=== PATIENT | male | born 1960 | race Caucasian/White ===

== ENCOUNTER → 2021-12-18 12:36 | Outpatient (CLI) | payer MEDICARE, SELFPAY ==
--- NOTE | 2021-12-18 12:39 | CA_ITS ---
FINAL REPORT TECHNIQUE: Color Doppler, duplex Doppler and ramirez scale sonography of the bilateral neck arterial vasculature was performed. Velocities were measured in the carotid arteries. Stenosis evaluation based on the validated velocity criteria. CLINICAL HISTORY: .BILATERAL ATHERECTOMIES JUAN MIGUEL FINDINGS: The peak systolic velocity of the right common carotid artery is 94 cm/s. The peak systolic velocity of the right internal carotid artery is 134 cm/s and end diastolic velocity 30 cm/s. The ICA/CCA ratio is 2.2. A mild-moderate amount of plaque is present. The right external carotid artery is patent. The right vertebral artery is patent with antegrade flow. The peak systolic velocity of the left common carotid artery is 107 cm/s. The peak systolic velocity of the left internal carotid artery is 116 cm/s and end diastolic velocity 32 cm/s. The ICA/CCA ratio is 1.2. A mild-moderate amount of plaque is present. The left external carotid artery is patent.The left vertebral artery is patent with antegrade flow. IMPRESSION: Less than 50% bilateral carotid stenosis. Bilateral patent vertebral arteries with antegrade flow. Reviewed, Interpreted and Dictated by Arsenio Wadsworth III, MD Transcribed by Jazmine Calderon Authenticated and . [facility]
== END ==
PROVIDERS: PCP Internal Medicine Adolescent Medicine; Visit Provider Nurse Practitioner Family
DX: I65.23 Occlusion and stenosis of bilateral carotid arteries (principal)
CPT/HCPCS: 93880

== ENCOUNTER → 2022-01-03 10:30 | Outpatient (CLI) | payer MEDICARE, SELFPAY ==
--- NOTE | 2022-01-03 | CA_ITS ---
APPROVED REPORT Exam: Pharmacologic Technologist: Imelda Donahue, Ht: 6 ft 0 in Wt: 167 lbs BSA: 1.97 m2 HR: 63 bpm BP: 166/71 mmHg Rhythm: NSR, CANNOT R/O OLD SEPTAL SD Indications: SOA,abn EKG Medical History Medical History: HTN, Hyperlipidemia Medications: Aspirin,,,,, Lovastatin,,,,, Vitamin C,,,,, Fish Oil,,,,, Vitamin D3,,,,, Albuterol,,,,, Valsartan,,,,, Pregabalin,,,,, Multivitamin,,,,, Vascepa,,,,, StIOLto,,,,, Allergies: CODEINE, CYCLOBENZAPRINE, STATINS Cardiac Risk Factors: HTN, Hyperlipidemia, FHX of CAD, Smoking Stress Test Details Test: LEXISCAN HR Resting HR: 66 bpm Max Heart Rate (APMHR): 158.063281 bpm Max HR Achieved: 98 bpm Target HR (85% APMHR): 134.850767 bpm % of APMHR: 62.03 Recovery HR: 80 bpm BP Resting BP: 166/71 mmHg Max BP: 166/71 mmHg Recovery BP: 147.0/62.0 mmHg ECG Resting ECG: NSR, CANNOT R/O OLD SEPTAL SD Clinical Exercise duration: 04:01 min Highest Stage Achieved: Exercise capacity: 1.0 METs Stress ECG Conclusion PT HAD BRIED SOA. NO CP. NS ST CHANGES. NON-DIAGNOSTIC LEXISCAN STRESS MYOVIEW IMAGES REPORTED SEPARATELY Test Summary REST 03:36 . . 66 . 166/ 71 . . Stage 1 01:00 . . 88 . . . . Stage 2 01:00 . . 90 . 138/ 62 . . Stage 3 01:00 . . 85 . 128/ 64 . . Stage 4 01:00 . . 83 . 143/ 60 . . Stage 4 01:01 . . 82 . 143/ 60 . Stop exercise at 04:01 RECOVERY 01:00 . . 92 . . . . RECOVERY 02:00 . . 82 . . . . RECOVERY 03:00 . . 77 . 147/ 62 . . RECOVERY 03:21 . . 82 . 147/ 62 . . Electronically signed by : Greg Blanton MD 01/04/2022 09:52:29
--- NOTE | 2022-01-03 10:31 | CA_ITS ---
APPROVED REPORT EXAM: Comprehensive 2D, Doppler, and color-flow Echocardiogram Labor Contract Analyst: Paige Agustin RT(R) Ht: 6 ft 0 in Wt: 167lbs BSA: 1.97 BP: 150/61 mmHg Indications: COPD, smoker, HTN, abn EKG, JUAN MIGUEL bilateral endarterectomies, PAD, peripheral stents. 2D Dimensions LVOT 2.18 cm (M/F) 1.5-2.5 LVEF (Gordon's) 66.90 % M: 52 - 72 LV Volume 79.40 mL M: 62 - 150 LV Volume Index 40.30 mL/m2 M: 34 - 74 LA Volume 29.10 mL LA Volume Index 14.77 mL/m2 (M/F) 16-34 M-Mode Dimensions RVDd 2.41 cm (0.9-2.6) LA Diam 3.83 cm (1.9-4.0) LVDd 5.26 cm (3.5-5.7) Ao Diam 2.81 cm (2.0-3.7) LVDs 4.06 cm (3.5-5.7) IVSd 0.96 cm (0.6-1.1) PWd 0.88 cm (0.6-1.1) EF (Teich) 45.50% FS 22.80% EDV (Teich) 133.00 mL ESV (Teich) 72.50 mL LV Diastology E Decel Time 250.00 (160-240 msec) E/A Ratio 0.91 MED E' 7.30 (< 7 cm/sec) E'/MED E' Ratio 10.82 (>14) LAT E' 7.80 (<10 cm/sec) E/LAT E' Ratio 10.13 (>14) Mitral Valve MV A Velocity 87.00 (40-130 cm/s) E/A Ratio 0.91 MV Decel. Time 250.00 (160-240 ms) Left Ventricle Left atrium is mildly enlarged, left ventricle is normal size mild concentric left ventricular hypertrophy, estimated ejection fraction 55% with no regional wall motion abnormality, grade 1 diastolic dysfunction seen without tissue Doppler evidence of raise left atrial pressure. Right Ventricle Right atrium and right ventricle are normal size and contractility. Aortic Valve Aortic valve is thickened and calcified without aortic stenosis or aortic insufficiency. Mitral Valve Mitral valve is grossly normal, there is trace mitral regurgitation. Tricuspid Valve Tricuspid valve grossly normal, there is trace tricuspid regurgitation, tricuspid regurgitation jet velocity is inadequate for calculation of the right ventricular systolic pressure. Pulmonic Valve Pulmonic valve is poorly visualized. Great Vessels Aortic root is normal size. Inferior vena cava is normal size with normal inspiratory collapse. Pericardium No significant pericardial effusion noted. Conclusion 1. Mildly enlarged left atrium, normal left ventricular size, mild concentric left ventricular hypertrophy, estimated ejection fraction 55% with no regional wall motion abnormality, grade 1 diastolic dysfunction seen without tissue Doppler evidence of raise left atrial pressure. 2. Thickened and calcified aortic valve without aortic stenosis or aortic insufficiency. 3. Trace mitral and tricuspid regurgitation. 4. No significant pericardial effusion noted. 5. Inferior vena cava is normal size with normal inspiratory collapse. Electronically signed by : Greg Blanton MD 01/04/2022 12:24:02
--- NOTE | 2022-01-03 10:31 | US_ITS ---
FINAL REPORT CLINICAL HISTORY: claudication, peripheral stents, current smoker, HTN, hyperlipidemia, bilateral rest pain, PAD. FINDINGS: ANKLE-BRACHIAL PRESSURE INDICES Pressure indices are as follows: RIGHT LOWER EXTREMITY: Ankle-brachial pressure index: 0.74 LEFT LOWER EXTREMITY: Ankle-brachial pressure index: 0.48 CONCLUSION: Mild obstructive peripheral vascular disease of the right lower extremity. Moderate obstructive peripheral vascular disease of the left lower extremity. These results were reported to Orquidea Mccoy APRN by the bulk mail technician at the time of the exam. Reviewed, Interpreted and Dictated by Arsenio Wadsworth III, MD Transcribed by Jazmine Calderon Authenticated and [facility]
--- NOTE | 2022-01-03 11:19 | NM_ITS ---
APPROVED REPORT Exam: Nuclear Stress Test Indication: HTN, HYPERLIPIDEMIA, TOB USE, FM HX., SOB, ABN EKG Patient Location: Outpatient Stress Tech: Imelda Donahue CT Tech:Rafaela Abbott LEONAVivien RT (R)(N)(M) Ht: 6 ft 0 in Wt: 165 lbs HR: 63 bpm BP: 166/71 mmHg BSA: 1.96 m2 TID: 1.12 History: HTN, HYPERLIPIDEMIA, TOB USE, FM HX., SOB, ABN EKG Procedure: Patient received a 0.4 mg of intravenous Lexiscan, resting heart rate 63 bpm, resting blood pressure 166/71 mmHg, with Lexiscan maximum heart rate achived was 90 bpm which is Less than 85 % of the maximum predicted heart rate and blood pressure was 138/62 mmHg. With Lexiscan, patient denied any complaint of chest pain. SOA Electrocardiogram Resting electrocardiogram shows sinus rhythm, with Lexiscan there is less than 1.[address] segment depression noted from the baseline EKG. The EKG portion of the Lexiscan is nondiagnostic. Cardiac Stress and Resting SPECT Images: Cardiac Stress and Resting SPECT images were obtained using technetium 99m Myoview 32.9 mCi stress and 10.05 mCi at rest. Gated SPECT analysis of segmental wall motion and calculation of the ejection fraction also done, prone images were also obtained. Cardiac stress and rest SPECT images show uniform myocardial activity without segmental perfusion abnormality, computer derived ejection fraction is 48% with no regional wall motion abnormality, right ventricle is normal size and contractility. Conclusion: 1. The EKG portion of the Lexiscan is nondiagnostic. 2. No scintigraphic evidence of reversible ischemia seen, computer derived ejection fraction is 48% with no regional wall motion abnormality, right ventricle is normal size and contractility. 3. Normal Lexiscan Myoview study. Electronically signed by : Greg Blanton MD 01/04/2022 09:57:08
== END ==
PROVIDERS: PCP Internal Medicine Adolescent Medicine; Visit Provider Nurse Practitioner
DX: I73.9 Peripheral vascular disease, unspecified (principal); R06.00 Dyspnea, unspecified; R94.31 Abnormal electrocardiogram [ECG] [EKG]
CPT/HCPCS: 78452; 93017; 93306; 93923; A9502; J2785

== ENCOUNTER → 2022-01-11 10:54 | Outpatient (CLI) | payer MEDICARE, SELFPAY ==
[2022-01-11 12:04] LABS: Basophils # 0.1 K/mm3 (0-0.2); Basophils % 0.7 % (0.1-2.0); Eosinophils # 0.3 K/mm3 (0.0-0.4); Hematocrit 43.8 % (42.0-52.0); Hemoglobin 14.3 g/dL (14.1-18.0); Lymphocytes # 2.4 K/mm3 (0.7-4.5); Lymphocytes % 24.3 % (10-50); Mean Corpuscular HGB Conc 32.7 g/dL (31.8-35.4); Mean Corpuscular Volume 94.7 fl (80-94); Mean Platelet Volume 8.2 fl (7.4-10.4); Monocytes # 0.4 K/mm3 (0.1-1.0); Monocytes % 4.3 % (1.7-9.3); Neutrophils # 6.6 K/mm3 (1.8-7.8); Neutrophils % 67.7 % (37.0-80.0); Platelet Count 309 K/mm3 (142-424); Red Blood Count 4.63 M/mm3 (4.60-6.20); Red Cell Distribution Width 14.3 % (11.5-17.5); White Blood Count 9.8 K/mm3 (4.8-10.8)
[2022-01-11 12:54] LABS: Anion Gap 9.5 mEq/L (5-15); Blood Urea Nitrogen 9 mg/dl (9-20); Calcium 9.4 mg/dl (8.4-10.2); Carbon Dioxide 28 mmol/L (22.0-30.0); Chloride 100 mmol/L (98-107); Estimated Glomerular Filt Rate 76 ml/min (>60); GFR (African American) 92 ML/MIN (>60); Glucose 84 mg/dl (74-100); Potassium 4.5 mmoL/L (3.5-5.1); Sodium 133 mmol/L (136-145)
== END ==
PROVIDERS: PCP Internal Medicine Adolescent Medicine; Visit Provider Internal Medicine
DX: Z01.818 Encounter for other preprocedural examination (principal); Z20.822 Contact with and (suspected) exposure to COVID-19
CPT/HCPCS: 36415; 80048; 85025; C9803; U0003; U0005

== ENCOUNTER 2022-01-14 07:22 | Day surgery (SDC) | payer MEDICARE, SELFPAY ==
[2022-01-14] VITALS (41 sets, daily range): BP systolic 94–213; BP diastolic 57–181; PULSE 53–77; RESP 16–18; TEMP 36.5–36.7; O2SAT 94–100; BMI 22.6
--- NOTE | 2022-01-14 | IR_ITS ---
APPROVED REPORT Patient Location: Outpatient PROCEDURES Right femoral arterial access Right femoral artery retrograde angiogram Pigtail catheter in the abdominal aorta Abdominal aortography Bilateral iliofemoral runoff Bare-metal stent deployment to the right common iliac artery Angioplasty to the right external iliac artery INDICATION Kersey claudication class III, Peripheral artery disease, Abnormal ASA Informed consent was obtained prior to the procedure. COMPLICATIONS none Estimated Blood Loss: Less than 10 mls TECHNIQUE 1% lidocaine used anesthetize right groin the right femoral artery was accessed via Salinger technique and a 5 [place] sheath was placed in the right femoral artery. A regular J-wire would not pass through the iliac arteries therefore an advantage wire was advanced. After retrograde angiography of the right femoral artery demonstrated a severe stenosis in the right common iliac artery the 5 [place] sheath was exchanged for Brite tip 6 [place] sheath and therapeutic heparin was administered giving a therapeutic ACT. The pigtail catheter was advanced to the abdominal aorta where abdominal aortography was performed followed by repositioning within bilateral iliofemoral runoff. Following this an 8 mm x 57 mm EV 3 balloon mounted stent was deployed in the right common iliac artery at 12 madan reducing the stenosis. In the external iliac artery there is additional stenoses therefore the same balloon was pulled back and then inflated at 12 madan further post dilating the previous stenoses. After achieving excellent angiographic results apparatus the patient was transferred to the postop putting in stable condition for sheath removal. ANGIOGRAPHIC RESULTS Distal abdominal aorta is stenosed with a 30% eccentric calcified stenosis. Right common iliac artery has an ostial 20 to 30% stenosis which does not have a gradient followed by an additional concentric 70 to 80% stenosis. A stent is identified in the right external iliac artery which is patent in the proximal segment with a mid vessel concentric 50% stenosis. The right common femoral artery is atheromatous with eccentric 30 to 40% stenoses. The right profunda femoris artery is a large widely patent artery. The superficial femoral artery has proximal and mid vessel 50% stenoses with mid vessel 80 and 90% stenoses. The right popliteal artery is patent and provides inline flow to a small posterior tibialis artery anterior tibialis artery and peroneal artery. There appears to be one-vessel runoff into the right foot most likely from the anterior tibialis artery Left common iliac artery has a stent in the proximal segment which is widely patent with minimal in-stent restenosis. The stent extends into the external iliac artery where the stent remains widely patent. The left internal iliac artery is occluded. The left common femoral artery is patent. The left profunda femoris artery is a large widely patent vessel. The right superficial femoral artery is ostially occluded and fills at the level of the popliteal artery via a rich collateral network from the profunda femoris left popliteal artery has mid vessel 50% stenoses and then gives rise to an anterior and posterior tibialis artery and peroneal artery. 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
--- NOTE | 2022-01-14 14:23 | SUR.PHASEII ---
pt scheduled for pt on at 2pm. message relayed to [facility].
--- NOTE | 2022-01-14 19:00 | PC.NURSE ---
PT DOING WELL. TEGADERM TO R FEMORAL DSG CDI, NO DRAINAGE. PT REQUESTING NICOTINE PATCH
--- NOTE | 2022-01-14 21:09 | PC.WOUNDNOTE ---
Entered vital signs based off of post op vital sheet found in room for prior shift.
[2022-01-15] VITALS: BP 146/67; PULSE 84; RESP 16; TEMP 36.6; O2SAT 94
[2022-01-15 04:00] VITALS: BP 149/68; PULSE 83; RESP 16; TEMP 36.6; O2SAT 95
--- NOTE | 2022-01-15 04:17 | PC.NURSE ---
pt has has no c/o pain this shift. right femoral cath site dressing c/d/i. BLE pink and warm +2 pulse strength. he has ambulated to bathroom independently. he remains on RA and has tolerated well. call light within reach, no needs at this time.
[2022-01-15 05:04] VITALS: BMI 21.6
[2022-01-15 06:50] LABS: Basophils # 0.1 K/mm3 (0-0.2); Basophils % 0.8 % (0.1-2.0); Eosinophils # 0.3 K/mm3 (0.0-0.4); Eosinophils % 2.6 % (0.1-12.0); Hemoglobin 14.9 g/dL (14.1-18.0); Lymphocytes # 2.3 K/mm3 (0.7-4.5); Lymphocytes % 22.9 % (10-50); Mean Corpuscular Hemoglobin 30.4 pg (27.0-31.2); Mean Corpuscular Volume 98.2 fl (80-94); Monocytes # 0.6 K/mm3 (0.1-1.0); Monocytes % 5.6 % (1.7-9.3); Neutrophils # 6.8 K/mm3 (1.8-7.8); Neutrophils % 68.1 % (37.0-80.0); Platelet Count 311 K/mm3 (142-424); Red Blood Count 4.89 M/mm3 (4.60-6.20); Red Cell Distribution Width 14.6 % (11.5-17.5); White Blood Count 10.1 K/mm3 (4.8-10.8)
[2022-01-15 06:58] LABS: Alanine Aminotransferase 17 U/L (12-78); Albumin Level 3.8 g/dl (3.5-5.0); Alkaline Phosphatase 151 U/L (38-126); Anion Gap 13.2 mEq/L (5-15); Aspartate Amino Transferase 24 U/L (17-59); Bilirubin,Direct 0.1 mg/dl (0.0-0.4); Bilirubin,Indirect 0.1 mg/dL (0.0-0.9); Bilirubin,Total 0.2 mg/dl (0.2-1.3); Blood Urea Nitrogen 11 mg/dl (9-20); Calcium 8.6 mg/dl (8.4-10.2); Carbon Dioxide 24 mmol/L (22.0-30.0); Chloride 103 mmol/L (98-107); Chol/HDL Ratio 7.4 (1-3.5); Cholesterol 148 mg/dl (140-200); Creatinine Clearance Estimated 65 mL/min (50-200); Estimated Glomerular Filt Rate 61 ml/min (>60); GFR (African American) 74 ML/MIN (>60); Glucose 96 mg/dl (74-100); HDL Cholesterol 20 mg/dl (40-60); Potassium 4.2 mmoL/L (3.5-5.1); Sodium 136 mmol/L (136-145); Total Protein,Serum 6.7 g/dl (6.3-8.2); Triglycerides 209 mg/dl (30-150); VLDL Cholesterol 42 mg/dL (0-40)
[2022-01-15 07:09] LABS: Direct LDL Cholesterol 82.71 mg/dL (100-129)
[2022-01-15 07:25] VITALS: BP 120/59; PULSE 78; RESP 16; TEMP 36.7; O2SAT 95
[2022-01-15 08:00] VITALS: BP 120/59; PULSE 78; RESP 16; TEMP 36.7; O2SAT 94
--- NOTE | 2022-01-15 09:11 | PC.NURSE ---
pt taken out by staff. follow up appt with mirtha made, 01/24/22. home morning meds to be taken at home. instructions given for cath site. no other questions or concerns made by pt.
--- NOTE | 2022-01-15 09:13 | EXP.CARD.PN ---
Subjective Subjective Date: 01/15/22 Time: 08:00 Principal diagnosis: PAD with iliac stenting Interval history: This is a 61-year-old white gentleman who came into the hospital for an outpatient procedure. The patient underwent runoff of the bilateral lower extremities with stenting to the severe right common and external iliac artery and plain old balloon angioplasty. There was also severe disease noted through the right SFA which was small caliber and not suitable for percutaneous nor surgical intervention. He had a chronically occluded left SFA. The patient will remain on aspirin and Plavix for dual antiplatelet therapy. This morning he denies any chest pain or pressure. He denies any shortness of breath or edema. He denies any fever, chills, nausea, vomiting, diarrhea, PND or orthopnea. The patient denies any groin pain and states he feels great. He is ready to go home and get his IV taken out. Runoff shows: Severe right common and external iliac artery disease which was successfully treated with 1 balloon mounted stent and plain old balloon angioplasty(POBA) Severe disease throughout the right superficial femoral artery which is a small caliber vessel and not ideally suitable for percutaneous nor surgical intervention at this time due to its small caliber nature Chronically occluded left superficial femoral artery PLAN 1. Aggressive risk factor modification 2. Avoidance of tobacco products 3. LDL less than 55 to be achieved with high intensity statin 4. Strongly recommend physical therapy in order to improve collateralization of the left SFA occlusion.? Patient has small vessels and is not a good candidate for percutaneous nor surgical intervention.? Given the flush occlusion of the left superficial femoral artery recanalizing the left SFA would be difficult and its patency would be very short-lived given ongoing tobacco usage and the small caliber nature of the vessel 5. Xarelto 2.5 twice daily plus aspirin 81 mg daily Exam Data for Last 24 hours Vital signs and Labs for Last 24 Hours: Temp Pulse Resp BP Pulse Ox 98.1 F 78 16 120/59 L 94 L 01/15/22 08:00 01/15/22 08:00 01/15/22 08:00 01/15/22 08:00 01/15/22 08:00 Laboratory Results - last 24 hr 01/15/22 06:22: WBC 10.1, RBC 4.89, Hgb 14.9, Hct 48.0, MCV 98.2 H, MCH 30.4, MCHC 31.0 L, RDW 14.6, Plt Count 311, MPV 8.0, Neut % (Auto) 68.1, Lymph % (Auto) 22.9, [place] % (Auto) 5.6, Eos % (Auto) 2.6, Baso % (Auto) 0.8, Neut # (Auto) 6.8, Lymph # (Auto) 2.3, [place] # (Auto) 0.6, Eos # (Auto) 0.3, Baso # (Auto) 0.1 01/15/22 06:22: Sodium 136, Potassium 4.2, Chloride 103, Carbon Dioxide 24, Anion Gap 13.2, BUN 11, Creatinine 1.20, Estimated Creat Clear 65, Estimated GFR 61, Est GFR ( Amer) 74, Glucose 96, Calcium 8.6, Total Bilirubin 0.2, Direct Bilirubin 0.1, Conjugated Bilirubin 0.0, Indirect Bilirubin 0.1, Unconjugated Bilirubin 0.0, AST 24, ALT 17, Alkaline Phosphatase 151 H, Total Protein 6.7, Albumin 3.8, Triglycerides 209 H, Cholesterol 148, LDL Cholesterol Direct 82.71 L, VLDL Cholesterol 42 H, HDL Cholesterol 20 L, Cholesterol/HDL Ratio 7.4 H I & O for Last 24 hours: Intake & Output 01/12/22 01/13/22 01/14/22 01/15/22 23:59 23:59 23:59 23:59 Output Total 500 / 500 300 / 300 Balance -500 / -500 -300 / -300 Weight 167 lb 159 lb 9.6 oz Constitutional Constitutional: no acute distress and average body habitus *Routine HEENT Exam Head: Present normocephalic and atraumatic ENT: Present mucous membranes moist *Routine Neck Exam Neck: Present supple, full ROM and normal carotid upstroke; Absent JVD, carotid bruit or lymphadenopathy *Routine Respiratory Exam Respiratory: Present CTA bilaterally, normal respiratory effort, able to speak in complete sentences and symmetric chest movement *Routine Cardiovascular Exam Cardiovascular: Present RRR, Normal S1 and Normal S2; Absent murmur or gallop *Routine Abdominal Exam Abdominal: Present soft and normoactiv
--- NOTE | 2022-01-15 09:14 | P.CONPHA_ITS ---
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
== END 2022-01-15 09:20 | disposition home or self-care (01) ==
LOC: CATHLAB 11:42 → 2ND 13:31 → CATHLAB 13:58 → 2ND 13:59
PROVIDERS: Nurse Practitioner Family; PCP Internal Medicine Adolescent Medicine; Visit Provider Internal Medicine
DX: I70.213 Atherosclerosis of native arteries of extremities with intermittent claudication, bilateral legs (principal); I70.0 Atherosclerosis of aorta; I25.10 Atherosclerotic heart disease of native coronary artery without angina pectoris; I77.1 Stricture of artery; F17.210 Nicotine dependence, cigarettes, uncomplicated; I10 Essential (primary) hypertension; J44.9 Chronic obstructive pulmonary disease, unspecified; E78.5 Hyperlipidemia, unspecified; Z79.899 Other long term (current) drug therapy; Z79.01 Long term (current) use of anticoagulants; Z95.820 Peripheral vascular angioplasty status with implants and grafts
CPT/HCPCS: 36415; 37221; 75625; 80048; 80061; 80076; 85025; 99152; 99153; C1725; C1769; C1876; C1894; J1644; J2720; Q9966

== ENCOUNTER → 2022-05-15 09:35 | Outpatient (CLI) | payer MEDICARE, SELFPAY ==
[2022-05-15 10:46] LABS: Basophils # 0.1 K/mm3 (0-0.2); Basophils % 0.8 % (0.1-2.0); Eosinophils # 0.3 K/mm3 (0.0-0.4); Eosinophils % 4.2 % (0.1-12.0); Hematocrit 47.6 % (42.0-52.0); Lymphocytes # 2.6 K/mm3 (0.7-4.5); Lymphocytes % 32.9 % (10-50); Mean Corpuscular HGB Conc 31.4 g/dL (31.8-35.4); Mean Corpuscular Hemoglobin 30.3 pg (27.0-31.2); Mean Corpuscular Volume 96.5 fl (80-94); Mean Platelet Volume 8.5 fl (7.4-10.4); Monocytes # 0.4 K/mm3 (0.1-1.0); Monocytes % 4.3 % (1.7-9.3); Neutrophils # 4.6 K/mm3 (1.8-7.8); Neutrophils % 57.8 % (37.0-80.0); Platelet Count 409 K/mm3 (142-424); Red Blood Count 4.93 M/mm3 (4.60-6.20); Red Cell Distribution Width 14.9 % (11.5-17.5)
[2022-05-15 11:04] LABS: Alanine Aminotransferase 20 U/L (12-78); Albumin Level 4.7 g/dl (3.5-5.0); Albumin/Globulin Ratio 1.5 (1.1-1.8); Alkaline Phosphatase 105 U/L (38-126); Anion Gap 13.5 mEq/L (5-15); Aspartate Amino Transferase 28 U/L (17-59); Bilirubin,Total 0.5 mg/dl (0.2-1.3); Blood Urea Nitrogen 16 mg/dl (9-20); Calcium 9.2 mg/dl (8.4-10.2); Carbon Dioxide 26 mmol/L (22.0-30.0); Chloride 103 mmol/L (98-107); Chol/HDL Ratio 10.4 (1-3.5); Cholesterol 249 mg/dl (140-200); Estimated Glomerular Filt Rate 56 ml/min (>60); GFR (African American) 67 ML/MIN (>60); Globulin 3.1 g/dL (1.3-3.2); Glucose 99 mg/dl (74-100); HDL Cholesterol 24 mg/dl (40-60); Potassium 4.5 mmoL/L (3.5-5.1); Sodium 138 mmol/L (136-145); Total Protein,Serum 7.8 g/dl (6.3-8.2); Triglycerides 394 mg/dl (30-150); VLDL Cholesterol 79 mg/dL (0-40)
[2022-05-15 11:14] LABS: Direct LDL Cholesterol 131.57 mg/dL (100-129)
[2022-05-15 11:20] LABS: 25-OH Vitamin D, Total 45.1 ng/mL (30-100)
[2022-05-15 11:53] LABS: Vitamin B12 531 pg/mL (239-931)
== END ==
PROVIDERS: PCP Nurse Practitioner Family; Visit Provider Nurse Practitioner Family
DX: Z00.00 Encounter for general adult medical examination without abnormal findings (principal); I10 Essential (primary) hypertension; E78.2 Mixed hyperlipidemia; I73.9 Peripheral vascular disease, unspecified; I65.23 Occlusion and stenosis of bilateral carotid arteries; G25.81 Restless legs syndrome; R53.83 Other fatigue
CPT/HCPCS: 36415; 80053; 80061; 82306; 82607; 85025

== ENCOUNTER → 2022-07-02 14:57 | Outpatient (CLI) | payer MEDICARE, SELFPAY ==
--- NOTE | 2022-07-02 15:07 | XR_ITS ---
FINAL REPORT CLINICAL HISTORY: sciatica and neck pain FINDINGS: Please note these studies were ordered on July 02, 2022 and submitted for interpretation on July 04, 2022. CERVICAL SPINE Five views of the cervical spine were obtained. There is no acute fracture. There is anterolisthesis of C4 on C5 with very mild retrolisthesis of C5 on C6, likely degenerative. There is multilevel disc space narrowing with osteophyte formation which is most pronounced at C5-C6. There are surgical clips in the neck bilaterally. IMPRESSION: Malalignment as above with multilevel disc space narrowing and osteophyte formation. LUMBAR SPINE Four views of the lumbar spine were obtained. There is no acute fracture. There is no malalignment. There is multilevel degenerative disc disease which is most pronounced at L1-2 and L2-3. Vascular stents are noted in the iliac arteries. IMPRESSION: Multilevel degenerative disc disease as above. Reviewed, Interpreted and Dictated by Carmelita Garza MD Transcribed by Jazmine Calderon Authenticated and [facility]
== END ==
LOC: RAD 14:58
PROVIDERS: PCP Nurse Practitioner Family; Visit Provider Nurse Practitioner Family
DX: M54.2 Cervicalgia (principal); M54.32 Sciatica, left side
CPT/HCPCS: 72084

== ENCOUNTER 2022-08-09 23:35 | Emergency (ER) | payer MEDICARE, SELFPAY ==
[2022-08-09 23:36] VITALS: BP 212/88; PULSE 85; RESP 18; TEMP 36.6; O2SAT 99; BMI 22.6
--- NOTE | 2022-08-09 23:39 | ECG_ITS ---
APPROVED REPORT Exam: Resting ECG HR:72 bpm ECG Measurements Heart Rate 72 AXES WI 139 P 70 QRSd 102 QRS 79 QT 355 T 91 QTc 380 Conclusion SINUS RHYTHM SEPTAL MYOCARDIAL INFARCTION , OF INDETERMINATE AGE [40+ ms Q WAVE IN V1/V2] ABNORMAL ECG UNCONFIRMED REPORT Electronically signed by : Sung Drake MD 08/10/2022 20:15:37
--- NOTE | 2022-08-09 23:47 | XR_ITS ---
PROCEDURE INFORMATION: Exam: XR Chest Exam date and time: 08/09/2022 11:51 PM Age: 62 years old Clinical indication: Pain; Chest pressure; Additional info: Chest pain TECHNIQUE: Imaging protocol: Radiologic exam of the chest. Views: 2 views. COMPARISON: CR XR MULTIPLE SPINE 6+V 07/02/2022 3:14 PM FINDINGS: Lungs: Question mild hyperexpansion and hyperlucency with mild diaphragmatic flattening suggesting possible COPD. Pulmonary vasculature grossly normal. No gross pulmonary infiltrates or edema pattern. Mild linear scarring or atelectasis in the right perihilar region. Pleural spaces: No pleural effusion. No pneumothorax. Heart/Mediastinum: Heart size normal. No tracheal/mediastinal shift. Bones/joints: No acute osseous abnormalities are identified. IMPRESSION: 1. No acute thoracic process. 2. Suspect COPD.
[2022-08-09 23:54] LABS: Basophils # 0.1 K/mm3 (0-0.2); Basophils % 0.6 % (0.1-2.0); Eosinophils # 0.5 K/mm3 (0.0-0.4); Eosinophils % 5.3 % (0.1-12.0); Hematocrit 44.4 % (42.0-52.0); Hemoglobin 14.1 g/dL (14.1-18.0); Lymphocytes % 46.4 % (10-50); Mean Corpuscular HGB Conc 31.9 g/dL (31.8-35.4); Mean Corpuscular Hemoglobin 30.7 pg (27.0-31.2); Mean Corpuscular Volume 96.2 fl (80-94); Mean Platelet Volume 7.6 fl (7.4-10.4); Monocytes # 0.4 K/mm3 (0.1-1.0); Monocytes % 4.8 % (1.7-9.3); Neutrophils # 3.7 K/mm3 (1.8-7.8); Neutrophils % 42.9 % (37.0-80.0); Platelet Count 300 K/mm3 (142-424); Red Blood Count 4.61 M/mm3 (4.60-6.20); Red Cell Distribution Width 14.4 % (11.5-17.5); White Blood Count 8.7 K/mm3 (4.8-10.8)
[2022-08-09 23:57] LABS: Chloride 104 mmol/L (98-107)
[2022-08-10] VITALS (9 sets, daily range): BP systolic 167–201; BP diastolic 67–84; PULSE 62–74; RESP 14–20; TEMP 36.6; O2SAT 95–99
[2022-08-10] LABS: Alanine Aminotransferase 18 U/L (12-78); Albumin Level 4.2 g/dl (3.5-5.0); Alkaline Phosphatase 115 U/L (38-126); Aspartate Amino Transferase 27 U/L (17-59); Bilirubin,Direct 0.1 mg/dl (0.0-0.4); Bilirubin,Indirect 0.4 mg/dL (0.0-0.9); Bilirubin,Total 0.5 mg/dl (0.2-1.3); Bilirubin,Unconjugated 0.3 mg/dL (0.0-1.1); Blood Urea Nitrogen 13 mg/dl (9-20); Calcium 8.9 mg/dl (8.4-10.2); Carbon Dioxide 25 mmol/L (22.0-30.0); Creatinine Clearance Estimated 68 mL/min (50-200); Estimated Glomerular Filt Rate 61 ml/min (>60); GFR (African American) 74 ML/MIN (>60); Glucose 105 mg/dl (74-100); Lipase 133 U/L (23-300); Sodium 132 mmol/L (136-145); Total Protein,Serum 7.3 g/dl (6.3-8.2)
--- NOTE | 2022-08-10 | PC.NURSE ---
pt going to xray
--- NOTE | 2022-08-10 00:03 | PC.NURSE ---
pt back in room
[2022-08-10 00:30] LABS: Troponin I < 0.01 ng/ml (0.00-0.034)
--- NOTE | 2022-08-10 00:45 | CT_ITS ---
PROCEDURE INFORMATION: Exam: CT Abdomen And Pelvis With Contrast Exam date and time: 08/10/2022 1:03 AM Age: 62 years old Clinical indication: Abdominal pain; Epigastric; Additional info: Epigastric pain with nausea and HX pvd, no bm 4 da TECHNIQUE: Imaging protocol: Computed tomography of the abdomen and pelvis with contrast. Radiation optimization: All CT scans at this facility use at least one of these dose optimization techniques: automated exposure control; mA and/or kV adjustment per patient size (includes targeted exams where dose is matched to clinical indication); or iterative reconstruction. Contrast material: ISOVUE; Contrast volume: 75 ml; Contrast route: IV; REPORTING DATA: Count of CT and Cardiac NM exams in prior 12 months: This patient has received 0 known CTs and 0 known cardiac nuclear medicine studies in the 12 months prior to the current study. COMPARISON: CR XR CHEST 2V 08/09/2022 11:51 PM FINDINGS: Lungs: Mild atelectasis in the lung bases. Heart: Heart size normal. Mediastinal space: The visualized distal esophagus is largely contracted without gross abnormality. Liver: Granulomatous calcifications in the liver. Normal contour. No mass lesions. No intrahepatic biliary ductal dilatation. Gallbladder and bile ducts: Normal. No calcified stones. No ductal dilation. Pancreas: Normal. No inflammatory changes or ductal dilation. Spleen: Granulomatous calcifications in the spleen without acute splenic abnormality. Adrenal glands: Normal. No adrenal mass. Kidneys and ureters: Mild bilateral symmetrical perinephric stranding which is nonspecific and age indeterminate. This may relate to perirenal scarring or edema. Clinical/laboratory correlation is recommended to exclude evidence of medical renal disease. No hydronephrosis or hydroureter. No urinary tract stones are identified. There are bilateral renal cortical lesions demonstrating low density values and circumscribed margins favoring simple renal cysts for which no further imaging evaluation is required. Stomach and bowel: The stomach is unremarkable. There is mild bowel wall thickening and adjacent stranding involving the 2nd portion of the duodenum suspicious for mild changes of duodenitis. No ulcer crater. No bowel obstruction or perforation. The remainder of the small bowel is nondilated without acute abnormality. There is a moderate amount of stool distributed throughout the colon suggesting constipation. Mild colonic diverticulosis without diverticulitis. Appendix: The appendix is normal in caliber and demonstrates no evidence of appendicitis. Intraperitoneal space: No free fluid or air. Vasculature: Moderate mixed calcific plaque in the abdominal aorta and bilateral iliac vessels with bilateral iliac stents in place. The stents are patent left SFA proximal segment is small and nonenhancing, favoring changes of chronic occlusion. Severe celiac artery origin stenosis estimated at 80-90% due to ostial mixed plaque. Moderate mixed plaque in the post ostial SMA involving a 2 cm segment demonstrating moderate-severe stenosis estimated at 70%. Lymph nodes: No adenopathy. Urinary bladder: The urinary bladder is moderately distended but otherwise unremarkable. Reproductive: Mildly enlarged prostate. Bones/joints: No acute osseous abnormalities. Soft tissues: Small fatty umbilical hernia and small fatty left inguinal hernia. No evidence of associated bowel herniation or strangulation. IMPRESSION: 1. Mild changes of duodenitis involving the 2nd portion of the duodenum. No evidence of ulcer crater, perforation, or bowel obstruction. 2. Moderate colonic s
--- NOTE | 2022-08-10 02:32 | PC.NURSE ---
Patient states that both his indigestion and nausea is better. States his symptoms have resolved.
[2022-08-10 02:55] LABS: Troponin I < 0.01 ng/ml (0.00-0.034)
--- NOTE | 2022-08-10 03:04 | HMH.EDCP ---
Discharge Plan Disposition Patient Disposition: Home, Self-Care Prescriptions Prescriptions: New pantoprazole [Protonix] 40 mg tablet,delayed release (DR/EC) 40 mg PO DAILY 28 Days Qty: 28 0RF No Action valsartan 160 mg tablet 160 mg PO DAILY Stiolto Respimat 2.5-2.5 mcg/actuation mist 2 puff IH DAILY albuterol sulfate 90 mcg/actuation HFA aerosol inhaler 2 puff IH ONCE PRN (Reason: breathing problems) aspirin 81 mg capsule 81 mg PO DAILY ascorbic acid (vitamin C) 500 mg capsule 500 mg PO DAILY cholecalciferol (vitamin D3) 50 mcg (2,000 unit) capsule 50 mcg PO DAILY multivitamin Tablet 1 tab PO DAILY rd-1-[id number]-[id number] oil-vit D3 120 mg-180 mg -1,000 unit capsule 1 cap PO DAILY Referrals Follow up/Referrals: Kimo Craft MD [Staff Physician] - See instructions Provider,MD Jaron [Primary Care Provider] - See instructions Clinical Impressions Clinical Impression: Hypertension, COPD (chronic obstructive pulmonary disease), Smoker, PAD (peripheral artery disease), Mesenteric angina, Celiac artery stenosis, Superior mesenteric artery stenosis, Duodenitis Instructions Patient Instructions: Peripheral Artery Disease Discharge ED Provider: [place] (ED)Brijesh Chest Pain HPI General Chief Complaint: Chest Pain Stated Complaint: midsternal burning in chest for 1 wk Time Seen by Provider: 08/10/22 02:00 Mode of Arrival: Ambulatory Source of Information: Patient and Medical Record Limitations: No Limitations Description of Symptoms (Recalled from ER Triage Doc. by RN): Pt arrives to ED with c/o chest/epigastric pain along with being short of breath for approx 1 week History of Present Illness HPI narrative: over the last week has epigastric type pain- aakash after meals - has known pad and uses tob only med is asa and valsartan complaint: chest pain indicative of cardiac Onset (ago): day(s) Duration: intermittent Activity at onset: during rest Pain location: epigastric Severity: moderate Risk Factors for CAD: Hypertension, Family Hx of CAD and Smoking Treatments prior to or on arrival for Cardiac Chest Pain: none THOMPSON Score for Non-Stemi Age of Patient: 60-69 years old Heart Rate: 50-69 bpm Systolic Blood Pressure: 160-199 mmHg Serum Creatinine: 1.20-1.59 mg/dl CHF Killip Class: I-No CHF Other Risk Factors: None Non-Stemi Risk Score: 81 Risk Stratification: 1-108 = Low Risk Related Data Home Medications Medication Instructions Recorded Confirmed albuterol sulfate 90 mcg/actuation 2 puff inhalation ONCE PRN 12/24/21 08/10/22 aerosol inhaler breathing problems ascorbic acid (vitamin C) 500 mg 500 mg PO DAILY . 12/24/21 08/10/22 capsule aspirin 81 mg capsule 81 mg PO DAILY . 12/24/21 08/10/22 cholecalciferol (vitamin D3) 50 50 mcg PO DAILY Supplement 12/24/21 08/10/22 mcg (2,000 unit) capsule multivitamin 1 tab PO DAILY . 12/24/21 08/10/22 omega-3-dha 120 mg-epa 180 mg-fish 1 cap PO DAILY . 12/24/21 08/10/22 oil-vitamin D3 1,000 unit capsule tiotropium 2.5 mcg-olodaterol 2.5 2 puff inhalation DAILY . 12/24/21 08/10/22 mcg/actuation mist for inhalation (Stiolto Respimat) valsartan 160 mg tablet 160 mg PO DAILY . 12/24/21 08/10/22 Previous Rx's Medication Instructions Recorded pantoprazole 40 mg tablet,delayed 40 mg PO DAILY 4 weeks #28 tabs 08/10/22 release (Protonix) Allergies Allergy/AdvReac Type Severity Reaction Status Date / Time codeine AdvReac Verified 07/25/22 10:19 cyclobenzaprine AdvReac Verified 07/25/22 10:19 [From Flexeril] Xrmvudy-[id number]-[id number] Reductase AdvReac Verified 07/25/22 10:19 Inhibitor PFSH [facility] Disclaimer: The information contained in this section may have been updated after the patient was seen, as this information can be updated by other users. Medical History COPD (chronic obstructive pulmonary disease) Coronary artery calcification seen on CAT scan Hyperlipidemia
== END 2022-08-10 03:54 | disposition home or self-care (01) ==
PROVIDERS: Emergency Provider Emergency Medicine; PCP Nurse Practitioner Family
DX: I73.9 Peripheral vascular disease, unspecified (principal); K55.1 Chronic vascular disorders of intestine; I77.4 Celiac artery compression syndrome; K29.80 Duodenitis without bleeding; R07.89 Other chest pain; J44.9 Chronic obstructive pulmonary disease, unspecified; I10 Essential (primary) hypertension; F17.210 Nicotine dependence, cigarettes, uncomplicated; R94.31 Abnormal electrocardiogram [ECG] [EKG]
CPT/HCPCS: 71046; 74177; 80048; 80076; 83690; 84484; 85025; 93005; 96361; 96374; 96375; 99285; J2405; Q9967

== ENCOUNTER 2022-08-14 07:19 | Day surgery (SDC) | payer MEDICARE, SELFPAY ==
[2022-08-14] VITALS (14 sets, daily range): BP systolic 117–156; BP diastolic 53–80; PULSE 52–63; RESP 16–18; TEMP 36.5–36.9; O2SAT 94–99; BMI 22.6
--- NOTE | 2022-08-14 07:12 | IR_ITS ---
APPROVED REPORT Patient Location: Outpatient PROCEDURES Selective engagement of the celiac artery Selective celiac artery angiogram Bare-metal stent deployment to the ostial proximal celiac artery INDICATION Celiac artery stenosis, Symptomatic mesenteric ischemia, Informed consent was obtained prior to the procedure. COMPLICATIONS None Estimated Blood Loss: Less than 10 mls TECHNIQUE One percent lidocaine used to anesthetize the right anterior aspect of the wrist. The right radial artery was accessed via the Seldinger technique. A 6 Hungarian sheath was placed in the right radial artery. 150 mg magnesium sulfate, 800 mcg of nitroglycerin, 1mg Lidocaine and 5000 U Heparin were given through the arterial sheath. A 110 cm Poppa catheter was used to perform selective engagement of the celiac artery. Once the severe stenosis was identified therapeutic Was administered giving a therapeutic ACT and a 300 cm Choice PT extra-support wire was placed into the celiac artery. A 7 mm x 15 mm Herculink stent was deployed at 14 madan and then postdilated at 24 madan using the same balloon. Excellent angiographic results were obtained with severe stenosis being reduced to 0% with 1 bare-metal stent at the end of the procedure the apparatus was removed the sheath was removed and hemostasis was achieved using TR banding patient was transferred to the postop putting in stable condition ANGIOGRAPHIC RESULTS Celiac artery has an ostial concentric 90% stenosis IMPRESSION Severe to critical celiac artery stenosis Successful stenting of the celiac artery severe to critical disease reduced to 0% with wire and bare-metal balloon mounted stent PLAN 1. Dual antiplatelet therapy for 1 month then discontinue Plavix 2. If patient continues to experience persistent symptoms we will consider evaluating the superior mesenteric artery. Given the severity and critical stenosis nature of the stenosis this is almost certainly the etiology for patient's symptoms Electronically signed by : Kimo Craft MD 08/14/2022 15:02:05
--- NOTE | 2022-08-14 13:07 | P.CONPHA_ITS ---
PHA Cement Tester Assistant Discharge Med Teacher Physically Impaired: Karla Gavin Michaud has received discharge medication counseling on the following medications: ASPIRIN 81 MG DAILY CLOPIDOGREL 75 MG DAILY BISOPROLOL 10 MG DAILY VALSARTAN 160 MG DAILY PATIENT WITH ADVERSE REACTION TO STATINS IN THE PAST. RECOMMENDED PATIENT DISCUSS LEQVIO WITH PROVIDER.
[2022-08-14 13:50] LABS: CATHL Activated Clotting Time 264 SEC (74-125)
== END 2022-08-14 13:30 | disposition home or self-care (01) ==
PROVIDERS: PCP Nurse Practitioner Family; Visit Provider Internal Medicine
DX: I77.1 Stricture of artery (principal); I25.84 Coronary atherosclerosis due to calcified coronary lesion; F17.210 Nicotine dependence, cigarettes, uncomplicated; Z79.899 Other long term (current) drug therapy; Z79.02 Long term (current) use of antithrombotics/antiplatelets; I25.10 Atherosclerotic heart disease of native coronary artery without angina pectoris; J44.9 Chronic obstructive pulmonary disease, unspecified; I10 Essential (primary) hypertension
CPT/HCPCS: 37236; 85347; 99152; 99153; C1725; C1769; C1876; J1644; Q9967

== ENCOUNTER 2022-08-18 10:03 | Inpatient (IN) | payer MEDICARE, SELFPAY ==
[2022-08-18] VITALS (14 sets, daily range): BP systolic 83–161; BP diastolic 41–59; PULSE 59–77; RESP 16–22; TEMP 36.5–37.2; O2SAT 94–100; BMI 22.6; BMI 22.1
--- NOTE | 2022-08-18 10:16 | CT_ITS ---
PROCEDURE INFORMATION: Exam: CTA Abdomen and Pelvis With Contrast Exam date and time: 08/18/2022 11:16 AM Age: 62 years old Clinical indication: Other: Blood in stool; Patient HX: PT had stent placed last week; Additional info: Concern for mesenteric ischemia S/P stenting TECHNIQUE: Imaging protocol: Computed tomographic angiography of the abdomen and pelvis with contrast. 3D rendering (Not supervised by radiologist): MIP and/or 3D reconstructed images were created by the technologist. Radiation optimization: All CT scans at this facility use at least one of these dose optimization techniques: automated exposure control; mA and/or kV adjustment per patient size (includes targeted exams where dose is matched to clinical indication); or iterative reconstruction. Contrast material: ISOVUE; Contrast volume: 100 ml; Contrast route: INTRAVENOUS (IV); REPORTING DATA: Count of CT and Cardiac NM exams in prior 12 months: This patient has received 2 known CTs and 0 known cardiac nuclear medicine studies in the 12 months prior to the current study. COMPARISON: CT ABDOMEN PELVIS W CON 08/10/2022 1:03 AM FINDINGS: Aorta: Moderate to severe atherosclerotic calcification. No aortic aneurysm. No aortic dissection. Celiac trunk and mesenteric arteries: Interval placement of celiac artery stent. Stent appears patent with celiac artery distal to the stent well opacified. Moderate to severe stenosis of the proximal superior mesenteric artery (approximately 70%), as seen on previous exam. Renal arteries: No occlusion or significant stenosis on the right. Short-segment moderate to high-grade stenosis at the left renal artery ostium. Iliac/femoral arteries: Stents evident within both common iliac and external iliac arteries. Occlusion of the left femoral artery again noted. Left profunda patent. Liver: No mass. Gallbladder and bile ducts: Unremarkable. No calcified stones. No ductal dilation. Pancreas: Unremarkable. No mass. No ductal dilation. Spleen: Unremarkable. No splenomegaly. Adrenal glands: Unremarkable. No mass. Kidneys and ureters: Stable mild and symmetrical perinephric stranding. No solid mass. No hydronephrosis. Stomach and bowel: Unremarkable. No obstruction. No mucosal thickening. Appendix: No evidence of appendicitis. Intraperitoneal space: No CT evidence of mesenteric ischemia. Lymph nodes: Unremarkable. No enlarged lymph nodes. Urinary bladder: Unremarkable. No mass. Reproductive: Unremarkable as visualized. Bones/joints: No acute fracture. Soft tissues: Unremarkable. IMPRESSION: 1. Interval placement of celiac artery stent. Stent appears patent with celiac artery distal to the stent well opacified. 2. Moderate to severe stenosis of the proximal superior mesenteric artery (approximately 70%), as seen on previous exam. 3. No CT evidence of mesenteric ischemia. 4. Stents evident within both common iliac and external iliac arteries. Occlusion of the left femoral artery again noted. Left profunda patent.
--- NOTE | 2022-08-18 10:16 | CT_ITS ---
PROCEDURE INFORMATION: Exam: CTA Chest With Contrast Exam date and time: 08/18/2022 11:16 AM Age: 62 years old Clinical indication: Shortness of breath and other: Blood in stool; Prior surgery; Surgery date: 3-7 days post-operative; Surgery type: Stent placed last week; Additional info: Chest pain--concern for mesenteric ischemia S/P stenting TECHNIQUE: Imaging protocol: Computed tomographic angiography of the chest with contrast. 3D rendering (Not supervised by radiologist): MIP and/or 3D reconstructed images were created by the technologist. Radiation optimization: All CT scans at this facility use at least one of these dose optimization techniques: automated exposure control; mA and/or kV adjustment per patient size (includes targeted exams where dose is matched to clinical indication); or iterative reconstruction. Contrast material: ISOVUE; Contrast volume: 100 ml; Contrast route: INTRAVENOUS (IV); REPORTING DATA: Count of CT and Cardiac NM exams in prior 12 months: This patient has received 2 known CTs and 0 known cardiac nuclear medicine studies in the 12 months prior to the current study. COMPARISON: CR XR CHEST 2V 08/09/2022 11:51 PM FINDINGS: Pulmonary arteries: Normal. No pulmonary emboli. Aorta: Unremarkable. No aortic aneurysm. No aortic dissection. Lungs: Unremarkable. No consolidation. No masses. Pleural spaces: Unremarkable. No pneumothorax. No pleural effusion. Heart: Unremarkable. No cardiomegaly. No pericardial effusion. Lymph nodes: Unremarkable. No enlarged lymph nodes. Bones/joints: Unremarkable. No acute fracture. Soft tissues: Unremarkable. Other findings: Previous granulomatous exposure. IMPRESSION: No acute findings.
--- NOTE | 2022-08-18 10:21 | HMH.EDGENADL ---
Discharge Plan Disposition Patient Disposition: Admitted As Inpatient Clinical Impressions Clinical Impression: Acute upper GI bleed Discharge ED Provider: Glen Melissa General Adult HPI General Chief complaint: GI Bleed Stated complaint: postop08/14, stool is black, nausea, dizzy,abd pain Time Seen by Provider: 08/18/22 10:10 History of Present Illness HPI narrative: Patient is a 62-year-old male with past medical history of recent stenting for superior mesenteric artery stenosis who presents with concern for mild abdominal pain and melena. He reports that he has been having some pain postoperatively but that his abdominal pain has mildly improved since Friday. He says that he decided to come in today because he started to have melena and he was concerned that something may be wrong with his recent surgery. He was recently started on Plavix. He says that he is a little bit nauseous. Denies any syncopal events. Denies any shortness of breath. Does complain of some epigastric pain intermittently. He did have a CT recently that did show some ulcerations in the second part of the duodenum. Related Data Home Medications Medication Instructions Recorded Confirmed albuterol sulfate 90 mcg/actuation 2 puff inhalation ONCE PRN 12/24/21 08/14/22 aerosol inhaler breathing problems ascorbic acid (vitamin C) 500 mg 500 mg PO DAILY Supplement 12/24/21 08/18/22 capsule cholecalciferol (vitamin D3) 50 50 mcg PO DAILY Supplement 12/24/21 08/18/22 mcg (2,000 unit) capsule multivitamin 1 tab PO DAILY Supplement 12/24/21 08/18/22 omega-3-dha 120 mg-epa 180 mg-fish 1 cap PO DAILY Supplement 12/24/21 08/18/22 oil-vitamin D3 1,000 unit capsule tiotropium 2.5 mcg-olodaterol 2.5 2 puff inhalation DAILY COPD 12/24/21 08/18/22 mcg/actuation mist for inhalation (Stiolto Respimat) valsartan 160 mg tablet 160 mg PO DAILY High blood pressure 08/12/22 08/18/22 bisoprolol fumarate 10 mg tablet 10 mg PO DAILY High blood pressure 08/14/22 08/18/22 pantoprazole 40 mg tablet,delayed 40 mg PO DAILY Reflux/Acid reflux 04/12/23 04/16/23 release (Protonix) aspirin 81 mg tablet,delayed 81 mg PO DAILY Heart disease 08/18/22 08/18/22 release atorvastatin 20 mg tablet 20 mg PO HS Cholesterol 08/18/22 08/18/22 clopidogrel 75 mg tablet (Plavix) 75 mg PO DAILY Blood thinner 08/18/22 08/18/22 gabapentin 300 mg capsule 300 mg PO HS Restless leg 08/18/22 08/18/22 Previous Rx's Medication Instructions Recorded promethazine 25 mg tablet 25 mg PO Q12H PRN nausea and 08/12/22 vomiting #30 tabs Allergies Allergy/AdvReac Type Severity Reaction Status Date / Time codeine AdvReac Verified 08/12/22 09:58 cyclobenzaprine AdvReac Verified 08/12/22 09:58 [From Flexeril] Bjhrzqu-KBP-CkA Reductase AdvReac Verified 08/12/22 09:58 [facility] Disclaimer: The information contained in this section may have been updated after the patient was seen, as this information can be updated by other users. Medical History COPD (chronic obstructive pulmonary disease) Coronary artery calcification seen on CAT scan Hyperlipidemia Hypertension PAD (peripheral artery disease) Smoker Surgical History S/P insertion of iliac artery stent Social History Smoking Status: Current every day smoker alcohol intake: former substance use type: denies use current occupational status: other Travel in the last 8 weeks: Inside the [place] ROS Obtained: Yes All systems reviewed & no additional complaints except as documented Physical Exam General General appearance: alert and in no apparent distress Head Head exam: atraumatic, normocephalic and normal inspection Eye Eye exam: Present normal appearance and PERRL ENT ENT exam: Present normal exam, mucous membranes moist and normal external ear exam Neck Ne
--- NOTE | 2022-08-18 10:23 | PC.NURSE ---
wade rounding on pt
--- NOTE | 2022-08-18 10:37 | ECG_ITS ---
APPROVED REPORT Exam: Resting ECG HR:63 bpm ECG Measurements Heart Rate 63 AXES VA 140 P 72 QRSd 98 QRS 81 QT 353 T 85 QTc 360 Conclusion SINUS RHYTHM ANTEROSEPTAL MYOCARDIAL INFARCTION , Old changes UNCONFIRMED REPORT Electronically signed by : Sung Drake MD 08/19/2022 20:36:07
--- NOTE | 2022-08-18 10:47 | PC.NURSE ---
spoke with jose in pharmacy that states phenergan and LR can run together on pt.
[2022-08-18 10:50] LABS: Basophils % 0.3 % (0.1-2.0); Eosinophils # 0.2 K/mm3 (0.0-0.4); Eosinophils % 2.1 % (0.1-12.0); Hematocrit 34.4 % (42.0-52.0); Hemoglobin 11.3 g/dL (14.1-18.0); Lymphocytes # 1.9 K/mm3 (0.7-4.5); Lymphocytes % 19.4 % (10-50); Mean Corpuscular HGB Conc 32.7 g/dL (31.8-35.4); Mean Corpuscular Hemoglobin 31.1 pg (27.0-31.2); Mean Corpuscular Volume 94.9 fl (80-94); Mean Platelet Volume 7.6 fl (7.4-10.4); Monocytes # 0.3 K/mm3 (0.1-1.0); Monocytes % 3.2 % (1.7-9.3); Neutrophils # 7.1 K/mm3 (1.8-7.8); Platelet Count 340 K/mm3 (142-424); Red Blood Count 3.63 M/mm3 (4.60-6.20); White Blood Count 9.5 K/mm3 (4.8-10.8)
[2022-08-18 10:54] LABS: Chloride 105 mmol/L (98-107); Sodium 134 mmol/L (136-145)
[2022-08-18 10:57] LABS: Alanine Aminotransferase 15 U/L (12-78); Alkaline Phosphatase 81 U/L (38-126); Aspartate Amino Transferase 22 U/L (17-59); Bilirubin,Total 0.2 mg/dl (0.2-1.3); Blood Urea Nitrogen 46 mg/dl (9-20); Carbon Dioxide 23 mmol/L (22.0-30.0); Creatinine Clearance Estimated 62 mL/min (50-200); Estimated Glomerular Filt Rate 56 ml/min (>60); GFR (African American) 67 ML/MIN (>60); Lipase 105 U/L (23-300)
[2022-08-18 10:58] LABS: Albumin Level 3.6 g/dl (3.5-5.0); Albumin/Globulin Ratio 1.2 (1.1-1.8); Calcium 8.5 mg/dl (8.4-10.2); Globulin 2.9 g/dL (1.3-3.2); Glucose 89 mg/dl (74-100); Total Protein,Serum 6.5 g/dl (6.3-8.2)
[2022-08-18 10:59] LABS: Lactic Acid 0.8 mmol/L (0.7-2.1)
[2022-08-18 11:03] LABS: C-Reactive Protein 31.1 mg/L (0-4)
[2022-08-18 11:10] LABS: Anion Gap 12.4 mEq/L (5-15); Potassium 6.4 mmoL/L (3.5-5.1)
--- NOTE | 2022-08-18 11:14 | PC.NURSE ---
called lab for recollect of potassium
[2022-08-18 11:15] LABS: Troponin I < 0.01 ng/ml (0.00-0.034)
--- NOTE | 2022-08-18 11:31 | PC.NURSE ---
ghada rounding on pt
--- NOTE | 2022-08-18 11:31 | PC.NURSE ---
lab at the bedside to collect
[2022-08-18 11:36] LABS: INR 0.99 (0.9-1.1); Prothrombin Time 10.7 seconds (10.1-12.5)
[2022-08-18 11:42] LABS: Potassium 6.7 mmoL/L (3.5-5.1)
--- NOTE | 2022-08-18 11:52 | PC.NURSE ---
covid swab sent to lab
[2022-08-18 12:03] LABS: Coronavirus 19, PCR Not Detected (NotDetected); Influenza A, PCR Not Detected (NotDetected); Influenza B, PCR Not Detected (NotDetected)
--- NOTE | 2022-08-18 12:35 | PC.NURSE ---
speaking to dr Drake
--- NOTE | 2022-08-18 13:12 | PC.NURSE ---
report called to chong hyman rn
--- NOTE | 2022-08-18 13:26 | PC.NURSE ---
patient arrived to the floor at 13:25
--- NOTE | 2022-08-18 13:45 | PC.NURSE ---
transported pt to room, pt went to stand when he became diaphoretic , dizzy and weak, sat pt back in the wheelchair, VSS at this time, glucose reading of 49, dextrose given IV, rechecked 5 minutes later with a reading of 242, pt transferred to the bed, pt stating that he feels better. Primary nurse Scottie at bs with linoleum floor installer during episode and at bs upon my departing.
[2022-08-18 14:12] LABS: Glucose,Random 91 mg/dL (74-100)
[2022-08-18 14:26] LABS: Troponin I < 0.01 ng/ml (0.00-0.034)
--- NOTE | 2022-08-18 14:36 | HMH.PHAINT1 ---
Pharmacy Intervention Comments: MEDICATION RECONCILIATION COMPLETE USING LIST FROM RECENT CARDIOLOGY OFFICE VISIT (07/2022) AND EXTERNAL PHARMACY FILL HISTORY, AND PATIENT INTERVIEW (ASKED HOW HE TAKES ALBUTEROL INHALER).
[2022-08-18 15:25] LABS: POC Glucose,Bedside 242 (70-110)
[2022-08-18 17:04] LABS: Chloride 108 mmol/L (98-107); Potassium 5.2 mmoL/L (3.5-5.1); Sodium 133 mmol/L (136-145)
[2022-08-18 17:05] LABS: Basophils % 0.1 % (0.1-2.0); Eosinophils % 0.2 % (0.1-12.0); Hematocrit 25.7 % (42.0-52.0); Lymphocytes # 1.6 K/mm3 (0.7-4.5); Lymphocytes % 9.4 % (10-50); Mean Corpuscular HGB Conc 32.7 g/dL (31.8-35.4); Mean Corpuscular Hemoglobin 31.4 pg (27.0-31.2); Mean Corpuscular Volume 95.8 fl (80-94); Monocytes # 0.4 K/mm3 (0.1-1.0); Monocytes % 2.3 % (1.7-9.3); Neutrophils # 15.3 K/mm3 (1.8-7.8); Neutrophils % 88.1 % (37.0-80.0); Platelet Count 268 K/mm3 (142-424); Red Blood Count 2.68 M/mm3 (4.60-6.20); Red Cell Distribution Width 14.2 % (11.5-17.5); White Blood Count 17.3 K/mm3 (4.8-10.8)
[2022-08-18 17:07] LABS: Anion Gap 9.2 mEq/L (5-15); Blood Urea Nitrogen 49 mg/dl (9-20); Carbon Dioxide 21 mmol/L (22.0-30.0); Creatinine Clearance Estimated 66 mL/min (50-200); Estimated Glomerular Filt Rate 61 ml/min (>60); GFR (African American) 74 ML/MIN (>60)
[2022-08-18 17:08] LABS: Calcium 8.2 mg/dl (8.4-10.2); Glucose 95 mg/dl (74-100)
[2022-08-18 17:14] LABS: Hemoglobin 8.4 g/dL (14.1-18.0)
[2022-08-18 17:16] LABS: MANUAL DIFFERENTIAL MANUAL DIFFERENTIAL (MANUAL DIFF)
[2022-08-18 17:21] LABS: Troponin I < 0.01 ng/ml (0.00-0.034)
[2022-08-18 19:22] LABS: Lymphocytes % 8 % (10-50); Neutrophils % 92 % (42-76); Platelet Estimate Normal; Total Cells Counted 100
[2022-08-18 19:27] LABS: Rouleaux 1+
[2022-08-19] VITALS (36 sets, daily range): BP systolic 85–160; BP diastolic 48–75; PULSE 65–91; RESP 12–18; TEMP 36.1–37.3; O2SAT 92–98; BMI 22.5
[2022-08-19 00:17] LABS: POC Glucose,Bedside 188 (70-110)
--- NOTE | 2022-08-19 01:28 | PC.NURSE ---
Addendum entered by Sebastian Gomez RN 08/19/22 06:57: Dr. Drake returned communication with orders for stat H and H and to transfuse 2 units PRBCs. Pt is currently on second bag without observed reactions. Addendum entered by Sebastian Gomez RN 08/19/22 01:30: Lucas dark blood in stool x three since 7pm. Original Note: Patient up to bathroom, called for assistance c/o dizziness and numbness. BS obtained 188, Dr. Drake contacted for stat H and H and to transfuse 2 unit PRBC. Consent obtained from patient. Awaiting on lab to be drawn and results.
[2022-08-19 01:58] LABS: Hematocrit 21.1 % (42.0-52.0)
--- NOTE | 2022-08-19 06:04 | EXP.SURG.CON ---
History of Present Illness *Admission Date: 08/18/22 *Reason for visit:: Black stool *History of present illness: Patient is a 62-year-old male smoker with history of hypertension, COPD, chronic arterial occlusive disease. He has a history of bleeding ulcers and managed [id number] and 2017 and 2019 according to him. He had presented to the emergency department on 08/10/2022 with a 1 week history of complaints of epigastric pain along with symptoms of indigestion and nausea. 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 He was placed on Plavix. He presented back to the emergency department on 08/18/2022 with some mild abdominal pain and development of melena with some nausea. CT scan revealed patent stents. He was found to have a hemoglobin of 11.3. Hemoglobin was 14.1 on 08/09/2022. Patient was admitted for inpatient management and surgical consultation was obtained. Overnight his hemoglobin has diminished to 8.4 and subsequently to 7.0. He denies abdominal pain. His main complaint is wanting a nicotine patch as he is a heavy smoker. [facility] Disclaimer: The information contained in this section may have been updated after the patient was seen, as this information can be updated by other users. Medical History COPD (chronic obstructive pulmonary disease) Coronary artery calcification seen on CAT scan Hyperlipidemia Hypertension PAD (peripheral artery disease) Smoker Surgical History S/P insertion of iliac artery stent Social History Smoking Status: Current every day smoker alcohol intake: former substance use type: denies use current occupational status: other Travel in the last 8 weeks: Inside the [facility] Meds Home Medications and Allergies Home Medications Medication Instructions Recorded Confirmed Type albuterol sulfate 90 mcg/actuation 2 puff inhalation Q4HP PRN 12/24/21 08/18/22 History aerosol inhaler Shortness Of Breath ascorbic acid (vitamin C) 500 mg 500 mg PO DAILY Supplement 12/24/21 08/18/22 History capsule cholecalciferol (vitamin D3) 50 50 mcg PO DAILY Supplement 12/24/21 08/18/22 History mcg (2,000 unit) capsule multivitamin 1 tab PO DAILY Supplement 12/24/21 08/18/22 History omega-3-dha 120 mg-epa 180 mg-fish 1 cap PO DAILY Supplement 12/24/21 08/18/22 History oil-vitamin D3 1,000 unit capsule tiotropium 2.5 mcg-olodaterol 2.5 2 puff inhalation DAILY COPD 12/24/21 08/18/22 History mcg/actuation mist for inhalation (Stiolto Respimat) valsartan 160 mg tablet 160 mg PO DAILY High blood pressure 08/12/22 08/18/22 History bisoprolol fumarate 10 mg tablet 10 mg PO DAILY High blood pressure 08/14/22 08/18/22 History pantoprazole 40 mg tablet,delayed 40 mg PO DAILY Reflux/Acid reflux 08/14/22 08/18/22 History release (Protonix) aspirin 81 mg tablet,delayed 81 mg PO DAILY Heart disease 08/18/22 08/18/22 History release atorvastatin 20 mg tablet 20 mg PO HS Cholesterol 08/18/22 08/18/22 History clopidogrel 75 mg tablet (Plavix) 75 mg PO DAILY Blood thinner 08/18/22 08/18/22 History gabapentin 300 mg capsule 300 mg PO HS Restless leg 08/18/22 08/18/22 History promethazine 25 mg tablet 25 mg PO Q12HP PRN Nausea 08/18/22 08/18/22 History New Prescriptions to Start Prescriptions: Allergies Allergy/AdvReac Type Severity Reaction Status Date / Time codeine AdvReac Verified 08/12/22 09:58 cyclobenzaprine AdvReac Verified 08/12/22 09:58 [From Flexeril] Xssmpfv-[id number]-FfV Reductase AdvReac Verified 08/12/22 09:58 Inhibitor Exam (Inpt) Vital signs and Labs for Last 24 Hours: Temp Pulse Resp BP Pulse Ox 98.5 F 67 16 144/64 H 96 08/19/22 05:55 08/19/22 05:55 08/19/22 05:55 08/19/22 05:55 08/19/22 05:55 Laboratory Results -
--- NOTE | 2022-08-19 08:35 | EXP.HP ---
History of Present Illness *Admission Date: 08/18/22 *History of present illness: Patient is a 62-year-old male smoker with history of hypertension, COPD, chronic arterial occlusive disease. He has a history of bleeding ulcers and managed [id number] and 2017 and 2019 according to him. He had presented to the emergency department on 08/10/2022 with a 1 week history of complaints of epigastric pain along with symptoms of indigestion and nausea. 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 He was referred to cardiology from the emergency department and underwent stent placement in the celiac artery that was uncomplicated but was placed on DAPT therapy at that point. Of note he has a long history of peripheral vascular disease, cerebrovascular disease and coronary atherosclerosis. His most recent stent placement prior to this was in 2019 and he had been on aspirin only since that time. He presented back to the emergency department on 08/18/2022 with some mild abdominal pain and development of melena with some nausea. CT scan revealed patent stents. He was found to have a hemoglobin of 11.3. Hemoglobin was 14.1 on 08/09/2022. Patient was admitted for inpatient management and surgical consultation was obtained. Overnight his hemoglobin has diminished to 8.4 and subsequently to 7.0. He denies abdominal pain. His main complaint is wanting a nicotine patch as he is a heavy smoker. Of note, patient denies alcohol use since 2019 He has a history of ulcer disease, has been on Protonix on a daily basis and reports that he has been compliant with this. [facility] Disclaimer: The information contained in this section may have been updated after the patient was seen, as this information can be updated by other users. Medical History COPD (chronic obstructive pulmonary disease) Coronary artery calcification seen on CAT scan Hyperlipidemia Hypertension PAD (peripheral artery disease) Smoker Surgical History S/P insertion of iliac artery stent Social History Smoking Status: Current every day smoker alcohol intake: former substance use type: denies use current occupational status: other Travel in the last 8 weeks: Inside the [place] Review of Systems Review of Systems Review of systems:: pertinent systems reviewed and negative unless documented below Meds Home Medications and Allergies Home Medications Medication Instructions Recorded Confirmed Type albuterol sulfate 90 mcg/actuation 2 puff inhalation Q4HP PRN 12/24/21 08/18/22 History aerosol inhaler Shortness Of Breath ascorbic acid (vitamin C) 500 mg 500 mg PO DAILY Supplement 12/24/21 08/18/22 History capsule cholecalciferol (vitamin D3) 50 50 mcg PO DAILY Supplement 12/24/21 08/18/22 History mcg (2,000 unit) capsule multivitamin 1 tab PO DAILY Supplement 12/24/21 08/18/22 History omega-3-dha 120 mg-epa 180 mg-fish 1 cap PO DAILY Supplement 12/24/21 08/18/22 History oil-vitamin D3 1,000 unit capsule tiotropium 2.5 mcg-olodaterol 2.5 2 puff inhalation DAILY COPD 12/24/21 08/18/22 History mcg/actuation mist for inhalation (Stiolto Respimat) valsartan 160 mg tablet 160 mg PO DAILY High blood pressure 08/12/22 08/18/22 History bisoprolol fumarate 10 mg tablet 10 mg PO DAILY High blood pressure 08/14/22 08/18/22 History pantoprazole 40 mg tablet,delayed 40 mg PO DAILY Reflux/Acid reflux 08/14/22 08/18/22 History release (Protonix) aspirin 81 mg tablet,delayed 81 mg PO DAILY Heart disease 08/18/22 08/18/22 History release atorvastatin 20 mg tablet 20 mg PO HS Cholesterol 08/18/22 08/18/22 History clopidogrel 75 mg tablet (Plavix) 75 mg PO DAILY PLATELET INHIBITOR 08/18/22 08/18/22 History gabapentin 300 mg capsule 300 mg PO HS Restless
[2022-08-19 08:57] LABS: Eosinophils # 0.1 K/mm3 (0.0-0.4); Monocytes # 0.4 K/mm3 (0.1-1.0); Red Blood Count 3.05 M/mm3 (4.60-6.20)
[2022-08-19 09:05] LABS: Basophils % 0.4 % (0.1-2.0); Eosinophils % 1.3 % (0.1-12.0); Hematocrit 28.3 % (42.0-52.0); Hemoglobin 9.4 g/dL (14.1-18.0); Lymphocytes # 2.5 K/mm3 (0.7-4.5); Lymphocytes % 28.5 % (10-50); Mean Corpuscular HGB Conc 33.3 g/dL (31.8-35.4); Mean Corpuscular Hemoglobin 30.9 pg (27.0-31.2); Mean Corpuscular Volume 92.7 fl (80-94); Monocytes % 4.4 % (1.7-9.3); Neutrophils # 5.8 K/mm3 (1.8-7.8); Neutrophils % 65.5 % (37.0-80.0); Platelet Count 229 K/mm3 (142-424); Red Cell Distribution Width 14.3 % (11.5-17.5); White Blood Count 8.8 K/mm3 (4.8-10.8)
--- NOTE | 2022-08-19 09:41 | PC.NURSE ---
holding on po meds until after egd
[2022-08-19 10:18] LABS: Chloride 112 mmol/L (98-107); Potassium 4.2 mmoL/L (3.5-5.1); Sodium 137 mmol/L (136-145)
[2022-08-19 10:21] LABS: Anion Gap 10.2 mEq/L (5-15); Blood Urea Nitrogen 51 mg/dl (9-20); Calcium 7.9 mg/dl (8.4-10.2); Carbon Dioxide 19 mmol/L (22.0-30.0); Creatinine Clearance Estimated 62 mL/min (50-200); Estimated Glomerular Filt Rate 56 ml/min (>60); GFR (African American) 67 ML/MIN (>60); Glucose 100 mg/dl (74-100)
--- NOTE | 2022-08-19 11:21 | P.PN_ITS ---
[facility] Disclaimer: The information contained in this section may have been updated after the patient was seen, as this information can be updated by other users. Medical History COPD (chronic obstructive pulmonary disease) Coronary artery calcification seen on CAT scan Hyperlipidemia Hypertension PAD (peripheral artery disease) Smoker Surgical History S/P insertion of iliac artery stent Social History Smoking Status: Current every day smoker alcohol intake: former substance use type: denies use current occupational status: other Travel in the last 8 weeks: Inside [facility] Anesthesia Checklist Patient Identification Patient Identification: Arm Band Structural Data Admitted From: Home Planned Operative Procedure/s: EGD Consent for Planned Operative Procedure(s) Verified: Yes Verified Documents: Surgical Consent and History and Physical NPO Status Verified Time NPO: 00:00 Additional verifications Anesthesia Reactions: No Airway Assessment C-Spine Mobility Assessed: Yes TMJ Mobility Assessed: Yes Dentition: Good Dentition Neurological Assessment Level of Consciousness: Awake and Alert Anesthesia Plan Anesthesia Risk discussed: Yes Anesthesia Plan: Verified ASA Class: III Anesthesia Type: MAC
--- NOTE | 2022-08-19 12:10 | HMH.SCOPE ---
Procedure: Date: 08/19/22 Patient Date of :: 1960 Procedure Performed:: Esophagogastroduodenoscopy with biopsy Indications:: Patient is a 62-year-old male smoker with history of hypertension, COPD, chronic arterial occlusive disease.? He has a history of bleeding ulcers and managed [id number] and 2016 and 2019 according to him.? He had presented to the emergency department on 08/10/2022 with a 1 week history of complaints of epigastric pain along with symptoms of indigestion and nausea.? He underwent CT scan of the abdomen pelvis at that time which revealed findings of duodenitis, proximal celiac artery stenosis and moderate SMA stenosis.? He was referred to cardiology from the emergency department and underwent stent placement in the celiac artery that was uncomplicated but was placed on DAPT therapy at that point.? Of note he has a long history of peripheral vascular disease, cerebrovascular disease and coronary atherosclerosis.? He has had numerous stents placed. His most recent stent placement prior to this was in 2019 and he had been on aspirin only since that time.? ?He presented back to the emergency department on 08/18/2022 with some mild abdominal pain and development of melena with some nausea.? CT scan revealed patent stents.? He was found to have a hemoglobin of 11.3.? Hemoglobin was 14.1 on 08/09/2022.? Patient was admitted for inpatient management and surgical consultation was obtained.? Overnight his hemoglobin has diminished to 8.4 and subsequently to 7.0.?? Performing Provider:: Arsenio Rosario MD Referring Provider:: Sung Drake MD Sedation:: MAC sedation Procedure:: Patient was taken to endoscopy procedure room. He was positioned in lateral decubitus position. Adequate intravenous sedation was achieved with anesthesia titration of propofol. Olympus endoscope was inserted via the oropharynx. Esophagus was cannulated. Endoscope was advanced. There was some tortuosity to the esophagus. Gastroesophageal junction was encountered at approximately 45 cm. Stomach was cannulated and insufflated. Retroflexion revealed some suboptimal visualization due to secretions at the gastroesophageal junction but no evidence of any notable hiatal hernia. Within the gastric lumen there was some moderate antral gastropathy. Pylorus was traversed. Within the duodenum there was evidence of moderate duodenitis. There was no evidence of any active bleeding. Endoscope was advanced a generous distance into the distal duodenum. There was no evidence of any active bleeding. The ampulla was identified no evidence of any bleeding. The endoscope was then withdrawn into the duodenal bulb once again. Inspection was carried out of the second portion of the duodenum and there were several small relatively shallow ulcers within the moderate duodenitis. There was some evidence of inflammation but no stigmata of recent bleeding such as blood clot or visible vessel. One of the ulcers revealed potential faint red spot but this was subtle. Endoscope was withdrawn into the gastric lumen. Gastric antral mucosal biopsies obtained for FORREST test for H. pylori. Stomach was desufflated and the endoscope was withdrawn. Findings:: Gastroesophageal junction at 45 cm Moderate antral gastropathy/gastritis, nonerosive Moderate duodenitis within the second portion of the duodenum with a couple of shallow nonbleeding ulcers Recommendations:: GI blood loss likely secondary to the duodenal ulcers in light of dual antiplatelet therapy. No bleeding at this time or stigmata of recent bleeding. Continue to monitor for stability. Treat H. pylori if positive. Complications:: None immediately apparent Estimated blood obtained (mL): 1
[2022-08-19 14:21] LABS: POC Glucose,Bedside 127 (70-110)
--- NOTE | 2022-08-19 14:39 | PC.NURSE ---
patient has done well this shift. tolerated full liquids well. no complaints of pain or nausea at this time. one unwitnessed bm this shift. has been up walking to bathroom with assistance, did tolerate a shower well. educated on meds. went over plan of care with patient and family. no other concerns noted. encouraged to ring out as needed
--- NOTE | 2022-08-19 20:33 | PC.NURSE ---
Paged Dr Hua regarding pt 2100 75mg Lovenox injection. Melita states he will call Dr Drake and call me back.
--- NOTE | 2022-08-19 20:44 | PC.NURSE ---
Dr Hua called at this time to state Dr Drake does want 75mg Lovenox SQ administered BID and to give 2100 dose. Read back, verified, and carried out.
[2022-08-20] VITALS: BP 109/50; PULSE 79; RESP 18; TEMP 36.7; O2SAT 95
[2022-08-20 04:00] VITALS: BP 131/70; PULSE 77; RESP 18; TEMP 36.6; O2SAT 95; BMI 22.4
[2022-08-20 06:43] LABS: Lymphocytes # 2.4 K/mm3 (0.7-4.5); Monocytes # 0.4 K/mm3 (0.1-1.0); Red Cell Distribution Width 14.8 % (11.5-17.5)
[2022-08-20 06:45] LABS: Chloride 111 mmol/L (98-107); Sodium 138 mmol/L (136-145)
[2022-08-20 06:46] LABS: Potassium 3.8 mmoL/L (3.5-5.1)
[2022-08-20 06:48] LABS: Blood Urea Nitrogen 32 mg/dl (9-20); Creatinine Clearance Estimated 57 mL/min (50-200); Estimated Glomerular Filt Rate 51 ml/min (>60); GFR (African American) 62 ML/MIN (>60)
[2022-08-20 06:49] LABS: Anion Gap 9.8 mEq/L (5-15); Calcium 7.8 mg/dl (8.4-10.2); Carbon Dioxide 21 mmol/L (22.0-30.0); Glucose 95 mg/dl (74-100)
[2022-08-20 06:51] LABS: Basophils % 0.3 % (0.1-2.0); Eosinophils # 0.4 K/mm3 (0.0-0.4); Eosinophils % 4.5 % (0.1-12.0); Hematocrit 23.3 % (42.0-52.0); Lymphocytes % 25.1 % (10-50); Mean Corpuscular Hemoglobin 31.4 pg (27.0-31.2); Mean Corpuscular Volume 92.6 fl (80-94); Mean Platelet Volume 8.2 fl (7.4-10.4); Monocytes % 3.8 % (1.7-9.3); Neutrophils # 6.4 K/mm3 (1.8-7.8); Neutrophils % 66.3 % (37.0-80.0); Platelet Count 206 K/mm3 (142-424); Red Blood Count 2.51 M/mm3 (4.60-6.20); White Blood Count 9.7 K/mm3 (4.8-10.8)
[2022-08-20 06:53] LABS: Hemoglobin 7.9 g/dL (14.1-18.0)
[2022-08-20 07:27] VITALS: BP 122/59; PULSE 72; RESP 18; TEMP 36.9; O2SAT 97
--- NOTE | 2022-08-20 08:06 | EXP.ACUTE.PN ---
Subjective *Date: 08/20/22 *Time: 08:06 Interval history: Patient feels much better this morning. Is drinking full liquid diet well. Had 1 episode of some bloody stool after the EGD but none since that time. Has been up and walking around in his room and has had no orthostasis symptoms. Medical Exam Vital signs and Labs for Last 24 Hours: Vital Signs Temp Pulse Pulse Resp BP BP Pulse Ox 08/20/22 07:27 98.4 F 72 18 122/59 L 97 08/20/22 04:00 97.8 F 77 18 131/70 95 08/20/22 00:00 98.1 F 79 18 109/50 L 95 08/19/22 20:00 97.8 F 70 18 130/58 L 95 08/19/22 16:00 97.9 F 66 16 115/53 L 95 08/19/22 16:52 95 08/19/22 15:00 70 18 116/48 L 98 08/19/22 14:30 97.4 F L 72 16 125/56 L 98 08/19/22 14:00 73 18 95/54 L 98 08/19/22 13:30 69 16 124/54 L 97 08/19/22 13:15 72 16 132/56 L 98 08/19/22 13:00 97.8 F 65 17 110/57 L 98 08/19/22 12:45 98.0 F 79 16 109/60 L 97 08/19/22 12:30 97.8 F 81 16 113/58 L 97 08/19/22 12:30 86 16 95/50 L 94 L 08/19/22 12:20 88 16 104/50 L 98 08/19/22 12:10 97 F L 91 H 12 85/51 L 92 L 08/19/22 09:00 98.1 F 83 16 124/65 98 Intake and Output 08/19/22 08/20/22 08/20/22 19:59 03:59 11:59 Intake Total 480 / 1200 720 / 1200 Output Total 0 / 700 400 / 700 300 / 700 Balance 480 / 500 -400 / 500 420 / 500 Intake: Intake, Oral Amount 480 / 1200 720 / 1200 Output: Output, Urine Amount 0 / 700 400 / 700 300 / 700 Other: Number of Unmeasured Voids 1 1 Weight 165 lb 5.547 oz Patient Weight 08/20/22 11:59 Weight 165 lb 5.547 oz Laboratory Results - last 24 hr 08/18/22 12:17: Crossmatch (AHG) See Detail 08/19/22 08:51: WBC 8.8 D, RBC 3.05 L, Hgb 9.4 L D, Hct 28.3 L, MCV 92.7, MCH 30.9, MCHC 33.3, RDW 14.3, Plt Count 229, MPV 8.0, Neut % (Auto) 65.5, Lymph % (Auto) 28.5, [place] % (Auto) 4.4, Eos % (Auto) 1.3, Baso % (Auto) 0.4, Neut # (Auto) 5.8, Lymph # (Auto) 2.5, [place] # (Auto) 0.4, Eos # (Auto) 0.1, Baso # (Auto) 0.0 08/19/22 09:54: Sodium 137, Potassium 4.2, Chloride 112 H, Carbon Dioxide 19 L, Anion Gap 10.2, BUN 51 H, Creatinine 1.30 H, Estimated Creat Clear 62, Estimated GFR 56 L, Est GFR ( Amer) 67, Glucose 100, Calcium 7.9 L 08/19/22 13:01: POC Glucose 127 H 08/20/22 06:20: WBC 9.7, RBC 2.51 L, Hgb 7.9 L D, Hct 23.3 L, MCV 92.6, MCH 31.4 H, MCHC 34.0, RDW 14.8, Plt Count 206, MPV 8.2, Neut % (Auto) 66.3, Lymph % (Auto) 25.1, [place] % (Auto) 3.8, Eos % (Auto) 4.5, Baso % (Auto) 0.3, Neut # (Auto) 6.4, Lymph # (Auto) 2.4, [place] # (Auto) 0.4, Eos # (Auto) 0.4, Baso # (Auto) 0.0 08/20/22 06:20: Sodium 138, Potassium 3.8, Chloride 111 H, Carbon Dioxide 21 L, Anion Gap 9.8, BUN 32 H D, Creatinine 1.40 H, Estimated Creat Clear 57, Estimated GFR 51 L, Est GFR ( Amer) 62, Glucose 95, Calcium 7.8 L I & O for Labs for Last 24 Hours: Intake & Output 08/17/22 08/18/22 08/19/22 08/20/22 11:59 11:59 11:59 11:59 Intake Total 850.00 / 850.00 1200 / 1200 Output Total 1125 / 1125 700 / 700 Balance -275.00 / -275.00 500 / 500 Weight 167 lb 166 lb 8 oz 165 lb 5.547 oz Constitutional: Present no acute distress Respiratory: Present normal respiratory effort Cardiac: Present Reg Rate and Rhythm GI: Present normal bowel sounds; Absent tenderness Extremities: Present normal inspection and full ROM Skin: Present intact; Absent erythema Neuro: Present Grossly Intact and moves all extremities Assessment and Plan *Assessment and plan (1) Acute upper GI bleed: Status: Acute Category: Medical Code(s): K92.2 - Gastrointestinal hemorrhage, unspecified (2) Malignant hypertension: Status: Acute Category: Medical Code(s): I10 - Essential (primary) hypertension (3) COPD (chronic obstructive pulmonary disease): Status: Acute Category: Medical Code(s): J44.9 - Chronic obstructive pulmonary disease, unsp
--- NOTE | 2022-08-20 08:11 | EXP.SURG.PN ---
Subjective Narrative: Patient does feel better. Denies any definite melena. Exam Data for Last 24 hours Vital signs and Labs for Last 24 Hours: Temp Pulse Resp BP Pulse Ox 98.4 F 72 18 122/59 L 97 08/20/22 07:27 08/20/22 07:27 08/20/22 07:27 08/20/22 07:27 08/20/22 07:27 Laboratory Results - last 24 hr 08/18/22 12:17: Crossmatch (AHG) See Detail 08/19/22 08:51: WBC 8.8 D, RBC 3.05 L, Hgb 9.4 L D, Hct 28.3 L, MCV 92.7, MCH 30.9, MCHC 33.3, RDW 14.3, Plt Count 229, MPV 8.0, Neut % (Auto) 65.5, Lymph % (Auto) 28.5, [place] % (Auto) 4.4, Eos % (Auto) 1.3, Baso % (Auto) 0.4, Neut # (Auto) 5.8, Lymph # (Auto) 2.5, [place] # (Auto) 0.4, Eos # (Auto) 0.1, Baso # (Auto) 0.0 08/19/22 09:54: Sodium 137, Potassium 4.2, Chloride 112 H, Carbon Dioxide 19 L, Anion Gap 10.2, BUN 51 H, Creatinine 1.30 H, Estimated Creat Clear 62, Estimated GFR 56 L, Est GFR ( Amer) 67, Glucose 100, Calcium 7.9 L 08/19/22 13:01: POC Glucose 127 H 08/20/22 06:20: WBC 9.7, RBC 2.51 L, Hgb 7.9 L D, Hct 23.3 L, MCV 92.6, MCH 31.4 H, MCHC 34.0, RDW 14.8, Plt Count 206, MPV 8.2, Neut % (Auto) 66.3, Lymph % (Auto) 25.1, [place] % (Auto) 3.8, Eos % (Auto) 4.5, Baso % (Auto) 0.3, Neut # (Auto) 6.4, Lymph # (Auto) 2.4, [place] # (Auto) 0.4, Eos # (Auto) 0.4, Baso # (Auto) 0.0 08/20/22 06:20: Sodium 138, Potassium 3.8, Chloride 111 H, Carbon Dioxide 21 L, Anion Gap 9.8, BUN 32 H D, Creatinine 1.40 H, Estimated Creat Clear 57, Estimated GFR 51 L, Est GFR ( Amer) 62, Glucose 95, Calcium 7.8 L I & O for Last 24 hours: Intake & Output 08/17/22 08/18/22 08/19/22 08/20/22 11:59 11:59 11:59 11:59 Intake Total 850.00 / 850.00 1200 / 1200 Output Total 1125 / 1125 700 / 700 Balance -275.00 / -275.00 500 / 500 Weight 167 lb 166 lb 8 oz 165 lb 5.547 oz *Routine Abdominal Exam Abdominal: Present soft; Absent tenderness Progress Note: A&P Assessment and plan (1) Acute upper GI bleed: Status: Acute Assessment and plan: Hemoglobin has shown some decrease. We will go ahead and advance his diet. (2) Malignant hypertension: Status: Acute (3) COPD (chronic obstructive pulmonary disease): Status: Acute (4) PAD (peripheral artery disease): Status: Acute
--- NOTE | 2022-08-20 10:49 | EXP.CARD.CON ---
History of Present Illness History of Present Illness Consult date: 08/20/22 Requesting physician: Sung Drake Chief complaint: GI bleed post celiac artery stenting History of present illness: 62-year-old white male with past medical history of carotid artery stenosis status post bilateral endarterectomy 2017 and 2019, peripheral artery disease with prior stenting of iliac and legs, Celiac artery stenosis, superior mesenteric artery stenosis, diastolic dysfunction, hypertension, tobacco use, hyperlipidemia, bleeding GI ulcers, and copd presented to emergency department on 08/18/2022 with complaint of generalized abdominal pain, nausea and melena. Patient originally presented to emergency department on 08/10/2022 with a 1 week history of epigastric pain along with indigestion and nausea. Patient underwent a CT scan of the abdomen pelvis at that time which revealed findings of duodenitis, proximal celiac artery stenosis and moderate SMA stenosis. He was referred to cardiology and underwent successful stenting of the celiac artery for severe to critical disease and received one bare-metal balloon mounted stent. Patient was started on DAPT therapy with aspirin and Plavix. Patient reports shortly after procedure he developed melena which prompted him to return to emergency department. On return to emergency department repeat CT scan showed patent stents with no evidence of mesenteric ischemia noted. Patient was found to have a hemoglobin of 11.3 on presentation and was admitted inpatient for management of GI bleed with surgical consultation. Hemoglobin continued to decrease dropping to 7.0. Since admission patient has received blood transfusions and underwent upper GI which revealed moderate antral gastropathy/gastritis, nonerosive and moderate duodenitis within the second portion of the duodenum with a couple of shallow nonbleeding ulcers. Patient has received PPI therapy. Hemoglobin is stable at this time, patient denies any black or bloody stools today. Cardiology was consulted today regarding continuation of DAPT therapy status post recent celiac stent placement. [facility] Disclaimer: The information contained in this section may have been updated after the patient was seen, as this information can be updated by other users. Medical History COPD (chronic obstructive pulmonary disease) Coronary artery calcification seen on CAT scan Hyperlipidemia Hypertension PAD (peripheral artery disease) Smoker Surgical History S/P insertion of iliac artery stent Social History Smoking Status: Current every day smoker alcohol intake: former substance use type: denies use current occupational status: other Travel in the last 8 weeks: [place] the [place] Review of Systems Review of Systems Review of systems:: pertinent systems reviewed and negative unless documented below *Gastrointestinal Gastrointestinal: Reports melena and Reports nausea Exam Data for Last 24 hours Vital signs and Labs for Last 24 Hours: Temp Pulse Resp BP Pulse Ox 98.4 F 72 18 122/59 L 97 08/20/22 07:27 08/20/22 07:27 08/20/22 07:27 08/20/22 07:27 08/20/22 07:27 Laboratory Results - last 24 hr 08/18/22 12:17: Crossmatch (AHG) See Detail 08/19/22 13:01: POC Glucose 127 H 08/20/22 06:20: WBC 9.7, RBC 2.51 L, Hgb 7.9 L D, Hct 23.3 L, MCV 92.6, MCH 31.4 H, MCHC 34.0, RDW 14.8, Plt Count 206, MPV 8.2, Neut % (Auto) 66.3, Lymph % (Auto) 25.1, [place] % (Auto) 3.8, Eos % (Auto) 4.5, Baso % (Auto) 0.3, Neut # (Auto) 6.4, Lymph # (Auto) 2.4, [place] # (Auto) 0.4, Eos # (Auto) 0.4, Baso # (Auto) 0.0 08/20/22 06:20: Sodium 138, Potassium 3.8, Chloride 111 H, Carbon Dioxide 21 L, Anion Gap 9.8, BUN 32 H D, Creatinine 1.40 H, Estimated Creat Clear 57, Estimated GFR 51 L, Est GFR ( Amer) 62, Glucose 95, Calcium 7.8 L I & O for Last 24 hours: Intake & Out
[2022-08-20 12:18] LABS: Basophils % 0.2 % (0.1-2.0); Eosinophils # 0.5 K/mm3 (0.0-0.4); Eosinophils % 4.4 % (0.1-12.0); Hematocrit 25.7 % (42.0-52.0); Hemoglobin 8.5 g/dL (14.1-18.0); Lymphocytes # 2.8 K/mm3 (0.7-4.5); Lymphocytes % 24.8 % (10-50); Mean Corpuscular HGB Conc 33.1 g/dL (31.8-35.4); Mean Corpuscular Hemoglobin 31.1 pg (27.0-31.2); Mean Corpuscular Volume 93.9 fl (80-94); Mean Platelet Volume 8.2 fl (7.4-10.4); Monocytes # 0.4 K/mm3 (0.1-1.0); Neutrophils # 7.5 K/mm3 (1.8-7.8); Neutrophils % 66.6 % (37.0-80.0); Platelet Count 235 K/mm3 (142-424); Red Blood Count 2.74 M/mm3 (4.60-6.20); Red Cell Distribution Width 14.9 % (11.5-17.5); White Blood Count 11.2 K/mm3 (4.8-10.8)
[2022-08-20 12:36] VITALS: BMI 22.4
[2022-08-20 15:24] VITALS: BP 122/52; PULSE 67; RESP 18; TEMP 36.9; O2SAT 96
--- NOTE | 2022-08-20 15:52 | PC.NURSE ---
Patient ambulating in the hallway with spouse
[2022-08-20 20:00] VITALS: BP 116/55; PULSE 68; RESP 18; TEMP 36.4; O2SAT 94
[2022-08-21] VITALS: BP 129/54; PULSE 72; RESP 18; TEMP 36.7; O2SAT 94
[2022-08-21 04:00] VITALS: BP 109/50; PULSE 72; RESP 18; TEMP 37.1; O2SAT 95; BMI 22.0
[2022-08-21 06:49] LABS: Chloride 110 mmol/L (98-107); Potassium 3.6 mmoL/L (3.5-5.1); Sodium 137 mmol/L (136-145)
[2022-08-21 06:52] LABS: Alanine Aminotransferase 17 U/L (12-78); Albumin Level 2.8 g/dl (3.5-5.0); Albumin/Globulin Ratio 1.2 (1.1-1.8); Alkaline Phosphatase 57 U/L (38-126); Anion Gap 6.6 mEq/L (5-15); Aspartate Amino Transferase 24 U/L (17-59); Bilirubin,Total 0.2 mg/dl (0.2-1.3); Blood Urea Nitrogen 21 mg/dl (9-20); Calcium 7.9 mg/dl (8.4-10.2); Carbon Dioxide 24 mmol/L (22.0-30.0); Creatinine Clearance Estimated 66 mL/min (50-200); Estimated Glomerular Filt Rate 61 ml/min (>60); GFR (African American) 74 ML/MIN (>60); Globulin 2.3 g/dL (1.3-3.2); Glucose 108 mg/dl (74-100); Total Protein,Serum 5.1 g/dl (6.3-8.2)
[2022-08-21 07:41] VITALS: BP 143/63; PULSE 74; RESP 16; TEMP 36.3; O2SAT 93
--- NOTE | 2022-08-21 07:45 | PC.NURSE ---
Dr. Drake at bedside. After stat CBC is ran, patient is okay for discharge.
[2022-08-21 07:47] LABS: Basophils % 0.3 % (0.1-2.0); Eosinophils # 0.5 K/mm3 (0.0-0.4); Hematocrit 22.3 % (42.0-52.0); Monocytes # 0.4 K/mm3 (0.1-1.0)
[2022-08-21 07:51] LABS: Eosinophils % 5.9 % (0.1-12.0); Mean Corpuscular HGB Conc 33.2 g/dL (31.8-35.4); Mean Corpuscular Hemoglobin 31.2 pg (27.0-31.2); Mean Platelet Volume 8.1 fl (7.4-10.4); Monocytes % 4.7 % (1.7-9.3); Neutrophils # 5.4 K/mm3 (1.8-7.8); Neutrophils % 65.1 % (37.0-80.0); Platelet Count 232 K/mm3 (142-424); Red Blood Count 2.38 M/mm3 (4.60-6.20); Red Cell Distribution Width 14.6 % (11.5-17.5); White Blood Count 8.3 K/mm3 (4.8-10.8)
[2022-08-21 07:52] LABS: Hemoglobin 7.4 g/dL (14.1-18.0)
--- NOTE | 2022-08-21 08:42 | PC.NURSE ---
Pt has been up walking laps around the hallway, tolerated well. He has not voiced any complaints to staff. Call light within reach.
--- NOTE | 2022-08-21 08:46 | P.PN_ITS ---
Subjective Patient reports: no new complaints and feels better Narrative: The patient states that he has had no hematemesis or melena. Exam Data for Last 24 hours Vital signs and Labs for Last 24 Hours: Temp Pulse Resp BP Pulse Ox 97.3 F L 74 16 143/63 H 93 L 08/21/22 07:41 08/21/22 07:41 08/21/22 07:41 08/21/22 07:41 08/21/22 07:41 Laboratory Results - last 24 hr 08/18/22 12:17: Crossmatch (AHG) See Detail 08/20/22 12:10: WBC 11.2 H, RBC 2.74 L, Hgb 8.5 L, Hct 25.7 L, MCV 93.9, MCH 31.1, MCHC 33.1, RDW 14.9, Plt Count 235, MPV 8.2, Neut % (Auto) 66.6, Lymph % (Auto) 24.8, [place] % (Auto) 4.0, Eos % (Auto) 4.4, Baso % (Auto) 0.2, Neut # (Auto) 7.5, Lymph # (Auto) 2.8, [place] # (Auto) 0.4, Eos # (Auto) 0.5 H, Baso # (Auto) 0.0 08/21/22 06:27: Sodium 137, Potassium 3.6, Chloride 110 H, Carbon Dioxide 24, Anion Gap 6.6, BUN 21 H D, Creatinine 1.20, Estimated Creat Clear 66, Estimated GFR 61, Est GFR ( Amer) 74, Glucose 108 H, Calcium 7.9 L, Total Bilirubin 0.2, AST 24, ALT 17, Alkaline Phosphatase 57, Total Protein 5.1 L, Albumin 2.8 L , Globulin 2.3, Albumin/Globulin Ratio 1.2 08/21/22 06:27: WBC 8.3 D, RBC 2.38 L, Hgb 7.4 L D, Hct 22.3 L, MCV 94.0, MCH 31.2, MCHC 33.2, RDW 14.6, Plt Count 232, MPV 8.1, Neut % (Auto) 65.1, Lymph % (Auto) 24.0, [place] % (Auto) 4.7, Eos % (Auto) 5.9, Baso % (Auto) 0.3, Neut # (Auto) 5.4, Lymph # (Auto) 2.0, [place] # (Auto) 0.4, Eos # (Auto) 0.5 H, Baso # (Auto) 0.0 I & O for Last 24 hours: Intake & Output 08/18/22 08/19/22 08/20/22 08/21/22 11:59 11:59 11:59 11:59 Intake Total 850.00 / 850.00 1200 / 1200 960 / 960 Output Total 1125 / 1125 900 / 900 2445 / 2445 Balance -275.00 / -275.00 300 / 300 -1485 / -1485 Weight 167 lb 166 lb 8 oz 165 lb 5.547 oz 162 lb 8 oz Microbiology Reports for the Last 24 Hours: Microbiology 08/19/22 12:03 Gastric Biopsy Helicobacter pylori Urease &Culture - Final Negative Urease for Helicobacter pylori. Constitutional Constitutional: no acute distress *Routine Respiratory Exam Respiratory: Absent respiratory distress *Routine Cardiovascular Exam Cardiovascular: Absent tachycardia *Routine Abdominal Exam Abdominal: Present soft Progress Note: A&P Assessment and plan (1) Acute upper GI bleed: Status: Acute Assessment and plan: Hemoglobin 7.4 (down from 8.5) Continue to monitor serial hemoglobin/hematocrit He may require repeat EGD if he continues to show decline in hemoglobin (has been made NPO after midnight for potential repeat endoscopic evaluation) (2) Duodenal ulcer: Status: Acute Assessment and plan: Continue proton pump inhibition (3) Duodenitis: Status: Acute
--- NOTE | 2022-08-21 08:55 | EXP.CARD.PN ---
Subjective Subjective Date: 08/21/22 Time: 08:00 Principal diagnosis: GI bleed Interval history: doing well this a.m., no complaints, denies hematemesis or melena. AM labs reviewed, Hgb 7.4 Exam Data for Last 24 hours Vital signs and Labs for Last 24 Hours: Temp Pulse Resp BP Pulse Ox 97.3 F L 74 16 143/63 H 93 L 08/21/22 07:41 08/21/22 07:41 08/21/22 07:41 08/21/22 07:41 08/21/22 07:41 Laboratory Results - last 24 hr 08/18/22 12:17: Crossmatch ([facility]) See Detail 08/20/22 12:10: WBC 11.2 H, RBC 2.74 L, Hgb 8.5 L, Hct 25.7 L, MCV 93.9, MCH 31.1, MCHC 33.1, RDW 14.9, Plt Count 235, MPV 8.2, Neut % (Auto) 66.6, Lymph % (Auto) 24.8, [place] % (Auto) 4.0, Eos % (Auto) 4.4, Baso % (Auto) 0.2, Neut # (Auto) 7.5, Lymph # (Auto) 2.8, [place] # (Auto) 0.4, Eos # (Auto) 0.5 H, Baso # (Auto) 0.0 08/21/22 06:27: Sodium 137, Potassium 3.6, Chloride 110 H, Carbon Dioxide 24, Anion Gap 6.6, BUN 21 H D, Creatinine 1.20, Estimated Creat Clear 66, Estimated GFR 61, Est GFR ( Amer) 74, Glucose 108 H, Calcium 7.9 L, Total Bilirubin 0.2, AST 24, ALT 17, Alkaline Phosphatase 57, Total Protein 5.1 L, Albumin 2.8 L, Globulin 2.3, Albumin/Globulin Ratio 1.2 08/21/22 06:27: WBC 8.3 D, RBC 2.38 L, Hgb 7.4 L D, Hct 22.3 L, MCV 94.0, MCH 31.2, MCHC 33.2, RDW 14.6, Plt Count 232, MPV 8.1, Neut % (Auto) 65.1, Lymph % (Auto) 24.0, [place] % (Auto) 4.7, Eos % (Auto) 5.9, Baso % (Auto) 0.3, Neut # (Auto) 5.4, Lymph # (Auto) 2.0, [place] # (Auto) 0.4, Eos # (Auto) 0.5 H, Baso # (Auto) 0.0 I & O for Last 24 hours: Intake & Output 08/18/22 08/19/22 08/20/22 08/21/22 23:59 23:59 23:59 23:59 Intake Total 600 / 600 730.00 / 730.00 1440 / 1440 240 / 240 Output Total 925 / 925 200 / 600 1720 / 2320 1625 / 1625 Balance -325 / -325 530.00 / 130.00 -280 / -880 -1385 / -1385 Weight 163 lb 2 oz 166 lb 8 oz 165 lb 5.547 oz 162 lb 8 oz Microbiology Reports for the Last 24 Hours: Microbiology 08/19/22 12:03 Gastric Biopsy Helicobacter pylori Urease &Culture - Final Negative Urease for Helicobacter pylori. Constitutional Constitutional: no acute distress *Routine Respiratory Exam Respiratory: Present CTA bilaterally and symmetric chest movement *Routine Cardiovascular Exam Cardiovascular: Present RRR, Normal S1 and Normal S2 *Routine Abdominal Exam Abdominal: Present soft and normoactive bowel sounds; Absent tenderness *Routine Extremities Exam Extremities: Present full ROM and normal capillary refill; Absent edema *Routine Skin Exam Skin: Present intact, dry and warm Detailed Neck Exam: Thyroids Thyroid: Absent bruit Progress Note: A&P Assessment and plan (1) Acute upper GI bleed: Status: Acute (2) Duodenal ulcer: Status: Acute (3) Duodenitis: Status: Acute Assessment and Plan Assessment and Plan for All Diagnoses:: Recent GI bleed -Upper GI 08/2022: Moderate antral gastropathy/gastritis, nonerosive, moderate duodenitis within the second portion of the duodenum with a couple of shallow nonbleeding ulcers.? Recommendations: GI blood loss likely secondary to the duodenal ulcers in light of dual antiplatelet therapy.? No bleeding at this time or stigmata of recent bleeding.? Continue to monitor for stability, treat H. pylori if positive. 08/21/2022: Patient reports no hematemesis or melena. Hgb 7.4 Superior mesenteric artery stenosis/Celiac artery stenosis -S/p stenting of celiac artery on 08/14/2022 -Discussed with Dr. Craft-given recent GI bleed he recommends continuing only Plavix 75 mg p.o. daily at this time. Hypertension -Well-controlled- continue valsartan 160 mg p.o. daily bisoprolol 10 mg p.o. daily Hyperlipidemia -Continue statin Tobacco use -Smoking cessation provided Carotid artery stenosis -Bilaterally less than 50% 202108/21/2022: Patient doing well, denies any hematemesis or melana. Hgb decreased to 7.4 this am. Surgery continuing to follow.
--- NOTE | 2022-08-21 09:27 | EXP.ACUTE.PN ---
Subjective *Date: 08/21/22 *Time: 09:27 Interval history: Overall patient feels great, he has been walking up and down the hallways without orthostasis or dizzy symptoms. Denies any kind of black, tarry, or melanotic stool. No vomiting. Ate a good breakfast. Medical Exam Vital signs and Labs for Last 24 Hours: Vital Signs Temp Pulse Resp BP Pulse Ox 08/21/22 07:41 97.3 F L 74 16 143/63 H 93 L 08/21/22 04:00 98.7 F 72 18 109/50 L 95 08/21/22 00:00 98.0 F 72 18 129/54 L 94 L 08/20/22 20:00 97.6 F 68 18 116/55 L 94 L 08/20/22 15:24 98.5 F 67 18 122/52 L 96 Intake and Output 08/20/22 08/21/22 08/21/22 19:59 03:59 11:59 Intake Total 720 / 960 240 / 960 Output Total 220 / 2445 1200 / 2445 1025 / 2445 Balance 500 / -1485 -1200 / -1485 -785 / -1485 Intake: Intake, Oral Amount 720 / 960 240 / 960 Output: Output, Urine Amount 220 / 2445 1200 / 2445 1025 / 2445 Other: Number of Unmeasured Voids 1 0 Weight 165 lb 5.547 oz 162 lb 8 oz Patient Weight 08/21/22 11:59 Weight 162 lb 8 oz Laboratory Results - last 24 hr 08/18/22 12:17: Crossmatch ([facility]) See Detail 08/20/22 12:10: WBC 11.2 H, RBC 2.74 L, Hgb 8.5 L, Hct 25.7 L, MCV 93.9, MCH 31.1, MCHC 33.1, RDW 14.9, Plt Count 235, MPV 8.2, Neut % (Auto) 66.6, Lymph % (Auto) 24.8, [place] % (Auto) 4.0, Eos % (Auto) 4.4, Baso % (Auto) 0.2, Neut # (Auto) 7.5, Lymph # (Auto) 2.8, [place] # (Auto) 0.4, Eos # (Auto) 0.5 H, Baso # (Auto) 0.0 08/21/22 06:27: Sodium 137, Potassium 3.6, Chloride 110 H, Carbon Dioxide 24, Anion Gap 6.6, BUN 21 H D, Creatinine 1.20, Estimated Creat Clear 66, Estimated GFR 61, Est GFR ( Amer) 74, Glucose 108 H, Calcium 7.9 L, Total Bilirubin 0.2, AST 24, ALT 17, Alkaline Phosphatase 57, Total Protein 5.1 L, Albumin 2.8 L, Globulin 2.3, Albumin/Globulin Ratio 1.2 08/21/22 06:27: WBC 8.3 D, RBC 2.38 L, Hgb 7.4 L D, Hct 22.3 L, MCV 94.0, MCH 31.2, MCHC 33.2, RDW 14.6, Plt Count 232, MPV 8.1, Neut % (Auto) 65.1, Lymph % (Auto) 24.0, [place] % (Auto) 4.7, Eos % (Auto) 5.9, Baso % (Auto) 0.3, Neut # (Auto) 5.4, Lymph # (Auto) 2.0, [place] # (Auto) 0.4, Eos # (Auto) 0.5 H, Baso # (Auto) 0.0 I & O for Labs for Last 24 Hours: Intake & Output 08/18/22 08/19/22 08/20/22 08/21/22 11:59 11:59 11:59 11:59 Intake Total 850.00 / 850.00 1200 / 1200 960 / 960 Output Total 1125 / 1125 900 / 900 2445 / 2445 Balance -275.00 / -275.00 300 / 300 -1485 / -1485 Weight 167 lb 166 lb 8 oz 165 lb 5.547 oz 162 lb 8 oz Microbiology Reports for the Last 24 Hours: Microbiology 08/19/22 12:03 Gastric Biopsy Helicobacter pylori Urease &Culture - Final Negative Urease for Helicobacter pylori. Constitutional: Present no acute distress Respiratory: Present normal respiratory effort Cardiac: Present Reg Rate and Rhythm GI: Present normal bowel sounds; Absent tenderness Extremities: Present normal inspection and full ROM Skin: Present intact; Absent erythema Neuro: Present Grossly Intact and moves all extremities Assessment and Plan *Assessment and plan (1) Acute upper GI bleed: Status: Acute Category: Medical Code(s): K92.2 - Gastrointestinal hemorrhage, unspecified (2) Malignant hypertension: Status: Acute Category: Medical Code(s): I10 - Essential (primary) hypertension (3) Celiac artery stenosis: Status: Acute Category: Medical Code(s): I77.1 - Stricture of artery (4) Superior mesenteric artery stenosis: Status: Acute Category: Medical Code(s): K55.1 - Chronic vascular disorders of intestine (5) Hyperlipidemia: Status: Acute Category: Medical Code(s): E78.5 - Hyperlipidemia, unspecified (6) Smoker: Status: Acute Category: Social Hx Code(s): F17.200 - Nicotine dependence, unspecified, uncomplicated (7) PAD (peripheral artery disease): Status: Acute Category: Medic
--- NOTE | 2022-08-21 11:09 | PC.NURSE ---
Called Dr. Drake concerning HGB result. No new orders given at this time.
--- NOTE | 2022-08-21 11:25 | PC.NURSE ---
Patient ambulated in hallway 3 times since the beginning of shift in the hallway. Patient states, I am going home today. I miss my baby. Nothing against you all. You have have been great. I've been here long enough.
--- NOTE | 2022-08-21 12:17 | PC.NURSE ---
Called Dr. Drake, patient wishes to sign out AMA if he isn't going to be discharged soon. Per office nurse, he is unavailable and in a patient room.
--- NOTE | 2022-08-21 12:28 | EXP.DC.SUM ---
General Admission date:: 08/18/22 Discharge date: 08/21/22 HPI HPI HPI: Patient is a 62-year-old male smoker with history of hypertension, COPD, chronic arterial occlusive disease. He has a history of bleeding ulcers and managed [id number] and 2017 and 2019 according to him. He had presented to the emergency department on 08/10/2022 with a 1 week history of complaints of epigastric pain along with symptoms of indigestion and nausea. 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 He was referred to cardiology from the emergency department and underwent stent placement in the celiac artery that was uncomplicated but was placed on DAPT therapy at that point. Of note he has a long history of peripheral vascular disease, cerebrovascular disease and coronary atherosclerosis. His most recent stent placement prior to this was in 2019 and he had been on aspirin only since that time. He presented back to the emergency department on 08/18/2022 with some mild abdominal pain and development of melena with some nausea. CT scan revealed patent stents. He was found to have a hemoglobin of 11.3. Hemoglobin was 14.1 on 08/09/2022. Patient was admitted for inpatient management and surgical consultation was obtained. Overnight his hemoglobin has diminished to 8.4 and subsequently to 7.0. He denies abdominal pain. His main complaint is wanting a nicotine patch as he is a heavy smoker. Of note, patient denies alcohol use since 2019 He has a history of ulcer disease, has been on Protonix on a daily basis and reports that he has been compliant with this. Hospital Course Hospital Course Hospital Course: Patient was admitted. Anticoagulation/antiplatelet agents were held and patient was placed on IV Protonix and IV fluids. He was made n.p.o. and EGD was performed. This resulted as available for the interested reader and showed duodenal erosions consistent with possible ulcerations with recent bleeding but no active bleeding. The patient tolerated the procedure well. Initially maintained on Lovenox for his recent stent placement. Cardiology was consulted and recommended ongoing therapy with Plavix only along with PPI to try to reduce risk of bleeding while keeping his stent patent. Patient did great, his hemoglobin initially marci to 9 g after 2 units of packed cells but slowly dropped back down to the mid 7 g range this morning. He has had no evidence of bleeding and no abdominal pain. Surgery consultation recommended holding the patient over for the next morning for serial hemoglobins and possibly another scope if these hemoglobins dropped however the patient was extremely adamant about going home since he felt well and did not think he had any more bleeding and actually told nursing staff and myself that he would leave AMA if he was not discharged. The patient does live very close and states he will come back if stigmata of bleeding occurs and he will also come back tomorrow morning for a CBC. This will be arranged. He will be discharged on Plavix only and twice daily Protonix. Exam Data for Last 24 hours Vital signs and Labs for Last 24 Hours: Temp Pulse Resp BP Pulse Ox 97.3 F L 74 16 143/63 H 93 L 08/21/22 07:41 08/21/22 07:41 08/21/22 07:41 08/21/22 07:41 08/21/22 07:41 Laboratory Results - last 24 hr 08/21/22 06:27: Sodium 137, Potassium 3.6, Chloride 110 H, Carbon Dioxide 24, Anion Gap 6.6, BUN 21 H D, Creatinine 1.20, Estimated Creat Clear 66, Estimated GFR 61, Est GFR ( Amer) 74, Glucose 108 H, Calcium 7.9 L, Total Bilirubin 0.2, AST 24, ALT 17, Alkaline Phosphatase 57, Total Protein 5.1 L, Albumin 2.8 L, Globulin 2.3, Albumin/Globulin Ratio 1.2 08/21/22 06:27: WBC 8.3 D, RBC 2.38 L, Hgb 7.4 L D, Hct 22.3 L, MCV 94.0, MCH 31.2, MCHC 33.2, RDW 14.6, Plt Count 232, MPV 8.1, Neut % (Auto) 65.1, Lymph % (Auto) 24.0, [place]
--- NOTE | 2022-08-21 12:36 | PC.NURSE ---
Dr. Drake called, new orders given. Patient to be discharged home.
--- NOTE | 2022-08-21 13:00 | HMH.PHAINT1 ---
Pharmacy Intervention Comments: DISCHARGE MEDICATION COUNSELING PROVIDED. DISCUSSED CHANGE ON THE PROTONIX FROM DAILY TO TWICE DAILY AND STOP TAKING ASPIRIN. PATIENT VERBALIZED NO QUESTIONS AT THIS TIME.
--- NOTE | 2022-08-22 13:48 | CARE MANAGER ---
Contacted patient related to hospital discharge. He denies any questions or concerns and is aware of follow up appointments. SUMEET Orozco
== END 2022-08-21 12:58 | disposition home or self-care (01) | DRG 378 ==
LOC: ER 10:29 → 2ND 12:55
PROVIDERS: Surgery; Admitting Provider Internal Medicine Adolescent Medicine; Emergency Provider Student in an Organized Health Care Education/Training Program; PCP Internal Medicine Adolescent Medicine; Visit Provider Internal Medicine Adolescent Medicine
PROC: 0DJ08ZZ Inspection of Upper Intestinal Tract, Via Natural or Artificial Opening Endoscopic (ICD-10-PCS; CPT 43235; principal; 2022-08-19 10:30)
DX: K26.4 Chronic or unspecified duodenal ulcer with hemorrhage (principal); D62 Acute posthemorrhagic anemia; K55.1 Chronic vascular disorders of intestine; J44.9 Chronic obstructive pulmonary disease, unspecified; E78.5 Hyperlipidemia, unspecified; I73.9 Peripheral vascular disease, unspecified; F17.200 Nicotine dependence, unspecified, uncomplicated; K29.80 Duodenitis without bleeding; K29.70 Gastritis, unspecified, without bleeding; I10 Essential (primary) hypertension; I77.1 Stricture of artery; Z71.6 Tobacco abuse counseling
CPT/HCPCS: 43239; 36415; 71275; 74174; 80048; 80053; 82947; 82962; 83605; 83690; 84132; 84484; 85007; 85014; 85018; 85025; 85610; 86140; 86850; 87339; 93005; 99291; C9803; P9016; Q9967; U0003; U0005

== ENCOUNTER → 2022-08-22 07:25 | Outpatient (CLI) | payer MEDICARE, SELFPAY ==
[2022-08-22 08:08] LABS: Basophils # 0.1 K/mm3 (0-0.2); Basophils % 0.4 % (0.1-2.0); Eosinophils # 0.6 K/mm3 (0.0-0.4); Eosinophils % 4.8 % (0.1-12.0); Hematocrit 26.7 % (42.0-52.0); Hemoglobin 8.8 g/dL (14.1-18.0); Lymphocytes # 2.6 K/mm3 (0.7-4.5); Lymphocytes % 21.4 % (10-50); Mean Corpuscular HGB Conc 32.7 g/dL (31.8-35.4); Mean Corpuscular Hemoglobin 31.5 pg (27.0-31.2); Mean Corpuscular Volume 96.4 fl (80-94); Mean Platelet Volume 8.1 fl (7.4-10.4); Monocytes # 0.4 K/mm3 (0.1-1.0); Monocytes % 3.7 % (1.7-9.3); Neutrophils # 8.5 K/mm3 (1.8-7.8); Neutrophils % 69.7 % (37.0-80.0); Platelet Count 290 K/mm3 (142-424); Red Blood Count 2.77 M/mm3 (4.60-6.20); Red Cell Distribution Width 14.5 % (11.5-17.5); White Blood Count 12.2 K/mm3 (4.8-10.8)
== END ==
PROVIDERS: PCP Nurse Practitioner Family; Visit Provider Internal Medicine Adolescent Medicine
DX: K92.2 Gastrointestinal hemorrhage, unspecified (principal)
CPT/HCPCS: 36415; 85025

== ENCOUNTER 2022-08-22 23:38 | Emergency (ER) | payer MEDICARE, SELFPAY ==
--- NOTE | 2022-08-22 23:41 | ECG_ITS ---
APPROVED REPORT Exam: Resting ECG HR:75 bpm ECG Measurements Heart Rate 75 AXES DC 137 P 75 QRSd 106 QRS 77 QT 349 T 76 QTc 378 Conclusion SINUS RHYTHM SEPTAL MYOCARDIAL INFARCTION , OF INDETERMINATE AGE [40+ ms Q WAVE IN V1/V2] ABNORMAL ECG UNCONFIRMED REPORT Electronically signed by : Sung Drake MD 08/23/2022 14:19:59
[2022-08-22 23:56] VITALS: BP 137/57; PULSE 75; RESP 18; TEMP 36.9; O2SAT 98; BMI 22.9
--- NOTE | 2022-08-23 00:03 | XR_ITS ---
PROCEDURE INFORMATION: Exam: XR Chest Exam date and time: 08/23/2022 12:33 AM Age: 62 years old Clinical indication: Sternal or substernal pain; Additional info: Cp TECHNIQUE: Imaging protocol: Radiologic exam of the chest. Views: 1 view. COMPARISON: CR XR CHEST 2V 08/09/2022 11:51 PM FINDINGS: Lungs: Unremarkable. No consolidation. Pleural spaces: Unremarkable. No pleural effusion. No pneumothorax. Heart/Mediastinum: Unremarkable. No cardiomegaly. Bones/joints: Unremarkable. IMPRESSION: No acute findings.
[2022-08-23 00:14] LABS: Alanine Aminotransferase 26 U/L (12-78); Albumin Level 3.3 g/dl (3.5-5.0); Alkaline Phosphatase 88 U/L (38-126); Amylase 129 U/L (30-110); Anion Gap 10.1 mEq/L (5-15); Aspartate Amino Transferase 35 U/L (17-59); Basophils % 0.3 % (0.1-2.0); Bilirubin,Indirect 0.2 mg/dL (0.0-0.9); Bilirubin,Total 0.2 mg/dl (0.2-1.3); Bilirubin,Unconjugated 0.2 mg/dL (0.0-1.1); Blood Urea Nitrogen 19 mg/dl (9-20); Carbon Dioxide 22 mmol/L (22.0-30.0); Chloride 107 mmol/L (98-107); Creatinine Clearance Estimated 60 mL/min (50-200); Eosinophils # 0.5 K/mm3 (0.0-0.4); Eosinophils % 4.2 % (0.1-12.0); Estimated Glomerular Filt Rate 56 ml/min (>60); GFR (African American) 67 ML/MIN (>60); Glucose 106 mg/dl (74-100); Hematocrit 23.5 % (42.0-52.0); Lipase 277 U/L (23-300); Lymphocytes % 25.8 % (10-50); Magnesium 1.8 mg/dl (1.6-2.3); Mean Corpuscular HGB Conc 34.1 g/dL (31.8-35.4); Mean Corpuscular Hemoglobin 32.8 pg (27.0-31.2); Mean Corpuscular Volume 96.1 fl (80-94); Mean Platelet Volume 8.2 fl (7.4-10.4); Monocytes # 0.5 K/mm3 (0.1-1.0); Monocytes % 4.1 % (1.7-9.3); Neutrophils # 7.6 K/mm3 (1.8-7.8); Neutrophils % 65.6 % (37.0-80.0); Platelet Count 291 K/mm3 (142-424); Potassium 3.1 mmoL/L (3.5-5.1); Red Blood Count 2.44 M/mm3 (4.60-6.20); Red Cell Distribution Width 15.1 % (11.5-17.5); Sodium 136 mmol/L (136-145); Total Protein,Serum 5.9 g/dl (6.3-8.2); White Blood Count 11.5 K/mm3 (4.8-10.8)
--- NOTE | 2022-08-23 00:16 | PC.NURSE ---
pt back from xray
[2022-08-23 00:43] LABS: Troponin I < 0.01 ng/ml (0.00-0.034)
--- NOTE | 2022-08-23 01:04 | HMH.EDCP ---
Discharge Plan Disposition Patient Disposition: Home, Self-Care Chief Complaint: Chest Pain Prescriptions Prescriptions: No Action valsartan 160 mg tablet 160 mg PO DAILY Stiolto Respimat 2.5-2.5 mcg/actuation mist 2 puff IH DAILY albuterol sulfate 90 mcg/actuation HFA aerosol inhaler 2 puff IH Q4HP PRN (Reason: Shortness Of Breath) ascorbic acid (vitamin C) 500 mg capsule 500 mg PO DAILY cholecalciferol (vitamin D3) 50 mcg (2,000 unit) capsule 50 mcg PO DAILY multivitamin Tablet 1 tab PO DAILY [id number] oil-vit D3 120 mg-180 mg -1,000 unit capsule 1 cap PO DAILY bisoprolol fumarate 10 mg tablet 10 mg PO DAILY clopidogrel [Plavix] 75 mg tablet 75 mg PO DAILY atorvastatin 20 mg tablet 20 mg PO HS Label Comments: TAKE 1 TABLET BY MOUTH ONCE DAILY AT BEDTIME gabapentin 300 mg capsule 300 mg PO HS Label Comments: TAKE 1 CAPSULE BY MOUTH EVERY DAY AT BEDTIME promethazine 25 mg tablet 25 mg PO Q12HP PRN (Reason: Nausea) pantoprazole [Protonix] 40 mg tablet,delayed release (DR/EC) 40 mg PO BID 30 Days Qty: 60 0RF Referrals Follow up/Referrals: Oly Vance APRN [Primary Care Provider] - See instructions Clinical Impressions Clinical Impression: Duodenitis, Chest pain Instructions Patient Instructions: DI for Chest Pain Discharge ED Provider: Elmira MCDUFFIE)Brijesh Chest Pain HPI General Chief Complaint: Chest Pain Stated Complaint: Chest Pain Time Seen by Provider: 08/23/22 01:04 Mode of Arrival: EMS Source of Information: Patient and Medical Record Limitations: No Limitations Description of Symptoms (Recalled from ER Triage Doc. by RN): Pt arrives via EMS C C/o now resolved chest pain. States that his chest pain began very minor at 1500 this afternoon. Pt states he thought it was gas. States that at 2300 he took his evening medicines (including pantoprazole) and he began to have severe 10/10 chest pain that radiated down both of his arms and both sides of his neck. States that he immediately took two tums but his pain continued. Pt called 911 and when the ambulance arrived his chest pain began to resolve. States that his pain is currently a 0/10. History of Present Illness HPI narrative: pt with episode of chest pain tonight and had relief with meds - rad to neck - MD complaint: chest pain indicative of cardiac Onset (ago): hour(s) Duration: now resolved Activity at onset: during rest Pain location: left chest Severity: similar to previous episodes Quality: sharp Pain radiation: RUE, LUE and neck Relieving factors: antacids Risk Factors for CAD: Family Hx of CAD Treatments prior to or on arrival for Cardiac Chest Pain: none THOMPSON Score for Non-Stemi Age of Patient: 60-69 years old Heart Rate: 50-69 bpm Systolic Blood Pressure: 120-139 mmhg Serum Creatinine: 1.20-1.59 mg/dl CHF [place] Class: I-No CHF Other Risk Factors: None Non-Stemi Risk Score: 105 Risk Stratification: 1-108 = Low Risk Related Data Home Medications Medication Instructions Recorded Confirmed albuterol sulfate 90 mcg/actuation 2 puff inhalation Q4HP PRN 12/24/21 08/18/22 aerosol inhaler Shortness Of Breath ascorbic acid (vitamin C) 500 mg 500 mg PO DAILY Supplement 12/24/21 08/18/22 capsule cholecalciferol (vitamin D3) 50 50 mcg PO DAILY Supplement 12/24/21 08/18/22 mcg (2,000 unit) capsule multivitamin 1 tab PO DAILY Supplement 12/24/21 08/18/22 omega-3-dha 120 mg-epa 180 mg-fish 1 cap PO DAILY Supplement 12/24/21 08/18/22 oil-vitamin D3 1,000 unit capsule tiotropium 2.5 mcg-olodaterol 2.5 2 puff inhalation DAILY COPD 12/24/21 08/18/22 mcg/actuation mist for inhalation (Stiolto Respimat) valsartan 160 mg tablet 160 mg PO DAILY High blood pressure 08/12/22 08/18/22 bisoprolol fumarate 10 mg tablet 10 mg PO DAILY High blood pressure 08/14/22 08/18/22 atorvastatin 20 mg tablet 20 mg PO HS Cholesterol 08/18/22
[2022-08-23 01:22] VITALS: BP 121/48; PULSE 72; RESP 18; TEMP 36.6; O2SAT 96
== END 2022-08-23 01:39 | disposition home or self-care (01) ==
PROVIDERS: Emergency Provider Emergency Medicine; PCP Nurse Practitioner Family
DX: R07.9 Chest pain, unspecified (principal); K29.80 Duodenitis without bleeding; Z87.891 Personal history of nicotine dependence
CPT/HCPCS: 71045; 80048; 80076; 82150; 83690; 83735; 84484; 85025; 93005; 96360; 96374; 96375; 99285

== ENCOUNTER 2022-08-23 20:05 | Observation (INO) | payer MEDICARE, SELFPAY ==
[2022-08-23] VITALS (22 sets, daily range): BP systolic 132–184; BP diastolic 56–83; PULSE 80–106; RESP 9–24; TEMP 36.6–37.2; O2SAT 92–99; BMI 23.6; BMI 23.3
--- NOTE | 2022-08-23 20:04 | ECG_ITS ---
APPROVED REPORT Exam: Resting ECG HR:109 bpm ECG Measurements Heart Rate 109 AXES TN 125 P 76 QRSd 94 QRS 77 QT 307 T 93 QTc 371 Conclusion SINUS TACHYCARDIA SEPTAL MYOCARDIAL INFARCTION , OF INDETERMINATE AGE [40+ ms Q WAVE IN V1/V2] MARKED ST DEPRESSION, CONSIDER SUBENDOCARDIAL INJURY [0.2+ mV ST DEPRESSION] ACUTE NM UNCONFIRMED REPORT Electronically signed by : Sung Drake MD 08/24/2022 15:40:00
--- NOTE | 2022-08-23 20:11 | XR_ITS ---
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 TECHNIQUE: Imaging protocol: Radiologic exam of the chest. Views: 1 view. COMPARISON: CR XR CHEST AP 08/23/2022 12:33 AM FINDINGS: Lungs: Mild hyperexpansion and hyperlucency with mild diaphragmatic flattening suggesting possible COPD. Pulmonary vasculature grossly normal. No gross pulmonary infiltrates or edema pattern. Pleural spaces: No pleural effusion. No pneumothorax. Heart/Mediastinum: Heart size normal. No tracheal/mediastinal shift. Bones/joints: No acute osseous abnormalities are identified. IMPRESSION: 1. No acute thoracic process. 2. Evidence of COPD.
[2022-08-23 20:20] LABS: Basophils % 0.2 % (0.1-2.0); Eosinophils # 0.4 K/mm3 (0.0-0.4); Eosinophils % 3.5 % (0.1-12.0); Hematocrit 23.6 % (42.0-52.0); Hemoglobin 7.8 g/dL (14.1-18.0); Lymphocytes # 2.6 K/mm3 (0.7-4.5); Mean Corpuscular HGB Conc 33.2 g/dL (31.8-35.4); Mean Corpuscular Hemoglobin 31.5 pg (27.0-31.2); Monocytes # 0.4 K/mm3 (0.1-1.0); Monocytes % 3.3 % (1.7-9.3); Neutrophils % 70.1 % (37.0-80.0); Platelet Count 328 K/mm3 (142-424); Red Blood Count 2.48 M/mm3 (4.60-6.20); White Blood Count 11.4 K/mm3 (4.8-10.8)
--- NOTE | 2022-08-23 20:23 | HMH.EDCP ---
Discharge Plan Disposition Patient Disposition: Admitted As Inpatient Chief Complaint: Chest Pain Clinical Impressions Clinical Impression: Unstable angina pectoris, Anemia Discharge ED Provider: El[place]ira (ED)Brijesh Chest Pain HPI General Chief Complaint: Chest Pain Stated Complaint: Chest pain Time Seen by Provider: 08/23/22 20:10 Mode of Arrival: Ambulatory Source of Information: Patient, Spouse and Medical Record Limitations: No Limitations Description of Symptoms (Recalled from ER Triage Doc. by RN): Pt arrives to ED with c/o chest pain along w nausea that started approx 1700 this evening. History of Present Illness HPI narrative: pt presents with lower chest pain /upper abd about 1700 - pt with known pvd and uses tob MD complaint: chest pain indicative of cardiac Onset (ago): hour(s) Duration: constant Activity at onset: during rest Pain location: substernal and epigastric Severity: severe Quality: sharp Relieving factors: nothing Associated symptoms: nausea Risk Factors for CAD: Hypertension, Family Hx of CAD and Smoking Treatments prior to or on arrival for Cardiac Chest Pain: none THOMPSON Score for Non-Stemi Age of Patient: 60-69 years old Heart Rate: 90-109 bpm Systolic Blood Pressure: 140-159 mmHg Serum Creatinine: 1.20-1.59 mg/dl CHF [place] Class: I-No CHF Other Risk Factors: Elevated Cardiac Enzymes or Biomarkers Non-Stemi Risk Score: 121 Risk Stratification: 109-140 = Intermediate Ri Related Data Home Medications Medication Instructions Recorded Confirmed albuterol sulfate 90 mcg/actuation 2 puff inhalation Q4HP PRN 12/24/21 08/18/22 aerosol inhaler Shortness Of Breath ascorbic acid (vitamin C) 500 mg 500 mg PO DAILY Supplement 12/24/21 08/18/22 capsule cholecalciferol (vitamin D3) 50 50 mcg PO DAILY Supplement 12/24/21 08/18/22 mcg (2,000 unit) capsule multivitamin 1 tab PO DAILY Supplement 12/24/21 08/18/22 omega-3-dha 120 mg-epa 180 mg-fish 1 cap PO DAILY Supplement 12/24/21 08/18/22 oil-vitamin D3 1,000 unit capsule tiotropium 2.5 mcg-olodaterol 2.5 2 puff inhalation DAILY COPD 12/24/21 08/18/22 mcg/actuation mist for inhalation (Stiolto Respimat) valsartan 160 mg tablet 160 mg PO DAILY High blood pressure 08/12/22 08/18/22 bisoprolol fumarate 10 mg tablet 10 mg PO DAILY High blood pressure 08/14/22 08/18/22 atorvastatin 20 mg tablet 20 mg PO HS Cholesterol 08/18/22 08/18/22 clopidogrel 75 mg tablet (Plavix) 75 mg PO DAILY 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 08/18/22 08/18/22 gabapentin 300 mg capsule 300 mg PO HS Restless leg 08/18/22 08/18/22 promethazine 25 mg tablet 25 mg PO Q12HP PRN Nausea 08/18/22 08/18/22 Previous Rx's Medication Instructions Recorded pantoprazole 40 mg tablet,delayed 40 mg PO BID Reflux/Acid reflux 30 08/21/22 release (Protonix) days #60 tabs Allergies Allergy/AdvReac Type Severity Reaction Status Date / Time codeine AdvReac Verified 08/12/22 09:58 cyclobenzaprine AdvReac Verified 08/12/22 09:58 [From Flexeril] Buovpss-[id number] Reductase AdvReac Verified 08/12/22 09:58 [facility]itor [facility] Disclaimer: The information contained in this section may have been updated after the patient was seen, as this information can be updated by other users. Medical History COPD (chronic obstructive pulmonary disease) Coronary artery calcification seen on CAT scan Hyperlipidemia Hypertension PAD (peripheral artery disease) Smoker Surgical History S/P insertion of iliac artery stent Social History Smoking Status: Current every day smoker alcohol intake: former substance use type: denies use current occupational status: other Travel in the last 8 weeks: Inside the [place] ROS Obtained: Yes All systems reviewed & no additional complaints except as documented Physical Exam General General appearance: alert Head Head exam: no
[2022-08-23 20:25] LABS: Chloride 107 mmol/L (98-107); Potassium 3.7 mmoL/L (3.5-5.1); Sodium 137 mmol/L (136-145)
[2022-08-23 20:28] LABS: Alanine Aminotransferase 26 U/L (12-78); Albumin Level 3.4 g/dl (3.5-5.0); Albumin/Globulin Ratio 1.3 (1.1-1.8); Alkaline Phosphatase 93 U/L (38-126); Anion Gap 10.7 mEq/L (5-15); Aspartate Amino Transferase 33 U/L (17-59); Bilirubin,Total 0.2 mg/dl (0.2-1.3); Blood Urea Nitrogen 13 mg/dl (9-20); Carbon Dioxide 23 mmol/L (22.0-30.0); Creatinine Clearance Estimated 67 mL/min (50-200); Estimated Glomerular Filt Rate 61 ml/min (>60); GFR (African American) 74 ML/MIN (>60); Globulin 2.7 g/dL (1.3-3.2); Total Protein,Serum 6.1 g/dl (6.3-8.2)
[2022-08-23 20:29] LABS: Calcium 8.7 mg/dl (8.4-10.2); Glucose 133 mg/dl (74-100)
[2022-08-23 20:39] LABS: PTT Heparin (inpatient only) 25.3 Seconds (23.6-34.0)
--- NOTE | 2022-08-23 20:39 | PC.NURSE ---
Spoke with Rad[facility] at [facility] regarding nitro drip. Drip is to be given at 300mcg per hour, titrate at 5mcg/min for angina
[2022-08-23 20:42] LABS: Troponin I 0.06 ng/ml (0.00-0.034)
--- NOTE | 2022-08-23 20:48 | PC.NURSE ---
field laborer team being paged at this time.
--- NOTE | 2022-08-23 20:48 | PC.NURSE ---
Dr. Ortiz called and requested laboratory clerk team be called in
--- NOTE | 2022-08-23 20:51 | PC.NURSE ---
is now requesting to cancel the cathlab. Stop heparin drip. Continue nitro drip. Type and cross for 2 units
--- NOTE | 2022-08-23 20:54 | PC.NURSE ---
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
--- NOTE | 2022-08-23 21:02 | PC.NURSE ---
Current EKG and past EKG from 08/22/22 sent to MD Diana at 2020
[2022-08-23 21:17] LABS: Coronavirus 19, PCR Not Detected (NotDetected); Influenza A, PCR Not Detected (NotDetected); Influenza B, PCR Not Detected (NotDetected)
--- NOTE | 2022-08-23 21:20 | PC.NURSE ---
Nitro gtt increased to 10mcg/min d/t c/o chest pain
--- NOTE | 2022-08-23 21:22 | ECG_ITS ---
APPROVED REPORT Exam: Resting ECG HR:92 bpm ECG Measurements Heart Rate 92 AXES [place] 128 P 70 QRSd 101 QRS 78 QT 330 T 79 QTc 380 Conclusion SINUS RHYTHM SEPTAL MYOCARDIAL INFARCTION , OF INDETERMINATE AGE [40+ ms Q WAVE IN V1/V2] ST DEVIATION AND MODERATE T-WAVE ABNORMALITY, CONSIDER LATERAL ISCHEMIA [-0.1+ mV T-WAVE IN I/aVL/V5/V6] ABNORMAL ECG UNCONFIRMED REPORT Electronically signed by : Sung Drake MD 08/24/2022 15:39:42
--- NOTE | 2022-08-23 21:26 | PC.NURSE ---
Nitro gtt increased to 15mcg/min d/t pt reported pain
--- NOTE | 2022-08-23 21:35 | PC.NURSE ---
Nitro increased to 20mcg/min d/t c/o pain
--- NOTE | 2022-08-23 21:44 | PC.NURSE ---
Pt reports pain is now 5 out of 10 and easing
--- NOTE | 2022-08-23 22:04 | PC.NURSE ---
PT. ARRIVED TO FLOOR AT 22:02
--- NOTE | 2022-08-23 22:45 | PC.NURSE ---
Nitro gtt decreased to 15mcg/min. Pt reports no pain at this time
--- NOTE | 2022-08-23 23:11 | ECG_ITS ---
APPROVED REPORT Exam: Resting ECG HR:92 bpm ECG Measurements Heart Rate 92 AXES VT 136 P 70 QRSd 102 QRS 78 QT 343 T 75 QTc 392 Conclusion SINUS RHYTHM SEPTAL MYOCARDIAL INFARCTION , OF INDETERMINATE AGE [40+ ms Q WAVE IN V1/V2] ABNORMAL ECG UNCONFIRMED REPORT Electronically signed by : Sung Drake MD 08/24/2022 15:39:22
--- NOTE | 2022-08-23 23:15 | PC.NURSE ---
[id number] dr prater at bedside to assess pt, ekg was requested and obtained and was reviewed by md, pt denies pain at this time, verbal orders given to maintain ntg drip to keep sbp 130's as well as pain control, discusses possible cath in am, no new orders at this time.
[2022-08-23 23:28] LABS: Troponin I 0.15 ng/ml (0.00-0.034)
[2022-08-24] VITALS (36 sets, daily range): BP systolic 110–149; BP diastolic 49–87; PULSE 63–87; RESP 16–20; TEMP 36.7–37.5; O2SAT 94–99; BMI 23.3
--- NOTE | 2022-08-24 | IR_ITS ---
APPROVED REPORT Patient Location: Inpatient Manager Winter: DEONNA Simental RT (R) PROCEDURES Left heart catheterization with left ventriculogram FFR to right coronary artery Right radial artery cannulation Conscious sedation INDICATION 62 years old patient with past medical history of peripheral vascular disease, hypertension, dyslipidemia and recent celiac artery stent insertion presented to ER with chest pain., EKG showed ST elevation in aVR and diffuse ST depression suggestive of triple-vessel disease or left main artery disease., Elevated troponin., Treated for non-STEMI., Hemoglobin was 7.7 due to recent GI bleed. He was given 2 units of blood transfusion and scheduled for left heart cath today to assess coronary anatomy. Informed consent was obtained prior to the procedure. COMPLICATIONS None Estimated Blood Loss: Less than 10 ml TECHNIQUE One percent lidocaine used to anesthetize the right anterior aspect of the wrist. The right radial artery was accessed via the Seldinger technique. A 6 Polish sheath was placed in the right radial artery. 200 mcg of nitroglycerin and 3000 U Heparin were given through the arterial sheath. The diagnostic catheter was also used to perform left heart catheterization, left ventriculogram and selective coronary angiogram. Patient was found to have significant stenoses of left artery descending artery, right coronary artery and left circumflex artery. Decided to assess physiologically significant of the right coronary artery stenosis. JR4 guide was advanced and right coronary artery was engaged. Patient was given heparin as per standard protocol. FFR was 0.68 without infusion of adenosine suggestive of physiologically significant RCA stenosis. At the end of the procedure the sheath was removed good hemostasis was achieved using Traclet band, patient was transferred to the postop holding area in stable condition. ANGIOGRAPHIC RESULTS The left main artery Patent The left anterior descending artery Proximal 80 to 85% stenosis with ulcerated plaque. Lesion is at the origin of the diagonal branch. Although vessel seems patent and reaches up to the apex. The circumflex artery Proximal 70 to 80% calcified stenosis. The right coronary artery Mild diffuse calcification. Proximal 70%, mid 60% and distal 50% stenosis. The AMARO ventriculogram reveals 40 to 45%. Mild diffuse hypokinesia. The left ventricular end-diastolic pressure 36 mmHg IMPRESSION Admitted with non-STEMI Multivessel coronary artery disease Ischemic cardiomyopathy with EF 40 to 45% PLAN 1. Continue aspirin, beta-chetan and statin. 2. Continue heparin drip and nitro drip. 3. Recommend multivessel CABG. 4. Recommend strict cholesterol, sugar and blood pressure control. 5. Advised for lifestyle modification and diet modification. Electronically signed by : Rakesh Ortiz, 08/24/2022 10:09:16
--- NOTE | 2022-08-24 00:14 | PC.NURSE ---
troponin level called to dr. prater (0.15), no new orders at this time.
--- NOTE | 2022-08-24 00:17 | PC.NURSE ---
telephone order to give lasix 40mg ivp after first unit of prbc infused, repeated and verified, dr prater
--- NOTE | 2022-08-24 00:20 | PC.NURSE ---
ntg turned down to 10mcg/min for pt denies chest pain and sbp 125, no acute distress, blood infusing without difficulty
[2022-08-24 02:51] LABS: Troponin I 0.22 ng/ml (0.00-0.034)
--- NOTE | 2022-08-24 02:53 | PC.NURSE ---
called critical troponin to dr prater cardiology 0.22, no new orders at this time, nitro gtt was decreased to 5mcg/min for sbp less than 130, pt denies chest pain. no acute distress
--- NOTE | 2022-08-24 06:43 | PC.NURSE ---
pt denies chest pain at this time, ntg drip infusing at 5mcg/min, sbp maintains in 120's, no acute distress, pt tolerated 2units prbc, pt voiding without difficutly, pt is alert and oriented x4, telemetry reveals nsr, no other issues at this time.
[2022-08-24 07:00] LABS: Eosinophils # 0.5 K/mm3 (0.0-0.4); Neutrophils # 5.8 K/mm3 (1.8-7.8)
[2022-08-24 07:02] LABS: Chloride 108 mmol/L (98-107); Potassium 3.3 mmoL/L (3.5-5.1); Sodium 139 mmol/L (136-145)
[2022-08-24 07:05] LABS: Anion Gap 8.3 mEq/L (5-15); Basophils % 0.5 % (0.1-2.0); Blood Urea Nitrogen 11 mg/dl (9-20); Carbon Dioxide 26 mmol/L (22.0-30.0); Creatinine Clearance Estimated 61 mL/min (50-200); Eosinophils % 5.7 % (0.1-12.0); Estimated Glomerular Filt Rate 56 ml/min (>60); GFR (African American) 67 ML/MIN (>60); Glucose 103 mg/dl (74-100); Hematocrit 26.9 % (42.0-52.0); Lymphocytes # 2.2 K/mm3 (0.7-4.5); Lymphocytes % 24.4 % (10-50); Mean Corpuscular HGB Conc 33.9 g/dL (31.8-35.4); Mean Corpuscular Volume 91.4 fl (80-94); Mean Platelet Volume 7.6 fl (7.4-10.4); Monocytes # 0.5 K/mm3 (0.1-1.0); Monocytes % 5.5 % (1.7-9.3); Neutrophils % 63.8 % (37.0-80.0); Platelet Count 303 K/mm3 (142-424); Red Blood Count 2.94 M/mm3 (4.60-6.20); White Blood Count 9.1 K/mm3 (4.8-10.8)
[2022-08-24 07:08] LABS: Hemoglobin 9.1 g/dL (14.1-18.0)
--- NOTE | 2022-08-24 11:15 | EXP.CARD.CON ---
History of Present Illness History of Present Illness Consult date: 08/23/22 Consult reason: chest pain Chief complaint: Chest pain and nausea History of present illness: 62-year-old white male with past medical history of carotid artery stenosis, status post bilateral endarterectomy 2017 and 2019, peripheral artery disease with prior stenting of iliac and legs, Celiac artery stenosis, status post celiac artery stent on 08/14/2022, superior mesenteric artery stenosis, diastolic dysfunction, hypertension, tobacco use, hyperlipidemia, bleeding GI ulcers, and copd presented to emergency department on 08/23/2022 with complaint of nausea and chest pain. Patient presented to emergency department 08/22/2022 with nausea and abdominal pain. He left the hospital AGAINST MEDICAL ADVICE today. He presented back to ER today with nausea and chest pain. Pain started around 5 PM. No radiation. Associated with nausea. Sharp in nature. No alleviating factors. No relieving factors. EKG showed ST elevation in aVR and diffuse ST depression. Troponin was 0.06. Hemoglobin was 7. I was consulted for non-STEMI management. Patient had multiple admissions in the last 2 weeks. Abdominal pain .status post iliac artery stenting on 08/14/2022 Acute blood anemia on 08/20/2022. S/p EGD -duodenitis Patient was started on nitro drip. Status post 2 units of blood transfusion Pain resolved EKG showed resolution of ST elevation in aVR and diffuse ST depression Troponin was 0.2 I am concerned about triple-vessel disease or left main equivalent disease based on previous EKG Plan is to do heart cath tomorrow [facility] Disclaimer: The information contained in this section may have been updated after the patient was seen, as this information can be updated by other users. Medical History COPD (chronic obstructive pulmonary disease) Coronary artery calcification seen on CAT scan Hyperlipidemia Hypertension PAD (peripheral artery disease) Smoker Surgical History S/P insertion of iliac artery stent Family History Other Family history of cancer Family history of myocardial infarction Family history of stroke Social History (Updated 08/23/22 @ 23:57 by Nicolle Sanchez RN) Smoking Status: Current every day smoker years smoked: 50 quit status: has quit before Tobacco counseling given: patient declined alcohol intake: former substance use type: denies use current occupational status: disabled Travel in the last 8 weeks: Inside the [place] caffeine: No physical activity: walking special hoa needs: No agree to transfusion: Yes Review of Systems Review of Systems Review of systems:: pertinent systems reviewed and negative unless documented below *Cardiovascular Cardiovascular: Reports as per HPI *Gastrointestinal Gastrointestinal: Reports as per HPI Exam Data for Last 24 hours Vital signs and Labs for Last 24 Hours: Temp Pulse Resp BP Pulse Ox 99.0 F 77 16 140/59 L 96 08/24/22 10:10 08/24/22 10:25 08/24/22 10:25 08/24/22 10:25 08/24/22 10:25 Laboratory Results - last 24 hr 08/23/22 20:09: WBC 11.4 H, RBC 2.48 L, Hgb 7.8 L, Hct 23.6 L, MCV 95.0 H, MCH 31.5 H, MCHC 33.2, RDW 15.0, Plt Count 328, MPV 8.0, Neut % (Auto) 70.1, Lymph % (Auto) 23.0, [place] % (Auto) 3.3, Eos % (Auto) 3.5, Baso % (Auto) 0.2, Neut # (Auto) 8.0 H, Lymph # (Auto) 2.6, [place] # (Auto) 0.4, Eos # (Auto) 0.4, Baso # (Auto) 0.0 08/23/22 20:09: Sodium 137, Potassium 3.7, Chloride 107, Carbon Dioxide 23, Anion Gap 10.7, BUN 13 D, Creatinine 1.20, Estimated Creat Clear 67, Estimated GFR 61, Est GFR ( Amer) 74, Glucose 133 H D, Calcium 8.7, Total Bilirubin 0.2, AST 33, ALT 26, Alkaline Phosphatase 93, Troponin I 0.06 H, Total Protein 6.1 L, Albumin 3.4 L, Globulin 2.7, Albumin/Globulin Ratio 1.3 08/23/22 20:09: APTT 25.3
--- NOTE | 2022-08-24 12:58 | EXP.HP ---
History of Present Illness *Admission Date: 08/23/22 *Reason for visit:: Chest pain/shortness of air *History of present illness: 62-year-old white male with long and extensive peripheral, cardiac, cerebrovascular and mesenteric vascular disease history. 1 week ago he went to the ER with abdominal pain, CTA showed evidence of celiac stenosis and he was referred from the ER to cardiology who placed stent in the celiac artery. Course was complicated 2 days later by GI bleed. He was admitted to hospital, general surgery performed EGD which showed duodenitis with some history of previous bleeding. He was placed on high-dose proton pump inhibitors. Cardiology was consulted again during that admission and recommended Plavix only for his stent issues. He did well and was discharged with stable hemoglobins with short-term follow-up. He did come back for short-term follow-up and hemoglobin was stable and in fact rising. Unfortunately he began to have the onset of terrible/crushing chest pain and shortness of air yesterday, came to the emergency department last night. Ruled in for non-STEMI. [facility] Disclaimer: The information contained in this section may have been updated after the patient was seen, as this information can be updated by other users. Medical History COPD (chronic obstructive pulmonary disease) Coronary artery calcification seen on CAT scan Hyperlipidemia Hypertension PAD (peripheral artery disease) Smoker Surgical History S/P insertion of iliac artery stent Family History Other Family history of cancer Family history of myocardial infarction Family history of stroke Social History (Updated 08/23/22 @ 23:57 by Nicolle Sanchez RN) Smoking Status: Current every day smoker years smoked: 50 quit status: has quit before Tobacco counseling given: patient declined alcohol intake: former substance use type: denies use current occupational status: disabled Travel in the last 8 weeks: Inside the [place] caffeine: No physical activity: walking special hoa needs: No agree to transfusion: Yes Review of Systems Review of Systems Review of systems:: pertinent systems reviewed and negative unless documented below Meds Home Medications and Allergies Home Medications Medication Instructions Recorded Confirmed Type albuterol sulfate 90 mcg/actuation 2 puff inhalation Q4HP PRN 12/24/21 08/23/22 History aerosol inhaler Shortness Of Breath ascorbic acid (vitamin C) 500 mg 500 mg PO DAILY Supplement 12/24/21 08/23/22 History capsule cholecalciferol (vitamin D3) 50 50 mcg PO DAILY Supplement 12/24/21 08/23/22 History mcg (2,000 unit) capsule multivitamin 1 tab PO DAILY Supplement 12/24/21 08/23/22 History omega-3-dha 120 mg-epa 180 mg-fish 1 cap PO DAILY Supplement 12/24/21 08/23/22 History oil-vitamin D3 1,000 unit capsule tiotropium 2.5 mcg-olodaterol 2.5 2 puff inhalation DAILY COPD 12/24/21 08/23/22 History mcg/actuation mist for inhalation (Stiolto Respimat) valsartan 160 mg tablet 160 mg PO DAILY High blood pressure 08/12/22 08/23/22 History bisoprolol fumarate 10 mg tablet 10 mg PO DAILY High blood pressure 08/14/22 08/23/22 History atorvastatin 20 mg tablet 20 mg PO HS Cholesterol 08/18/22 08/23/22 History clopidogrel 75 mg tablet (Plavix) 75 mg PO DAILY PLATELET INHIBITOR 08/18/22 08/23/22 History gabapentin 300 mg capsule 300 mg PO HS Restless leg 08/18/22 08/23/22 History promethazine 25 mg tablet 25 mg PO Q12HP PRN Nausea 08/18/22 08/23/22 History pantoprazole 40 mg tablet,delayed 40 mg PO BID Reflux/Acid reflux 30 08/21/22 08/23/22 Rx release (Protonix) days #60 tabs New Prescriptions to Start Prescriptions: Allergies Allergy/AdvReac Type Severity Reaction Status Date / Time codeine AdvReac Verified 08/12/22 09:58 cyclobenzap
--- NOTE | 2022-08-24 14:38 | P.CONPHA_ITS ---
[facility] Heparin Dosing Demographic Data Admission date:: 08/23/22 Date: 08/24/22 Time: 14:38 Allergies Allergy/AdvReac Type Severity Reaction Status Date / Time codeine AdvReac Verified 08/12/22 09:58 cyclobenzaprine AdvReac Verified 08/12/22 09:58 [From Flexeril] [id number] Reductase AdvReac Verified 08/12/22 09:58 Inhibitor Height: 1.78 m Weight: 74 kg Indication Medication therapy:: Heparin Current Active Problems (Updated 08/24/22 @ 11:32 by Rakesh Ortiz MD) Non-STEMI (non-ST elevated myocardial infarction) (Acute) Unstable angina pectoris (Acute) Anemia (Acute) Celiac artery stenosis (Acute) Superior mesenteric artery stenosis (Acute) Hyperlipidemia (Acute) Smoker (Acute) PAD (peripheral artery disease) (Acute) CVA?: No Bleeding problem?: No Kidney disease?: No AL?: No Desired PTT range:: 50-75 seconds Labs Anticoagulation Lab Results:: 08/23/22 08/24/22 20:09 06:28 Hgb 7.8 L 9.1 L D Hct 23.6 L 26.9 L Plt Count 328 303 Monitoring Dose Monitor 1: Date: 08/23/22 Time: 20:09 PTT Result:: 25.3 Infusion Rate:: STARTED AT HEPARIN 18 ML/HR (900 UNITS/HR). NO BOLUS GIVEN ON FLOOR. RECEIVED HEPARIN 8000 UNIT BOLUS IN WELLNESS PROGRAM MANAGER THIS AM. Comment:: TRANSFERRING TO . Core Measures Is INR > or = 2 at discharge?: No Most Recent Labs:: Laboratory Results - last 24 hr 08/23/22 20:09: WBC 11.4 H, RBC 2.48 L, Hgb 7.8 L, Hct 23.6 L, MCV 95.0 H, MCH 31.5 H, MCHC 33.2, RDW 15.0, Plt Count 328, MPV 8.0, Neut % (Auto) 70.1, Lymph % (Auto) 23.0, [place] % (Auto) 3.3, Eos % (Auto) 3.5, Baso % (Auto) 0.2, Neut # (Auto) 8.0 H, Lymph # (Auto) 2.6, [place] # (Auto) 0.4, Eos # (Auto) 0.4, Baso # (Auto) 0.0 08/23/22 20:09: Sodium 137, Potassium 3.7, Chloride 107, Carbon Dioxide 23, Anion Gap 10.7, BUN 13 D, Creatinine 1.20, Estimated Creat Clear 67, Estimated GFR 61, Est GFR ( Amer) 74, Glucose 133 H D, Calcium 8.7, Total Bilirubin 0.2, AST 33, ALT 26, Alkaline Phosphatase 93, Troponin I 0.06 H, Total Protein 6.1 L, Albumin 3.4 L, Globulin 2.7, Albumin/Globulin Ratio 1.3 08/23/22 20:09: APTT 25.3 08/23/22 21:05: Blood Type O Negative, Antibody Screen Negative, Crossmatch (AHG) See Detail 08/23/22 21:10: SARS-CoV-2 (PCR) Not detected, Influenza A Untype (PCR) Not detected, Influenza Type B (PCR) Not detected 08/23/22 22:05: Troponin I 0.15 H 08/24/22 02:12: Troponin I 0.22 H 08/24/22 06:28: WBC 9.1, RBC 2.94 L, Hgb 9.1 L D, Hct 26.9 L, MCV 91.4, MCH 31.0, MCHC 33.9, RDW 15.0, Plt Count 303, MPV 7.6, Neut % (Auto) 63.8, Lymph % (Auto) 24.4, [place] % (Auto) 5.5, Eos % (Auto) 5.7, Baso % (Auto) 0.5, Neut # (Auto) 5.8, Lymph # (Auto) 2.2, [place] # (Auto) 0.5, Eos # (Auto) 0.5 H, Baso # (Auto) 0.0 08/24/22 06:28: Sodium 139, Potassium 3.3 L, Chloride 108 H, Carbon Dioxide 26, Anion Gap 8.3, BUN 11, Creatinine 1.30 H, Estimated Creat Clear 61, Estimated GFR 56 L, Est GFR ( Amer) 67, Glucose 103 H D, Calcium 8.0 L If INR was < than 2.0 why was therapy stopped?: TRANSFER Were Heparin and Warfarin started on the same day?: No If not, why?: TRANSFER
[2022-08-24 15:03] LABS: PTT Heparin (inpatient only) 46.4 Seconds (23.6-34.0)
--- NOTE | 2022-08-24 15:42 | EXP.DC.SUM ---
General Admission date:: 08/23/22 Discharge date: 08/24/22 HPI HPI HPI: 62-year-old white male with long and extensive peripheral, cardiac, cerebrovascular and mesenteric vascular disease history. 1 week ago he went to the ER with abdominal pain, CTA showed evidence of celiac stenosis and he was referred from the ER to cardiology who placed stent in the celiac artery. Course was complicated 2 days later by GI bleed. He was admitted to hospital, general surgery performed EGD which showed duodenitis with some history of previous bleeding. He was placed on high-dose proton pump inhibitors. Cardiology was consulted again during that admission and recommended Plavix only for his stent issues. He did well and was discharged with stable hemoglobins with short-term follow-up. He did come back for short-term follow-up and hemoglobin was stable and in fact rising. Unfortunately he began to have the onset of terrible/crushing chest pain and shortness of air yesterday, came to the emergency department last night. Ruled in for non-STEMI. Hospital Course Hospital Course Hospital Course: Patient was taken to Emergency Medical Service Manager this morning and significant multivessel disease was found, not amenable to catheter-based intervention. CT surgery [facility] was contacted and accepted the patient in transfer. A bed was available today and patient will be transferred for further diagnostic testing and intervention per CT surgery service. Exam Data for Last 24 hours Vital signs and Labs for Last 24 Hours: Temp Pulse Resp BP Pulse Ox 98.5 F 69 18 141/68 H 99 08/24/22 15:10 08/24/22 13:55 08/24/22 13:55 08/24/22 13:55 08/24/22 13:55 Laboratory Results - last 24 hr 08/23/22 20:09: WBC 11.4 H, RBC 2.48 L, Hgb 7.8 L, Hct 23.6 L, MCV 95.0 H, MCH 31.5 H, MCHC 33.2, RDW 15.0, Plt Count 328, MPV 8.0, Neut % (Auto) 70.1, Lymph % (Auto) 23.0, [place] % (Auto) 3.3, Eos % (Auto) 3.5, Baso % (Auto) 0.2, Neut # (Auto) 8.0 H, Lymph # (Auto) 2.6, [place] # (Auto) 0.4, Eos # (Auto) 0.4, Baso # (Auto) 0.0 08/23/22 20:09: Sodium 137, Potassium 3.7, Chloride 107, Carbon Dioxide 23, Anion Gap 10.7, BUN 13 D, Creatinine 1.20, Estimated Creat Clear 67, Estimated GFR 61, Est GFR ( Amer) 74, Glucose 133 H D, Calcium 8.7, Total Bilirubin 0.2, AST 33, ALT 26, Alkaline Phosphatase 93, Troponin I 0.06 H, Total Protein 6.1 L, Albumin 3.4 L, Globulin 2.7, Albumin/Globulin Ratio 1.3 08/23/22 20:09: APTT 25.3 08/23/22 21:05: Blood Type O Negative, Antibody Screen Negative, Crossmatch (AHG) See Detail 08/23/22 21:10: SARS-CoV-2 (PCR) Not detected, Influenza A Untype (PCR) Not detected, Influenza Type B (PCR) Not detected 08/23/22 22:05: Troponin I 0.15 H 08/24/22 02:12: Troponin I 0.22 H 08/24/22 06:28: WBC 9.1, RBC 2.94 L, Hgb 9.1 L D, Hct 26.9 L, MCV 91.4, MCH 31.0, MCHC 33.9, RDW 15.0, Plt Count 303, MPV 7.6, Neut % (Auto) 63.8, Lymph % (Auto) 24.4, [place] % (Auto) 5.5, Eos % (Auto) 5.7, Baso % (Auto) 0.5, Neut # (Auto) 5.8, Lymph # (Auto) 2.2, [place] # (Auto) 0.5, Eos # (Auto) 0.5 H, Baso # (Auto) 0.0 08/24/22 06:28: Sodium 139, Potassium 3.3 L, Chloride 108 H, Carbon Dioxide 26, Anion Gap 8.3, BUN 11, Creatinine 1.30 H, Estimated Creat Clear 61, Estimated GFR 56 L, Est GFR ( Amer) 67, Glucose 103 H D, Calcium 8.0 L 08/24/22 14:36: APTT 46.4 H I & O for Last 24 hours: Intake & Output 08/22/22 08/23/22 08/24/22 08/25/22 11:59 11:59 11:59 11:59 Intake Total 889 / 889 200 / 200 Output Total 2925 / 2925 0 / 0 Balance -2035 / -2035 200 / 200 Weight 163 lb 4 oz 163 lb 2.273 oz Constitutional Constitutional: no acute distress *Routine Respiratory Exam Respiratory: Present CTA bilaterally and symmetric chest movement *Routine Cardiovascular Exam Cardiovascular: Present RRR, Normal S1 and Normal S2 *Routine Abdominal Exam Abdominal: Present soft and normoactive bowel sounds; Absent tenderness *Routine Extremities Exam Extremities: Present full ROM and
== END 2022-08-24 15:27 | disposition short-term general hospital (02) ==
LOC: ER 20:49 → 2ND 21:21
PROVIDERS: Internal Medicine Interventional Cardiology; Admitting Provider Family Medicine; Emergency Provider Emergency Medicine; PCP Nurse Practitioner Family; Visit Provider Internal Medicine Adolescent Medicine
DX: I21.4 Non-ST elevation (NSTEMI) myocardial infarction (principal); I77.1 Stricture of artery; K55.1 Chronic vascular disorders of intestine; E78.5 Hyperlipidemia, unspecified; F17.210 Nicotine dependence, cigarettes, uncomplicated; D64.9 Anemia, unspecified; Z79.899 Other long term (current) drug therapy; Z79.02 Long term (current) use of antithrombotics/antiplatelets; I25.5 Ischemic cardiomyopathy; I65.23 Occlusion and stenosis of bilateral carotid arteries; I10 Essential (primary) hypertension; Z20.822 Contact with and (suspected) exposure to COVID-19
CPT/HCPCS: G0378; 36415; 71045; 80048; 80053; 84484; 85025; 85730; 86850; 93005; 93458; 93571; 99152; 99153; 99285; C1725; C1769; C9803; J1644; J2405; P9016; Q9967; U0003; U0005

== ENCOUNTER 2022-10-29 13:34 | Outpatient (RCR) | payer MEDICARE, SELFPAY | END 2023-05-13 15:00 | disposition home or self-care (01) | LOC: PT 13:34 | PROVIDERS: Visit Provider Thoracic Surgery (Cardiothoracic Vascular Surgery) | DX: I25.10 Atherosclerotic heart disease of native coronary artery without angina pectoris (principal); Z95.1 Presence of aortocoronary bypass graft | CPT/HCPCS: 93798 ==

== ENCOUNTER → 2022-11-04 10:18 | Outpatient (CLI) | payer MEDICARE, SELFPAY ==
--- NOTE | 2022-11-04 10:21 | XR_ITS ---
FINAL REPORT CLINICAL HISTORY: sob COMPARISON: 08/23/2022 FINDINGS: The heart size is normal. Postoperative changes are seen from median sternotomy, which has been performed since the prior chest x-ray of August. There is a small to moderate sized left pleural effusion present, as well as a small right pleural effusion. There is mild atelectasis in the left mid lung. There is no pneumothorax. The bony thorax is intact. IMPRESSION: Interval midline sternotomy since prior chest x-ray of August. Small to moderate left pleural effusion, small right pleural effusion. Mild atelectasis left mid lung. Reviewed, Interpreted and Dictated by Arsenio Wadsworth III, MD Transcribed by Gladys Aguilar Authenticated and [facility]
== END ==
LOC: RAD 10:19
PROVIDERS: PCP Nurse Practitioner Family; Visit Provider Internal Medicine
DX: J44.9 Chronic obstructive pulmonary disease, unspecified (principal)
CPT/HCPCS: 71046

== ENCOUNTER → 2022-11-08 09:46 | Outpatient (CLI) | payer MEDICARE, SELFPAY ==
--- NOTE | 2022-11-08 09:50 | CA_ITS ---
FINAL REPORT TECHNIQUE: Color Doppler, duplex Doppler and ramirez scale sonography of the bilateral neck vasculature was performed. Velocities were measured in the carotid arteries. Stenosis evaluation based on velocity criteria. CLINICAL HISTORY: JUAN MIGUEL,BILATERAL ENDART'S,SMOKER FINDINGS: The peak systolic velocity of the right common carotid artery is 89.8 cm/sec and internal carotid artery 142.2 cm/sec. The diastolic velocity in the internal carotid artery is 27.8 cm/sec. The ICA/CCA ratio is 1.6. Visually, a small amount of plaque is seen. These findings are consistent with less than 50% stenosis. The external carotid artery is patent. The right vertebral artery is patent with antegrade flow. The peak systolic velocity of the left common carotid artery is 76.4 cm/sec and internal carotid artery 196.4 cm/sec. The diastolic velocity in the internal carotid artery is 37.6 cm/sec. The ICA/CCA ratio is 2.8. Visually, a moderate amount of plaque is seen. These findings are consistent with between 50-69% stenosis. The external carotid artery is patent. The left vertebral artery is patent with antegrade flow. IMPRESSION: The right carotid artery shows no evidence of significant stenosis. However the left carotid artery is significantly worse than noted on the prior ultrasound of December 18, 2021. This is most compatible with left carotid stenosis of between 50-69%. Bilateral patent vertebral arteries. If indicated, CTA or catheter angiography could further evaluate. Reviewed, Interpreted and Dictated by Arsenio Wadsworth III, MD Transcribed by Gladys Aguilar Authenticated and [facility]
== END ==
PROVIDERS: PCP Nurse Practitioner Family; Visit Provider Nurse Practitioner
DX: I65.23 Occlusion and stenosis of bilateral carotid arteries (principal)
CPT/HCPCS: 93880

== ENCOUNTER → 2022-11-19 08:14 | Outpatient (CLI) | payer MEDICARE, SELFPAY ==
[2022-11-19 08:48] LABS: Anion Gap 15.2 mEq/L (5-15); Blood Urea Nitrogen 13 mg/dl (9-20); Calcium 8.8 mg/dl (8.4-10.2); Carbon Dioxide 16 mmol/L (22.0-30.0); Chloride 108 mmol/L (98-107); Estimated Glomerular Filt Rate 56 ml/min (>60); GFR (African American) 67 ML/MIN (>60); Glucose 91 mg/dl (74-100); Magnesium 1.8 mg/dl (1.6-2.3); Potassium 4.2 mmoL/L (3.5-5.1); Sodium 135 mmol/L (136-145)
== END ==
PROVIDERS: PCP Nurse Practitioner Family; Visit Provider Nurse Practitioner
DX: I50.23 Acute on chronic systolic (congestive) heart failure (principal)
CPT/HCPCS: 36415; 80048; 83735

== ENCOUNTER → 2022-11-19 12:45 | Outpatient (CLI) | payer MEDICARE, SELFPAY ==
--- NOTE | 2022-11-19 12:45 | CT_ITS ---
FINAL REPORT TECHNIQUE: Thin section axial CT with IV contrast supplemented with multiplanar reconstruction under CT angiogram protocol. This study was performed with techniques to keep radiation doses as low as reasonably achievable (ALARA). Individualized dose reduction techniques using automated exposure control or adjustment of mA and/or kV according to the patient''s size were employed. NASCET criteria was utilized during interpretation. CLINICAL HISTORY: JUAN MIGUEL FINDINGS: Aortic arch: Arch shows no significant narrowing. Great vessel origins are widely patent. Right carotid: Atherosclerotic disease is present in the carotid bulb with less than 50% stenosis. There are changes present from carotid endarterectomy. The extracranial portion of the internal carotid artery does not reveal any significant stenosis. Left carotid: Changes from carotid endarterectomy are present. The common carotid artery is patent with mild atherosclerotic plaque in the proximal internal carotid artery producing less than 50% stenosis. The more distal portion of the internal carotid artery is patent without significant stenosis. Vertebral: The vertebral arteries are codominant. No significant stenosis is present. Note is also made of a left pleural effusion. IMPRESSION: Bilateral endarterectomies have been performed previously. Less than 50% stenosis is present in either carotid bifurcation. Reviewed, Interpreted and Dictated by Carmelita Garza MD Transcribed by Gladys Aguilar Authenticated and [facility]
== END ==
LOC: RAD 12:45
PROVIDERS: PCP Nurse Practitioner Family; Visit Provider Physician Assistant
DX: I77.9 Disorder of arteries and arterioles, unspecified (principal); I50.23 Acute on chronic systolic (congestive) heart failure; I65.23 Occlusion and stenosis of bilateral carotid arteries
CPT/HCPCS: 36415; 70498; 80048; 83735; 93308; Q9967

== ENCOUNTER → 2022-12-12 11:30 | Outpatient (CLI) | payer MEDICARE, SELFPAY ==
--- NOTE | 2022-12-12 11:33 | XR_ITS ---
FINAL REPORT CLINICAL HISTORY: dyspnea/chf FINDINGS: TWO-VIEW CHEST The heart size is normal. The patient is status post median sternotomy. There is mild scarring in the left lung base. Moderate left effusion is noted. There is no pneumothorax. IMPRESSION: Moderate left effusion. Reviewed, Interpreted and Dictated by Arsenio Wadsworth III, MD Transcribed by Mali Villegas Authenticated and [facility]
[2022-12-12 12:24] LABS: Basophils % 0.4 % (0.1-2.0); Eosinophils # 0.2 K/mm3 (0.0-0.4); Eosinophils % 3.1 % (0.1-12.0); Hematocrit 38.1 % (42.0-52.0); Hemoglobin 11.7 g/dL (14.1-18.0); Lymphocytes # 2.5 K/mm3 (0.7-4.5); Lymphocytes % 30.8 % (10-50); Mean Corpuscular HGB Conc 30.7 g/dL (31.8-35.4); Mean Corpuscular Hemoglobin 25.5 pg (27.0-31.2); Mean Corpuscular Volume 83.1 fl (80-94); Mean Platelet Volume 7.9 fl (7.4-10.4); Monocytes # 0.3 K/mm3 (0.1-1.0); Monocytes % 4.3 % (1.7-9.3); Neutrophils # 4.9 K/mm3 (1.8-7.8); Neutrophils % 61.5 % (37.0-80.0); Platelet Count 401 K/mm3 (142-424); Red Blood Count 4.58 M/mm3 (4.60-6.20); Red Cell Distribution Width 18.5 % (11.5-17.5)
[2022-12-12 13:00] LABS: Alanine Aminotransferase 17 U/L (12-78); Albumin Level 4.3 g/dl (3.5-5.0); Alkaline Phosphatase 121 U/L (38-126); Anion Gap 16.2 mEq/L (5-15); Aspartate Amino Transferase 25 U/L (17-59); Bilirubin,Indirect 0.2 mg/dL (0.0-0.9); Bilirubin,Total 0.2 mg/dl (0.2-1.3); Bilirubin,Unconjugated 0.3 mg/dL (0.0-1.1); Blood Urea Nitrogen 13 mg/dl (9-20); Calcium 9.2 mg/dl (8.4-10.2); Carbon Dioxide 20 mmol/L (22.0-30.0); Chloride 107 mmol/L (98-107); Cholesterol 120 mg/dl (140-200); Estimated Glomerular Filt Rate 61 ml/min (>60); GFR (African American) 74 ML/MIN (>60); Glucose 124 mg/dl (74-100); HDL Cholesterol 20 mg/dl (40-60); Potassium 4.2 mmoL/L (3.5-5.1); Sodium 139 mmol/L (136-145); Total Protein,Serum 7.9 g/dl (6.3-8.2); Triglycerides 317 mg/dl (30-150); VLDL Cholesterol 63 mg/dL (0-40)
[2022-12-12 13:10] LABS: NT Pro Brain Natriuretic Pep. 632 pg/mL (0-125)
[2022-12-12 13:13] LABS: Direct LDL Cholesterol 54.26 mg/dL (100-129)
[2022-12-12 13:16] LABS: Free T4 (Free Thyroxine) 0.98 ng/dl (0.78-2.19)
== END ==
LOC: LAB 11:31
PROVIDERS: PCP Nurse Practitioner Family; Visit Provider Internal Medicine
DX: E78.5 Hyperlipidemia, unspecified (principal); F17.200 Nicotine dependence, unspecified, uncomplicated; I25.10 Atherosclerotic heart disease of native coronary artery without angina pectoris; I50.20 Unspecified systolic (congestive) heart failure; I50.23 Acute on chronic systolic (congestive) heart failure; I65.29 Occlusion and stenosis of unspecified carotid artery; I73.9 Peripheral vascular disease, unspecified; I77.9 Disorder of arteries and arterioles, unspecified; J90 Pleural effusion, not elsewhere classified; R06.00 Dyspnea, unspecified; Z95.1 Presence of aortocoronary bypass graft; I11.0 Hypertensive heart disease with heart failure
CPT/HCPCS: 36415; 71046; 80048; 80061; 80076; 83735; 83880; 84439; 84443; 85025

== ENCOUNTER → 2022-12-25 10:15 | Outpatient (CLI) | payer MEDICARE, SELFPAY ==
--- NOTE | 2022-12-25 10:15 | CT_ITS ---
FINAL REPORT TECHNIQUE: The patient was injected with IV contrast. Axial images were obtained through the chest in a PE protocol. 3-D reconstruction images were also performed. Individualized dose reduction techniques using automated exposure control or adjustment of the MA and/or KV according to patient's size were employed. CLINICAL HISTORY: recurrent pleural effusion/dyspnea COMPARISON: 08/18/2022 FINDINGS: Mediastinal sternotomy wires are present, new since the prior CT of August. Mediastinal vasculature is adequately opacified. No pulmonary artery filling defects are identified to suggest PE. There is no aortic dissection. There is no axillary adenopathy. There is no hilar or mediastinal adenopathy. The heart size is normal. There is a moderate sized left pleural effusion, with a depth of 7 cm on the left side. Lingular scar is present, as well as a calcified granuloma in the inferior right upper lobe. Limited images of the upper abdomen are unremarkable. No suspicious infiltrate or nodule is identified. IMPRESSION: No pulmonary embolus or dissection. Moderate left pleural effusion as described, new since the prior CT of August. Since the prior CT the patient has undergone midline sternotomy. Reviewed, Interpreted and Dictated by Gray Oreilly MD Transcribed by Gladys Aguilar Authenticated and [facility]
== END ==
LOC: RAD 10:15
PROVIDERS: PCP Nurse Practitioner Family; Visit Provider Internal Medicine
DX: J90 Pleural effusion, not elsewhere classified (principal); R06.00 Dyspnea, unspecified
CPT/HCPCS: 71275; Q9967

== ENCOUNTER → 2023-01-13 09:44 | Outpatient (CLI) | payer MEDICARE, SELFPAY ==
[2023-01-13] VITALS (8 sets, daily range): BP systolic 150–202; BP diastolic 50–89; PULSE 48–54; RESP 14–18; TEMP 36.1–36.2; O2SAT 97–100; BMI 21.1
--- NOTE | 2023-01-13 09:44 | US_ITS ---
FINAL REPORT CLINICAL HISTORY: Effusion lt-- 770 ml-- dr an performed FINDINGS: ULTRASOUND-GUIDED THORACENTESIS HISTORY: Pleural effusion. TECHNIQUE: Ultrasound was provided for clinical service and performance of a thoracentesis. IMPRESSION: Ultrasound guidance for thoracentesis by clinical service Reviewed, Interpreted and Dictated by Arsenio Wadsworth III, MD Transcribed by ROSELIA Johnson Authenticated and [facility]
--- NOTE | 2023-01-13 11:22 | XR_ITS ---
FINAL REPORT CLINICAL HISTORY: POST THORA-- LT SIDE-- DR ORANTES -- 770 ML COMPARISON: None FINDINGS: Two views of the chest were obtained. The heart size and pulmonary vascularity are within normal limits. The mediastinum is normal. There is mild atelectasis in the left lung. There is a small left pleural effusion. There is no pneumothorax. The bony thorax is intact. IMPRESSION: Mild left lung atelectasis with small left pleural effusion. No pneumothorax post thoracentesis. Reviewed, Interpreted and Dictated by Arsenio Wadsworth III, MD Transcribed by Marce Villegas Authenticated and [facility]
--- NOTE | 2023-01-13 11:27 | P.PCN_ITS ---
[facility] Procedure Note Date: 01/13/23 Time: :29 Procedure Note:: Procedure: Left Thoracentesis Indication for procedure: Pleural Effusion, Hypoxic Respiratory failure A time out was performed, and the chest x-ray was reviewed, the appropriate side was confirmed and marked. My hands were washed immediately prior to the procedure. I wore a surgical cap, mask with protective eyewear, sterile gown, and sterile gloves throughout the procedure. The patient was prepped and draped in a sterile manner using chlorhexidine scrub after the appropriate level was percussed and confirmed by ultrasound. 1% lidocaine was used to anesthetize the skin, ?subcutaneous tissue, superior aspect of the rib periosteum and parietal pleura.? A finder needle was then introduced at the seventh intercoastal space posteriorly?to locate the pleural fluid; straw colored fluid was aspirated. A 10-blade scalpel was used to cyndi the skin at the insertion site. The Aqlw-h-Wrqztejw needle was then introduced through the skin incision into the pleural space using negative aspiration pressure and the red colorimetric indicator to confirm appropriate positioning of the needle. The thoracentesis catheter was then threaded without difficulty.? 770 ml of straw-colored?fluid was removed without difficulty. The catheter was then removed. No immediate complications were noted during the procedure. A post-procedure chest X-ray is pending at the time of this note. The fluid will be sent for routine pleural studies, cultures along with cytopathology.? Patient tolerated the procedure well? Estimated blood loss is 1 cc.
[2023-01-13 13:23] LABS: Chloride 105 mmol/L (98-107); Potassium 3.9 mmoL/L (3.5-5.1); Sodium 142 mmol/L (136-145)
[2023-01-13 13:25] LABS: Blood Urea Nitrogen 20 mg/dl (9-20); Creatinine Clearance Estimated 54 mL/min (50-200); Estimated Glomerular Filt Rate 51 ml/min (>60); GFR (African American) 62 ML/MIN (>60)
[2023-01-13 13:26] LABS: Alanine Aminotransferase 23 U/L (12-78); Albumin Level 4.3 g/dl (3.5-5.0); Alkaline Phosphatase 112 U/L (38-126); Anion Gap 13.9 mEq/L (5-15); Aspartate Amino Transferase 34 U/L (17-59); Bilirubin,Total 0.2 mg/dl (0.2-1.3); Calcium 9.8 mg/dl (8.4-10.2); Carbon Dioxide 27 mmol/L (22.0-30.0); Globulin 4.1 g/dL (1.3-3.2); Glucose 88 mg/dl (74-100); Total Protein,Serum 8.4 g/dl (6.3-8.2)
[2023-01-13 13:32] LABS: Lactate Dehydrogenase 134 U/L (313-618)
[2023-01-13 16:39] LABS: RBC,Body Fluid < 10 cells/uL (< 10 X 10^3); Source, Body Fld. Thoracentesis Fluid; TNC,Body Fluid 1618 cells/uL (< 1000)
[2023-01-13 16:40] LABS: Appearance,Body Fld. Normal; Volume,Body Fld. 770 mL
[2023-01-13 16:41] LABS: Mononuclear WBCs,Body Fluid 20 %
[2023-01-13 16:43] LABS: Polynuclear WBC,Body Fluid 2 %
[2023-01-15 12:05] LABS: Albumin, Body Fluid 3.2 g/dL (Not Estab.); Glucose, Body Fluid 95 mg/dL (.); LD, Body Fluid 249 IU/L (.); Protein, Body Fluid 5.4 g/dL (.)
== END ==
PROVIDERS: PCP Nurse Practitioner Family; Visit Provider Internal Medicine Pulmonary Disease
DX: J90 Pleural effusion, not elsewhere classified (principal)
CPT/HCPCS: 32555; 36415; 71046; 80053; 82042; 82945; 83615; 84155; 87070; 87205; 88112; 88305; 89051

== ENCOUNTER → 2023-02-19 12:23 | Outpatient (CLI) | payer MEDICARE, SELFPAY ==
--- NOTE | 2023-02-19 12:26 | XR_ITS ---
FINAL REPORT CLINICAL HISTORY: Pleural effusion follow-up COMPARISON: 01/13/2023 FINDINGS: TWO-VIEW CHEST The heart size is normal. The patient is status post median sternotomy. There is bilateral atelectasis or scar, left greater than right with small left effusion. There is no pneumothorax. IMPRESSION: Bilateral atelectasis versus scar with small left effusion. Reviewed, Interpreted and Dictated by Arsenio Wadsworth III, MD Transcribed by Mali Villegas Authenticated and [facility]
== END ==
PROVIDERS: PCP Nurse Practitioner Family; Visit Provider Internal Medicine Pulmonary Disease
DX: R06.02 Shortness of breath (principal)
CPT/HCPCS: 71046

== ENCOUNTER 2023-02-28 16:37 | Emergency (ER) | payer MEDICARE, SELFPAY ==
[2023-02-28 16:50] VITALS: BP 130/76; PULSE 82; RESP 18; TEMP 36.8; O2SAT 98; BMI 22.9
--- NOTE | 2023-02-28 16:58 | HMH.EDGENADL ---
Discharge Plan Disposition Patient Disposition: Home, Self-Care Prescriptions Prescriptions: No Action Stiolto Respimat 2.5-2.5 mcg/actuation mist 2 puff IH DAILY albuterol sulfate 90 mcg/actuation HFA aerosol inhaler 2 puff IH Q4HP PRN (Reason: Shortness Of Breath) ascorbic acid (vitamin C) 500 mg capsule 500 mg PO DAILY cholecalciferol (vitamin D3) 50 mcg (2,000 unit) capsule 50 mcg PO DAILY multivitamin Tablet 1 tab PO DAILY [id number] oil-vit D3 120 mg-180 mg -1,000 unit capsule 1 cap PO DAILY torsemide 20 mg tablet 20 mg PO DAILY PRN (Reason: edema) Qty: 30 2RF potassium chloride 10 mEq tablet,ER particles/crystals 10 meq PO DAILY PRN (Reason: Supplement) aspirin 81 mg Capsule 81 mg PO DAILY ropinirole 1 mg tablet 2 mg PO HS Rx Instructions: administer 1-3 hours before bedtime rosuvastatin 10 mg tablet 10 mg PO DAILY bisoprolol fumarate 10 mg tablet 10 mg PO DAILY gabapentin 300 mg capsule 300 mg PO HS Patient Comments: TAKE 1 CAPSULE BY MOUTH EVERY DAY AT BEDTIME pantoprazole [Protonix] 40 mg tablet,delayed release (DR/EC) 40 mg PO BID 30 Days Qty: 60 0RF Referrals Follow up/Referrals: Oly Dutta APRN [Primary Care Provider] - See instructions Activity Restrictions/Add. Instructions Additional Instructions/Restrictions: Please take MiraLAX [id number] take one half a cap twice a day doubling the dose every 3 days until you are reaching the bowel movement the consistency of soft serve ice cream and stay on this dose for several weeks follow-up with primary care doctor as needed. Clinical Impressions Clinical Impression: Constipation Discharge ED Provider: Bebo Herrera General Adult HPI General Stated complaint: rectal swelling Time Seen by Provider: 02/28/23 16:50 History of Present Illness HPI narrative: Patient is a 62-year-old male presented today with constipation. States he has had chronic constipation and that he has not had a good bowel movement since Friday and he feels like he has very hard stool in his rectal outlet he has been taking stool softeners at home he is even put Q-tips with Vaseline up into his rectum try to loosen up the stool ball which has been unsuccessful. He feels like if he could have good bowel movement that he would feel much better. No significant nausea vomiting or abdominal distention or abdominal pain. Related Data Home Medications Medication Instructions Recorded Confirmed albuterol sulfate 90 mcg/actuation 2 puff inhalation Q4HP PRN 12/24/21 01/28/23 aerosol inhaler Shortness Of Breath ascorbic acid (vitamin C) 500 mg 500 mg PO DAILY Supplement 12/24/21 01/28/23 capsule cholecalciferol (vitamin D3) 50 50 mcg PO DAILY Supplement 12/24/21 01/28/23 mcg (2,000 unit) capsule multivitamin 1 tab PO DAILY Supplement 12/24/21 01/28/23 omega-3-dha 120 mg-epa 180 mg-fish 1 cap PO DAILY Supplement 12/24/21 01/28/23 oil-vitamin D3 1,000 unit capsule tiotropium 2.5 mcg-olodaterol 2.5 2 puff inhalation DAILY COPD 12/24/21 01/28/23 mcg/actuation mist for inhalation (Stiolto Respimat) bisoprolol fumarate 10 mg tablet 10 mg PO DAILY High blood pressure 08/14/22 01/28/23 gabapentin 300 mg capsule 300 mg PO HS Restless leg 08/18/22 01/28/23 aspirin 81 mg capsule 81 mg PO DAILY . 01/13/23 01/28/23 ropinirole 1 mg tablet 2 mg PO HS . 01/13/23 01/28/23 rosuvastatin 10 mg tablet 10 mg PO DAILY Cholesterol 01/13/23 01/28/23 potassium chloride 10 mEq 10 meq PO DAILY PRN Supplement 01/28/23 01/28/23 tablet,extended release(part/cryst) Previous Rx's Medication Instructions Recorded pantoprazole 40 mg tablet,delayed 40 mg PO BID Reflux/Acid reflux 30 08/21/22 release (Protonix) days #60 tabs torsemide 20 mg tablet 20 mg PO DAILY PRN edema #30 tabs 01/28/23 Allergies Allergy/AdvReac Type Severity Reaction Status Date / Time codeine AdvReac
--- NOTE | 2023-02-28 17:35 | PC.NURSE ---
Patient walked to the nurses station stating he was able to have a large BM and felt much better. MD spoke with patient. Patient is ready to be D/C'd.
[2023-02-28 17:37] VITALS: BP 174/67; PULSE 69; RESP 16; TEMP 36.6; O2SAT 98
== END 2023-02-28 17:40 | disposition home or self-care (01) ==
PROVIDERS: Emergency Provider Student in an Organized Health Care Education/Training Program; PCP Nurse Practitioner Family
DX: K59.00 Constipation, unspecified (principal); F17.210 Nicotine dependence, cigarettes, uncomplicated; J44.9 Chronic obstructive pulmonary disease, unspecified; I25.10 Atherosclerotic heart disease of native coronary artery without angina pectoris; I11.9 Hypertensive heart disease without heart failure; E78.5 Hyperlipidemia, unspecified; I73.9 Peripheral vascular disease, unspecified
CPT/HCPCS: 99283

== ENCOUNTER → 2023-03-13 14:56 | Outpatient (POV) | payer MEDICARE, SELFPAY ==
--- NOTE | 2023-03-13 15:20 | EXP.PAIN.OV ---
HPI Data of Consult Patient: new to practice Consult date: 03/13/23 Requesting Physician: Abbi Lopez APRN Primary Care Provider: Oly Dutta APRN Consult Narrative Reason for consult: Low back pain, left hip pain History of present illness: Mr. Michaud is a 62 year old male who presents today as a new patient. He is a referral from [facility] office. Today he rates his pain an 8 out of 10. Patient states his pain is all in his low back along his left hip. Patient denies any radiating symptoms into his lower extremities. Patient states has been going on for years. Patient denies any specific trauma or injury that initially led to his symptoms. He does describe this as a aching, throbbing sensation that is worse with certain activities such as bending over. He does state that he notices that it is weather dependent and seems more prominent in cold temperatures. He does also state that the times that he has flareups are random and not always continuous. He does state when he has the flareups they do interfere with his ability perform activities of daily living such as cooking and cleaning. He has tried [id number] Tylenol along with heat and ice and multiple topicals including IcyHot with no improvement. Patient does have a heart history and does not take NSAIDs. He is currently managed with gabapentin 300 mg at bedtime. He denies any side effects from this medication. His Brayden has been reviewed and is appropriate. CC: Abbi Lopez APRN [facility] Disclaimer: The information contained in this section may have been updated after the patient was seen, as this information can be updated by other users. Medical History Allergies Asthma Bronchitis CAD in [place] artery Chronic cough COPD (chronic obstructive pulmonary disease) Coronary artery calcification seen on CAT scan Dyspnea Dyspnea on exertion HFrEF (heart failure with reduced ejection fraction) History of anemia History of COPD History of gastroesophageal reflux (GERD) Hyperlipidemia Hypertension PAD (peripheral artery disease) Asymptomatic at present. No further work-up at present. Pleural effusion Pleural effusion, left RLS (restless legs syndrome) Sinus headache Smoker Advised to quit smoking Smoking greater than 30 pack years Stenosis of carotid artery Surgical History History of hernia surgery History of surgery RIGHT ARM SURGERY S/P CABG x 3 S/P CABG x 3 S/P insertion of iliac artery stent Family History Other Family history of cancer Family history of myocardial infarction Family history of stroke Social History Smoking Status: Current every day smoker years smoked: 50 quit status: has quit before alcohol intake: former substance use type: denies use current occupational status: disabled Travel in the last 8 weeks: None caffeine: No physical activity: walking special hoa needs: No agree to transfusion: Yes Review of Systems Review of Systems Review of systems:: pertinent systems reviewed and negative unless documented below Review of systems (narrative): Review of Systems: General: No recent weight changes, no fever, no sleep disturbances Respiratory: No cough, no shortness of air, no recurring pulmonary infections Cardiovascular/peripheral vascular: No chest pain, no palpitations, no edema, no shortness of breath Gastrointestinal: No new onset incontinence, normal bowel movements reported Genitourinary: No new onset incontinence Musculoskeletal: Low back pain, left hip pain Psychiatric: [Normal mood/affect] Neurological: [Denies weakness in extremities], [denies balance issues] Meds Home Medications and Allergies Home Medications Medication Instructions Recorded Confirmed Type
[2023-03-13 15:41] VITALS: BP 188/50; PULSE 59; RESP 18; O2SAT 98; BMI 21.7
== END ==
LOC: SC.PAIN 14:56
PROVIDERS: PCP Nurse Practitioner Family; Visit Provider Nurse Practitioner Family
DX: M54.42 Lumbago with sciatica, left side (principal); G89.29 Other chronic pain; M51.36 Other intervertebral disc degeneration, lumbar region; M46.1 Sacroiliitis, not elsewhere classified
CPT/HCPCS: 99202; G0463

== ENCOUNTER → 2023-04-09 13:42 | Outpatient (POV) | payer MEDICARE, SELFPAY ==
--- NOTE | 2023-04-09 14:04 | EXP.PAIN.SOA ---
[facility] Pain Management SOAP Note Subjective:: Patient is a pleasant 62-year-old male who presents today for follow-up. We are currently treating the patient for low back pain, degenerative disc disease of lumbar spine, sacroiliitis. Today he rates his pain a 0 out of 10. Patient states he has been doing overall well since her last appointment. He states that he will occasionally have a flareup of his low back pain and sacroiliitis however he does generally use a muscle relaxer of methocarbamol and it does help minimize his pain. Patient states he has been able to increase his activity since our last visit. He was prescribed compounding cream however had some issues getting it and ended up trying his dad's and stated he did not notice significant improvement. Patient is currently managed with gabapentin 300 mg at bedtime from an outside provider. His Brayden has been reviewed and is appropriate. Review of Systems: General: No recent weight changes, no fever, no sleep disturbances Respiratory: No cough, no shortness of air, no recurring pulmonary infections Cardiovascular/peripheral vascular: No chest pain, no palpitations, no edema, no shortness of breath Gastrointestinal: No new onset incontinence, normal bowel movements reported Genitourinary: No new onset incontinence Musculoskeletal: Low back pain Psychiatric: [Normal mood/affect] Neurological: [Denies weakness in extremities], [denies balance issues] Objective:: Physical Exam: General: Alert and oriented x3, no acute distress, pleasant and cooperative Lungs: Respirations even and unlabored, symmetrical chest expansion Eyes: PERRL Musculoskeletal: Flexion and extension of lumbar [spine] somewhat guarded secondary to pain, [antalgic gait noted] Neurological: Speech clear, no gross sensory deficit Assessment:: Degenerative disc disease of lumbar spine with sacroiliitis Plan:: Patient is doing well currently and does not require any injection therapy. Patient will contact our office for his next follow-up appointment. Patient has been instructed to contact the clinic with any concerns before the next appointment. Dr. Ford has reviewed this note and agrees with this plan of care. This note was dictated using voice recognition software and make contain errors or omissions. [facility] Disclaimer: The information contained in this section may have been updated after the patient was seen, as this information can be updated by other users. Medical History Allergies Asthma Bronchitis CAD in [place] artery Chronic cough COPD (chronic obstructive pulmonary disease) Coronary artery calcification seen on CAT scan Dyspnea Dyspnea on exertion HFrEF (heart failure with reduced ejection fraction) History of anemia History of COPD History of gastroesophageal reflux (GERD) Hyperlipidemia Hypertension PAD (peripheral artery disease) Asymptomatic at present. No further work-up at present. Pleural effusion Pleural effusion, left RLS (restless legs syndrome) Sinus headache Smoker Advised to quit smoking Smoking greater than 30 pack years Stenosis of carotid artery Surgical History History of hernia surgery History of surgery RIGHT ARM SURGERY S/P CABG x 3 S/P CABG x 3 S/P insertion of iliac artery stent Family History Other Family history of cancer Family history of myocardial infarction Family history of stroke Social History Smoking Status: Current every day smoker years smoked: 50 quit status: has quit before alcohol intake: former substance use type: denies use current occupational status: retired Travel in the last 8 weeks: None caffeine: No physical activity: walking special hoa needs: No agree to transfusion: Yes
[2023-04-09 14:36] VITALS: BP 158/49; PULSE 59; RESP 18; O2SAT 99; BMI 21.7
== END ==
LOC: SC.PAIN 13:42
PROVIDERS: PCP Nurse Practitioner Family; Visit Provider Nurse Practitioner Family
DX: M51.36 Other intervertebral disc degeneration, lumbar region (principal); M46.1 Sacroiliitis, not elsewhere classified
CPT/HCPCS: 99212; G0463

== ENCOUNTER → 2023-04-23 07:47 | Outpatient (CLI) | payer MEDICARE, SELFPAY | LOC: RT 07:47 | PROVIDERS: PCP Nurse Practitioner Family; Visit Provider Internal Medicine Pulmonary Disease | DX: R06.09 Other forms of dyspnea (principal) | CPT/HCPCS: 94060; 94618; 94726; 94729 ==

== ENCOUNTER 2023-08-12 15:25 | Outpatient (CLI) | payer MEDICARE, SELFPAY ==
[2023-08-12 15:45] LABS: Basophils # 0.1 K/mm3 (0-0.2); Basophils % 0.8 % (0.1-2.0); Eosinophils # 0.4 K/mm3 (0.0-0.4); Eosinophils % 4.3 % (0.1-12.0); Hematocrit 44.3 % (42.0-52.0); Hemoglobin 14.4 g/dL (14.1-18.0); Lymphocytes # 2.4 K/mm3 (0.7-4.5); Lymphocytes % 24.3 % (10-50); Mean Corpuscular HGB Conc 32.6 g/dL (31.8-35.4); Mean Corpuscular Hemoglobin 31.8 pg (27.0-31.2); Mean Corpuscular Volume 97.7 fl (80-94); Monocytes # 0.5 K/mm3 (0.1-1.0); Monocytes % 4.6 % (1.7-9.3); Neutrophils # 6.6 K/mm3 (1.8-7.8); Neutrophils % 66.1 % (37.0-80.0); Platelet Count 265 K/mm3 (142-424); Red Blood Count 4.53 M/mm3 (4.60-6.20); Red Cell Distribution Width 15.5 % (11.5-17.5); White Blood Count 9.9 K/mm3 (4.8-10.8)
[2023-08-12 16:47] LABS: Alanine Aminotransferase 21 U/L (12-78); Albumin Level 4.1 g/dl (3.5-5.0); Alkaline Phosphatase 87 U/L (38-126); Anion Gap 10.5 mEq/L (5-15); Aspartate Amino Transferase 31 U/L (17-59); Bilirubin,Direct 0.2 mg/dl (0.0-0.4); Bilirubin,Indirect 0.1 mg/dL (0.0-0.9); Bilirubin,Total 0.3 mg/dl (0.2-1.3); Bilirubin,Unconjugated 0.2 mg/dL (0.0-1.1); Blood Urea Nitrogen 16 mg/dl (9-20); Calcium 9.4 mg/dl (8.4-10.2); Carbon Dioxide 25 mmol/L (22.0-30.0); Chloride 104 mmol/L (98-107); Chol/HDL Ratio 6.4 (1-3.5); Cholesterol 122 mg/dl (140-200); Estimated Glomerular Filt Rate 67 ml/min (>60); GFR (African American) 82 ML/MIN (>60); Glucose 101 mg/dl (74-100); HDL Cholesterol 19 mg/dl (40-60); Potassium 4.5 mmoL/L (3.5-5.1); Sodium 135 mmol/L (136-145)
[2023-08-12 16:54] LABS: Triglycerides 452 mg/dl (30-150)
[2023-08-12 16:57] LABS: Direct LDL Cholesterol 58.58 mg/dL (100-129)
[2023-08-12 17:03] LABS: Free T4 (Free Thyroxine) 0.84 ng/dl (0.78-2.19)
[2023-08-12 17:16] LABS: Thyroid Stimulating Hormone 1.19 uIU/mL (0.465-4.68)
== END 2023-08-12 23:59 | disposition home or self-care (01) ==
LOC: LAB 15:27
PROVIDERS: PCP Nurse Practitioner Family; Visit Provider Internal Medicine
DX: I50.23 Acute on chronic systolic (congestive) heart failure (principal); I65.22 Occlusion and stenosis of left carotid artery; R06.01 Orthopnea; R06.02 Shortness of breath; J90 Pleural effusion, not elsewhere classified; I50.20 Unspecified systolic (congestive) heart failure; I65.23 Occlusion and stenosis of bilateral carotid arteries; Z95.1 Presence of aortocoronary bypass graft; I25.10 Atherosclerotic heart disease of native coronary artery without angina pectoris; E78.2 Mixed hyperlipidemia; F17.200 Nicotine dependence, unspecified, uncomplicated; I10 Essential (primary) hypertension; I73.9 Peripheral vascular disease, unspecified; J44.9 Chronic obstructive pulmonary disease, unspecified
CPT/HCPCS: 36415; 80048; 80061; 80076; 83735; 84439; 84443; 85025

== ENCOUNTER 2023-10-08 19:08 | Observation (INO) | payer MEDICARE, SELFPAY ==
--- NOTE | 2023-10-08 19:07 | ECG_ITS ---
APPROVED REPORT Exam: Resting ECG HR:68 bpm ECG Measurements Heart Rate 68 AXES VA 149 P 69 QRSd 102 QRS 79 QT 380 T 76 QTc 397 Conclusion SINUS RHYTHM POSSIBLE LEFT ATRIAL ENLARGEMENT [-0.1mV P-WAVE IN V1/V2] POSSIBLE LEFT VENTRICULAR HYPERTROPHY [VOLTAGE CRITERIA PLUS LAE OR QRS WIDENING] Q waves in the anterior leads Electronically signed by : SOTO REINA, 10/08/2023 21:40:32
[2023-10-08 19:09] VITALS: BP 198/68; PULSE 70; RESP 20; TEMP 36.8; O2SAT 99; BMI 23.1
--- NOTE | 2023-10-08 19:19 | XR_ITS ---
PROCEDURE INFORMATION: Exam: XR Chest Exam date and time: 10/08/2023 7:17 PM Age: 63 years old Clinical indication: Pain; Chest pressure; Additional info: Cp TECHNIQUE: Imaging protocol: Radiologic exam of the chest. Views: 2 views. COMPARISON: CR XR CHEST 2V 02/19/2023 12:49 PM FINDINGS: Lungs: Mild left lower lobe atelectasis has improved from the prior study. Right lung appears clear. Pleural spaces: Stable pleural fluid versus thickening in the left lower chest. No pneumothorax. Heart/Mediastinum: Unremarkable. No cardiomegaly. Bones/joints: Sternotomy wires remain in place. IMPRESSION: Interval improvement of left lower lobe atelectasis. Otherwise stable findings as noted.
--- NOTE | 2023-10-08 19:20 | ED_ITS ---
Discharge Plan Disposition Patient Disposition: Home, Self-Care Chief Complaint: Chest Pain Prescriptions Prescriptions: No Action Stiolto Respimat 2.5-2.5 mcg/actuation mist 2 puff inhalation DAILY 90 Days Qty: 4 2RF albuterol sulfate 90 mcg/actuation HFA aerosol inhaler 2 inh inhalation QID PRN (Reason: shortness of breath or wheezing) 90 Days Qty: 8.5 2RF icosapent ethyl [Vascepa] 1 gram capsule 2 g PO BID 30 Days Qty: 120 2RF albuterol sulfate 90 mcg/actuation HFA aerosol inhaler 2 puff IH Q4HP PRN (Reason: Shortness Of Breath) ascorbic acid (vitamin C) 500 mg capsule 500 mg PO DAILY cholecalciferol (vitamin D3) 50 mcg (2,000 unit) capsule 50 mcg PO DAILY multivitamin Tablet 1 tab PO DAILY potassium chloride 10 mEq tablet,ER particles/crystals 10 meq PO DAILY PRN (Reason: Supplement) methocarbamol 750 mg tablet PO Patient Comments: TAKE 1 TABLET BY MOUTH THREE TIMES DAILY NEEDED terbinafine HCl 250 mg tablet PO Patient Comments: TAKE 1 TABLET BY MOUTH ONCE DAILY hydrochlorothiazide 25 mg tablet 25 mg PO QDAY Qty: 90 3RF ipratropium-albuterol 0.5 mg-3 mg(2.5 mg base)/3 mL solution for nebulization See Rx Instructions .ROUTE .COMPLEX Qty: 270 0RF Dose Instruction: USE 1 AMPULE IN NEBULIZER 4 TIMES DAILY NEEDED FOR SHORTNESS OF BREATH FOR WHEEZING Rx Instructions: USE 1 AMPULE IN NEBULIZER 4 TIMES DAILY NEEDED FOR SHORTNESS OF BREATH FOR WHEEZING aspirin 81 mg Capsule 81 mg PO DAILY ropinirole 1 mg tablet 2 mg PO HS Rx Instructions: administer 1-3 hours before bedtime rosuvastatin 10 mg tablet 10 mg PO DAILY bisoprolol fumarate 10 mg tablet 10 mg PO DAILY gabapentin 300 mg capsule 300 mg PO HS Patient Comments: TAKE 1 CAPSULE BY MOUTH EVERY DAY AT BEDTIME Clinical Impressions Clinical Impression: Angina pectoris, unstable Discharge ED Provider: Wilfrid Gutierrez HPI General Chief Complaint: Chest Pain Stated Complaint: chest pain Time Seen by Provider: 10/08/23 19:09 History of Present Illness HPI narrative: Patient is a 63-year-old male with past medical history of COPD, coronary artery disease status post stenting, status post three-vessel CABG, peripheral vascular disease with innumerable stents who presents to the emergency department for evaluation of chest pain. Patient has had chest pain that is substernal over the last week, worse with any exertion, improved with rest. He had his blood pressure medication HCTZ modified approximately 2 weeks ago for which was increased however he has noticed uptrending blood pressure. He has been compliant with his medications. Related Data Home Medications Medication Instructions Recorded Confirmed albuterol sulfate 90 mcg/actuation 2 puff inhalation Q4HP PRN 12/24/21 09/30/23 aerosol inhaler Shortness Of Breath ascorbic acid (vitamin C) 500 mg 500 mg PO DAILY Supplement 12/24/21 09/30/23 capsule cholecalciferol (vitamin D3) 50 50 mcg PO DAILY Supplement 12/24/21 09/30/23 mcg (2,000 unit) capsule multivitamin 1 tab PO DAILY Supplement 12/24/21 09/30/23 bisoprolol fumarate 10 mg tablet 10 mg PO DAILY High blood pressure 08/14/22 09/30/23 gabapentin 300 mg capsule 300 mg PO HS Restless leg 08/18/22 09/30/23 aspirin 81 mg capsule 81 mg PO DAILY . 01/13/23 09/30/23 ropinirole 1 mg tablet 2 mg PO HS . 01/13/23 09/30/23 rosuvastatin 10 mg tablet 10 mg PO DAILY Cholesterol 01/13/23 09/30/23 potassium chloride 10 mEq 10 meq PO DAILY PRN Supplement 01/28/23 09/30/23 tablet,extended release(part/cryst) methocarbamol 750 mg tablet mg PO 08/12/23 09/30/23 terbinafine HCl 250 mg tablet mg PO 09/30/23 09/30/23 Previous Rx's Medication Instructions Recorded albuterol sulfate 90 mcg/actuation 2 inh inhalation QID PRN shortness 04/23/23 aerosol inhaler of breath or wheezing 90 days #8.5 grams tiotropium 2.5 mcg-olodaterol 2.5 2 puff inhalation DAILY 90 days #4 04/23/23 mcg/actuation mist for inhalation grams (Stiolto Respimat) ipratropium 0.5 mg-albuterol 3 mg See Rx Instructions .Route 05/19/23 (2.5 mg base)/3 mL nebulization .COMPLEX #270 mL soln icosapent ethyl 1 gram capsule 2 g (2 x 1 gram) PO BID 30 days 09/08/23 (Vascepa) #120 caps hydrochlorothiazide 25 mg tablet 25 mg PO QDAY #90 tabs 09/30/23 Allergies Allergy/AdvReac Type Severity Reaction Status Date / Time lisinopril AdvReac Mild myalgia Verified 09/30/23 10:33 codeine AdvReac Verified 09/30/23 10:33 cyclobenzaprine AdvReac Verified 09/30/23 10:33 [From Flexeril] [id number] Reductase AdvReac Verified 09/30/23 10:33 Inhibitor PFSH PFSH Disclaimer: The information contained in this section may have been updated after the patient was seen, as this information can be updated by other users. Medical History (Updated 10/08/23 @ 20:28 by Wilfrid Gutierrez MD) Fatigue Daytime somnolence Snoring Chronic cough Bronchitis Asthma Sinus headache History of gastroesophageal reflux (GERD) Allergies History of anemia History of COPD Smoking greater than 30 pack years Pleural effusion, left Dyspnea on exertion Dyspnea Pleural effusion HFrEF (heart failure with reduced ejection fraction) RLS (restless legs syndrome) Stenosis of carotid artery CAD in [place] artery Coronary artery calcification seen on CAT scan Hyperlipidemia PAD (peripheral artery disease) Smoker COPD (chronic obstructive pulmonary disease) Hypertension Surgical History History of surgery History of hernia surgery S/P CABG x 3 S/P CABG x 3 S/P insertion of iliac artery stent Family History Other Family history of cancer Family history of myocardial infarction Family history of stroke Social History Smoking Status: Current every day smoker years smoked: 50 quit status: has quit before alcohol intake: former substance use type: denies use current occupational status: retired Travel in the last 8 weeks: None caffeine: No physical activity: walking special hoa needs: No agree to transfusion: Yes ROS Obtained: Yes Systems reviewed as appropriate & no additional complaints except as documented Physical Exam General General appearance: alert and in no apparent distress Head Head exam: atraumatic and normocephalic Eye Eye exam: Present PERRL and EOMI ENT ENT exam: Present mucous membranes moist Neck Neck exam: Present normal inspection Chest Chest inspection: Present normal inspection and symmetric chest wall rise Respiratory Respiratory exam: Present normal lung sounds bilaterally; Absent respiratory distress Cardiovascular Cardiovascular exam: Present regular rate and normal rhythm Abdominal Exam Abdominal exam: Present soft; Absent tenderness Extremities Exam Extremities exam: Present normal inspection Neurological Exam Neurological exam: Present alert Psychiatric Psychiatric exam: Present normal affect Skin Skin exam: Present warm and dry HEART Score HEART Score HEART Score assessment performed?: Yes History (anamnesis): Highly suspicious ECG: Non-specific disturbance Age: 45-65 years Risk factors: Atherosclerosis history Troponin: </= normal limit HEART Score: 6 Critical Care Critical Care Time Critical Care Time: No Medical Decision Making Brayden Inquiry Pt receiving controlled substance: No Vital Signs Vital Signs: 10/08/23 19:09 10/08/23 19:23 Temperature 98.2 F Temperature Source Oral Pulse Rate 68 Pulse Rate [Left Radial] 70 Respiratory Rate 20 Blood Pressure [Right Arm] 198/68 H Blood Pressure Mean [Right Arm] 111 Blood Pressure Source [Right Arm] Automatic Cuff Blood Pressure Position [Right Arm] Sitting 02 Sat by Pulse Oximetry 99 Oxygen Delivery Method Room Air Lab Data Labs: Lab Results 10/08/23 19:10: WBC 9.5, RBC 4.43 L, Hgb 14.2, Hct 43.7, MCV 98.7 H, MCH 32.0 H, MCHC 32.4, RDW 15.2, Plt Count 301, MPV 8.1, Neut % (Auto) 64.2, Lymph % (Auto) 25.6, [place] % (Auto) 4.4, Eos % (Auto) 5.0, Baso % (Auto) 0.9, Neut # (Auto) 6.1, Lymph # (Auto) 2.4, [place] # (Auto) 0.4, Eos # (Auto) 0.5 H, Baso # (Auto) 0.1, S odium 133 L, Potassium 4.2, Chloride 100, Carbon Dioxide 24, Anion Gap 13.2, BUN 18, Creatinine 1.20, Estimated Creat Clear 68, Estimated GFR 61, Est GFR ( Amer) 74, Glucose 116 H, Calcium 9.6, Total Bilirubin 0.6, AST 46, ALT 24, Alkaline Phosphatase 79, Troponin I < 0.01, Total Protein 7.7, Albumin 4.3, Globulin 3.4 H, Albumin/Globulin Ratio 1.3 10/08/23 19:10 10/08/23 19:10 Response Orders (Tests/Meds): ED MEDICATIONS Discontinued Medications Generic Name Dose Route Start Last Admin Trade Name Moisés PRN Reason Stop Dose Admin Aspirin 324 mg 10/08/23 19:19 10/08/23 19:32 Aspirin 81mg Chewable Tablet PO 10/08/23 19:20 324 mg ONCE ONE Administration ORDERS Category Date Time Status Cardiology Consult [Consult to Cardiology] [CONS] Cons 10/08/23 20:26 Ordered Routine CXR 2 view (NOT portable) [XR chest 2V] Stat Exams 10/08/23 19:19 Completed CBC w/Auto Diff [Complete Blood Count Auto Diff] Stat Lab 10/08/23 19:10 Completed CMP [Comprehensive Metabolic Panel] Stat Lab 10/08/23 19:10 Completed Trop I [Troponin I] Stat Lab 10/08/23 19:10 Completed Troponin I Q3H Lab 10/08/23 22:30 Ordered Troponin I Q3H Lab 10/09/23 01:30 Ordered ECG Data Tracing #1: ECG Narrative: Independently interpreted by me, rate is 68, rhythm is regular, axis is normal, no ST elevation in anatomical contiguous leads, Q waves in the septal leads, QTc 397 MDM Narrative Medical Decision Narrative: In summary patient is a 63-year-old male with past medical history described above who presents emergency department for evaluation of chest pain. Patient is hemodynamically stable nontoxic-appearing upon arrival, afebrile. Differential includes unstable angina, ACS, among others. Workup will be conducted with hematologic labs, chest x-ray, EKG, serial troponins. Patient has Q waves in the septal leads. No ST elevation in anatomical contiguous leads. He is extremely high risk from a cardiovascular standpoint. Initial interventions include aspirin. Initial workup reviewed by me, hematologic labs are nonactionable, initial troponin undetectably low. Chest x-ray informally interpreted by me, no acute lobar opacities or large pneumothorax. Given patient's significant cardiovascular risk he would benefit from observation overnight and optimization by cardiology tomorrow. The case was discussed with Dr. Craft who agrees. The case was subsequently discussed hospital medicine who admit the patient their service for continued evaluation at this time.
[2023-10-08 19:23] VITALS: PULSE 68
[2023-10-08 19:31] LABS: Basophils # 0.1 K/mm3 (0-0.2); Basophils % 0.9 % (0.1-2.0); Eosinophils # 0.5 K/mm3 (0.0-0.4); Hematocrit 43.7 % (42.0-52.0); Hemoglobin 14.2 g/dL (14.1-18.0); Lymphocytes # 2.4 K/mm3 (0.7-4.5); Lymphocytes % 25.6 % (10-50); Mean Corpuscular HGB Conc 32.4 g/dL (31.8-35.4); Mean Corpuscular Volume 98.7 fl (80-94); Mean Platelet Volume 8.1 fl (7.4-10.4); Monocytes # 0.4 K/mm3 (0.1-1.0); Monocytes % 4.4 % (1.7-9.3); Neutrophils # 6.1 K/mm3 (1.8-7.8); Neutrophils % 64.2 % (37.0-80.0); Platelet Count 301 K/mm3 (142-424); Red Blood Count 4.43 M/mm3 (4.60-6.20); Red Cell Distribution Width 15.2 % (11.5-17.5); White Blood Count 9.5 K/mm3 (4.8-10.8)
[2023-10-08] MEDS: ASPIRIN 81MG CHEWABLE TABLET 324 MG PO (19:32)
[2023-10-08 19:33] LABS: Chloride 100 mmol/L (98-107); Potassium 4.2 mmoL/L (3.5-5.1); Sodium 133 mmol/L (136-145)
[2023-10-08 19:35] LABS: Alanine Aminotransferase 24 U/L (12-78); Alkaline Phosphatase 79 U/L (38-126); Aspartate Amino Transferase 46 U/L (17-59); Bilirubin,Total 0.6 mg/dl (0.2-1.3); Blood Urea Nitrogen 18 mg/dl (9-20); Creatinine Clearance Estimated 68 mL/min (50-200); Estimated Glomerular Filt Rate 61 ml/min (>60); GFR (African American) 74 ML/MIN (>60)
[2023-10-08 19:36] LABS: Albumin Level 4.3 g/dl (3.5-5.0); Albumin/Globulin Ratio 1.3 (1.1-1.8); Anion Gap 13.2 mEq/L (5-15); Calcium 9.6 mg/dl (8.4-10.2); Carbon Dioxide 24 mmol/L (22.0-30.0); Globulin 3.4 g/dL (1.3-3.2); Glucose 116 mg/dl (74-100); Total Protein,Serum 7.7 g/dl (6.3-8.2)
[2023-10-08 19:53] LABS: Troponin I < 0.01 ng/ml (0.00-0.034)
--- NOTE | 2023-10-08 20:28 | PC.NURSE ---
notified editor house organ of admission for unstable angina to hospitalist
--- NOTE | 2023-10-08 20:32 | EXP.HP ---
History of Present Illness *Admission Date: 10/08/23 *Reason for visit:: CP *History of present illness: This is a 63-year-old male with PMHx of COPD, current smoker, CAD status post multiples stenting and three-vessel CABG, peripheral vascular disease with innumerable stents who presents to the emergency department for evaluation of chest pain. Patient has had chest pain that is substernal over the last week, worse with any exertion, improved with rest. He had his blood pressure medication HCTZ modified approximately 2 weeks ago for which was increased however he has noticed uptrending blood pressure. He has been compliant with his medications. [facility] Disclaimer: The information contained in this section may have been updated after the patient was seen, as this information can be updated by other users. Medical History Fatigue Daytime somnolence Snoring Chronic cough Bronchitis Asthma Sinus headache History of gastroesophageal reflux (GERD) Allergies History of anemia History of COPD Smoking greater than 30 pack years Pleural effusion, left Dyspnea on exertion Dyspnea Pleural effusion HFrEF (heart failure with reduced ejection fraction) RLS (restless legs syndrome) Stenosis of carotid artery CAD in [place] artery Coronary artery calcification seen on CAT scan Hyperlipidemia PAD (peripheral artery disease) Smoker COPD (chronic obstructive pulmonary disease) Hypertension Surgical History History of surgery History of hernia surgery S/P CABG x 3 S/P CABG x 3 S/P insertion of iliac artery stent Family History Other Family history of cancer Family history of myocardial infarction Family history of stroke Social History (Updated 10/08/23 @ 21:25 by Paz Mckee RN) Smoking Status: Current every day smoker tobacco type: cigarettes packs per day: 1 years smoked: 50 quit status: has quit before alcohol intake: never substance use type: denies use current occupational status: retired Travel in the last 8 weeks: None caffeine: No physical activity: walking special hoa needs: No agree to transfusion: Yes Review of Systems Review of Systems Review of systems:: pertinent systems reviewed and negative unless documented below Meds Home Medications and Allergies Home Medications Medication Instructions Recorded Confirmed Type ascorbic acid (vitamin C) 500 mg 500 mg PO DAILY 12/24/21 10/08/23 History capsule cholecalciferol (vitamin D3) 50 50 mcg PO DAILY 12/24/21 10/08/23 History mcg (2,000 unit) capsule multivitamin 1 tab PO DAILY 12/24/21 10/08/23 History gabapentin 300 mg capsule 300 mg PO HS 08/18/22 10/08/23 History aspirin 81 mg capsule 81 mg PO DAILY 01/13/23 10/08/23 History ropinirole 1 mg tablet 2 mg PO HS 01/13/23 10/08/23 History rosuvastatin 10 mg tablet 10 mg PO HS 01/13/23 10/09/23 History potassium chloride 10 mEq 10 meq PO DAILY PRN supplement 01/28/23 10/08/23 History tablet,extended release(part/cryst) tiotropium 2.5 mcg-olodaterol 2.5 2 puff inhalation DAILY 90 days #4 04/23/23 10/08/23 Rx mcg/actuation mist for inhalation grams (Stiolto Respimat) methocarbamol 750 mg tablet 750 mg PO TID 08/12/23 10/09/23 History icosapent ethyl 1 gram capsule 2 g (2 x 1 gram) PO BID 30 days 09/08/23 10/08/23 Rx (Vascepa) #120 caps terbinafine HCl 250 mg tablet 250 mg PO DAILY 09/30/23 10/08/23 History hydrochlorothiazide 25 mg tablet 25 mg PO DAILY 10/08/23 10/08/23 History bisoprolol fumarate 10 mg tablet 10 mg PO DAILY 30 days #30 tabs 10/09/23 Rx lisinopril 10 mg tablet 10 mg PO DAILY 10/09/23 10/09/23 History nicotine 21 mg/24 hr daily 21 mg transdermal DAILY 28 days 10/09/23 Rx transdermal patch #28 ea New Prescriptions to Start Prescriptions: bisoprolol fumarate Gordon Boyce nicotine Gordon Boyce Allergies Allergy/AdvReac Type Severity Reaction Status Date / Time lisinopril AdvReac Mild myalgia Verified 09/30/23 10:33 codeine AdvReac Verified 09/30/23 10:33 cyclobenzaprine AdvReac Verified 09/30/23 10:33 [From Flexeril] [id number] Reductase AdvReac Verified 09/30/23 10:33 Inhibitor Exam Data for Last 24 hours Vital signs and Labs for Last 24 Hours: Temp Pulse Resp BP Pulse Ox O2 Del Method 98.2 F 68 20 198/68 H 99 Room Air 10/08/23 19:09 10/08/23 19:23 10/08/23 19:10/08/23 19:09 10/08/23 19:10/08/23 19:09 Laboratory Results - last 24 hr 10/08/23 19:10: WBC 9.5, RBC 4.43 L, Hgb 14.2, Hct 43.7, MCV 98.7 H, MCH 32.0 H, MCHC 32.4, RDW 15.2, Plt Count 301, MPV 8.1, Neut % (Auto) 64.2, Lymph % (Auto) 25.6, [place] % (Auto) 4.4, Eos % (Auto) 5.0, Baso % (Auto) 0.9, Neut # (Auto) 6.1, Lymph # (Auto) 2.4, [place] # (Auto) 0.4, Eos # (Auto) 0.5 H, Baso # (Auto) 0.1, Sodium 133 L, Potassium 4.2, Chloride 100, Carbon Dioxide 24, Anion Gap 13.2, BUN 18, Creatinine 1.20, Estimated Creat Clear 68, Estimated GFR 61, Est GFR ( Amer) 74, Glucose 116 H, Calcium 9.6, Total Bilirubin 0.6, AST 46, ALT 24, Alkaline Phosphatase 79, Troponin I < 0.01, Total Protein 7.7, Albumin 4.3, Globulin 3.4 H, Albumin/Globulin Ratio 1.3 Temp Pulse Resp BP Pulse Ox 98.3 F 64 16 118/63 95 08/24/22 11:25 08/24/22 11:25 08/24/22 11:25 08/24/22 11:25 08/24/22 11:25 Laboratory Results - last 24 hr 08/23/22 20:09: WBC 11.4 H, RBC 2.48 L, Hgb 7.8 L, Hct 23.6 L, MCV 95.0 H, MCH 31.5 H, MCHC 33.2, RDW 15.0, Plt Count 328, MPV 8.0, Neut % (Auto) 70.1, Lymph % (Auto) 23.0, [place] % (Auto) 3.3, Eos % (Auto) 3.5, Baso % (Auto) 0.2, Neut # (Auto) 8.0 H, Lymph # (Auto) 2.6, [place] # (Auto) 0.4, Eos # (Auto) 0.4, Baso # (Auto) 0.0 08/23/22 20:09: Sodium 137, Potassium 3.7, Chloride 107, Carbon Dioxide 23, Anion Gap 10.7, BUN 13 D, Creatinine 1.20, Estimated Creat Clear 67, Estimated GFR 61, Est GFR ( Amer) 74, Glucose 133 H D, Calcium 8.7, Total Bilirubin 0.2, AST 33, ALT 26, Alkaline Phosphatase 93, Troponin I 0.06 H, Total Protein 6.1 L, Albumin 3.4 L, Globulin 2.7, Albumin/Globulin Ratio 1.3 08/23/22 20:09: APTT 25.3 08/23/22 21:05: Blood Type O Negative, Antibody Screen Negative, Crossmatch (AHG) See Detail 08/23/22 21:10: SARS-CoV-2 (PCR) Not detected, Influenza A Untype (PCR) Not detected, Influenza Type B (PCR) Not detected 08/23/22 22:05: Troponin I 0.15 H 08/24/22 02:12: Troponin I 0.22 H 08/24/22 06:28: WBC 9.1, RBC 2.94 L, Hgb 9.1 L D, Hct 26.9 L, MCV 91.4, MCH 31.0, MCHC 33.9, RDW 15.0, Plt Count 303, MPV 7.6, Neut % (Auto) 63.8, Lymph % (Auto) 24.4, [place] % (Auto) 5.5, Eos % (Auto) 5.7, Baso % (Auto) 0.5, Neut # (Auto) 5.8, Lymph # (Auto) 2.2, [place] # (Auto) 0.5, Eos # (Auto) 0.5 H, Baso # (Auto) 0.0 08/24/22 06:28: Sodium 139, Potassium 3.3 L, Chloride 108 H, Carbon Dioxide 26, Anion Gap 8.3, BUN 11, Creatinine 1.30 H, Estimated Creat Clear 61, Estimated GFR 56 L, Est GFR ( Amer) 67, Glucose 103 H D, Calcium 8.0 L I & O for Last 24 hours: Intake & Output 10/05/23 10/06/23 10/07/23 10/08/23 23:59 23:59 23:59 23:59 Weight 77.564 kg Intake & Output 08/22/22 08/23/22 08/24/22 08/25/22 11:59 11:59 11:59 11:59 Intake Total 889 / 889 Output Total 2925 / 2925 Balance -2035 / -2035 Weight 163 lb 4 oz Constitutional Constitutional: no acute distress *Routine HEENT Exam Head: Present normocephalic Eye: Present EOMI and PERRL ENT: Present mucous membranes moist *Routine Neck Exam Neck: Present supple; Absent lymphadenopathy *Routine Respiratory Exam Respiratory: Present CTA bilaterally *Routine Cardiovascular Exam Cardiovascular: Present RRR *Routine Abdominal Exam Abdominal: Present soft and normoactive bowel sounds; Absent tenderness *Routine Rectal Exam Rectal:: deferred *Routine Genitalia Exam Genitalia:: deferred *Routine Extremities Exam Extremities: Absent cyanosis, clubbing or edema *Routine Skin Exam Skin: Present warm; Absent rash *Routine Neurological Exam Neurological: Present alert and oriented X3 H&P: Result Imaging and Cardiology EKG: Status: image reviewed by me, Preliminary report and final report Chest x-ray: Status: image reviewed by me, Preliminary report and final report Assessment and Plan *Assessment and plan (1) Angina pectoris, unstable: Status: Acute Category: Medical Code(s): I20.0 - Unstable angina (2) S/P CABG x 3: Status: Acute Category: Surgical Code(s): Z95.1 - Presence of aortocoronary bypass graft (3) HFrEF (heart failure with reduced ejection fraction): Status: Acute Category: Medical Code(s): I50.20 - Unspecified systolic (congestive) heart failure (4) COPD (chronic obstructive pulmonary disease): Status: Acute Qualifiers: COPD type: unspecified COPD Qualified Code(s): J44.9 - Chronic obstructive pulmonary disease, unspecified Category: Medical Code(s): J44.9 - Chronic obstructive pulmonary disease, unspecified (5) Hypertriglyceridemia: Status: Acute Category: Medical Code(s): E78.1 - Pure hyperglyceridemia (6) RLS (restless legs syndrome): Status: Acute Category: Medical Code(s): G25.81 - Restless legs syndrome (7) PAD (peripheral artery disease): Problem Comment: Asymptomatic at present. No further work-up at present. Status: Acute Category: Medical Code(s): I73.9 - Peripheral vascular disease, unspecified (8) Smoking greater than 30 pack years: Status: Acute Category: Social Hx Code(s): F17.210 - Nicotine dependence, cigarettes, uncomplicated Plan 63-year-old male with PMHx of COPD, current smoker, CAD status post multiples stenting and three-vessel CABG, peripheral vascular disease with innumerable stents who presents to the emergency department for evaluation of chest pain. Initial interventions include aspirin, hematologic labs are nonactionable, initial troponin undetectably low. Chest x-ray no acute lobar opacities or large pneumothorax. Cardiology was consulted. Given patient's significant cardiovascular risk he would benefit from observation overnight and optimization by cardiology tomorrow. They requested admission. Agreed for it. plan: -Angina, unstable, CAD s/p CAbGx3 and multiples stent: HFrEF Patient for continuous cardiac telemetry. As per [facility] [place] Cardiology consult N.p.o. after midnight for possible cardiac intervention monitor Trending troponin. Currently undetectable Monitor heart rate and vital signs. Including chest pain Nitroglycerin sublingual as needed for chest pain Optimize O2 saturation. Oxygen by nasal cannula as needed repeat labs in the morning -COPD: Complaining of cough and wheezing Started on DuoNeb every 6 as needed Resume home albuterol and tiotropium inh Keep saturation more than 90 Restless leg syndrome: On ropinirole gabapentin and Robaxin CHF hypertension hyperlipidemia PAD Reconcile home medication Resume hydrocortisone Bisoprolol Rosuvastatin and terbinafine Smoker: On nicotine patch SCD for DVT prophylaxis. Patient loaded with aspirin On Protonix Full code Rounded on patient after nurse practitioner. Personally examined and interviewed patient. Agree with exam findings and care plan as documented.
--- NOTE | 2023-10-08 20:43 | PC.NURSE ---
attempted to call report at this time
--- NOTE | 2023-10-08 20:51 | PC.NURSE ---
report called to maryam chaudhary at this time
[2023-10-08 20:57] VITALS: BP 188/68; PULSE 66; RESP 17; TEMP 36.8; O2SAT 95
[2023-10-08 21:00] VITALS: BP 192/68; PULSE 70; RESP 18; TEMP 36.8; O2SAT 95; BMI 23.2
[2023-10-08 21:10] VITALS: PULSE 68
--- NOTE | 2023-10-08 21:10 | PC.NURSE ---
Patient arrived to floor via wheelchair from ED at 21:09.
[2023-10-08] MEDS: 0.9 % SODIUM CHLORIDE 1000ML 1,000 ML 50 ML IV (21:20)
[2023-10-08] MEDS: PANTOPRAZOLE 40MG TABLET 40 MG PO (21:21)
[2023-10-08 21:30] VITALS: O2SAT 95
[2023-10-08] MEDS: ATORVASTATIN 20MG TABLET 20 MG PO (22:18)
[2023-10-08] MEDS: GABAPENTIN 300MG CAPSULE 300 MG PO (22:18)
[2023-10-08] MEDS: ROPINIROLE 1MG TABLET 2 MG PO (22:18)
[2023-10-08] MEDS: METHOCARBAMOL 750 MG 750 EACH PO (22:20)
[2023-10-08] MEDS: NICOTINE 21MG/24HR PATCH 21 MG TD (22:26)
[2023-10-08 22:58] LABS: Troponin I < 0.01 ng/ml (0.00-0.034)
[2023-10-09] VITALS (8 sets, daily range): BP systolic 102–196; BP diastolic 58–80; PULSE 56–90; RESP 16–18; TEMP 36.5–36.8; O2SAT 91–94; BMI 23.2
[2023-10-09] MEDS: IPRATROPIUM/ALBUTEROL 3 ML NEB IH ×3 (00:23→11:00)
[2023-10-09 02:16] LABS: Troponin I < 0.01 ng/ml (0.00-0.034)
--- NOTE | 2023-10-09 03:45 | PC.NURSE ---
Pt is alert and oriented x4 and currently tolerating RA well. Pt denies any chest pain since admission. Pt is tolerating fluids well and has no complaints. No acute changes this shift, Pt denies general pain and needs at this time.
--- NOTE | 2023-10-09 05:11 | PC.NURSE ---
Pt T wave tall and peaked, contacted [facility], [employer] REPRESENTATIVE, EKG ordered at this time. RT in room
--- NOTE | 2023-10-09 05:13 | ECG_ITS ---
APPROVED REPORT Exam: Resting ECG HR:69 bpm ECG Measurements Heart Rate 69 AXES IN 143 P 64 QRSd 100 QRS 69 QT 389 T 71 QTc 407 Conclusion SINUS RHYTHM POSSIBLE LEFT ATRIAL ENLARGEMENT [-0.1mV P-WAVE IN V1/V2] POSSIBLE LEFT VENTRICULAR HYPERTROPHY [VOLTAGE CRITERIA PLUS LAE OR QRS WIDENING] POSSIBLE SEPTAL MYOCARDIAL INFARCTION , OF INDETERMINATE AGE [30 ms Q WAVE IN V1/V2] ABNORMAL ECG UNCONFIRMED REPORT Electronically signed by : EMILIA HERNANDEZ, 10/11/2023 02:24:26
[2023-10-09 06:08] LABS: Basophils # 0.1 K/mm3 (0-0.2); Basophils % 0.5 % (0.1-2.0); Eosinophils # 0.4 K/mm3 (0.0-0.4); Eosinophils % 4.1 % (0.1-12.0); Hematocrit 43.1 % (42.0-52.0); Hemoglobin 14.1 g/dL (14.1-18.0); Lymphocytes # 2.6 K/mm3 (0.7-4.5); Lymphocytes % 24.3 % (10-50); Mean Corpuscular HGB Conc 32.8 g/dL (31.8-35.4); Mean Corpuscular Hemoglobin 31.4 pg (27.0-31.2); Mean Corpuscular Volume 95.8 fl (80-94); Mean Platelet Volume 7.9 fl (7.4-10.4); Monocytes # 0.5 K/mm3 (0.1-1.0); Monocytes % 4.6 % (1.7-9.3); Neutrophils # 7.1 K/mm3 (1.8-7.8); Neutrophils % 66.5 % (37.0-80.0); Platelet Count 277 K/mm3 (142-424); Red Cell Distribution Width 14.9 % (11.5-17.5); White Blood Count 10.6 K/mm3 (4.8-10.8)
[2023-10-09 06:14] LABS: Chloride 103 mmol/L (98-107); Sodium 133 mmol/L (136-145)
[2023-10-09 06:15] LABS: Potassium 3.5 mmoL/L (3.5-5.1)
[2023-10-09 06:17] LABS: Alanine Aminotransferase 23 U/L (12-78); Albumin/Globulin Ratio 1.3 (1.1-1.8); Alkaline Phosphatase 86 U/L (38-126); Anion Gap 9.5 mEq/L (5-15); Aspartate Amino Transferase 31 U/L (17-59); Bilirubin,Total 0.4 mg/dl (0.2-1.3); Blood Urea Nitrogen 17 mg/dl (9-20); Carbon Dioxide 24 mmol/L (22.0-30.0); Creatinine Clearance Estimated 69 mL/min (50-200); Estimated Glomerular Filt Rate 61 ml/min (>60); GFR (African American) 74 ML/MIN (>60)
[2023-10-09 06:18] LABS: Calcium 9.3 mg/dl (8.4-10.2); Glucose 99 mg/dl (74-100); Magnesium 1.6 mg/dl (1.6-2.3)
--- NOTE | 2023-10-09 08:34 | HMH.PHAINT1 ---
Pharmacy Intervention Comments: home medication list verified using list from outpatient pharmacy
--- NOTE | 2023-10-09 08:47 | CA_ITS ---
APPROVED REPORT EXAM: Comprehensive 2D, Doppler, and color-flow Echocardiogram Carpenter Mold: Patricia Butt, VINICIUS, RVS Ht: 6 ft 0 in Wt: 171lbs BSA: 1.99 BP: 198/68 mmHg Indications: CP, SOA, COPD, Anemia Hgb 7.8 HCT23.6 CAD -CABGX#, Multiple stentings, Smoker, HTN, HLD Echo Enhancing Agent Comments: Poor acoustics troughout Constant cough 2D Dimensions IVSd 1.15 cm M: 0.6-1.2 LVEF (Visual) 74.90 % PWd 1.17 cm M: 0.6 - 1.2 LA Volume 80.00 mL LVDd 5.52 cm M: 4.2 - 5.9 LA Volume Index 40.20 mL/m2 (M/F) 16-34 LVDs 3.08 cm M: 2.5 - 4.0 EF AP4 50.00 % Aortic Root 2.95 cm M: 3.1 - 3.7 GL Strain -15.7 % Left Atrium 3.86 cm M: 3.0 - 4.0 LVOT 2.18 cm (M/F) 1.5-2.5 M-Mode Dimensions RVDd 2.41 cm (0.9-2.6) LVDd 5.52 cm (3.5-5.7) LVDs 4.26 cm (3.5-5.7) IVSd 1.05 cm (0.6-1.1) PWd 1.01 cm (0.6-1.1) EF (Teich) 53.20% EPSs 1.37 cm FS 33.33% EDV (Teich) 173.90 mL TAPSE 1.26 (<1.7) ESV (Teich) 81.30 mL LV Diastology E Decel Time 206 (160-240 msec) E/A Ratio 1.0 MED E' 7.5 (>= 7 cm/sec) MED A' 14.20 cm/s E'/MED E' Ratio 14.88 (<= 14) LAT E' 10.1 (>= 10 cm/sec) LAT A' 8.90 cm/s E/LAT E' Ratio 11.05 (<= 14) Aortic Valve LVOT Max 125.0 (70-110 cm/s) LANNY Index 1.28 cm2/m2 LVOT VTI 26.71 cm AoV Peak Bakari. 166.0 (50-130 cm/s) AO Peak GR. 36.00 mmHg AO Mean GR. 5.50 (<5 mmHg) AO VTI 36.5 (18-25 cm) LANNY (VTI) 2.54 (2.5-4.5 cm2) Mitral Valve MV E Max Bakari. 112.0 (40-130 cm/s) MV A Velocity 108.0 (40-130 cm/s) E/A Ratio 1.03 MV Decel. Time 206 (160-240 ms) MV Mean Gr. 2.50 (<2mmHg) Tricuspid Valve TR P. Velocity 259.00 cm/s RAP Estimate 10.00 mmHg RVSP 36.80 mmHg Left Ventricle The left ventricle is normal size. The left ventricular systolic function is normal. The left ventricular ejection fraction is within the normal range. There is increased LV wall thickness. There is normal LV segmental wall motion. The left ventricular diastolic function is normal. LVEF is 60%. Right Ventricle The right ventricle is normal size. The right ventricular systolic function is normal. Atria The left atrium is mildly dilated. The right atrium is mildly dilated. There is no Doppler evidence of interatrial shunt. Aortic Valve The aortic valve is mildly thickened. There is no aortic valvular stenosis. Trace aortic regurgitation. Mitral Valve The mitral valve is normal in structure. No evidence of mitral valve stenosis. Mild mitral regurgitation. Tricuspid Valve The tricuspid valve leaflets are thin and pliable. Trace tricuspid regurgitation. There is insufficient TR jet to estimate RVSP. Pulmonic Valve The pulmonary valve is normal in structure. Trace pulmonic regurgitation. Great Vessels The aortic root is normal in size. The ascending aorta is not well-visualized. IVC is normal in size and collapses >50% with inspiration. Pericardium There is no pericardial effusion. Other Information Study Quality: Fair Conclusion Normal biventricular systolic function. Mild biatrial dilation. Mild MR. Electronically signed by : Margarita Foote MD 10/12/2023 23:03:20
--- NOTE | 2023-10-09 09:40 | P.CONCA_ITS ---
History of Present Illness History of Present Illness Consult date: 10/09/23 Requesting physician: Gordon Boyce Consult reason: chest pain and hypertension Chief complaint: HTN and chest pain History of present illness: This is a 63-year-old white male with past medical history of coronary artery disease status post CABG 2022, peripheral artery disease, current smoker, COPD, familial hypertriglyceridemia history of heart failure with improved ejection fraction from 40- 45% to 55% status post CABG, hypertension, former EtOH use and GI bleed presented to emergency department yesterday with complaints of blood pr essure running high, chest pressure, cough and wheezing. Of note patient was in cardiology clinic in September for hypertension and hydrochlorothiazide was increased to 25 mg daily. Patient reports lisinopril was previously stopped due to itching. Patient reports has noticed blood pressure trending up for the past few weeks with associated chest pressure and has had some cough and wheezing. Upon presentation to emergency department EKG similar to previous ekgs without acute ischemic changes noted. Labs as follow: WBC 9.5, hemoglobin 14.2, sodium 133, potassium 4.2, creatinine 1.2. Serial troponins remain negative. Chest x- ray shows no acute findings. Patient reports chest pain has improved with blood pressure coming down and with neb treatments. Patient endorses that during deep breathing chest pain was exacerbated. Patient is unclear on which meds he is actually taking. [facility] Disclaimer: The information contained in this section may have been updated after the patient was seen, as this information can be updated by other users. Medical History Fatigue Daytime somnolence Snoring Chronic cough Bronchitis Asthma Sinus headache History of gastroesophageal reflux (GERD) Allergies History of anemia History of COPD Smoking greater than 30 pack years Pleural effusion, left Dyspnea on exertion Dyspnea Pleural effusion HFrEF (heart failure with reduced ejection fraction) RLS (restless legs syndrome) Stenosis of carotid artery CAD in [place] artery Coronary artery calcification seen on CAT scan Hyperlipidemia PAD (peripheral artery disease) Smoker COPD (chronic obstructive pulmonary disease) Hypertension Surgical History History of surgery History of hernia surgery S/P CABG x 3 S/P CABG x 3 S/P insertion of iliac artery stent Family History Other Family history of cancer Family history of myocardial infarction Family history of stroke Social History (Updated 10/08/23 @ 21:25 by Paz Mckee RN) Smoking Status: Current every day smoker tobacco type: cigarettes packs per day: 1 years smoked: 50 quit status: has quit before alcohol intake: never substance use type: denies use current occupational status: retired Travel in the last 8 weeks: None caffeine: No physical activity: walking special hoa needs: No agree to transfusion: Yes Review of Systems Review of Systems Review of systems:: pertinent systems reviewed and negative unless documented below Constitutional Constitutional: Reports system reviewed and no additional complaints, except as documented *Cardiovascular Cardiovascular: Reports system reviewed and no additional complaints, except as documented and Reports chest pain *Respiratory Respiratory: Reports system reviewed and no additional complaints, except as documented, Reports cough and Reports wheezing *Gastrointestinal Gastrointestinal: Reports system reviewed and no additional complaints, except as documented *Neurologic Neurologic: Reports system reviewed and no additional complaints, except as documented and Denies confusion Psychiatric Psychiatric: Reports system reviewed and no additional complaints, except as documented and Denies confusion Allergic/Immunologic Allergic/Immunologic: Reports wheezing Exam Data for Last 24 hours Vital signs and Labs for Last 24 Hours: Temp Pulse Resp BP Pulse Ox O2 Del Method 98.3 F 69 18 102/58 L 94 L Room Air 10/09/23 08:00 10/09/23 08:00 10/09/23 08:00 10/09/23 08:00 10/09/23 08:00 10/09/23 08:00 Laboratory Results - last 24 hr 10/08/23 19:10: WBC 9.5, RBC 4.43 L, Hgb 14.2, Hct 43.7, MCV 98.7 H, MCH 32.0 H, MCHC 32.4, RDW 15.2, Plt Count 301, MPV 8.1, Neut % (Auto) 64.2, Lymph % (Auto) 25.6, Cowley % (Auto) 4.4, Eos % (Auto) 5.0, Baso % (Auto) 0.9, Neut # (Auto) 6.1, Lymph # (Auto) 2.4, Cowley # (Auto) 0.4, Eos # (Auto) 0.5 H, Baso # (Auto) 0.1, Sodium 133 L, Potassium 4.2, Chloride 100, Carbon Dioxide 24, Anion Gap 13.2, BUN 18, Creatinine 1.20, Estimated Creat Clear 68, Estimated GFR 61, Est GFR ( Amer) 74, Glucose 116 H, Calcium 9.6, Total Bilirubin 0.6, AST 46, ALT 24, Alkaline Phosphatase 79, Troponin I < 0.01, Total Protein 7.7, Albumin 4.3, Globulin 3.4 H, Albumin/Globulin Ratio 1.3 10/08/23 22:20: Troponin I < 0.01 10/09/23 01:50: Troponin I < 0.01 10/09/23 05:28: WBC 10.6, RBC 4.50 L, Hgb 14.1, Hct 43.1, MCV 95.8 H, MCH 31.4 H , MCHC 32.8, RDW 14.9, Plt Count 277, MPV 7.9, Neut % (Auto) 66.5, Lymph % (Auto) 24.3, Cowley % (Auto) 4.6, Eos % (Auto) 4.1, Baso % (Auto) 0.5, Neut # (Auto) 7.1, Lymph # (Auto) 2.6, Cowley # (Auto) 0.5, Eos # (Auto) 0.4, Baso # (Auto) 0.1, Sodium 133 L, Potassium 3.5, Chloride 103, Carbon Dioxide 24, Anion Gap 9.5, BUN 17, Creatinine 1.20, Estimated Creat Clear 69, Estimated GFR 61, Est GFR ( Amer) 74, Glucose 99, Calcium 9.3, Magnesium 1.6, Total Bilirubin 0.4, AST 31 D, ALT 23, Alkaline Phosphatase 86, Total Protein 7.0, Albumin 4.0, Globulin 3.0, Albumin/Globulin Ratio 1.3 I & O for Last 24 hours: Intake & Output 10/06/23 10/07/23 10/08/23 10/09/23 23:59 23:59 23:59 23:59 Intake Total 365 / 365 Output Total 0 / 0 975 / 975 Balance 365 / 365 -975 / -975 Weight 171 lb 11.2 oz 171 lb 11.207 oz Constitutional Constitutional: no acute distress *Routine Respiratory Exam Respiratory: Present CTA bilaterally and symmetric chest movement *Routine Cardiovascular Exam Cardiovascular: Present RRR, Normal S1 and Normal S2 *Routine Abdominal Exam Abdominal: Present soft and normoactive bowel sounds; Absent tenderness *Routine Extremities Exam Extremities: Present full ROM and normal capillary refill; Absent edema *Routine Skin Exam Skin: Present intact, dry and warm Detailed Neck Exam: Thyroids Thyroid: Absent bruit Meds Home Medications and Allergies Home Medications Medication Instructions Recorded Confirmed Type ascorbic acid (vitamin C) 500 mg 500 mg PO DAILY 12/24/21 10/08/23 History capsule cholecalciferol (vitamin D3) 50 50 mcg PO DAILY 12/24/21 10/08/23 History mcg (2,000 unit) capsule multivitamin 1 tab PO DAILY 12/24/21 10/08/23 History bisoprolol fumarate 10 mg tablet 10 mg PO DAILY 08/14/22 10/08/23 History gabapentin 300 mg capsule 300 mg PO HS 08/18/22 10/08/23 History aspirin 81 mg capsule 81 mg PO DAILY 01/13/23 10/08/23 History ropinirole 1 mg tablet 2 mg PO HS 01/13/23 10/08/23 History rosuvastatin 10 mg tablet 10 mg PO HS 01/13/23 10/09/23 History potassium chloride 10 mEq 10 meq PO DAILY PRN supplement 01/28/23 10/08/23 History tablet,extended release(part/cryst) tiotropium 2.5 mcg-olodaterol 2.5 2 puff inhalation DAILY 90 days #4 04/23/23 10/08/23 Rx mcg/actuation mist for inhalation grams (Stiolto Respimat) methocarbamol 750 mg tablet 750 mg PO TID 08/12/23 10/09/23 History icosapent ethyl 1 gram capsule 2 g (2 x 1 gram) PO BID 30 days 09/08/23 10/08/23 Rx (Vascepa) #120 caps terbinafine HCl 250 mg tablet 250 mg PO DAILY 09/30/23 10/08/23 History hydrochlorothiazide 25 mg tablet 25 mg PO DAILY 10/08/23 10/08/23 History lisinopril 10 mg tablet 10 mg PO DAILY 10/09/23 10/09/23 History nicotine 21 mg/24 hr daily 21 mg transdermal DAILY 28 days 10/09/23 Rx transdermal patch #28 ea New Prescriptions to Start Prescriptions: Gordon Clarke Allergies Allergy/AdvReac Type Severity Reaction Status Date / Time lisinopril AdvReac Mild myalgia Verified 09/30/23 10:33 codeine AdvReac Verified 09/30/23 10:33 cyclobenzaprine AdvReac Verified 09/30/23 10:33 [From Flexeril] [id number] Reductase AdvReac Verified 09/30/23 10:33 Inhibitor Assessment and Plan *Assessment and plan (1) Carotid artery disease: Status: Acute Qualifiers: Carotid artery disease type: stenosis Laterality: left Qualified Code(s): I65.22 - Occlusion and stenosis of left carotid artery Category: Medical Code(s): I77.9 - Disorder of arteries and arterioles, unspecified (2) S/P CABG x 3: Status: Acute Category: Surgical Code(s): Z95.1 - Presence of aortocoronary bypass graft (3) Hyperlipidemia: Status: Acute Qualifiers: Hyperlipidemia type: mixed hyperlipidemia Qualified Code(s): E78.2 - Mixed hyperlipidemia Category: Medical Code(s): E78.5 - Hyperlipidemia, unspecified (4) Smoker: Problem Comment: Advised to quit smoking Status: Acute Category: Social Hx Code(s): F17.200 - Nicotine dependence, unspecified, uncomplicated (5) Hypertension: Status: Acute Qualifiers: Hypertension type: primary hypertension Qualified Code(s): I10 - Essential (primary) hypertension Category: Medical Code(s): I10 - Essential (primary) hypertension (6) PAD (peripheral artery disease): Problem Comment: Asymptomatic at present. No further work-up at present. Status: Acute Category: Medical Code(s): I73.9 - Peripheral vascular disease, unspecified (7) COPD (chronic obstructive pulmonary disease): Status: Acute Qualifiers: COPD type: unspecified COPD Qualified Code(s): J44.9 - Chronic obstructive pulmonary disease, unspecified Category: Medical Code(s): J44.9 - Chronic obstructive pulmonary disease, unspecified (8) Angina pectoris, unstable: Status: Acute Category: Medical Code(s): I20.0 - Unstable angina Plan Hx of CAD History of CABG times 07/22/2022 Chest pain Patient reports chest pain with elevated blood pressure. At times chest pain is exacerbated with deep breathing Serial troponins negative No acute changes noted to EKG Patient has multiple risk factors including prior CABG, vasculopath, familial hypertriglyceridemia and current tobacco user- recommend a left heart catheterization to further evaluate chest pain. Patient declines at this time. Patient reports he thinks chest pain was secondary to high blood pressure and was relieved as blood pressure started to come down and after neb treatments. Patient does agree to echocardiogram and if significant changes are noted then will proceed with left heart catheterization Continue aspirin 81 mg p.o. daily, bisoprolol 10 mg p.o. daily and Crestor 20 mg p.o. daily Preliminary echo report shows normal biventricular function. Mild MR, moderate TR. Official read is pending. History of COPD Receiving DuoNebs per primary service, will defer Hypertension-uncontrolled Patient reports a history of itching with lisinopril resulting in the medication being stopped. Patient prescribed bisoprolol 10mg daily, reports is not taking it. only taking HCTZ in the am. Resume both Hyperlipidemia LDL goal less than 55 LDL is 58 triglycerides 452 August 2023. Patient is on Crestor 20 mg and Vascepa 2 g twice daily. History of PAD POBA of right common and external iliac January 2022 Prior history of stenting iliac and legs Successful stenting of the celiac artery in August 2022 CV summary 10/09/2023: Echocardiogram show normal biventricular function. Patient would like to hold on [facility] at this time because he is feeling better and go home. Will resume previously prescribed BP meds as listed below. Patient advised to do BID BP monitoring and to return to ER for any chest pain or soa. Patient needs to follow up in cardiology clinic on Friday morning at 0900. Will need further ischemic eval if agreeable. I anticipate will need addition BP medication such as losartan or valsartan. Cardiac meds Aspirin 81 mg p.o. daily Bisoprolol 10 mg p.o. daily Hydrochlorothiazide 25 mg p.o. daily Crestor 20 mg p.o. daily Vascepa 2g BID
--- NOTE | 2023-10-09 10:31 | PC.NURSE ---
Pt instructed to have bring in his home medication.
[2023-10-09] MEDS: *PAT OWN MED* ASPIRIN EC 81MG TABLET 81 MG PO (12:02)
[2023-10-09] MEDS: BISOPROLOL 10 MG 1 EACH PO (12:03)
[2023-10-09] MEDS: HYDROCHLOROTHIAZIDE 25 MG PO (12:04)
[2023-10-09] MEDS: PATIENT'S OWN HOME MEDICATION (Tiotropium-Olodaterol [Stiolto Respimat] 2.5-2.5 mcg/actuat 2 EACH IH (12:04)
[2023-10-09] MEDS: METHOCARBAMOL 750 MG 1 EACH PO (12:05)
--- NOTE | 2023-10-09 12:45 | EXP.DC.SUM ---
General Admission date:: 10/08/23 Discharge date: 10/09/23 HPI HPI HPI: This is a 63-year-old male with PMHx of COPD, current smoker, CAD status post multiples stenting and three-vessel CABG, peripheral vascular disease with innumerable stents who presents to the emergency department for evaluation of chest pain. Patient has had chest pain that is substernal over the last week, worse with any exertion, improved with rest. He had his blood pressure medication HCTZ modified approximately 2 weeks ago for which was increased however he has noticed uptrending blood pressure. He has been compliant with his medications. Hospital Course Hospital Course Hospital Course: 63-year-old male with PMHx of COPD, current smoker, CAD status post multiples stenting and three-vessel CABG, peripheral vascular disease with innumerable stents who presents to the emergency department for evaluation of chest pain. Initial interventions include aspirin, hematologic labs are nonactionable, initial troponin undetectably low. Chest x-ray no acute lobar opacities or large pneumothorax. Cardiology was consulted. Given patient's significant cardiovascular risk he would benefit from observation overnight and optimization by cardiology. Seen by cardiology in the morning. Patient's EF stable with echo. Would benefit from further outpatient management. Discussed need for adjustments to blood pressure regimen and medical optimization. Plan for close follow-up. Stable to discharge home. Problems addressed as follows: Angina, unstable, CAD s/p CAbGx3 and multiples stent: HFrEF Uncontrolled hypertension Cardiology consulted. Appreciate their recommendations. Monitor overnight with serial troponins that remained nonactionable. Resumed patient's blood pressure regimen, reports that he has not been taking his medications as prescribed such as his bisoprolol. Received doses today with some improvement in blood pressure. Chest pain resolved today. Recommend medication compliance. Will continue occasions including bisoprolol 10 mg daily, aspirin 81 mg daily, Crestor 20 mg daily, and HCTZ 25 mg daily. Resume lisinopril 10 mg daily if he can tolerate it. Given patient's multiple risk factors including CABG, vasculopathy, familial hypertriglyceridemia, and continued current daily tobacco user, cardiology recommended left heart cath to further evaluate his chest pain. Patient declined and wanted to address his blood pressure first to see if that helped. Reevaluate in the outpatient setting. COPD: Tobacco use disorder -Some improvement with nebs. Resume home breathing treatments. Counseled on smoking cessation. Discharged on nicotine patches. Hyperlipidemia: LDL goal less than 55. Continue Crestor and Vascepa per home regimen Stable discharge home with close follow-up. Exam Data for Last 24 hours Vital signs and Labs for Last 24 Hours: Temp Pulse Resp BP Pulse Ox O2 Del Method 97.9 F 82 16 178/72 H 91 L Room Air 10/09/23 12:00 10/09/23 12:00 10/09/23 12:00 10/09/23 12:00 10/09/23 12:00 10/09/23 12:00 Laboratory Results - last 24 hr 10/08/23 19:10: WBC 9.5, RBC 4.43 L, Hgb 14.2, Hct 43.7, MCV 98.7 H, MCH 32.0 H, MCHC 32.4, RDW 15.2, Plt Count 301, MPV 8.1, Neut % (Auto) 64.2, Lymph % (Auto) 25.6, [place] % (Auto) 4.4, Eos % (Auto) 5.0, Baso % (Auto) 0.9, Neut # (Auto) 6.1, Lymph # (Auto) 2.4, [place] # (Auto) 0.4, Eos # (Auto) 0.5 H, Baso # (Auto) 0.1, Sodium 133 L, Potassium 4.2, Chloride 100, Carbon Dioxide 24, Anion Gap 13.2, BUN 18, Creatinine 1.20, Estimated Creat Clear 68, Estimated GFR 61, Est GFR ( Amer) 74, Glucose 116 H, Calcium 9.6, Total Bilirubin 0.6, AST 46, ALT 24, Alkaline Phosphatase 79, Troponin I < 0.01, Total Protein 7.7, Albumin 4.3, Globulin 3.4 H, Albumin/Globulin Ratio 1.3 10/08/23 22:20: Troponin I < 0.01 10/09/23 01:50: Troponin I < 0.01 10/09/23 05:28: WBC 10.6, RBC 4.50 L, Hgb 14.1, Hct 43.1, MCV 95.8 H, MCH 31.4 H, MCHC 32.8, RDW 14.9, Plt Count 277, MPV 7.9, Neut % (Auto) 66.5, Lymph % (Auto) 24.3, [place] % (Auto) 4.6, Eos % (Auto) 4.1, Baso % (Auto) 0.5, Neut # (Auto) 7.1, Lymph # (Auto) 2.6, [place] # (Auto) 0.5, Eos # (Auto) 0.4, Baso # (Auto) 0.1, Sodium 133 L, Potassium 3.5, Chloride 103, Carbon Dioxide 24, Anion Gap 9.5, BUN 17, Creatinine 1.20, Estimated Creat Clear 69, Estimated GFR 61, Est GFR ( Amer) 74, Glucose 99, Calcium 9.3, Magnesium 1.6, Total Bilirubin 0.4, AST 31 D, ALT 23, Alkaline Phosphatase 86, Total Protein 7.0, Albumin 4.0, Globulin 3.0, Albumin/Globulin Ratio 1.3 I & O for Last 24 hours: Intake & Output 10/06/23 10/07/23 10/08/23 10/09/23 23:59 23:59 23:59 23:59 Intake Total 365 / 365 Output Total 0 / 0 975 / 975 Balance 365 / 365 -975 / -975 Weight 77.882 kg 77.882 kg Constitutional Constitutional: no acute distress, average body habitus and cooperative *Routine HEENT Exam Head: Present normocephalic Eye: Present EOMI and PERRL ENT: Present mucous membranes moist *Routine Neck Exam Neck: Present supple; Absent lymphadenopathy Routine Chest/Breast/Axilla Exam Comments: Well-healed sternotomy scar *Routine Respiratory Exam Respiratory: Present prolonged expiratory phase, rhonchi and normal respiratory effort; Absent wheezes or crackles *Routine Cardiovascular Exam Cardiovascular: Present RRR *Routine Abdominal Exam Abdominal: Present soft and normoactive bowel sounds; Absent tenderness *Routine Rectal Exam Patient deferred: visual exam *Routine Exam Patient deferred: penile exam *Routine Extremities Exam Extremities: Absent cyanosis, clubbing or edema *Routine Skin Exam Skin: Present warm; Absent rash *Routine Neurological Exam Neurological: Present alert, oriented X3 and moving all extremities; Absent altered mental status Results Data Completed and Pending Labs on day of discharge: Labs from last 24 hours 10/09/23 10/09/23 10/08/23 05:28 01:50 22:20 WBC 10.6 RBC 4.50 L Hgb 14.1 Hct 43.1 MCV 95.8 H MCH 31.4 H MCHC 32.8 RDW 14.9 Plt Count 277 MPV 7.9 Neut % (Auto) 66.5 Lymph % (Auto) 24.3 [place] % (Auto) 4.6 Eos % (Auto) 4.1 Baso % (Auto) 0.5 Neut # (Auto) 7.1 Lymph # (Auto) 2.6 [place] # (Auto) 0.5 Eos # (Auto) 0.4 Baso # (Auto) 0.1 Sodium 133 L Potassium 3.5 Chloride 103 Carbon Dioxide 24 Anion Gap 9.5 BUN 17 Creatinine 1.20 Estimated Creat Clear 69 Estimated GFR 61 Est GFR ( Amer) 74 Glucose 99 Calcium 9.3 Magnesium 1.6 Total Bilirubin 0.4 AST 31 D ALT 23 Alkaline Phosphatase 86 Troponin I < 0.01 < 0.01 Total Protein 7.0 Albumin 4.0 Globulin 3.0 Albumin/Globulin Ratio 1.3 10/08/23 19:10 WBC 9.5 RBC 4.43 L Hgb 14.2 Hct 43.7 MCV 98.7 H MCH 32.0 H MCHC 32.4 RDW 15.2 Plt Count 301 MPV 8.1 Neut % (Auto) 64.2 Lymph % (Auto) 25.6 [place] % (Auto) 4.4 Eos % (Auto) 5.0 Baso % (Auto) 0.9 Neut # (Auto) 6.1 Lymph # (Auto) 2.4 [place] # (Auto) 0.4 Eos # (Auto) 0.5 H Baso # (Auto) 0.1 Sodium 133 L Potassium 4.2 Chloride 100 Carbon Dioxide 24 Anion Gap 13.2 BUN 18 Creatinine 1.20 Estimated Creat Clear 68 Estimated GFR 61 Est GFR ( Amer) 74 Glucose 116 H Calcium 9.6 Magnesium Total Bilirubin 0.6 AST 46 ALT 24 Alkaline Phosphatase 79 Troponin I < 0.01 Total Protein 7.7 Albumin 4.3 Globulin 3.4 H Albumin/Globulin Ratio 1.3 DS: Diagnosis Discharge Diagnosis (1) Carotid artery disease: Status: Acute Code(s): I77.9 - Disorder of arteries and arterioles, unspecified Qualifiers: Carotid artery disease type: stenosis Laterality: left Qualified Code(s): I65.22 - Occlusion and stenosis of left carotid artery (2) S/P CABG x 3: Status: Acute Code(s): Z95.1 - Presence of aortocoronary bypass graft (3) Hyperlipidemia: Status: Acute Code(s): E78.5 - Hyperlipidemia, unspecified Qualifiers: Hyperlipidemia type: mixed hyperlipidemia Qualified Code(s): E78.2 - Mixed hyperlipidemia (4) Smoker: Status: Acute Code(s): F17.200 - Nicotine dependence, unspecified, uncomplicated Problem details: Advised to quit smoking (5) Hypertension: Status: Acute Code(s): I10 - Essential (primary) hypertension Qualifiers: Hypertension type: primary hypertension Qualified Code(s): I10 - Essential (primary) hypertension (6) PAD (peripheral artery disease): Status: Acute Code(s): I73.9 - Peripheral vascular disease, unspecified Problem details: Asymptomatic at present. No further work-up at present. (7) COPD (chronic obstructive pulmonary disease): Status: Acute Code(s): J44.9 - Chronic obstructive pulmonary disease, unspecified Qualifiers: COPD type: unspecified COPD Qualified Code(s): J44.9 - Chronic obstructive pulmonary disease, unspecified (8) Angina pectoris, unstable: Status: Acute Code(s): I20.0 - Unstable angina Meds Home Medications and Allergies Home Medications Medication Instructions Recorded Confirmed Type ascorbic acid (vitamin C) 500 mg 500 mg PO DAILY 12/24/21 10/08/23 History capsule cholecalciferol (vitamin D3) 50 50 mcg PO DAILY 12/24/21 10/08/23 History mcg (2,000 unit) capsule multivitamin 1 tab PO DAILY 12/24/21 10/08/23 History gabapentin 300 mg capsule 300 mg PO HS 08/18/22 10/08/23 History aspirin 81 mg capsule 81 mg PO DAILY 01/13/23 10/08/23 History ropinirole 1 mg tablet 2 mg PO HS 01/13/23 10/08/23 History rosuvastatin 10 mg tablet 10 mg PO HS 01/13/23 10/09/23 History potassium chloride 10 mEq 10 meq PO DAILY PRN supplement 01/28/23 10/08/23 History tablet,extended release(part/cryst) tiotropium 2.5 mcg-olodaterol 2.5 2 puff inhalation DAILY 90 days #4 04/23/23 10/08/23 Rx mcg/actuation mist for inhalation grams (Stiolto Respimat) methocarbamol 750 mg tablet 750 mg PO TID 08/12/23 10/09/23 History icosapent ethyl 1 gram capsule 2 g (2 x 1 gram) PO BID 30 days 09/08/23 10/08/23 Rx (Vascepa) #120 caps terbinafine HCl 250 mg tablet 250 mg PO DAILY 09/30/23 10/08/23 History hydrochlorothiazide 25 mg tablet 25 mg PO DAILY 10/08/23 10/08/23 History bisoprolol fumarate 10 mg tablet 10 mg PO DAILY 30 days #30 tabs 10/09/23 Rx lisinopril 10 mg tablet 10 mg PO DAILY 10/09/23 10/09/23 History nicotine 21 mg/24 hr daily 21 mg transdermal DAILY 28 days 10/09/23 Rx transdermal patch #28 ea New Prescriptions to Start Prescriptions: bisoprolol fumarate Gordon Boyce nicotine Gordon Boyce Allergies Allergy/AdvReac Type Severity Reaction Status Date / Time lisinopril AdvReac Mild myalgia Verified 09/30/23 10:33 codeine AdvReac Verified 09/30/23 10:33 cyclobenzaprine AdvReac Verified 09/30/23 10:33 [From Flexeril] [id number] Reductase AdvReac Verified 09/30/23 10:33 Inhibitor Discharge Plan Disposition Patient Disposition: Home, Self-Care Condition: Fair Follow up Plan Follow up with: Orquidea Her APRN [Nurse Practitioner] - 10/13/23 9:00 am Oly Dutta APRN [Primary Care Provider] - 10/14/23 11:45 am Prescriptions/Medication Reconciliation: New nicotine 21 mg/24 hr Patch 24 Hour 21 mg transdermal DAILY 28 Days Qty: 28 2RF Continued Stiolto Respimat 2.5-2.5 mcg/actuation mist 2 puff inhalation DAILY 90 Days Qty: 4 2RF icosapent ethyl [Vascepa] 1 gram capsule 2 g PO BID 30 Days Qty: 120 2RF ascorbic acid (vitamin C) 500 mg capsule 500 mg PO DAILY cholecalciferol (vitamin D3) 50 mcg (2,000 unit) capsule 50 mcg PO DAILY multivitamin Tablet 1 tab PO DAILY potassium chloride 10 mEq tablet,ER particles/crystals 10 meq PO DAILY PRN (Reason: supplement) methocarbamol 750 mg tablet 750 mg PO TID Patient Comments: TAKE 1 TABLET BY MOUTH THREE TIMES DAILY NEEDED terbinafine HCl 250 mg tablet 250 mg PO DAILY Patient Comments: TAKE 1 TABLET BY MOUTH ONCE DAILY aspirin 81 mg Capsule 81 mg PO DAILY ropinirole 1 mg tablet 2 mg PO HS Rx Instructions: administer 1-3 hours before bedtime rosuvastatin 10 mg tablet 10 mg PO HS gabapentin 300 mg capsule 300 mg PO HS Patient Comments: TAKE 1 CAPSULE BY MOUTH EVERY DAY AT BEDTIME hydrochlorothiazide 25 mg tablet 25 mg PO DAILY lisinopril 10 mg tablet 10 mg PO DAILY bisoprolol fumarate 10 mg tablet 10 mg PO DAILY 30 Days Qty: 30 0RF Problem Reconciliation Problems Reviewed?: Yes Patient Discharge Instructions ACTIVITY: Continue current activity DIET: continue same diet Patient Instructions: DI for Chest Pain Providers Primary Care Provider: Oly Dutta Admit Provider: Gordon Boyce Attending Provider: Gordon Boyce
--- NOTE | 2023-10-09 14:53 | HMH.PHAINT1 ---
Pharmacy Intervention Comments: DISCHARGE MEDICATION COUNSELING PROVIDED. DISCUSSED THE NICOTINE PATCHES (FOR SMOKING CESSATION, ONE PATCH DAILY, REMOVE OLD PATCH BEFORE PLACING NEW PATCH, ROTATE APPLICATION SITES, MAY CAUSE LOCALIZED IRRITATION/RASH/REDNESS/ITCHING, REMOVE PRIOR TO IMAGING TO AVOID HERNANDEZ). PATIENT VERBALIZED NO QUESTIONS AT THIS TIME.
--- NOTE | 2023-10-10 13:39 | CARE MANAGER ---
Contacted patient related to hospital discharge. He states he is doing well. He has nebulizers that he had previously gotten and wondered how often he should use them, but then found the instructions. He denies any other questions or concerns. He has medications and is aware of follow up appointments. SUMEET Orozco
== END 2023-10-09 15:15 | disposition home or self-care (01) ==
LOC: ER 20:28 → 2ND 20:56
PROVIDERS: Nurse Practitioner Family; Admitting Provider Internal Medicine Adolescent Medicine; Emergency Provider Emergency Medicine; PCP Nurse Practitioner Family; Visit Provider Internal Medicine Adolescent Medicine
DX: I25.110 Atherosclerotic heart disease of native coronary artery with unstable angina pectoris; Z95.1 Presence of aortocoronary bypass graft; I50.22 Chronic systolic (congestive) heart failure; J44.9 Chronic obstructive pulmonary disease, unspecified; E78.1 Pure hyperglyceridemia; G25.81 Restless legs syndrome; I73.9 Peripheral vascular disease, unspecified; F17.210 Nicotine dependence, cigarettes, uncomplicated; I65.22 Occlusion and stenosis of left carotid artery; E78.2 Mixed hyperlipidemia; I11.0 Hypertensive heart disease with heart failure; Z79.899 Other long term (current) drug therapy; Z95.5 Presence of coronary angioplasty implant and graft; Z95.820 Peripheral vascular angioplasty status with implants and grafts; Z95.828 Presence of other vascular implants and grafts
CPT/HCPCS: 36415; 71046; 80053; 83735; 84484; 85025; 93005; 93306; 94640; 99285; G0378

== ENCOUNTER → 2023-11-14 08:36 | Outpatient (CLI) | payer MEDICARE, SELFPAY | LOC: SL 08:37 | PROVIDERS: PCP Nurse Practitioner Family; Visit Provider Physician Assistant | DX: G47.33 Obstructive sleep apnea (adult) (pediatric) | CPT/HCPCS: G0399 ==

== ENCOUNTER 2023-12-06 01:08 | Observation (INO) | payer MEDICARE, SELFPAY ==
[2023-12-06] VITALS (24 sets, daily range): BP systolic 125–204; BP diastolic 58–135; PULSE 64–160; RESP 13–25; TEMP 36.6–37; O2SAT 93–100; BMI 32.3; BMI 24.3; BMI 24.7
--- NOTE | 2023-12-06 01:07 | ECG_ITS ---
APPROVED REPORT Exam: Resting ECG HR:157 bpm ECG Measurements Heart Rate 157 AXES QRSd 100 QRS 71 QT 205 T 0 QTc 293 Conclusion ATRIAL FLUTTER/TACHYCARDIA WITH RAPID VENTRICULAR RESPONSE ANTEROSEPTAL MYOCARDIAL INFARCTION , POSSIBLY ACUTE [40+ ms Q WAVE IN V1-V4] ST elevation in the septal leads possibly rate dependent Electronically signed by : SOTO REINA, 12/06/2023 15:23:24
--- NOTE | 2023-12-06 01:18 | XR_ITS ---
PROCEDURE INFORMATION: Exam: XR Chest Exam date and time: 12/06/2023 1:22 AM Age: 63 years old Clinical indication: Pain; Chest pressure; Additional info: Chest pain TECHNIQUE: Imaging protocol: Radiologic exam of the chest. Views: 1 view. COMPARISON: CR XR CHEST 2V 10/08/2023 7:17 PM FINDINGS: Lungs: Unremarkable. No consolidation. Pleural spaces: Unremarkable. No pleural effusion. No pneumothorax. Blunting of the left CP angle, possible small effusion versus scar. Heart/Mediastinum: Unremarkable. No cardiomegaly. Prior median sternotomy. Bones/joints: Unremarkable. IMPRESSION: No acute findings. Blunting of left CP angle, small effusion versus scar.
[2023-12-06 01:34] LABS: Alanine Aminotransferase 30 U/L (12-78); Albumin Level 4.4 g/dl (3.5-5.0); Albumin/Globulin Ratio 1.1 (1.1-1.8); Alkaline Phosphatase 108 U/L (38-126); Anion Gap 11.4 mEq/L (5-15); Aspartate Amino Transferase 41 U/L (17-59); Bilirubin,Total 0.8 mg/dl (0.2-1.3); Blood Urea Nitrogen 18 mg/dl (9-20); Calcium 9.7 mg/dl (8.4-10.2); Carbon Dioxide 26 mmol/L (22.0-30.0); Chloride 100 mmol/L (98-107); Creatinine Clearance Estimated 98 mL/min (50-200); Estimated Glomerular Filt Rate 67 ml/min (>60); GFR (African American) 82 ML/MIN (>60); Globulin 3.9 g/dL (1.3-3.2); Glucose 132 mg/dl (74-100); Magnesium 1.9 mg/dl (1.6-2.3); Potassium 3.4 mmoL/L (3.5-5.1); Sodium 134 mmol/L (136-145); Total Protein,Serum 8.3 g/dl (6.3-8.2)
--- NOTE | 2023-12-06 01:40 | HMH.EDGENADL ---
Discharge Plan Disposition Patient Disposition: Admitted Prescriptions Prescriptions: No Action ropinirole 1 mg tablet 1 mg PO AM Patient Comments: TAKE 1 TABLET BY MOUTH IN THE MORNING AND 2 NIGHTLY ropinirole 1 mg tablet 2 mg PO HS Patient Comments: TAKE 1 TABLET BY MOUTH IN THE MORNING AND 2 NIGHTLY trazodone 50 mg tablet 50 mg PO HS Patient Comments: TAKE 1 TABLET BY MOUTH ONCE DAILY AT BEDTIME amlodipine 5 mg tablet 5 mg PO DAILY Patient Comments: TAKE 1 TABLET BY MOUTH ONCE DAILY bisoprolol fumarate 10 mg tablet 10 mg PO DAILY Patient Comments: TAKE 1 TABLET BY MOUTH ONCE DAILY FOR 90 DAYS terbinafine HCl 250 mg tablet 250 mg PO DAILY Patient Comments: TAKE 1 TABLET BY MOUTH ONCE DAILY gabapentin 300 mg capsule 300 mg PO HS Patient Comments: TAKE 1 CAPSULE BY MOUTH ONCE DAILY AT BEDTIME aspirin 81 mg Tablet 81 mg PO DAILY hydrochlorothiazide 25 mg tablet 25 mg PO DAILY Patient Comments: TAKE 1 TABLET BY MOUTH ONCE DAILY rosuvastatin 10 mg tablet 10 mg PO HS Patient Comments: TAKE 1 TABLET BY MOUTH ONCE DAILY icosapent ethyl [Vascepa] 1 gram capsule 1 g PO TID Stiolto Respimat 2.5-2.5 mcg/actuation mist 2 inh INHALATION DAILY Patient Comments: INHALE 2 PUFFS BY MOUTH ONCE DAILY Clinical Impressions Clinical Impression: Atrial flutter, Chest pain, Hypokalemia Print Language Print Language: Lithuanian Discharge ED Provider: Cliff Kruse Adult HPI General Chief complaint: Chest Pain Stated complaint: CP Time Seen by Provider: 12/06/23 01:10 Mode of Arrival: Family Vehicle Source of Information: Patient Limitations: No Limitations Description of Symptoms (Recalled from ER Triage Doc. by RN): 63 yo male presents with CC of chest pain accompanied by heart palpitations. Patient reports he had chest pressure all day for the last 15-18 hours. Denies anything making better or worse. Reports left arm pain, and right hand pain, and when he tried to lay down to go to sleep he noticed the palpitations. Denies n/v/d. Denies recent med changes. History of Present Illness HPI narrative: 63-year-old male with history of coronary disease status post three-vessel CABG a little over a year ago, COPD, hypertension, peripheral artery disease presents for multiple complaints. He reports that he has had chest pressure, left arm pain and right hand pain starting sometime this morning, about 15 hours ago. He reports that prior to that he was in his normal state of health and did not have any symptoms. He denies any significant nausea vomiting. Reports he takes aspirin, bisoprolol, simvastatin. He reports that when he put his earplugs to sleep, he could hear his heart beating loudly and abnormally. Related Data Home Medications ?Medication ?Instructions ?Recorded ?Confirmed amlodipine 5 mg tablet 5 mg PO DAILY 12/06/23 12/06/23 aspirin 81 mg tablet 81 mg PO DAILY 12/06/23 12/06/23 bisoprolol fumarate 10 mg tablet 10 mg PO DAILY 12/06/23 12/06/23 gabapentin 300 mg capsule 300 mg PO HS 12/06/23 12/06/23 hydrochlorothiazide 25 mg tablet 25 mg PO DAILY 12/06/23 12/06/23 icosapent ethyl 1 gram capsule 1 g PO TID 12/06/23 12/06/23 (Vascepa) ropinirole 1 mg tablet 1 mg PO AM 12/06/23 12/06/23 ropinirole 1 mg tablet 2 mg PO HS 12/06/23 12/06/23 rosuvastatin 10 mg tablet 10 mg PO HS 12/06/23 12/06/23 terbinafine HCl 250 mg tablet 250 mg PO DAILY 12/06/23 12/06/23 tiotropium 2.5 mcg-olodaterol 2.5 2 inh inhalation DAILY 12/06/23 12/06/23 mcg/actuation mist for inhalation (Stiolto Respimat) trazodone 50 mg tablet 50 mg PO HS 12/06/23 12/06/23 Allergies Allergy/AdvReac Type Severity Reaction Status Date / Time lisinopril AdvReac Mild myalgia Verified 10/28/23 13:30 codeine AdvReac Verified 10/28/23 13:30 cyclobenzaprine AdvReac Verified 10/28/23 13:30 [From Flexeril] S
[2023-12-06 01:46] LABS: Troponin I 0.02 ng/ml (0.00-0.034)
--- NOTE | 2023-12-06 01:50 | ECG_ITS ---
APPROVED REPORT Exam: Resting ECG HR:96 bpm ECG Measurements Heart Rate 96 AXES TX 134 P 57 QRSd 101 QRS 83 QT 348 T 53 QTc 401 Conclusion SINUS RHYTHM POSSIBLE LEFT ATRIAL ENLARGEMENT [-0.1mV P-WAVE IN V1/V2] NONSPECIFIC ST & T-WAVE ABNORMALITY BORDERLINE ECG Global nonspecific ST depression Electronically signed by : SOTO REINA, 12/06/2023 15:22:18
--- NOTE | 2023-12-06 01:53 | ECG_ITS ---
APPROVED REPORT Exam: Resting ECG HR:106 bpm ECG Measurements Heart Rate 106 AXES RI 142 P 57 QRSd 96 QRS 84 QT 304 T 36 QTc 366 Conclusion SINUS TACHYCARDIA POSSIBLE LEFT ATRIAL ENLARGEMENT [-0.1mV P-WAVE IN V1/V2] NONSPECIFIC ST & T-WAVE ABNORMALITY ABNORMAL RHYTHM ECG Global ST changes most pronounced in the inferior leads Electronically signed by : SOTO REINA, 12/06/2023 15:22:50
--- NOTE | 2023-12-06 02:11 | PC.NURSE ---
Cardioversion Note: Consent obtained at 0130 Staff present: Dr. Kruse, Gen RN, Maryellen RN, & Katherine RN Time out: 0145 Medication: 0148 per Maryellen RN Synchronized Cardioversion: 0150 shocked once with 50j. Patient immediately back in normal sinus rhythm with rate of 90. Patient tolerated procedure well. NAD, VSS afterwards.
[2023-12-06 03:09] LABS: D-Dimer 0.62 ug/mL (0.0-0.5)
--- NOTE | 2023-12-06 03:18 | PC.NURSE ---
House notified for admission
--- NOTE | 2023-12-06 03:37 | PC.NURSE ---
0330 RECEIVED REPORT FROM Milena FARMER RN. PATIENT IS A 63 YO MALE. A FLUTTER REQUIRING A DOSE OF ETOMIDATE AND CARDIOVERSION 50 J. STABLE AT THIS TIME. ASYMPTOMATIC. MAY TRAVEL BY STRETCHER.
[2023-12-06 03:44] LABS: Basophils # 0.1 K/mm3 (0-0.2); Basophils % 0.6 % (0.1-2.0); Eosinophils # 0.4 K/mm3 (0.0-0.4); Hematocrit 48.4 % (42.0-52.0); Hemoglobin 15.7 g/dL (14.1-18.0); Lymphocytes # 3.3 K/mm3 (0.7-4.5); Lymphocytes % 24.8 % (10-50); Mean Corpuscular HGB Conc 32.4 g/dL (31.8-35.4); Mean Corpuscular Hemoglobin 32.1 pg (27.0-31.2); Mean Platelet Volume 7.8 fl (7.4-10.4); Monocytes # 0.7 K/mm3 (0.1-1.0); Neutrophils # 8.7 K/mm3 (1.8-7.8); Neutrophils % 66.5 % (37.0-80.0); Platelet Count 216 K/mm3 (142-424); Red Blood Count 4.89 M/mm3 (4.60-6.20); Red Cell Distribution Width 15.6 % (11.5-17.5); White Blood Count 13.1 K/mm3 (4.8-10.8)
--- NOTE | 2023-12-06 03:46 | PC.NURSE ---
ARRIVED AT 0345 VIA W/C PER PATIENT REQUEST. ADMITTED TO ROOM 202.
--- NOTE | 2023-12-06 03:58 | PC.NURSE ---
Patient arrived to floor via wheelchair from ED at 03:45.
--- NOTE | 2023-12-06 04:14 | EXP.HP ---
History of Present Illness *Admission Date: 12/06/23 *Reason for visit:: Sudden onset atrial flutter *History of present illness: This patient with long-term cardiovascular disease long-term smoker status post CABG. sudden onset of a flutter at his house, could feel chest pain pain down his left arm with some shortness of breath. Came to the emergency room and was converted. Patient is a long-term smoker still smoking. Only changes recently he has been waking up covered with sweat at night. Denies any other issues [facility] Disclaimer: The information contained in this section may have been updated after the patient was seen, as this information can be updated by other users. Medical History (Updated 12/06/23 @ 04:41 by Abad Ross APRN) Fatigue Daytime somnolence Snoring Chronic cough Bronchitis Asthma Sinus headache History of gastroesophageal reflux (GERD) Allergies History of anemia History of COPD Smoking greater than 30 pack years Pleural effusion, left Dyspnea on exertion Dyspnea Pleural effusion HFrEF (heart failure with reduced ejection fraction) RLS (restless legs syndrome) Stenosis of carotid artery CAD in [place] artery Coronary artery calcification seen on CAT scan Hyperlipidemia PAD (peripheral artery disease) Smoker COPD (chronic obstructive pulmonary disease) Hypertension Surgical History History of surgery History of hernia surgery S/P CABG x 3 S/P CABG x 3 S/P insertion of iliac artery stent Family History Other Family history of cancer Family history of myocardial infarction Family history of stroke Social History Smoking Status: Unknown if ever smoked years smoked: 50 quit status: has quit before alcohol intake: never substance use type: denies use current occupational status: retired Travel in the last 8 weeks: None caffeine: No physical activity: walking special hoa needs: No agree to transfusion: Yes Review of Systems Review of Systems Review of systems:: pertinent systems reviewed and negative unless documented below Constitutional Constitutional: Reports system reviewed and no additional complaints, except as documented, Reports as per HPI, Reports daytime sleepiness and Reports excessive sweating Comments: Noted oxygen saturations of 81% during sleep study but no sleep apnea Eyes Eyes: Reports system reviewed and no additional complaints, except as documented ENT Ears, Nose, Mouth, and Throat: Reports system reviewed and no additional complaints, except as documented *Cardiovascular Cardiovascular: Reports as per HPI, Reports chest pain and Reports dyspnea on exertion *Respiratory Respiratory: Reports as per HPI and Reports dyspnea on exertion Comments: Denies coughing or production of sputum *Gastrointestinal Gastrointestinal: Reports system reviewed and no additional complaints, except as documented *Genitourinary Genitourinary: Reports system reviewed and no additional complaints, except as documented and Reports urinary frequency *Musculoskeletal Musculoskeletal: Reports system reviewed and no additional complaints, except as documented Integumentary/Breasts Skin/Breast: Reports system reviewed and no additional complaints, except as documented *Neurologic Neurologic: Reports system reviewed and no additional complaints, except as documented Psychiatric Psychiatric: Reports system reviewed and no additional complaints, except as documented Comments: Patient is sociable and cooperative answers questions well good historian Endocrine Endocrine: Reports excessive sweating Comments: Reports has been sweating more than usual waking up at night covered with sweat Hematologic/Lymphatic Hematologic/Lymphatic: Reports as per HPI Allergic/Immunologic Allergic/Immunologic: Reports as per HPI Meds Home
[2023-12-06 05:12] LABS: Basophils # 0.1 K/mm3 (0-0.2); Basophils % 0.5 % (0.1-2.0); Eosinophils # 0.3 K/mm3 (0.0-0.4); Eosinophils % 3.2 % (0.1-12.0); Hematocrit 44.2 % (42.0-52.0); Hemoglobin 14.5 g/dL (14.1-18.0); Lymphocytes # 1.6 K/mm3 (0.7-4.5); Lymphocytes % 16.9 % (10-50); Mean Corpuscular HGB Conc 32.8 g/dL (31.8-35.4); Mean Corpuscular Hemoglobin 32.3 pg (27.0-31.2); Mean Corpuscular Volume 98.6 fl (80-94); Mean Platelet Volume 7.8 fl (7.4-10.4); Monocytes # 0.5 K/mm3 (0.1-1.0); Monocytes % 4.9 % (1.7-9.3); Neutrophils # 7.2 K/mm3 (1.8-7.8); Neutrophils % 74.5 % (37.0-80.0); Platelet Count 219 K/mm3 (142-424); Red Blood Count 4.48 M/mm3 (4.60-6.20); Red Cell Distribution Width 15.5 % (11.5-17.5); White Blood Count 9.7 K/mm3 (4.8-10.8)
[2023-12-06 05:18] LABS: Albumin Level 3.8 g/dl (3.5-5.0); Chloride 101 mmol/L (98-107); Potassium 3.1 mmoL/L (3.5-5.1); Sodium 133 mmol/L (136-145)
[2023-12-06 05:20] LABS: Blood Urea Nitrogen 15 mg/dl (9-20)
[2023-12-06 05:21] LABS: Alanine Aminotransferase 35 U/L (12-78); Albumin/Globulin Ratio 1.3 (1.1-1.8); Alkaline Phosphatase 92 U/L (38-126); Anion Gap 9.1 mEq/L (5-15); Aspartate Amino Transferase 35 U/L (17-59); Bilirubin,Total 0.6 mg/dl (0.2-1.3); Calcium 9.5 mg/dl (8.4-10.2); Carbon Dioxide 26 mmol/L (22.0-30.0); Creatinine Clearance Estimated 67 mL/min (50-200); Estimated Glomerular Filt Rate 61 ml/min (>60); GFR (African American) 74 ML/MIN (>60); Glucose 145 mg/dl (74-100); Magnesium 1.8 mg/dl (1.6-2.3); Total Protein,Serum 6.8 g/dl (6.3-8.2)
--- NOTE | 2023-12-06 05:27 | PC.NURSE ---
NSR/ST DEPRESSION ON TELE. NICOTINE PATCH RIGHT SHOULDER. 02 AT 2LNC. DENIES CP/SOA/DISCOMFORT SINCE ADMISSION TO MED SURG. CARDIOLOGY CONSULT PENDING. CLEAR LIQS TIL SEEN.
[2023-12-06 05:33] LABS: Troponin I 0.08 ng/ml (0.00-0.034)
--- NOTE | 2023-12-06 07:09 | PC.NURSE ---
spoke with hospitalist regarding pt trending troponins. wants a third @0800.
[2023-12-06 08:04] LABS: Troponin I 0.07 ng/ml (0.00-0.034)
--- NOTE | 2023-12-06 10:01 | PC.NURSE ---
pt saturation 93% at rest on room air
--- NOTE | 2023-12-06 14:44 | EXP.DC.SUM ---
General Admission date:: 12/06/23 Discharge date: 12/06/23 HPI HPI HPI: This patient with long-term cardiovascular disease long-term smoker status post CABG. sudden onset of a flutter at his house, could feel chest pain pain down his left arm with some shortness of breath. Came to the emergency room and was converted. Patient is a long-term smoker still smoking. Only changes recently he has been waking up covered with sweat at night. Denies any other issues Hospital Course Hospital Course Hospital Course: 53-year-old who presents to the ER with tachyarrhythmia. Found to be in a flutter. Cardioverted in the ER. Case discussed with ER physician, request admission for further monitoring overnight and replacement of electrolyte disturbances. Medicine agreed to admit for further management. In sinus rhythm after arriving to the floor. Remained in sinus rhythm overnight. Asymptomatic. Patient requesting to go home, not wanting to wait for Friday for echo. Recommend close follow-up, will help coordinate echocardiogram early this coming week. Will continue aspirin 81 mg daily for now, hold on oral anticoagulation given sinus rhythm and reported first episode of a flutter. Problems addressed as follows: Atrial flutter Chest pain History of CABG a year ago -Patient presented with chest pressure and tachyarrhythmia. Found to be in a flutter on arrival to the ER. Successful cardioversion in the ER. Converted back to sinus rhythm and remained in sinus rhythm for the duration of his hospitalization. Monitored on telemetry. Increased his bisoprolol 10 mg twice daily for blood pressure and rate control. As he is in normal sinus rhythm, we discussed the risks and benefits of anticoagulation. Patient has [id number] score of 2, approximately 2 to 3% risk of stroke in a year. As he is not actively in A-fib and this is his first episode, will defer decision making to follow-up with cardiology within the next week. Patient in agreements with close follow-up. Mild bump in troponin to 0.08. Remained stable, consistent with secondary to stress from a flutter and cardioversion. Patient is status post CABG 1 year ago. Will defer ischemic workup to outpatient setting. Continue aspirin 81 mg daily, bisoprolol 10 mg twice daily, Vascepa 1 g 3 times a day, HCTZ the 25 g daily, and Crestor 10 mg nightly. - Blood pressure well-controlled on day of discharge at 130/70 Hypokalemia: 3.1-3.4 during admission. Replacing orally. Continue oral potassium 20 mEq daily at discharge Continue Stiolto 2 puffs daily for COPD Continue ropinirole 2 mg nightly for restless leg Continue Vascepa for hyperlipidemia Continue gabapentin 300 mg nightly per home regimen for neuropathy Counseled on the need to stop smoking. Exam Data for Last 24 hours Vital signs and Labs for Last 24 Hours: Temp Pulse Resp BP Pulse Ox O2 Del Method O2 Flow Rate 98.6 F 70 16 131/71 97 Room Air 2 12/06/23 11:56 12/06/23 12:00 12/06/23 11:56 12/06/23 11:56 12/06/23 11:56 12/06/23 12:55 12/06/23 08:00 Laboratory Results - last 24 hr 12/06/23 01:10: WBC 13.1 H, RBC 4.89, Hgb 15.7, Hct 48.4, MCV 99.0 H, MCH 32.1 H, MCHC 32.4, RDW 15.6, Plt Count 216, MPV 7.8, Neut % (Auto) 66.5, Lymph % (Auto) 24.8, [place] % (Auto) 5.0, Eos % (Auto) 3.0, Baso % (Auto) 0.6, Neut # (Auto) 8.7 H, Lymph # (Auto) 3.3, La[place] # (Auto) 0.7, Eos # (Auto) 0.4, Baso # (Auto) 0.1, D-Dimer 0.62 H, Sodium 134 L, Potassium 3.4 L, Chloride 100, Carbon Dioxide 26, Anion Gap 11.4, BUN 18, Creatinine 1.10, Estimated Creat Clear 98, Estimated GFR 67, Est GFR ( Amer) 82, Glucose 132 H, Calcium 9.7, Magnesium 1.9, Total Bilirubin 0.8, AST 41, ALT 30, Alkaline Phosphatase 108, Troponin I 0.02, Total Protein 8.3 H, Albumin 4.4, Globulin 3.9 H, Albumin/Globulin Ratio 1.1 12/06/23 05:00: WBC 9.7 D, RBC 4.48 L, Hgb 14.5, Hct 44.2, MCV 98.6 H, MCH 32.3 H, MCHC 32.8, RDW 15.5, Plt Count 219, MPV 7.8, Neut % (Auto)
--- NOTE | 2023-12-09 15:42 | CARE MANAGER ---
Called and spoke with patient regarding recent discharge. Patient stated that he is doing well but has a stiff neck today. He has scheduled his F/U appt with cardiology for tomorrow. No concerns voiced at time of call.
== END 2023-12-06 14:25 | disposition home or self-care (01) ==
LOC: ER 03:19 → 2ND 03:37
PROVIDERS: Nurse Practitioner Family; Admitting Provider Internal Medicine Adolescent Medicine; Emergency Provider Emergency Medicine; PCP Nurse Practitioner Family; Visit Provider Internal Medicine Adolescent Medicine
DX: I48.4 Atypical atrial flutter (principal); E87.6 Hypokalemia; R07.9 Chest pain, unspecified; F17.210 Nicotine dependence, cigarettes, uncomplicated; Z95.1 Presence of aortocoronary bypass graft; G47.34 Idiopathic sleep related nonobstructive alveolar hypoventilation
CPT/HCPCS: 36415; 71045; 80053; 83735; 84484; 85025; 85378; 92960; 93005; 99291; G0378; J1650

== ENCOUNTER 2023-12-29 07:50 | Day surgery (SDC) | payer MEDICARE, SELFPAY ==
[2023-12-29] VITALS (14 sets, daily range): BP systolic 120–208; BP diastolic 52–94; PULSE 52–70; RESP 16–20; TEMP 36.8–37.1; O2SAT 96–99; BMI 23.0
--- NOTE | 2023-12-29 06:52 | IR_ITS ---
APPROVED REPORT Patient Location: Outpatient [facility] [place] Curer: DEONNA Biggs RT (R) PROCEDURES Left heart catheterization Left ventriculogram Selective coronary angiogram Left internal mammary angiography Selective engagement of the saphenous vein graft to the first obtuse marginal artery Selective engagement of the saphenous vein graft to the LAD Selective engagement of the saphenous vein graft to the right coronary artery Drug-eluting stent deployment to the proximal LAD INDICATION Coronary artery disease, History of coronary bypass surgery, Worsening angina pectoris Informed consent was obtained prior to the procedure. COMPLICATIONS NONE Estimated Blood Loss: LESS THAN 10 ML TECHNIQUE One percent lidocaine used to anesthetize the right groin. The right femoral artery was accessed via the Seldinger technique and a 5 [place] sheath was placed in the right femoral artery. A JL 4, JR4 catheter were used to perform left heart catheterization, left ventriculogram selective coronary angiography as well as selective engagement of the 3 vein grafts and the left internal mammary artery. At the end of the diagnostic angiogram therapeutic Was administered giving a therapeutic ACT and the 5 [place] sheath was exchanged for a 6 [place] sheath. A JL 4 6 [place] catheter was placed in left main artery followed by a Choice PT extra-support wire being placed into the LAD and out into the diagonal artery. A 2.75 x 18 mm [place] frontier stent was deployed at 16 madan reducing the severe stenosis to 0%. ADRIANA-3 flow was present before and after the procedure. At the end of the procedure the apparatus was removed the groin is reprepped closure change sheath was removed and hemostasis was achieved using Perclose device patient was transferred to the postop putting in stable condition ANGIOGRAPHIC RESULTS The left main artery Has a mid vessel eccentric 10 to 20% stenosis The left anterior descending artery Has a proximal hazy 70 to 80% stenosis just prior to a large multi branching first diagonal artery. Distal to the first diagonal artery and first septal storm chaser the LAD is then occluded The circumflex artery Is nondominant and has proximal 40 to 50% stenosis which supplies a relatively small solitary terminal obtuse marginal artery The right coronary artery Dominant and occluded at mid vessel The AMARO ventriculogram reveals Normal 60% The left ventricular end-diastolic pressure Less than 10 mmHg RODRIGUEZ graft is proximally occluded A large saphenous vein graft originates from the ascending aorta and then quickly bifurcates in which 1 limb supplies the mid LAD. This limb is widely patent with a proximal 20 to 30% stenosis along a tortuous bend. The second limb of this Y graft supplies the first obtuse marginal artery and is also widely patent Saphenous vein graft to the right coronary artery/posterior descending artery is widely patent IMPRESSION Coronary artery disease as described above most notably with an occluded RODRIGUEZ graft Widely patent saphenous Y graft which supplies the mid LAD and first obtuse marginal artery Widely patent saphenous vein graft to the right coronary artery Severe disease in the proximal LAD which supplies a large unbypassed multi branching first diagonal artery Successful stenting of the proximal LAD severe disease reduced to 0% with 1 drug-eluting stent increasing flow into the large unbypassed diagonal artery Normal ejection fraction Normal left ventricular end-diastolic pressure PLAN 1. Dual antiplatelet therapy 2. Cardiac rehabilitation 3. Avoidance of tobacco products 4. Risk factor modification 5. LDL less than 55 to be achieved with high intensity statin Electronically signed by : Kimo Craft MD 12/29/2023 10:51:19
[2023-12-29 08:33] LABS: Carbon Dioxide 29 mmol/L (22.0-30.0); Chloride 102 mmol/L (98-107)
[2023-12-29 08:34] LABS: Blood Urea Nitrogen 19 mg/dl (9-20); Creatinine Clearance Estimated 68 mL/min (50-200); Estimated Glomerular Filt Rate 61 ml/min (>60); GFR (African American) 74 ML/MIN (>60); Glucose 103 mg/dl (74-100); Sodium 135 mmol/L (136-145)
[2023-12-29 08:35] LABS: Basophils # 0.1 K/mm3 (0-0.2); Basophils % 0.9 % (0.1-2.0); Eosinophils # 0.4 K/mm3 (0.0-0.4); Hematocrit 45.6 % (42.0-52.0); Hemoglobin 14.3 g/dL (14.1-18.0); Lymphocytes % 29.8 % (10-50); Mean Corpuscular HGB Conc 31.3 g/dL (31.8-35.4); Mean Corpuscular Hemoglobin 31.1 pg (27.0-31.2); Mean Corpuscular Volume 99.3 fl (80-94); Mean Platelet Volume 7.8 fl (7.4-10.4); Monocytes # 0.5 K/mm3 (0.1-1.0); Monocytes % 4.9 % (1.7-9.3); Neutrophils # 6.1 K/mm3 (1.8-7.8); Neutrophils % 60.3 % (37.0-80.0); Platelet Count 276 K/mm3 (142-424); Red Blood Count 4.59 M/mm3 (4.60-6.20); Red Cell Distribution Width 15.6 % (11.5-17.5); White Blood Count 10.1 K/mm3 (4.8-10.8)
[2023-12-29 08:49] LABS: Anion Gap 7.5 mEq/L (5-15); Potassium 3.5 mmoL/L (3.5-5.1)
[2023-12-29] MEDS: HEPARIN 1,000 UNITS/500ML NS (CATH LAB) 3000 UNIT IV (09:41)
[2023-12-29] MEDS: diphenhydrAMINE 50MG/ML VIAL 50 MG IV (09:45)
[2023-12-29] MEDS: LIDOCAINE 1% 10ML MDV 20 ML IJ (09:46)
[2023-12-29] MEDS: MIDAZOLAM HCL 1MG/1ML 5ML VIAL 1 MG IV (09:46)
[2023-12-29] MEDS: FENTANYL 100MCG/2ML VIAL 50 MCG IV (09:46)
[2023-12-29] MEDS: HEPARIN 1,000 UNITS/ML 10ML VIAL (CATH LAB) 10000 UNIT IV (10:09)
[2023-12-29] MEDS: CLOPIDOGREL 300MG TABLET 600 MG PO (10:38)
[2023-12-29] MEDS: IOPAMIDOL-370 (76%);100ML BOTTLE 110 ML IV (11:00)
[2023-12-29] MEDS: HYDRALAZINE 20MG/ML VIAL 20 MG IV (12:33)
[2023-12-29 15:21] LABS: CATHL Activated Clotting Time 342 SEC (74-125)
== END 2023-12-29 14:25 | disposition home or self-care (01) ==
PROVIDERS: PCP Nurse Practitioner Family; Visit Provider Internal Medicine
DX: I25.118 Atherosclerotic heart disease of native coronary artery with other forms of angina pectoris (principal); R79.89 Other specified abnormal findings of blood chemistry; Z95.1 Presence of aortocoronary bypass graft; Z79.899 Other long term (current) drug therapy; I11.0 Hypertensive heart disease with heart failure; I50.20 Unspecified systolic (congestive) heart failure; I65.23 Occlusion and stenosis of bilateral carotid arteries
CPT/HCPCS: 80048; 85025; 85347; 92928; 93459; 99152; C1725; C1760; C1769; C1874; C1894; C9600; J1200; J1644; J2250; J3010; Q9967

== ENCOUNTER 2024-01-07 12:54 | Outpatient (RCR) | payer MEDICARE, SELFPAY | END 2024-03-08 14:00 | disposition home or self-care (01) | LOC: PT 12:54 | PROVIDERS: Visit Provider Internal Medicine | DX: Z95.5 Presence of coronary angioplasty implant and graft (principal) ==

== ENCOUNTER 2024-03-01 09:09 | Outpatient (CLI) | payer MEDICARE, SELFPAY ==
[2024-03-01 16:45] VITALS: PULSE 58; PULSE 63
[2024-03-01] MEDS: ALBUTEROL 0.083% 2.5 MG/3 ML NEB IH (16:50)
== END 2024-03-01 23:59 | disposition home or self-care (01) ==
LOC: RT 09:09
PROVIDERS: PCP Nurse Practitioner Family; Visit Provider Internal Medicine Pulmonary Disease
DX: R06.09 Other forms of dyspnea (principal)
CPT/HCPCS: 94060; 94618; 94640; 94726; 94729; J7613

== ENCOUNTER 2024-03-04 08:53 | Outpatient (CLI) | payer MEDICARE, SELFPAY ==
--- NOTE | 2024-03-04 08:53 | CT_ITS ---
FINAL REPORT TECHNIQUE: Thin section axial images were obtained from the lung apices to the upper abdomen by computed tomography. Reformatted images were obtained and reviewed. This study was performed with techniques to keep radiation doses al low as reasonably achievable (ALARA). Individualized dose reduction techniques using automated exposure control or adjustment of mA and/or kV according to the patient's size were employed. CLINICAL HISTORY: .CURRENT SMOKER 1PPD X 5O YEARS COMPARISON: CTA chest 12/25/2022 FINDINGS: CHEST CT LOW DOSE CTDI vol (mGy): 2.90 DLP (mGy-cm): 107.59 There is no axillary adenopathy. There is no mediastinal or hilar mass or adenopathy. Prior median sternotomy. The heart is normal in size. There is no pericardial or pleural effusion. There is mild emphysema and mild pulmonary scarring. Lung window images demonstrate a stable 3 mm right lower lobe nodule on series 3 image 61. There has been interval resolution of the previously noted left pleural effusion. Mild left pleural thickening is noted. There are multiple calcified granulomas. Limited images of the upper abdomen are unremarkable. IMPRESSION: Stable right lower lobe nodule. Lung-RADS category 2. Recommend 12 month follow up low dose chest CT. Reviewed, Interpreted and Dictated by Arsenio Wadsworth III, MD Transcribed by Marce Villegas Authenticated and [facility]
== END 2024-03-04 23:59 | disposition home or self-care (01) ==
LOC: RAD 08:53
PROVIDERS: PCP Nurse Practitioner Family; Visit Provider Internal Medicine Pulmonary Disease
DX: F17.210 Nicotine dependence, cigarettes, uncomplicated (principal)
CPT/HCPCS: 71271

== ENCOUNTER 2024-04-09 13:43 | Outpatient (CLI) | payer MEDICARE, SELFPAY | END 2024-04-09 23:59 | disposition home or self-care (01) | LOC: RT 13:44 | PROVIDERS: PCP Nurse Practitioner Family; Visit Provider Internal Medicine Pulmonary Disease | DX: J44.9 Chronic obstructive pulmonary disease, unspecified (principal) | CPT/HCPCS: 94762 ==

== ENCOUNTER 2024-05-03 16:00 | Outpatient (RCR) | payer MEDICARE, SELFPAY ==
--- NOTE | 2024-03-29 13:47 | HMH.PTOPEV ---
PT Outpatient Evaluation Rehab PT Outpatient Evaluation Start: 03/29/24 13:33 Freq: Status: Active Protocol: Document 03/29/24 13:34 BRENTON (Rec: 03/29/24 13:47 BRENTON [id number]) E-signed By Gallo Peace, PT Outpatient Therapy Subjective History Subjective History The patient is a 63 yom who presents to [facility] outpatient Physical Therapy with complaints of L Sided Neck pain. He reports that this has been going on for years but seemed like it worsened 2-3 months ago. He reports that he has the most difficulty when he has to look downward for an extended period time, such as washing dishes or reading. He reports that heat seems to help his neck loosen up but other than that he has found no eases. He reports that he has a very difficult time sleeping at night. New diagnosis of cancer in past 12 No months? Chief Complaint Pain,Stiff Symptom Type Ache Symptoms Relieved By Rest/Positioning,Heat Symptoms Aggravated By Prone,Supine,Twisting Prior Functional Limitations None Current Functional Limitations Desk Work/Reading,Driving, Sleeping Symptom Description Constant but Variable Level of pain today (0-10) 5 Pain scale - at its best (0-10) 0 Pain scale - at its worst (0-10) 10 Cervical Eval Palpation Cervical Muscles R Cervical Paraspinal,L Cervical Paraspinal,L CT Junction,L Upper Trapezius,L Thoracic Paraspinals Cervical/Thoracic Palpation Findings Tenderness Flexibility Deficits Upper Trapezius Muscle Length (R) Moderate Tightness,(L) Moderate Tightness Pectoralis Minor Muscle Length (R) Moderate Tightness,(L) Moderate Tightness Passive Joint Mobility Cervical PIVM Dec: R C2/3 L C2/3 R C4/5 L C4/5 R C5/6 L C5/6 R C6/7 L C6/7 R C7/T1 L C7/T1 WNL: R OA L OA R AA L AA R C3/4 L C3/4 AROM Cervical Spine Extension Active Range of 30 Motion (degrees) Cervical Spine Flexion Active Range of 25 Motion (degrees) Cervical Spine Right Lateral Flexion 21 Active Range of Motion (degrees) Cervical Spine Left Lateral Flexion 14 Active Range of Motion (degrees) Cervical Spine Right Rotation Active 24 Range of Motion (degrees) Cervical Spine Left Rotation Active 12 Range of Motion (degrees) MMT Bilateral Deltoid (C5) 5 Normal Biceps Brachii Strength Grade 5 Normal Wrist Extension Strength Grade 5 Normal Triceps Brachii Strength Grade 5 Normal Wrist Flexion Strength Grade 5 Normal Extensor Pollicis Longus Strength Grade 5 Normal Finger Abduction Strength Grade 5 Normal DTR Rt Biceps 2+ Lt Biceps 2+ Rt Brachioradialis 2+ Lt Brachioradialis 2+ Rt Triceps 2+ Lt Triceps 2+ Altered Sensation Bilateral Upper extremity Dermatomes C4,C5,C6,C7,C8,T1 Comment Intact Special Test C-Spine Foraminal Compression ([place]) Negative Left,Negative Right Test C-spine Verterbral Accessory Movements Central P/A [place],Right P/A that Elicit Symptoms [place] C-Spine Foraminal Distraction Test Negative C-Spine Compression Test Negative Left,Negative Right Shoulder Abduction Relief Test Negative Left,Negative Right Shoulder Brachial Plexus Stretch Test Negative Left,Negative Right Neck Disability Index Neck Disability Index Section 1: Pain Intensity The pain is fairly severe at the moment Section 2: Personal Care (washing, I can look after myself dressing, etc.) normally without causing extra pain Section 3: Lifting I can lift heavy weights but it gives extra pain Section 4: Reading I can't read as much as I want because of moderate pain in my neck Section 5: Headaches I have moderate headaches, which come frequently Section 6: Concentration I have a lot of difficulty in concentrating when I want to Section 7: Work I can do most of my usual work , but no more Section 8: Driving I can drive my car as long as I want with moderate pain in my neck Section 9: Sleeping My sleep is greatly disturbed (3-5 hrs sleepless) Section 10: Recreation I am able to engage in most, but not all of my usual recreation NDI Score 23 Miscellaneous Dx PT Eval Objective Objective Kyphotic T-Spine Hypomobility globally to Upper T-Spine Rhomboids B 3/5 Lower Trap 3/5 Outpatient Therapy Assessment Impairments Problems/Impairmments Palpation Tenderness,Impaired Range of Motion,Impaired Strength,Impaired Household Care,Impaired Desk/Computer Activities,Subjective C/O Pain Prognosis Rehab Potential Good Comment Patient presents with C-ROM restrictions into all directions, along with noted hypomobility throughout the Cervical Spine. These signs and symptoms are consistent with neck pain with mobility deficits. Skilled PT is indicated for this pt. Clinical Impression Consistent with Diagnosis Yes Short Term Goals Number of Weeks 4 Decreased Palpation Tenderness Yes: / to Cervical Spine Increase Range of Motion Yes: 75% WNL Increase Strength Yes: 4/5 to rhomboids and Lower Trap Improve Ability For Household Care Yes: Able to wash dishes with 3/10 pain Improve Neck Disability Index Score Yes: to 18 Decrease Subjective C/O Pain Yes: 6/10 at worst Patient to be Ind w/ HEP Yes Editorial Specialist Goals Number of Weeks 8 Decreased Palpation Tenderness Yes: 0/4 to Cervical Spine Increase Range of Motion Yes: 100% WNL Increase Strength Yes: 5/5 to Rhomboids and Lower Trap Improve Ability For Household Care Yes: Wash Dishes with no pain Improve Neck Disability Index Score Yes: to 13 Decrease Subjective C/O Pain Yes: 3/10 at worst Patient to be Ind w/ Advanced HEP Yes Outpatient Therapy Plan of Care Treatment Plan May Include Therapeutic Exercise Including Home Yes Exercise Program Manual Therapy Techniques Yes Neuromuscular Re-education Yes Therapeutic Activities to Return to Yes Previous Functional/Work Level ADL/Self Care Education Yes Mechanical Traction Yes Dry Needling Yes Thermal Modalities Yes Electrical Stimulation Yes Massage Yes Eval/Re-Eval Yes Frequency Times per week 2-3 Duration Number of Weeks 8 Addendums This patient is a candidate for social No or vocational rehab? Patient/Guardian verbally acknowledges Yes understanding of treatment program and consents to further treatment? Patient/Guardian verbally acknowledges Yes understanding of diagnosis, prognosis and goals for treatment? Eval Complexity PT Charges 82838 - Moderate Complexity Shoulder/Elbow Eval Shoulder Objective Measurements Elbow Objective Measurements PHYSICIAN CERTIFICATION: I certify the specified therapy services for Karla Michaud are required, authorized, and reviewed every 30 days.
--- NOTE | 2024-05-03 17:38 | HMH.RHREAS ---
Rehab Reassessment Rehab OP Re-assessment Start: 03/29/24 13:33 Freq: Status: Active Protocol: Document 05/03/24 16:28 BRENTON (Rec: 05/03/24 17:38 BRENTON [id number]) E-signed By Gallo Peace, PT Neck Disability Index Neck Disability Index Section 1: Pain Intensity The pain is moderate at the moment Section 2: Personal Care (washing, I can look after myself dressing, etc.) normally without causing extra pain Section 3: Lifting I can lift heavy weights but it gives extra pain Section 4: Reading I can read as much as I want with moderate pain in my neck Section 5: Headaches I have moderate headaches, which come frequently Section 6: Concentration I have a fair degree of difficulty in concentrating when I want to Section 7: Work I can only do my usual work, but no more Section 8: Driving I can drive my car as long as I want with moderate pain in my neck Section 9: Sleeping I have no trouble sleeping Section 10: Recreation I am able to engage in all my recreation activities with some pain in NDI Score 14 Rehab Re-assessment Subjective Subjective Pt reports that he would estimate that he is approximately 60% improved. He reports that he continues to have episodes of severe pain, especially when he is doing things that require him to look down, but they are becoming less frequent and he is able to do these activities for longer before the pain hits. He reports that he is having much less pain at rest. He reports that he is having an MRI done in May. Objective Objective Notes RICARDO: 14 TTP: 1/4 to C4-C6 R side CROM: Flexion 32, Extension 14 , RLF 15, LLF 24 Strength: Rhomboids 4/5 B Assessment Progress Assessment Progressing as Expected Assessment Notes Pt has made some progress but still continues to present below baseline in CROM, Strength and pain tolerance. Pt would continue to benefit from skilled PT to address these impairments and to prevent further injuries. Patient goals met ST,3, 5, [address],4,6 LTG 1-6 Plan Plan Continue as per initial POC Frequency of Therapy 2/week Duration of therapy 4 weeks Time and Billing Re-Eval Time 11 Re-Eval Billing Units 1 Charge for PT reassessment? Yes PHYSICIAN CERTIFICATION: I certify the specified therapy services for Karla Gavin Jaswant are required, authorized, and reviewed every 30 days.
== END 2024-05-03 23:59 | disposition home or self-care (01) ==
LOC: PT 16:00
PROVIDERS: PCP Nurse Practitioner Family; Visit Provider Nurse Practitioner Family
DX: M54.2 Cervicalgia (principal)
CPT/HCPCS: 97014; 97035; 97110; 97140; 97163; 97164; G0283

== ENCOUNTER 2024-05-07 14:28 | Outpatient (CLI) | payer MEDICARE, SELFPAY ==
--- NOTE | 2024-05-07 14:32 | MR_ITS ---
FINAL REPORT TECHNIQUE: Multiplanar and multisequence imaging of the cervical spine was obtained. CLINICAL HISTORY: LT CERVICAL RADICULOPATHY FINDINGS: Alignment is normal. Vertebral body height is preserved. Signal intensity within the substance of the spinal cord is normal. Bone marrow signal intensity is within normal limits. No acute paraspinal abnormality. C2/3: Broad-based central and left paracentral disc protrusion. Mild central stenosis and mild left neuroforaminal narrowing. C3/4: An annular disc bulge is present with degenerative endplate changes and facet osteoarthropathy. Mild central stenosis and mild bilateral neuroforaminal narrowing. C4/5: An annular disc bulge is present with degenerative endplate changes and facet osteoarthropathy. Mild central stenosis with severe right and moderate left neuroforaminal narrowing. C5/6: Central disc protrusion superimposed on an annular disc bulge, degenerative endplate change and facet osteoarthropathy. Mild to moderate central stenosis. Moderate to severe bilateral neuroforaminal narrowing. C6/7: An annular disc bulge is present with degenerative endplate changes and facet osteoarthropathy superimposed on left paracentral disc protrusion. Mild to moderate central stenosis and moderate bilateral neuroforaminal narrowing. C7/T1: Annular disc bulge is present with mild bilateral neuroforaminal narrowing. IMPRESSION: Disc protrusions at C5-6 and C6-7 with multilevel degenerative disc disease as above. Reviewed, Interpreted and Dictated by Carmelita Garza MD Transcribed by Mali Villegas Authenticated and [facility]
== END 2024-05-07 23:59 | disposition home or self-care (01) ==
LOC: RAD 14:29
PROVIDERS: PCP Internal Medicine Adolescent Medicine; Visit Provider Internal Medicine Adolescent Medicine
DX: M54.12 Radiculopathy, cervical region (principal)
CPT/HCPCS: 72141

== ENCOUNTER 2024-05-31 15:00 | Outpatient (RCR) | payer MEDICARE, SELFPAY | END 2024-06-02 23:59 | disposition home or self-care (01) | LOC: PT 15:00 | PROVIDERS: PCP Nurse Practitioner Family; Visit Provider Nurse Practitioner Family | DX: M54.2 Cervicalgia (principal) | CPT/HCPCS: 97014; 97110; G0283 ==

== ENCOUNTER 2024-06-22 17:00 | Outpatient (RCR) | payer MEDICARE, SELFPAY ==
--- NOTE | 2024-06-17 16:55 | HMH.RHREAS ---
Rehab Reassessment Rehab OP Re-assessment Start: 06/17/24 16:09 Freq: Status: Active Protocol: Document 06/17/24 16:10 BRENTON (Rec: 06/17/24 16:54 BRENTON [id number]) E-signed By Gallo Peace PT Neck Disability Index Neck Disability Index Section 1: Pain Intensity I have no pain at the moment Section 2: Personal Care (washing, I can look after myself dressing, etc.) normally without causing extra pain Section 3: Lifting Pain prevents me from lifting heavy weights, but I can manage light to Section 4: Reading I can't read as much as I want because of moderate pain in my neck Section 5: Headaches I have moderate headaches, which come infrequently Section 6: Concentration I can concentrate fully when I want to with no difficulty Section 7: Work I can do most of my usual work , but no more Section 8: Driving I can drive my car as long as I want with slight pain in my neck Section 9: Sleeping My sleep is slightly disturbed (less than 1 hr sleepless) Section 10: Recreation I am able to engage in all my recreation activities with some pain in NDI Score 13 Rehab Re-assessment Subjective Subjective Pt reports that he is about 65 % improved. Pt reports that he able to turn his head much better. Pt reports that he still has a significant amount of pain with looking down. Pt reports that he has going to Dr. Valle in [place] on June 21 to see about further options. 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 He reports his current pain at 0/10. He reports that his pain was a 4/10 earlier when working on his truck. Objective Objective Notes RICARDO: (14 at last Re-Eval CROM: Flexion 30, Ext 30, Lateral Flexion 15R, 20 L, Rotation 30R 20L Strength: 4/5 to B Rhomboids TTP: 05/08 to Cervical Spine Assessment Progress Assessment Slower Than Expected Assessment Notes Pt has made some progress thus far. He continues to demonstrate impairments in cervical ROM, strength, pain and reported function. However , he has met all stated STGs and some stated LTGs. Skilled PT remains indicated for this pt to address his remaining impairments. Patient goals met ST/7 LTG 05/11 Goals Not Met LT-6 Plan Plan Continue as per initial POC Frequency of Therapy 2/week Duration of therapy 4 weeks Time and Billing Re-Eval Time 9 Re-Eval Billing Units 1 Charge for PT reassessment? Yes PHYSICIAN CERTIFICATION: I certify the specified therapy services for Karla Gavin Michaud are required, authorized, and reviewed every 30 days.
== END 2024-06-22 23:59 | disposition home or self-care (01) ==
LOC: PT 17:00
PROVIDERS: Visit Provider Nurse Practitioner Family
DX: M54.2 Cervicalgia (principal)
CPT/HCPCS: 97014; 97110; 97140; 97164; 97530; G0283

== ENCOUNTER 2024-06-24 09:02 | Outpatient (POV) | payer MEDICARE, SELFPAY ==
[2024-06-24 09:12] VITALS: BP 121/52; PULSE 64; RESP 18; O2SAT 96; BMI 21.8
--- NOTE | 2024-06-24 09:53 | A.OFFVIS_ITS ---
HPI Data of Consult Patient: new to practice Consult date: 06/24/24 Requesting Physician: Abbi Lopez APRN Primary Care Provider: uSng Drake MD Consult Narrative Reason for consult: Neck pain, left arm numbness, limited range of motion of neck History of present illness: Mr. Michaud is a 64 year old male who presents today as a new patient. He is a referral from Dr. Valle's office. Today he rates his pain an 8 out of 10. Patient states that this is a constant sharp sensation with numbness that radiates down the entire right extremity. He does state that it will occasionally go into the right arm when it is really severe. He states this has been going on since about 2014 from a neck injury. He states that he has tried oral medication, heat and ice and topicals with minimal relief. Patient has been doing ongoing physical therapy and states it does help some. Patient has been evaluated by neurosurgery and did state that there is a surgical procedure that they did discussed but due to his heart history it is high risk and they are wanting conservative treatment such as injections first. Patient denies any prior surgical intervention or injection history. Patient does state that the pain wakes him up in the middle of the night and does affect his ability to perform activities of daily living such as cooking and cleaning. Patient is interested in any help we may be able to provide.Patient is currently managed with gabapentin 300 mg daily that he takes at bedtime from his PCP. His Brayden has been reviewed and is appropriate. CC: Abbi Lopez APRN [facility] Disclaimer: The information contained in this section may have been updated after the patient was seen, as this information can be updated by other users. Medical History (Updated 06/24/24 @ 09:55 by Abbi Lopez APRN) COPD mixed type Angina pectoris Elevated troponin Fatigue Daytime somnolence Snoring Chronic cough Bronchitis Asthma Sinus headache History of gastroesophageal reflux (GERD) Allergies History of anemia Smoking greater than 30 pack years Pleural effusion, left Dyspnea on exertion Dyspnea Pleural effusion HFrEF (heart failure with reduced ejection fraction) RLS (restless legs syndrome) Stenosis of carotid artery CAD in [place] artery Coronary artery calcification seen on CAT scan Hyperlipidemia PAD (peripheral artery disease) Smoker Hypertension Surgical History History of surgery History of hernia surgery S/P CABG x 3 S/P CABG x 3 S/P insertion of iliac artery stent Family History Other Family history of cancer Family history of myocardial infarction Family history of stroke Social History (Updated 06/24/24 @ 09:25 by Jojo Angulo RN) Smoking Status: Current every day smoker tobacco type: cigarettes packs per day: 1 years smoked: 50 quit status: has quit before alcohol intake: never substance use type: denies use current occupational status: retired Travel in the last 8 weeks: None caffeine: No physical activity: walking special hoa needs: No agree to transfusion: Yes Review of Systems Review of Systems Review of systems:: pertinent systems reviewed and negative unless documented below Review of systems (narrative): Review of Systems: General: No recent weight changes, no fever, no sleep disturbances Respiratory: No cough, no shortness of air, no recurring pulmonary infections Cardiovascular/peripheral vascular: No chest pain, no palpitations, no edema, no shortness of breath Gastrointestinal: No new onset incontinence, normal bowel movements reported Genitourinary: No new onset incontinence Musculoskeletal: Neck pain, left arm numbness, limited range of motion Psychiatric: [Normal mood/affect] Neurological: [Denies weakness in extremities], [denies balance issues] Meds Home Medications and Allergies Home Medications ?Medication ?Instructions ?Recorded ?Confirmed ?Type gabapentin 300 mg capsule 300 mg PO HS 12/06/23 06/24/24 History hydrochlorothiazide 25 mg tablet 25 mg PO DAILY 12/06/23 06/24/24 History ropinirole 1 mg tablet 1 mg PO AM 12/06/23 06/24/24 History ropinirole 1 mg tablet 2 mg PO HS 12/06/23 06/24/24 History rosuvastatin 10 mg tablet 10 mg PO HS 12/06/23 06/24/24 History terbinafine HCl 250 mg tablet 250 mg PO DAILY 12/06/23 06/24/24 History tiotropium 2.5 mcg-olodaterol 2.5 2 inh inhalation DAILY 12/06/23 06/24/24 History mcg/actuation mist for inhalation (Stiolto Respimat) trazodone 50 mg tablet 50 mg PO HS 12/06/23 06/24/24 History apixaban 5 mg tablet (Eliquis) 5 mg PO BID #60 tabs 12/10/23 06/24/24 Rx cyclobenzaprine 5 mg tablet 5 mg PO TID PRN . 12/10/23 06/24/24 History clopidogrel 75 mg tablet (Plavix) 75 mg PO DAILY #90 tabs 12/29/23 06/24/24 Rx bisoprolol fumarate 10 mg tablet 10 mg PO BID 30 days #60 tabs 03/03/24 06/24/24 Rx albuterol sulfate 90 mcg/actuation 2 inh inhalation QID PRN shortness 03/18/24 06/24/24 Rx aerosol inhaler of breath or wheezing 90 days #8.5 grams tiotropium 2.5 mcg-olodaterol 2.5 2 puff inhalation DAILY 90 days #4 03/18/24 06/24/24 Rx mcg/actuation mist for inhalation grams (Stiolto Respimat) sod picosulf 10 mg-magnes 3.5 175 ml PO DAILY 2 doses #350 mL 05/06/24 06/24/24 Rx gram-citric 12 gram/175 mL oral solution (Clenpiq) icosapent ethyl 1 gram capsule 2 g (2 x 1 gram) PO BID 90 days 05/24/24 06/24/24 Rx (Vascepa) #360 caps losartan 100 mg tablet 100 mg PO DAILY #30 tabs 06/14/24 06/24/24 Rx New Prescriptions to Start Prescriptions: Allergies Allergy/AdvReac Type Severity Reaction Status Date / Time lisinopril AdvReac Mild myalgia Verified 05/25/24 13:04 codeine AdvReac Hives Verified 05/25/24 13:04 cyclobenzaprine (From AdvReac Hives Verified 05/25/24 13:04 Flexeril) [id number] Reductase AdvReac Nausea Verified 05/25/24 13:04 Inhibitor Objective Vital signs: Pulse Resp BP Pulse Ox O2 Del Method 64 18 121/52 L 96 Room Air 06/24/24 09:12 06/24/24 09:12 06/24/24 09:12 06/24/24 09:12 06/24/24 09:12 Narrative: Physical Exam: General: Alert and oriented x3, no acute distress, pleasant and cooperative Lungs: Respirations even and unlabored, symmetrical chest expansion Eyes: PERRL Musculoskeletal: Flexion and extension of cervical [spine] somewhat guarded secondary to pain, [antalgic gait noted] positive Spurling's test Neurological: Speech clear, no gross sensory deficit Additional findings Additional findings: FINDINGS: Alignment is normal. Vertebral body height is preserved. Signal intensity within the substance of the spinal cord is normal. Bone marrow signal intensity is within normal limits. No acute paraspinal abnormality. C2/3: Broad-based central and left paracentral disc protrusion. Mild central stenosis and mild left neuroforaminal narrowing. C3/4: An annular disc bulge is present with degenerative endplate changes and facet osteoarthropathy. Mild central stenosis and mild bilateral neuroforaminal narrowing. C4/5: An annular disc bulge is present with degenerative endplate changes and facet osteoarthropathy. Mild central stenosis with severe right and moderate left neuroforaminal narrowing. C5/6: Central disc protrusion superimposed on an annular disc bulge, degenerative endplate change and facet osteoarthropathy. Mild to moderate central stenosis. Moderate to severe bilateral neuroforaminal narrowing. C6/7: An annular disc bulge is present with degenerative endplate changes and facet osteoarthropathy superimposed on left paracentral disc protrusion. Mild to moderate central stenosis and moderate bilateral neuroforaminal narrowing. C7/T1: Annular disc bulge is present with mild bilateral neuroforaminal narrowing. IMPRESSION: Disc protrusions at C5-6 and C6-7 with multilevel degenerative disc disease as above. Reviewed, Interpreted and Dictated by Carmelita Garza MD Transcribed by Mali Villegas Authenticated and [facility] Assessment and Plan *Assessment and plan (1) Degenerative disc disease, cervical: Status: Acute Category: Medical Code(s): M50.30 - Other cervical disc degeneration, unspecified cervical region (2) Cervical radiculopathy: Status: Acute Category: Medical Code(s): M54.12 - Radiculopathy, cervical region (3) Facet arthropathy, cervical: Status: Acute Category: Medical Code(s): M47.812 - Spondylosis without myelopathy or radiculopathy, cervical region Plan Patient is experiencing worsening pain in their neck with radiating tingling and burning sensations into their bilateral upper extremities. Patient did have limited range of motion of her cervical spine with a positive Spurling's test. I did discuss with the patient that I do believe they would benefit from a cervical epidural steroid injection. Risk and benefits were discussed with patient and they would like to proceed forward with this plan of care. Patient has tried and failed conservative therapy including oral medications, heat and ice, topicals, ongoing physical therapy and continued at home stretching exercise for longer than 12 weeks that was physician guided. Patient will be scheduled for a ALTON C5-C6 under fluoroscopy. Patient is on blood thinners and we will reach out to Dr. Craft's office to confirm that they can stop her Plavix 7 days prior to this injection. I will also order the patient a compounded cream and send in a 2-week dose of baclofen 5 mg 3 times daily. Patient was counseled to discontinue the methocarbamol while trying the baclofen. Patient agrees with plan of care. Patient has been instructed to contact the clinic with any concerns before the next appointment. Dr. Ford has reviewed this note and agrees with this plan of care. This note was dictated using voice recognition software and make contain errors or omissions. All injections are used with Lidocaine, Bupivacaine and Depo Medrol. Occasionally urine drug screen is needed to verify patient's compliance with our office pain contract. This is ordered based off specific treatments related to chronic pain with the potential to abuse certain medications.
== END 2024-06-24 23:59 | disposition home or self-care (01) ==
PROVIDERS: PCP Internal Medicine Adolescent Medicine; Visit Provider Nurse Practitioner Family
DX: M50.10 Cervical disc disorder with radiculopathy, unspecified cervical region (principal); M47.22 Other spondylosis with radiculopathy, cervical region; Z73.89 Other problems related to life management difficulty; F17.210 Nicotine dependence, cigarettes, uncomplicated; Z95.1 Presence of aortocoronary bypass graft; Z79.02 Long term (current) use of antithrombotics/antiplatelets; Z79.01 Long term (current) use of anticoagulants
CPT/HCPCS: 99202; G0463

== ENCOUNTER 2024-07-20 13:14 | Day surgery (SDC) | payer MEDICARE, SELFPAY ==
[2024-07-20 13:27] VITALS: BP 170/50; PULSE 61; PULSE 63; RESP 18; O2SAT 98; O2SAT 99
[2024-07-20 13:29] VITALS: BP 153/42; PULSE 68; RESP 16; O2SAT 98; BMI 22.1
[2024-07-20] MEDS: methylPREDNISolone ACETATE 80MG/ML VIAL 80 MG (13:31)
[2024-07-20] MEDS: IOPAMIDOL-200 (41%);10ML VIAL 3 ML IV (13:40)
--- NOTE | 2024-07-20 13:40 | P.PCN_ITS ---
Procedure Date: 07/20/24 Time: 13:15 Anesthesiologist:: Javier Dawkins CRNA Complications:: None Pre-procedure Diagnosis:: Degenerative disc cervical spine multilevels. Cervical radiculopathy. Post-procedure Diagnosis:: Same Indications for Procedure:: Patient is a very pleasant 64-year-old male who comes our clinic today for cervical epidural steroid injection. Patient describes posterior cervical neck pain as constant, dull, aching. Also, bilateral arm radicular symptoms at times. He rates his pain 6/10. Procedure Details:: Procedure:Cervical epidural steroid injection Informed consent was obtained and the risks and benefits of the procedure were explained to the patient. The patient was taken to the procedure room and noninvasive monitors placed, including noninvasive blood pressure cuff and pulse oximeter. The neck was prepped using Chloraprep as a cleansing solution. The C6- C7 interspace was viewed using fluroscopy. The skin and subcutaneous tissues were anesthetized using lidocaine 1.5% and a 25-gauge needle. After this an 18- gauge Touhy epidural needle was placed into the C6-C7 interspace under fluroscopy guidance and advanced using loss of resistance to air until the epidural space was encountered. After confirmation of needle placement in the epidural space using contrast dye, a solution containing normal saline, 2 mL and Depo-Medrol 80 mg was incrementally injected into the cervical epidural space.~ The patient tolerated the procedure well with no complications. The patient was observed in the Pain Clinic and then discharged home neurologically intact. Plan and Disposition:: Patient was discharged without incident.
[2024-07-20 13:41] VITALS: BP 155/74; PULSE 61; RESP 16; O2SAT 68
== END 2024-07-20 13:41 | disposition home or self-care (01) ==
PROVIDERS: PCP Internal Medicine Adolescent Medicine; Visit Provider Nurse Anesthetist, Certified Registered
DX: M50.30 Other cervical disc degeneration, unspecified cervical region (principal); M54.12 Radiculopathy, cervical region
CPT/HCPCS: 62321; J1010; Q9966

== ENCOUNTER 2024-08-04 14:58 | Outpatient (POV) | payer MEDICARE, SELFPAY ==
--- NOTE | 2024-08-04 15:09 | EXP.PAIN.SOA ---
[facility] Disclaimer: The information contained in this section may have been updated after the patient was seen, as this information can be updated by other users. Medical History COPD mixed type Angina pectoris Elevated troponin Fatigue Daytime somnolence Snoring Chronic cough Bronchitis Asthma Sinus headache History of gastroesophageal reflux (GERD) Allergies History of anemia Smoking greater than 30 pack years Pleural effusion, left Dyspnea on exertion Dyspnea Pleural effusion HFrEF (heart failure with reduced ejection fraction) RLS (restless legs syndrome) Stenosis of carotid artery CAD in [place] artery Coronary artery calcification seen on CAT scan Hyperlipidemia PAD (peripheral artery disease) Asymptomatic at present. No further work-up at present. Smoker Advised to quit smoking Hypertension Surgical History History of surgery RIGHT ARM SURGERY History of hernia surgery S/P CABG x 3 S/P CABG x 3 S/P insertion of iliac artery stent Family History Other Family history of cancer Family history of myocardial infarction Family history of stroke Social History Smoking Status: Current every day smoker tobacco type: cigarettes packs per day: 1 years smoked: 50 quit status: has quit before alcohol intake: never substance use type: denies use current occupational status: other Travel in the last 8 weeks: None caffeine: No physical activity: walking special hoa needs: No agree to transfusion: Yes PM Subjective & Objective Subjective Subjective:: Patient is a pleasant 64-year-old male who presents today for follow-up with the cervical epidural steroid injection C6-C7 on 07/20/2024. Today he rates his pain a 5 out of 10. He denies any new trauma or injury. Patient does state that he noticed no improvement following this injection. He states from the time he got up off the table he noticed no changes whatsoever. Patient does state he still continues to have significant pain in his neck that does go into his shoulders. He does state that it is very bothersome with certain movements such as looking up and down or [id number]. He does state the pain interferes with his ability to perform activities of daily living such as cooking and cleaning. Patient is trying conservative therapy at the recommendation of his neurosurgeon. Patient is interested in any help we may still be able to provide. Patient is managed with gabapentin from an outside provider. Patient was ordered compounded cream and baclofen 5 mg 3 times daily at our last visit. He does state that this did not make any additional changes. He denies any side effects. He states that his methocarbamol does seem like it works better and he typically takes it twice a day. Patient does not recall the specific dosage. His Brayden has been reviewed and is appropriate. Review of Systems: General: No recent weight changes, no fever, no sleep disturbances Respiratory: No cough, no shortness of air, no recurring pulmonary infections Cardiovascular/peripheral vascular: No chest pain, no palpitations, no edema, no shortness of breath Gastrointestinal: No new onset incontinence, normal bowel movements reported Genitourinary: No new onset incontinence Musculoskeletal: Neck pain Psychiatric: [Normal mood/affect] Neurological: [Denies weakness in extremities], [denies balance issues] Pain at rest (0-10 scale): 5 Objective Objective:: Physical Exam: General: Alert and oriented x3, no acute distress, pleasant and cooperative Lungs: Respirations even and unlabored, symmetrical chest expansion Eyes: PERRL Musculoskeletal: Flexion and extension of cervical [spine] somewhat guarded secondary to pain, positive Kemps test Neurological: Speech clear, no gross sensory deficit Has patient had previous pain injection?: Yes Percent improvement in pain since last injection: Minimal Conservative treatment options previously tried: Home exercise plan Length of treatment: Longer than 12 weeks Meds Home Medications and Allergies Home Medications ?Medication ?Instructions ?Recorded ?Confirmed ?Type gabapentin 300 mg capsule 300 mg PO HS 12/06/23 08/04/24 History hydrochlorothiazide 25 mg tablet 25 mg PO DAILY 12/06/23 08/04/24 History ropinirole 1 mg tablet 1 mg PO AM 12/06/23 08/04/24 History ropinirole 1 mg tablet 2 mg PO HS 12/06/23 08/04/24 History rosuvastatin 10 mg tablet 10 mg PO HS 12/06/23 08/04/24 History terbinafine HCl 250 mg tablet 250 mg PO DAILY 12/06/23 08/04/24 History tiotropium 2.5 mcg-olodaterol 2.5 2 inh inhalation DAILY 12/06/23 08/04/24 History mcg/actuation mist for inhalation (Stiolto Respimat) trazodone 50 mg tablet 50 mg PO HS 12/06/23 08/04/24 History apixaban 5 mg tablet (Eliquis) 5 mg PO BID #60 tabs 12/10/23 08/04/24 Rx cyclobenzaprine 5 mg tablet 5 mg PO TID PRN . 12/10/23 08/04/24 History clopidogrel 75 mg tablet (Plavix) 75 mg PO DAILY #90 tabs 12/29/23 08/04/24 Rx bisoprolol fumarate 10 mg tablet 10 mg PO BID 30 days #60 tabs 03/03/24 08/04/24 Rx tiotropium 2.5 mcg-olodaterol 2.5 2 puff inhalation DAILY 90 days #4 03/18/24 08/04/24 Rx mcg/actuation mist for inhalation grams (Stiolto Respimat) sod picosulf 10 mg-magnes 3.5 175 ml PO DAILY 2 doses #350 mL 05/06/24 08/04/24 Rx gram-citric 12 gram/175 mL oral solution (Clenpiq) icosapent ethyl 1 gram capsule 2 g (2 x 1 gram) PO BID 90 days 05/24/24 08/04/24 Rx (Vascepa) #360 caps losartan 100 mg tablet 100 mg PO DAILY #30 tabs 06/14/24 08/04/24 Rx baclofen 5 mg tablet 5 mg PO TID #42 tabs 06/24/24 08/04/24 Rx albuterol sulfate 90 mcg/actuation 2 inh inhalation QID PRN shortness 07/14/24 08/04/24 Rx aerosol inhaler of breath or wheezing 90 days #8.5 grams New Prescriptions to Start Prescriptions: Allergies Allergy/AdvReac Type Severity Reaction Status Date / Time lisinopril AdvReac Mild myalgia Verified 06/29/24 15:32 codeine AdvReac Hives Verified 06/29/24 15:32 cyclobenzaprine (From AdvReac Hives Verified 06/29/24 15:32 Flexeril) [id number] Reductase AdvReac Nausea Verified 06/29/24 15:32 Inhibitor Assessment and Plan *Assessment and plan (1) Facet arthropathy, cervical: Status: Acute Category: Medical Code(s): M47.812 - Spondylosis without myelopathy or radiculopathy, cervical region (2) Degenerative disc disease, cervical: Status: Acute Category: Medical Code(s): M50.30 - Other cervical disc degeneration, unspecified cervical region Plan Patient is still experiencing significant pain in his neck primarily with limited range of motion. We did discuss even at his last visit that he may also be a beneficial candidate of the cervical facet injections. Patient does have multilevel facet osteoarthritis. I did review over risk and benefits of this procedure and he would like to proceed forward with this option. Patient has tried and failed conservative therapy including oral medications, heat and ice, topicals, at home stretching exercise for longer than 12 weeks. Patient has been seen by neurosurgery and was told that they would recommend conservative treatment such as injection therapy before proceeding forward with surgical intervention. Patient was counseled if he can let us know the dosage on his methocarbamol that we will see about making additional changes on that medication. I will also send in a 2-week dose of tramadol 50 mg twice daily. Patient was counseled if he does get significant relief with his first diagnostic cervical facet injections we will plan on repeating this injection with the plan to proceed forward with a cervical RFA in future. Patient has had chronic neck pain for years that has progressively worsened. Patient has been instructed to contact the clinic with any concerns before the next appointment. Dr. Ford has reviewed this note and agrees with this plan of care. This note was dictated using voice recognition software and make contain errors or omissions. All injections are used with Lidocaine, Bupivacaine and Depo Medrol. Occasionally urine drug screen is needed to verify patient's compliance with our office pain contract. This is ordered based off specific treatments related to chronic pain with the potential to abuse certain medications.
[2024-08-04 15:21] VITALS: BP 145/60; BP 151/60; PULSE 63; RESP 14; O2SAT 96; BMI 22.4
== END 2024-08-04 23:59 | disposition home or self-care (01) ==
PROVIDERS: PCP Internal Medicine Adolescent Medicine; Visit Provider Nurse Practitioner Family
DX: M47.812 Spondylosis without myelopathy or radiculopathy, cervical region (principal); M50.30 Other cervical disc degeneration, unspecified cervical region; F17.210 Nicotine dependence, cigarettes, uncomplicated; Z73.89 Other problems related to life management difficulty; Z79.01 Long term (current) use of anticoagulants
CPT/HCPCS: 99212; G0463

== ENCOUNTER 2024-08-10 07:08 | Outpatient (CLI) | payer MEDICARE, SELFPAY ==
--- NOTE | 2024-08-10 07:13 | CT_ITS ---
FINAL REPORT TECHNIQUE: Multiple axial CT sections were performed through the face without IV contrast. Coronal reconstruction images were performed. This study was performed with techniques to keep radiation doses as low as reasonably achievable (ALARA). Individualized dose reduction techniques using automated exposure control or adjustment of mA and/or kV according to the patient's size were employed. CLINICAL HISTORY: CHRONIC MAXILLARY SINUSITIS FINDINGS: There is partial opacification of the bilateral maxillary, sphenoid, ethmoid, and frontal sinuses. There are some air-fluid levels and mucosal thickening compatible with active sinusitis. Nasal septal deviation to the right measures 2 mm. There is opacification of the bilateral ostiomeatal complexes, likely due to mucosal thickening. IMPRESSION: Pansinusitis with obstruction of the ostiomeatal complexes. Reviewed, Interpreted and Dictated by Eryn Diana MD Transcribed by Mali Villegas Authenticated and [facility]
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
== END 2024-08-10 23:59 | disposition home or self-care (01) ==
LOC: RAD 07:09
PROVIDERS: PCP Internal Medicine Adolescent Medicine; Visit Provider Internal Medicine Adolescent Medicine
DX: J32.0 Chronic maxillary sinusitis (principal)
CPT/HCPCS: 70486

== ENCOUNTER 2024-08-31 13:19 | Day surgery (SDC) | payer MEDICARE, SELFPAY ==
[2024-08-31 13:15] VITALS: BP 150/62; PULSE 57; RESP 16; O2SAT 96; BMI 21.9
[2024-08-31 13:32] VITALS: BP 164/45; PULSE 60; PULSE 62; RESP 18; O2SAT 96
[2024-08-31] MEDS: DEXAMETHASONE 10MG/ML 1ML VIAL 10 MG (13:32)
[2024-08-31] MEDS: LIDOCAINE 1% 5ML PF VIAL 5 ML (13:32)
[2024-08-31] MEDS: BUPIVACAINE 0.25% 10ML INJ 25 MG IJ (13:33)
[2024-08-31] MEDS: IOPAMIDOL-200 (41%);10ML VIAL 2 ML IV (13:36)
--- NOTE | 2024-08-31 13:41 | P.PCN_ITS ---
Procedure Date: 08/31/24 Time: 13:30 Anesthesiologist:: Javier Dawkins CRNA Complications:: None Pre-procedure Diagnosis:: Degenerative disc cervical spine multilevels. Cervical radiculopathy. Cervical facet arthropathy. Multilevel cervical spondylosis. Post-procedure Diagnosis:: Same Indications for Procedure:: Patient is a very pleasant 64-year-old male who comes our clinic today for ROUND ONE of left-sided cervical medial branch blocks/facet injections C5-6, C6-7 level. Patient describes the left posterior cervical neck pain as constant, dull, aching. He reports difficulty with cervical flexion, extension, left and right rotation. He rates his pain 7/10. Procedure Details:: Informed consent was obtained and the risk and benefits of the procedure was explained to the patient. Patient was taken to the procedure room where n oninvasive monitors were placed, including noninvasive blood pressure cuff as well as pulse oximeter. The area over the posterior cervical spine was cleansed using chlorhexidine as a cleansing solution. I anesthetized the skin and subcutaneous tissues with 1% Lidocaine. I placed 25 -gauge spinal needles into the facet joint/ medial branches of the left C5-6, C6-7. Needle placement was confirmed with fluoroscopy. After confirmation of needle placement, each site was injected with 1 mL of 1% lidocaine and 0.25 % Marcaine and 10 mg of Depo- Medrol. A total of 10 mg of depo medrol was used for the left medial branch blocks of the left C5-6, C6-7. Patient tolerated the procedure without difficulty. There were no complications. Plan and Disposition:: Patient was discharged without incident.
[2024-08-31 13:54] VITALS: BP 158/68; PULSE 58; RESP 16; O2SAT 96
== END 2024-08-31 13:54 | disposition home or self-care (01) ==
PROVIDERS: PCP Internal Medicine Adolescent Medicine; Visit Provider Nurse Anesthetist, Certified Registered
DX: M47.812 Spondylosis without myelopathy or radiculopathy, cervical region (principal); M50.30 Other cervical disc degeneration, unspecified cervical region
CPT/HCPCS: 64490; 64491; J1100; Q9966

== ENCOUNTER 2024-09-07 13:56 | Outpatient (CLI) | payer MEDICARE, SELFPAY ==
[2024-09-07 14:52] LABS: Basophils # 0.1 K/mm3 (0-0.2); Basophils % 0.7 % (0.1-2.0); Eosinophils # 0.3 Kmm3 (0.0-0.4); Eosinophils % 3.7 % (0.1-12.0); Hematocrit 41.9 % (42.0-52.0); Immature Granulocytes # 0.02 10^3uL; Immature Granulocytes % 0.2 %; Lymphocytes # 2.5 K/mm3 (0.7-4.5); Lymphocytes % 27.7 % (10-50); Mean Corpuscular HGB Conc 33.4 g/dL (31.8-35.4); Mean Corpuscular Hemoglobin 30.2 pg (27.0-31.2); Mean Corpuscular Volume 90.5 fl (80-94); Mean Platelet Volume 9.3 fl (7.4-10.4); Monocytes # 0.8 K/mm3 (0.1-1.0); Monocytes % 8.6 % (1.7-9.3); Neutrophils # 5.3 K/mm3 (1.8-7.8); Neutrophils % 59.1 % (37.0-80.0); Nucleated Red Blood Cells # 0 10^3/uL; Nucleated Red Blood Cells % 0 %; Platelet Count 256 K/mm3 (142-424); Red Blood Count 4.63 M/mm3 (4.60-6.20); Red Cell Distribution Width 14.5 % (11.5-17.5); Red Cell Distribution Width-SD 48.2 fL
[2024-09-07 15:20] LABS: Albumin Level 4.1 g/dl (3.5-5.0); Chloride 97 mmol/L (98-107); Potassium 3.8 mmoL/L (3.5-5.1); Sodium 130 mmol/L (136-145)
[2024-09-07 15:23] LABS: Alanine Aminotransferase 22 U/L (12-78); Alkaline Phosphatase 98 U/L (38-126); Anion Gap 8.8 mEq/L (5-15); Aspartate Amino Transferase 32 U/L (17-59); Bilirubin,Direct 0.2 mg/dl (0.0-0.4); Bilirubin,Indirect 0.2 mg/dL (0.0-0.9); Bilirubin,Total 0.4 mg/dl (0.2-1.3); Bilirubin,Unconjugated 0.3 mg/dL (0.0-1.1); Blood Urea Nitrogen 13 mg/dl (9-20); Carbon Dioxide 28 mmol/L (22.0-30.0); Cholesterol 138 mg/dl (140-200); Estimated Glomerular Filt Rate 67 ml/min (>60); GFR (African American) 81 ML/MIN (>60); Glucose 93 mg/dl (74-100); Total Protein,Serum 6.7 g/dl (6.3-8.2); Triglycerides 264 mg/dl (30-150); VLDL Cholesterol 53 mg/dL (0-40)
[2024-09-07 15:24] LABS: Chol/HDL Ratio 5.5 (1-3.5); HDL Cholesterol 25 mg/dl (40-60)
[2024-09-07 15:40] LABS: Free T4 (Free Thyroxine) 1.02 ng/dl (0.78-2.19)
[2024-09-07 21:02] LABS: Thyroid Stimulating Hormone 1.63 uIU/mL (0.465-4.68)
== END 2024-09-07 23:59 | disposition home or self-care (01) ==
LOC: LAB 13:57
PROVIDERS: PCP Internal Medicine Adolescent Medicine; Visit Provider Nurse Practitioner
DX: E78.2 Mixed hyperlipidemia (principal); I73.9 Peripheral vascular disease, unspecified; I25.10 Atherosclerotic heart disease of native coronary artery without angina pectoris; Z95.1 Presence of aortocoronary bypass graft; I65.23 Occlusion and stenosis of bilateral carotid arteries; I11.0 Hypertensive heart disease with heart failure; I50.20 Unspecified systolic (congestive) heart failure
CPT/HCPCS: 36415; 80048; 80061; 80076; 83735; 84439; 84443; 85025

== ENCOUNTER 2024-09-09 08:01 | Outpatient (CLI) | payer MEDICARE, SELFPAY ==
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
--- NOTE | 2024-09-09 08:05 | CT_ITS ---
FINAL REPORT TECHNIQUE: Axial imaging of the chest is obtained after the administration of contrast. 3-D MIP reformatted images were also obtained and reviewed per PE protocol. CLINICAL HISTORY: LT ARM WEAKNESS, CHRONIC COUGH COMPARISON: 03/04/2024 FINDINGS: The great vessels are patent without significant stenosis. There is no aortic dissection. Heart size is normal. There is no mediastinal, hilar, or axillary lymphadenopathy. There are new, reticular nodular opacities in the left lower lobe, favor infectious or inflammatory. There is evidence of granulomatous disease. There is a very small right lower lobe nodule seen on image 63 of series 3, unchanged. There is no pleural or pericardial effusion. Limited evaluation of the upper abdomen is without acute abnormality. No acute osseous abnormality. IMPRESSION: No evidence of dissection. New left lower lobe bronchopneumonia. Consider follow-up CT in 3 months. Reviewed, Interpreted and Dictated by Carmelita Garza MD Transcribed by Mali Villegas Authenticated and [facility]
--- NOTE | 2024-09-09 08:05 | CT_ITS ---
FINAL REPORT TECHNIQUE: Thin section axial images through the upper arm was performed per CTA protocol. Reformatted images were obtained and reviewed. This study was performed with techniques to keep radiation doses as low as reasonably achievable, (ALARA). Individualized dose reduction techniques using automated exposure control or adjustment of mA and/or kV according to the patient's size were employed. CLINICAL HISTORY: chronic cough, left arm pain FINDINGS: Left subclavian, axillary, and brachial arteries are patent without atherosclerotic disease or stenosis. The proximal ulnar artery is patent. The ulnar artery is not well-seen distal to the proximal forearm. The radial artery is patent to the wrist. The muscular structures are unremarkable. There is no acute osseous abnormality of the arm or forearm. IMPRESSION: No evidence of significant atherosclerotic disease of the visualized arteries in the upper extremity. No vessel occlusion or stenosis. Limited evaluation of the forearm, likely related to timing. Reviewed, Interpreted and Dictated by Carmelita Garza MD Transcribed by Mali Villegas Authenticated and [facility]
[2024-09-09] MEDS: 0.9 % SODIUM CHLORIDE 50 ML VIAL 40 ML IV ×2 (08:51→08:53)
[2024-09-09] MEDS: IOPAMIDOL-370 (76%);100ML BOTTLE 80 ML IV ×2 (08:51→08:53)
[2024-09-09] MEDS: SODIUM CHLORIDE 0.9% 10ML SYR (RAD ONLY) 10 ML IV ×2 (08:51→08:53)
== END 2024-09-09 23:59 | disposition home or self-care (01) ==
LOC: RAD 08:01
PROVIDERS: PCP Internal Medicine Adolescent Medicine; Visit Provider Internal Medicine Adolescent Medicine
DX: R05.3 Chronic cough (principal); R29.898 Other symptoms and signs involving the musculoskeletal system
CPT/HCPCS: 71275; 73206; Q9967

== ENCOUNTER 2024-09-14 12:14 | Outpatient (CLI) | payer MEDICARE, SELFPAY | END 2024-09-14 23:59 | disposition home or self-care (01) | LOC: LAB 12:14 | PROVIDERS: PCP Internal Medicine Adolescent Medicine; Visit Provider Internal Medicine Pulmonary Disease | DX: J18.9 Pneumonia, unspecified organism (principal); F17.210 Nicotine dependence, cigarettes, uncomplicated | CPT/HCPCS: 87070; 87205 ==

== ENCOUNTER 2024-09-16 13:44 | Outpatient (POV) | payer MEDICARE, SELFPAY ==
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
--- NOTE | 2024-09-16 14:24 | A.OFFVIS_ITS ---
[facility] Disclaimer: The information contained in this section may have been updated after the patient was seen, as this information can be updated by other users. Medical History (Updated 09/14/24 @ 11:43 by Amaury Gaston MD) Pneumonia COPD mixed type Angina pectoris Elevated troponin Fatigue Daytime somnolence Snoring Chronic cough Bronchitis Asthma Sinus headache History of gastroesophageal reflux (GERD) Allergies History of anemia Smoking greater than 30 pack years Pleural effusion, left Dyspnea on exertion Dyspnea Pleural effusion HFrEF (heart failure with reduced ejection fraction) RLS (restless legs syndrome) Stenosis of carotid artery CAD in crow artery Coronary artery calcification seen on CAT scan Hyperlipidemia PAD (peripheral artery disease) Smoker Hypertension Surgical History History of surgery History of hernia surgery S/P CABG x 3 S/P CABG x 3 S/P insertion of iliac artery stent Family History Other Family history of cancer Family history of myocardial infarction Family history of stroke Social History Smoking Status: Current every day smoker tobacco type: cigarettes packs per day: 1 years smoked: 50 quit status: has quit before alcohol intake: never substance use type: denies use current occupational status: other Travel in the last 8 weeks?: None caffeine: No physical activity: walking special hoa needs: No agree to transfusion: Yes PM Subjective & Objective Subjective Subjective:: Patient is a pleasant 64-year-old male who presents today for follow-up of his first cervical medial branch block left-sided C5-C6 and C6-C7 on 08/31/2024. Today he rates his pain a 0 out of 10 and states that he felt like he was a lot more sore after this procedure and that it only has really started to kick in more in the last little bit. He is stating that he does have a easier movements turning his head [id number]. Patient is stating that it is at least 50% if not more however it is hard to gauge because he is also under the weather with bronchitis and sinusitis. Patient is also managed from our office with methocarbamol 1000 mg 3 times daily as needed compounded cream and was given a short time dose of tramadol to get to this prior procedure. Patient does make mention that his roommate who just recently moved out did and still all his medications. His Brayden has been reviewed and is appropriate. Review of Systems: General: No recent weight changes, no fever, no sleep disturbances Respiratory: No cough, no shortness of air, no recurring pulmonary infections Cardiovascular/peripheral vascular: No chest pain, no palpitations, no edema, no shortness of breath Gastrointestinal: No new onset incontinence, normal bowel movements reported Genitourinary: No new onset incontinence Musculoskeletal: Neck pain Psychiatric: [Normal mood/affect] Neurological: [Denies weakness in extremities], [denies balance issues] Pain at rest (0-10 scale): 0 Objective Objective:: Physical Exam: General: Alert and oriented x3, no acute distress, pleasant and cooperative Lungs: Respirations even and unlabored, symmetrical chest expansion Eyes: PERRL Musculoskeletal: Flexion and extension of cervical [spine] within normal limits Neurological: Speech clear, no gross sensory deficit Has patient had previous pain injection?: Yes Percent improvement in pain since last injection: At least 50% Conservative treatment options previously tried: Home exercise plan Length of treatment: Longer than 12 weeks Meds Home Medications and Allergies Home Medications ?Medication ?Instructions ?Recorded ?Confirmed ?Type gabapentin 300 mg capsule 300 mg PO HS 12/06/23 09/14/24 History ropinirole 1 mg tablet 1 mg PO AM 12/06/23 09/14/24 History rosuvastatin 10 mg tablet 10 mg PO HS 12/06/23 09/14/24 History apixaban 5 mg tablet (Eliquis) 5 mg PO BID #60 tabs 12/10/23 09/14/24 Rx clopidogrel 75 mg tablet (Plavix) 75 mg PO DAILY #90 tabs 12/29/23 09/14/24 Rx bisoprolol fumarate 10 mg tablet 10 mg PO BID 30 days #60 tabs 03/03/24 09/14/24 Rx tiotropium 2.5 mcg-olodaterol 2.5 2 puff inhalation DAILY 90 days #4 03/18/24 09/14/24 Rx mcg/actuation mist for inhalation grams (Stiolto Respimat) icosapent ethyl 1 gram capsule 2 g (2 x 1 gram) PO BID 90 days 05/24/24 09/14/24 Rx (Vascepa) #360 caps albuterol sulfate 90 mcg/actuation 2 inh inhalation QID PRN shortness 07/14/24 09/14/24 Rx aerosol inhaler of breath or wheezing 90 days #8.5 grams methocarbamol 500 mg tablet 1,000 mg (2 x 500 mg) PO TID PRN 09/01/24 09/14/24 Rx muscle pain #180 tabs tramadol 50 mg tablet 50 mg PO BID PRN pain #60 tabs 09/01/24 09/14/24 Rx omeprazole 40 mg capsule,delayed 40 mg PO DAILY 09/07/24 09/14/24 History release trazodone 100 mg tablet 100 mg PO HS 09/07/24 09/14/24 History hydrochlorothiazide 25 mg tablet 25 mg PO DAILY #30 tabs 09/13/24 09/14/24 Rx ipratropium 0.5 mg-albuterol 3 mg 3 ml inhalation QID PRN shortness 09/14/24 09/14/24 Rx (2.5 mg base)/3 mL nebulization of breath or wheezing 90 days #90 soln mL New Prescriptions to Start Prescriptions: Allergies Allergy/AdvReac Type Severity Reaction Status Date / Time lisinopril AdvReac Mild myalgia Verified 09/14/24 10:41 codeine AdvReac Hives Verified 09/14/24 10:41 cyclobenzaprine (From AdvReac Hives Verified 09/14/24 10:41 Flexeril) [id number] Reductase AdvReac Nausea Verified 09/14/24 10:41 Inhibitor Assessment and Plan *Assessment and plan (1) Facet arthropathy, cervical: Status: Acute Category: Medical Code(s): M47.812 - Spondylosis without myelopathy or radiculopathy, cervical region Plan Patient did feel like it took a little bit longer for this injection to kick in and it is really just more so in the last little bit started to really help. He is rating a 0 out of 10 on his pain which is significant from his last appointment where he did write 7 out of 10. Patient was counseled that I would like to see him back in a few weeks to see after he has had his bronchitis and sinusitis cleared up on how much improvement it really did give. I will refill the patient's methocarbamol. Patient will return to clinic in 3 weeks. Patient has been instructed to contact the clinic with any concerns before the next appointment. Dr. Ford has reviewed this note and agrees with this plan of care. This note was dictated using voice recognition software and make contain errors or omissions. All injections are used with Lidocaine, Bupivacaine and dexamethasone. Occasionally urine drug screen is needed to verify patient's compliance with our office pain contract. This is ordered based off specific treatments related to chronic pain with the potential to abuse certain medications.
[2024-09-16 15:33] VITALS: BP 140/67; PULSE 62; RESP 12; O2SAT 96; BMI 21.7
== END 2024-09-16 23:59 | disposition home or self-care (01) ==
PROVIDERS: PCP Internal Medicine Adolescent Medicine; Visit Provider Nurse Practitioner Family
DX: M47.812 Spondylosis without myelopathy or radiculopathy, cervical region (principal); F17.210 Nicotine dependence, cigarettes, uncomplicated; Z79.02 Long term (current) use of antithrombotics/antiplatelets; Z79.01 Long term (current) use of anticoagulants
CPT/HCPCS: 99212; G0463

== ENCOUNTER 2024-10-27 14:23 | Outpatient (POV) | payer MEDICARE, SELFPAY ==
--- OUTSIDE RECORDS SUMMARY | 2024-09-24 07:45 | XMS_ITS ---
Author Organization [facility] Address [address] [place] [address] Care Team Providers Care Quality Assurance Qa Lab Technician Name Role Phone Silke Dutta Primary Care Provider SILKE Dutta APRN Unavailable Unavailable Shaina Escalante Unavailable [phone] Allergies Allergen (clinical drug ingredient) Drug/Non Drug Allergy documented on EMR Reaction Allergy Type Onset Date Status FLEXERIL (uncoded) hives Allergy A ctive Substance with 2-htbrqob-2-methylgluta ryl-coenzyme A reductase inhibitor mechanism of action (substance) Statins Unknown Drug Allergy Active codeine Codeine itching Drug Allergy Active REASON FOR VISIT Cough and Breathing Issues Medications Medication SIG (Take, Route, Frequency, Duration) Notes Start Date End Date Status Promethazine-DM 6.25-15 MG/5ML 5 mL orally every 6 hours; Duration: 10 days 09/13/2024 Active levoFLOXacin 500 MG 1 tablet Orally Once a day; Duration: 7 days 09/24/2024 Active Omeprazole 40 MG 1 cap(s) orally once a day; Duration: 90 days Active Fluticasone Propionate 50 MCG/ACT 1 spray(s) in each nostril 2 times a day; Duration: 30 days 07/19/2024 Active traZODone HCl 100 MG 1 tab orally once a day at bedtime; Duration: 30 days Active Rosuvastatin Calcium 10 MG Take 1 tablet by mouth once daily; Duration: 90 Active Fexofenadine HCl 180 MG 1 tablet Swallow whole with water; do not take with fruit juices. Orally Once a day; Duration: 30 days 08/25/2024 Active Linzess 145 MCG Take 1 capsule by mouth once daily for 90 days; Duration: 90 Active Stiolto Respimat 2.5 MCG-2.5 MCG/INH INHALE 2 PUFFS BY MOUTH ONCE DAILY; Duration: 90 *Please review and pick correct strength-formulat ion from [employer] options. If intended option is not shown, discontinue and re-order from Quick Search* Active Gabapentin 300 MG 1 cap(s) orally at bedtime; Duration: 90 days 06/12/2024 Active Bisoprolol Fumarate 10 MG 1 tab(s) orall y twice a day; Duration: 90 days Active Cyclobenzaprine HCl 5 MG 1 tab(s) orally twice a day PRN; Duration: 15 days 12/09/2023 Active Vitamin C 500 MG 1 tab(s) orally once a day Active B-12 1000 MCG 1 tab(s) orally once a day Active Centrum Men - 1 tab(s) orally once a day Active ALBUTEROL (EQV-PROAIR HFA) 90 MCG/INH 2 PUFF(S) INHALED EVERY 6 HOURS PRN; Duration: 90 DAYS *Please review for potential replacement for e-prescription and drug interaction check* 03/25/2023 Active rOPINIRole HCl 1 MG 1 tab in the morning and 2 tabs at night orally twice a day; Duration: 90 days Active Vascepa 1 GM 2 cap(s) orally 2 times a day Active Methocarbamol 1000 MG 1 tablet Orally Four times a day Active hydroCHLOROthiazide 25 MG 1 tab(s) orall y once a day Active Problems Problem Type SNOMED Code ICD Code Onset Dates Problem Status W/U Status Risk Notes Problem Chronic pansinusitis (33612223) Chronic pansinusitis (J32.4) Active confirmed Vital Signs Temperature 98.1 degrees Fahrenheit 09/25/19 25 Heart Rate 68 /min 09/24/2024 Blood pressure systolic 140 mm Hg 09/25/19 25 Blood pressure diastolic 60 mm Hg 025 Height 6 ft in 09/24/2024 Weight 169.2 lbs 09/24/2024 BMI 22.95 kg/m2 09/24/2024 Encounters Encounter Location Date Provider Diagnosis [facility] [address] [place] [address] 09/24/2024 Shaina Escalante Chronic pneumonia J18.9 and Chronic pansinusitis J32.4 Assessments Encounter Date Diagnosis (ICD Code) Assessment Notes Treatment Notes Treatment Clinical Notes Section Notes 09/24/2024 Chronic pneumonia (ICD-10 - J18.9) Rec Levaquin as noted, continue routine therapy for underlying allergies and COPD. Will need to FU with ENT/Pulm to discuss other options if still no improvement 09/24/2024 Chronic pansinusitis (ICD-10 - J32.4) Plan Of Treatment Medication Medication Name Sig Start Date Stop Date Notes levoFLOXacin 500 MG 1 tablet Orally Once a day; Duration: 7 days 09/24/2024 Treatment Notes Assessment Notes Chronic pneumonia Rec Levaquin as note d, continue routine therapy for underlying allergies and COPD. Will need to FU with ENT/Pulm to discuss other options if still no improvement Next Appt Details Follow Up: prn, Reason: Provider Name:Sung Shineharshad, 01/31/2025 02:00:00 PM, [address] [place] [facility] [address] [facility], [address], [place], [address], Progress Notes * Doni CHAUOB:1960 ( 64 yo M)Acc No.[id number]:09/24/2024 Progress Notes Patient: Karla MOLINA Provider: RJ Castro :1960 A ge:64 Y S ex:Male Date:09/24/2024 Address:[address] [place], [place] [address], [id number] Pcp:Silke Dutta Subjective: * Chief Complaints: * 1 . Cough and Breathing Issues. * HPI: g en: 64 yr old male with COPD, chronic sinusitis and continued tobacco use presents with respiratory symptoms that have persisted since his visit. In the past month or so has had CT sinuses showing pansinusitis and obstruction but he declined surgical intervention. CTA chest also noted acute LLL pneumonia. Treated last with PO doxy and prednisone. Minor improvement while on therapy. Recent neg sputum culture ordered by pulm. Chills but no documented fever. Reports using anthistamien and nasal sprays as well as inhaler routinely. Bothered most by cough at HS. * ROS: A LLERGY: Runny nose y es. R ESPIRATORY: Cough y es. C ONSTITUTIONAL: no F ever. F atigue y es. G ASTROENTEROLOGY: no N ausea. n o V omiting. n o D iarrhea.? * Medical History: H yperlipidemia, Vascular Disease, Carpal tunnel, COPD, Carotid disease s/p intervention. * Medications: T aking Methocarbamol 1000 MG Tablet 1 tablet Orally Four times a day , Taking hydroCHLOROthiazide 25 MG Tablet 1 tab(s) orally [...] tab(s) orally twice a day , Taking Cyclobenzaprine HCl 5 MG Tablet 1 tab(s) orally twice a day PRN , Taking Linzess 145 MCG Capsule Take 1 capsule by mouth once daily for 90 days , Taking Stiolto Respimat 2.5 MCG-2.5 MCG/INH AEROSOL INHALE 2 PUFFS BY MOUTH ONCE DAILY , Notes to Pharmacist: *Please review and pick correct strength-formulation from [employer] options. If intended option is not shown, discontinue and re-order from Quick Search*, Taking Gabapentin 300 MG Capsule 1 cap(s) orally at bedtime , Taking Fluticasone Propionate 50 MCG/ACT Suspension 1 spray(s) in each nostril 2 times a day , Taking traZODone HCl 100 MG Tablet 1 tab orally once a day at bedtime , Taking Rosuvastatin Calcium 10 MG Tablet Take 1 tablet by mouth once daily , Taking Fexofenadine HCl 180 MG Tablet 1 tablet Swallow whole with water; do not take with fruit juices. Orally Once a day , Taking Omeprazole 40 MG Capsule Delayed Release 1 cap(s) orally once a day , Taking Promethazine-DM 6.25-15 MG/5ML Syrup 5 mL orally every 6 hours , Discontinued Ondansetron HCl 4 MG Tablet 1 tab(s) orally every 8 hours as needed for nausea , Discontinued Doxycycline Hyclate 100 MG Tablet One tab PO twice daily , Discontinued predniSONE 20 MG Tablet 3 tabs orally once a day for two days, then 2 daily for 2 days, then one daily for two days , Medication List reviewed and reconciled with the patient * Allergies: S tatins, FLEXERIL: hives, Codeine: itching. Objective: * Vitals: N urse: KJ, Pain: 0, Temp: 98.1, RR: 18, HR: 68, BP: 140/60, Ht: 6 ft, Wt: 169.2, BMI:22.95. * Examination: G eneral Examination: General P leasant and Cooperative, NAD on RA,. Oral cavity: M oist membranes. Heart: R egular Rate and Rhythm, no murmur, rubs or gallops. HEENT: T M's normal, erythema on pharyngeal wall, no exudates, tender maxillary sinuses. Lungs: d iminished, end expiratory wheezes, faint rales in the left lateral lung field. Assessment: * Assessment: 1. C hronic pneumonia - J18.9 (Primary) 2 . C hronic pansinusitis - J32.4? Plan: * Treatment: * Follow Up: p rn * * Sign off status: Completed true * Provider: RJ Castro Date: 0 09/24/2024 Generated for Leno raines/Jonathan/Darlingitting on: 0 10/27/2024 02:29 PM EDT History and Physical Notes * Examination Category Sub-Category Detail Notes Category Not es General Examination HEENT: TM's normal, erythema on pharyngeal wall, no exudates, tender maxillary sinuses Heart: Regular Rate and Rhy thm, no murmur, rubs or gallops Lungs: diminished, end expi ratory wheezes, faint rales in the left lateral lung field Oral cavity: Moist membranes General Pleasant and Coopera tive, NAD on RA,
--- OUTSIDE RECORDS SUMMARY | 2024-10-07 05:30 | XMS_ITS ---
Author Organization [facility] Address [address] [place] [address] Care Team Providers Care Solar Project Engineer Name Role Phone Silke Dutta Primary Care Provider SILKE Dutta APRN Unavailable Unavailable Sung Drake Unavailable [phone] Allergies Allergen (clinical drug ingredient) Drug/Non Drug Allergy documented on EMR Reaction Allergy Type Onset Date Status FLEXERIL (uncoded) hives Allergy A ctive Substance with 0-awjcyem-6-methylgluta ryl-coenzyme A reductase inhibitor mechanism of action (substance) Statins Unknown Drug Allergy Active codeine Codeine itching Drug Allergy Active REASON FOR VISIT Bronchitis; Not feeling well- cough , not sleeping Medications Medication SIG (Take, Route, Frequency, Duration) Notes Start Date End Date Status ALBUTEROL (EQV-PROAIR HFA) 90 MCG/INH 2 PUFF(S) INHALED EVERY 6 HOURS PRN; Duration: 90 DAYS *Please review for potential replacement for e-prescription and drug interaction check* 03/25/2023 Active rOPINIRole HCl 1 MG 1 tab in the morning and 2 tabs at night orally twice a day; Duration: 90 days Active B-12 1000 MCG 1 tab(s) orally once a day Active Centrum Men - 1 tab(s) orally once a day Active Bisoprolol Fumarate 10 MG 1 tab(s) orall y twice a day; Duration: 90 days Active Vascepa 1 GM 2 cap(s) orally 2 times a day Active Vitamin C 500 MG 1 tab(s) orally once a day Active hydroCHLOROthiazide 25 MG 1 tab(s) orall y once a day Active Methocarbamol 1000 MG 1 tablet Orally Four times a day Active Amoxicillin-Pot Clavulanate 875-125 MG as directed orally every 12 hours; Duration: 7 days 10/07/2024 Active predniSONE 20 MG 3 tabs orally once a day for two days, then 2 daily for 2 days, then one daily for two days; Duration: 6 day(s) 10/07/2024 Active traZODone HCl 100 MG 1 tab orally once a day at bedtime; Duration: 30 days Active Symbicort 160-4.5 MCG/ACT 2 puffs Inhalation twice a day; Duration: 30 days 10/07/2024 Active Fluticasone Propionate 50 MCG/ACT 1 spray(s) in each nostril 2 times a day; Duration: 30 days 07/19/2024 Active Rosuvastatin Calcium 10 MG Take 1 tablet by mouth once daily; Duration: 90 Active Gabapentin 300 MG 1 cap(s) orally at bedtime; Duration: 90 days 06/12/2024 Active Fexofenadine HCl 180 MG 1 tablet Swallow whole with water; do not take with fruit juices. Orally Once a day; Duration: 30 days 08/25/2024 Active Omeprazole 40 MG 1 cap(s) orally once a day; Duration: 90 days Active Stiolto Respimat 2.5 MCG-2.5 MCG/INH INHALE 2 PUFFS BY MOUTH ONCE DAILY; Duration: 90 *Please review and pick correct strength-formulat ion from [employer] options. If intended option is not shown, discontinue and re-order from Quick Search* Active Linzess 145 MCG Take 1 capsule by mouth once daily for 90 days; Duration: 90 Active Cyclobenzaprine HCl 5 MG 1 tab(s) orally twice a day PRN; Duration: 15 days 12/09/2023 Active Vital Signs Temperature 97.5 degrees Fahrenheit 10/08/19 25 Heart Rate 72 /min 10/07/2024 Blood pressure systolic 148 mm Hg 10/08/19 25 Blood pressure diastolic 80 mm Hg 025 Height 6 ft in 10/07/2024 Weight 166.6 lbs 10/07/2024 BMI 22.59 kg/m2 10/07/2024 Encounters Encounter Location Date Provider Diagnosis [address] [address] 10/07/2024 Sung Drake Chronic obstructive pulmonary disease, unspecified COPD type J44.9 and COPD exacerbation J44.1 Assessments Encounter Date Diagnosis (ICD Code) Assessment Notes Treatment Notes Treatment Clinical Notes Section Notes 10/07/2024 Chronic obstructive pulmonary disease, unspecified COPD type (ICD-10 - J44.9) Reviewed pulmonology note, recommended ICS-LABA if symptoms do not improve. Patient reports worsening symptoms even with use of albuterol inhaler, nebulizer, and Stiolto. Start Symbicort inhaler 10/07/2024 COPD exacerbation (ICD-10 - J44.1) Start Augmentin and Prednisone for COPD exacerbation. Plan Of Treatment Medication Medication Name Sig Start Date Stop Date Notes Amoxicillin-Pot Clavulanate 875-125 MG as directed orally every 12 hours; Duration: 7 days 10/07/2024 predniSONE 20 MG 3 tabs orally once a day for two days, then 2 daily for 2 days, then one daily for two days; Duration: 6 day(s) 10/07/2024 Symbicort 160-4.5 MCG/ACT 2 puffs Inhala tion twice a day; Duration: 30 days 10/07/2024 Treatment Notes Assessment Notes Chronic obstructive pulmonar y disease, unspecified COPD type Reviewed pulmonology note, recommended ICS-LABA if symptoms do not improve. Patient reports worsening symptoms even with use of albuterol inhaler, nebulizer, and Stiolto. Start Symbicort inhaler COPD exacerbation Start Augmentin and Prednisone for COPD exacerbation. Next Appt Details Follow Up: prn, Reason: Provider Name:Sung Drake, 01/31/2025 02:00:00 PM, [address] [facility], [address], [place], [address], Progress Notes * Doni CHAUOB:1960 ( 64 yo M)Acc No.[id number]:10/07/2024 Progress Notes Patient: Princess MOLINAn Provider: Chaya Drake MD :1960 A ge:64 Y S ex:Male Date:10/07/2024 [facility] [place] [id number] Pcp:Silke Dutta Subjective: * Chief Complaints: * 1 . Bronchitis; Not feeling well- cough , not sleeping. * HPI: g en: Mr. Chau is a 64 year old male presenting to the clinic for cough and unability to sleep. He reports he started feeling better while taking Levoquin and finished this about a week ago. He then noticed that cough started coming back and has been worsening. He has not been able to sleep because of the cough. He has been coughing up green mucus. He has been having worsening shortness of air. His inhalers have not been helping symptoms. H e denies any fevers. * Medical History: H yperlipidemia, Vascular Disease, [...] *Please review and pick correct strength-formulation from [employer] options. If intended option is not shown, discontinue and re-order from Quick Search*, Taking Gabapentin 300 MG Capsule 1 cap(s) orally at bedtime , Taking Fluticasone Propionate 50 MCG/ACT Suspension 1 spray(s) in each nostril 2 times a day , Taking Rosuvastatin Calcium 10 MG Tablet Take 1 tablet by mouth once daily , Taking Fexofenadine HCl 180 MG Tablet 1 tablet Swallow whole with water; do not take with fruit juices. Orally Once a day , Taking Omeprazole 40 MG Capsule Delayed Release 1 cap(s) orally once a day , Taking traZODone HCl 100 MG Tablet 1 tab orally once a day at bedtime , Discontinued levoFLOXacin 500 MG Tablet 1 tablet Orally Once a day , Discontinued Promethazine-DM 6.25-15 MG/5ML Syrup 5 mL orally every 6 hours , Medication List reviewed and reconciled with the patient * Allergies: S tatins, FLEXERIL: hives, Codeine: itching. Objective: * Vitals: N urse: dw, Pain: 0, Temp: 97.5, RR: 18, HR: 72, BP: 148/80, Ht: 6 ft, Wt: 166.6, BMI:22.59. * Examination: G eneral Examination: General P leasant and Cooperative, NAD on RA,. Heart: R egular Rate and Rhythm, no murmur, rubs or gallops. Lungs: E xpiratory wheezes throughout bilateral lungs. Abdomen: S oft, NTND. Skin: w ithout acute rashes. Extremities: n ormal ROM, no edema. Psych N ormal Mood/Affect. Assessment: * Assessment: 1. C hronic obstructive pulmonary disease, unspecified COPD type - J44.9 (Primary) ?2. C OPD exacerbation - J44.1 Plan: * Treatment: 2. C OPD exacerbation Start Amoxicillin-Pot Clavulanate Tablet, 875-125 MG, as directed, orally, every 12 hours, 7 days, 14, Refills 0; S tart predniSONE Tablet, 20 MG, 3 tabs, orally, once a day for two days, then 2 daily for 2 days, then one daily for two days, 6 day(s), 12. Notes: Start Augmentin and Prednisone for COPD exacerbation. * Procedure Codes: G 2211 Complex e/m visit add on * Follow Up: p rn * * Sign off status: Completed true * Provider: Chaya Drake MD Date: 0 10/07/2024 Generated for Leno raines/Jonathan/Carli on: 0 10/27/2024 02:29 PM EDT History and Physical Notes * HPI (History of Present Illness) Category Sub-Category Detail Notes Category Not es gen Mr. Chau is a 64 year old male presenting to the clinic for cough and unability to sleep. He reports he started feeling better while taking Levoquin and finished this about a week ago. He then noticed that cough started coming back and has been worsening. He has not been able to sleep because of the cough. He has been coughing up green mucus. He has been having worsening shortness of air. His inhalers have not been helping symptoms. He denies any fevers. Examination Category Sub-Category Detail Notes Category Not es General Examination Heart: Regular Rate and Rhythm, no murmur, rubs or gallops Lungs: Expiratory wheezes t hroughout bilateral lungs Abdomen: Soft, NTND Extremities: normal ROM, no edema Skin: without acute rashes General Pleasant and Coopera tive, NAD on RA, Psych Normal Mood/Affect
--- OUTSIDE RECORDS SUMMARY | 2024-10-27 14:29 | XMS_ITS | Encounter Summary ---
Author Organization Healthcare Address [address] [place] [address] Care Team Providers Care Data Management Engineer Name Role Phone Oly Vance GODWIN Primary Care Provider [phone] Kimo Craft MD Unavailable [phone] Encounter Details Date Type Department Care Team (Late st Contact Info) Description 09/02/2022 Lab Requisition [facility] [address] [place] [address] Gilbert Lugo MD [address] [facility] [address] [facility] [address] [place] [address] Encounter for general adult medical examination without abnormal findings Social History Tobacco Use Types Packs/Day Years Used Date Smoking Tobacco: Every Day Cigarettes 1 50 Smokeless Tobacco: Never Alcohol Use Standard Drinks/Week Comments Not Currently 0 (1 standard drink = 0.6 oz pure alcohol) quit 2019 - used to drink 6 - 12 beers daily CAGE ASSESSMENT Answer Date Recorded Cage unable to access Not on file 08/24/2022 Cage max number of drinks Not on file 2022 Cage Beverages a week Not on file 08/24/2022 Have you ever felt you should CUT down on your d rinking? 0 08/24/2022 Have you been ANNOYED by people criticizing your drinking? 0 08/24/2022 Have you felt GUILTY about your drinking? 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 0 08/24/2022 CAGE Questionnaire Score 0 023 Sex and Gender Information Value Date Recorded Sex Assigned at Not on file Legal Sex Male 1:04 PM EDT Gender Identity Not on file Sexual Orientation Not on file COVID-19 Exposure Response Date Recorded In the last 10 days, have yo u been in contact with someone who was confirmed or suspected to have Coronavirus/COVID-19? No / Unsure 08/25/2022 8:44 AM EDT documented as of this encounter Functional Status * Calculated C-SSRS Risk Score (Lifetime/Recent) Answer Date of Assessment Author No Risk Indicated 09/05/2022 8:00 AM EDT Aga Tolbert RN * Question Answer Date of Assessment Author 1. Wish to be (Past 1 Month) No 023 8:00 AM EDT Aga Tolbert RN 2. Non-Specific Active Suici earnest Thoughts (Past 1 Month) No 09/05/2022 8:00 AM EDT Maryuri Tolbert RN 6. Suicidal Behavior (Lifetime) No 8:00 AM EDT Aga Tolbert RN documented as of this encounter Plan of Treatment Not on file documented as of this encounter Procedures Procedure Name Priority Date/Time Associated Diagnosis Comments MULTI DRUG RESISTANCE TEST Routine 09/02/2022 9:00 AM EDT Encounter for general adult medical examination without abnormal findings documented in this encounter Results * Multi Drug Resistance Test (09/02/2022 9:00 AM EDT) Culture No growth at day 2 09/04/2022 11:10 AM EDT [facility] Swab (Nares and Iliana Rectal) 09/02/2022 9:00 AM EDT 09/02/2022 10:10 AM EDT Gilbert No MD LAB MICROBIOLOGY - GENERAL ORDERABLES Final Result [facility] [address] [place] [address] documented in this encounter Visit Diagnoses Diagnosis Encounter for general adult medical examination without abnormal findings documented in this encounter Care Teams Data Management Engineer Relationship Specialty Start Date End Date Vance, Oly S, MEDIA MONITOR [address] [place] [address] PCP - General 08/03/22 Kimo Craft MD [address] [place] [address] Referring Physician Cardiology 08/27/22 documented as of this encounter
--- OUTSIDE RECORDS SUMMARY | 2024-10-27 14:29 | XMS_ITS | Clinical Summary ---
Author Organization Healthcare Address [address] [place] [id number] Care Team Providers Care Base Loader Name Role Phone Oly Vance GODWIN Primary Care Provider [phone] Kimo Craft MD Unavailable [phone] Allergies Active Allergy Reactions Criticality Noted Date Comments Codeine Itching Medium 08/24/2022 Cyclobenzaprine Itching Medium 08/24/2022 Statins Other - please docum ent in the comment field Low 08/24/2022 Muscle pain Fenofibrate Other - please docum ent in the comment field Low 08/25/2022 Muscle pain Medications Cyanocobalamin (B-12 PO) Take 1 tablet by mouth 1 (one) time each day. Active Ascorbic Acid (VITAMIN C PO) Take 1 tablet by mouth 1 (one) time each day. Active Cholecalciferol (VITAMIN D3 PO) Take 1 tablet by mouth 1 (one) time each day. Active gabapentin (Neurontin) 300 MG capsule Take 300 mg by mouth 2 (two) times a day. Active albuterol 108 (90 Base) MCG/ACT inhaler Inhale 2 puffs 4 (four) times a day if needed for wheezing. Active tiotropium-olod aterol (Stiolto Respimat) 2.5-2.5 MCG/ACT aerosol solution inhaler Inhale 2 Inhalation 1 (one) time each day. Active acetaminophen (Tylenol) 500 MG tablet Take 1 tablet (500 mg total) by mouth every 6 (six) hours if needed for pain. 100 tablet 3 Active methocarbamol (Robaxin) 500 MG tablet Take 1 tablet (500 mg total) by mouth 4 (four) times a day for 10 days. 40 tablet 3 Active metoprolol tartrate (Lopressor) 50 MG tablet Take 1 tablet (50 mg total) by mouth 2 (two) times a day. 60 tablet 11 3 Active rosuvastatin (Crestor) 10 MG tablet Take 1 tablet (10 mg total) by mouth every night. 30 tablet 2 3 Active furosemide (Lasix) 40 MG tablet Take 1 tablet (40 mg) by mouth 1 (one) time if needed (Once as needed) for up to 1 dose. If experiencing increased shortness of breath, or weight gain of 2 or more pounds over two days time, take 1 tablet by mouth once daily for two days. 10 tablet 3 Active Active Problems Problem Noted Date Diagnosed Date BMI 21.0-21.9, adult 09/09/2022 Ischemic cardiomyopathy 08/25/2022 HFrEF (heart failure with reduced ejection fract ion) 08/25/2022 Acute blood loss anemia 08/25/2022 Overview (09/24/2022): - Received 3 U PRBC's Superior mesenteric artery stenosis 08/25/2022 Celiac artery stenosis 08/25/2022 PAD (peripheral artery disease) 08/25/2022 Bilateral carotid artery stenosis 08/25/2022 Overview (09/09/2022): - S/p b/l CEA Statin intolerance 08/25/2022 Hypertriglyceridemia 08/25/2022 Overview (08/31/2022): Intolerant to statins Renal insufficiency 08/25/2022 Pulmonary emphysema 08/25/2022 Alcoholic cirrhosis of liver without ascites CAD, multiple vessel 08/24/2022 Resolved Problems Problem Noted Date Diagnosed Date Resolved Date Acute respiratory failure with hypoxia 08/31/2022 09/06/2022 Overview (09/02/2022): Extubated without issue On nasal cannula Weaning as tolerated Desaturated on 3L, increased back up to 4L NC. 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 Hypocalcemia 08/25/2022 09/09/2022 Family History Medical History Relation Name Comments No Known Problems Brother No Known Problems Father Cancer Mother No Known Problems Sister Relation Name Status Comments Brother Father Mother Sister Social History Tobacco Use Types Packs/Day Years Used Date Smoking Tobacco: Every Day Cigarettes 1 50 Passive Smoke Exposure: Current Smokeless Tobacco: Never Tobacco Cessation:Ready to Q uit: Not Asked; Counseling Given: Not Answered Alcohol Use Standard Drinks/Week Comments Not Currently [...] drink first t demarcus in the morning (EYE-WHEEL LOADER OPERATOR) to steady your nerves or to get rid of a hangover? 0 08/24/2022 CAGE Questionnaire Score 0 023 Sex and Gender Information Value Date Recorded Sex Assigned at Not on file Legal Sex Male 1:04 PM EDT Gender Identity Not on file Sexual Orientation Not on file Occupation Industry Job Start Date Job End Date disabled Not on file Not on file Not on file Last Filed Vital Signs Vital Sign Reading Time Taken Comments Blood Pressure 195/71 11/19/2022 3:30 PM EDT Pulse 58 10/10/2022 11:44 AM EDT Temperature 37 C (98.6 F) 09/06/2022 7:15 AM EDT Respiratory Rate 18 09/06/2022 10:58 AM EDT Oxygen Saturation 93% 10/10/2022 11:44 AM EDT Inhaled Oxygen Concentration - - Weight 69.4 kg (153 lb) 11/19/2022 3:30 PM EDT Height 182.9 cm (6') 11/19/2022 3:30 PM EDT Body Mass Index 20.75 11/19/2022 3:30 PM EDT Plan of Treatment Health Maintenance Due Date Last Done Comments [facility]-Depression Screening 1960 [facility]-Hepatitis C Screening 1960 [facility]-Medicare Annual Wellness (AWV) 1960 [facility]-Infant/Child/Adol SDOH Screenings 1960 [facility]- SDOH Screenings 1977 [facility]-Adult SDOH Screenings 1977 [facility]-DTaP,Tdap,and Td Vaccine s (1 - Tdap) 1978 [facility]-Hepatitis A Vaccines (1 of 2 - Risk 2-dose series) 1978 [facility]-Pneumococcal Vaccine: 50 + Years (1 of 2 - PCV) 1978 CT Colonography 2004 Colonoscopy 2004 FIT-DNA 2004 FIT 2004 FOBT 2004 Sigmoidoscopy 2004 [facility]-Colorectal Cancer Screening 2004 [facility]-Zoster Vaccines (1 of 2) 2009 [facility]-RSV Vaccine: 60+ Years o r (1 - Risk 60-74 years 1-dose series) 2019 [facility]-[id number]-32 Vaccine (1 - 20 24-25 season) 2024 [facility]-Influenza Vaccine (Seaso n Ended) 2025 HPV Vaccines Aged Out No longer eligi ble based on patient's age to complete this topic [facility]-HIB Vaccines Aged Out No longer e ligible based on patient's age to complete this topic [facility]-IPV Vaccines Aged Out No longer e ligible based on patient's age to complete this topic [facility]-Rotavirus Vaccines Aged Out No lo nger eligible based on patient's age to complete this topic Insurance Advance Directives * Full Code (Latest Code Status on File) Date Activated Date Inactivated Comments 08/31/2022 1:00 PM 09/06/2022 2:25 PM Question Answer Comments Patient has decision-making capacity? Yes * Full Code Date Activated Date Inactivated Comments 08/24/2022 4:41 PM 08/31/2022 1:00 PM Question Answer Comments Patient has decision-making capacity? Yes Care Teams Base Loader Relationship Specialty Start Date End Date Oly Vance APRN [facility] [place] [address] PCP - General 08/03/22 Kimo Craft MD [address] [place] [address] [address] [place] [address] Referring Physician Cardiology 08/27/22
--- OUTSIDE RECORDS SUMMARY | 2024-10-27 14:29 | XMS_ITS | Encounter Summary ---
Author Organization Healthcare Address [address] [place] [address] Care Team Providers Care Simulation Analyst Name Role Phone Oly Vance GODWIN Primary Care Provider [phone] Kimo Craft MD Unavailable [phone] Reason for Visit * Reason Comments Med Refill Encounter Details Date Type Department Care Team (Late st Contact Info) Description 08/24/2023 Refill [facility] [address], [address] [place] [address] Brijesh Fan PA [address] [place] [address] Social History Tobacco Use Types Packs/Day Years Used Date Smoking Tobacco: Every Day Cigarettes 1 50 Passive Smoke Exposure: Current Smokeless Tobacco: Never Alcohol Use Standard Drinks/Week [...] drink first t demarcus in the morning (EYE-CONCHE LOADER AND UNLOADER) to steady your nerves or to get [...] file Not on file Not on file documented as of this encounter Plan of Treatment Not on file documented as of this encounter Visit Diagnoses Not on filedocumented in this encounter Additional Health Concerns Assessment Noted Time A fall risk assessment has been complete d for the patient 10/10/2022 11:44 AM EDT documented as of this encounter Care Teams Simulation Analyst Relationship Specialty Start Date End Date Oly Vance APRN [facility] [place] [address] PCP - General 08/03/22 Kimo Craft MD [facility] [place] [address] Referring Physician Cardiology 08/27/22 documented as of this encounter
--- OUTSIDE RECORDS SUMMARY | 2024-10-27 14:29 | XMS_ITS | Patient Health Record ---
Author Organization [facility] Address [address] [place] [address] Care Team Providers Care Language Teacher Name Role Phone Soledad Bassett Unavailable [phone] Allergies Allergen (clinical drug ingredient) Drug/Non Drug Allergy documented on EMR Reaction Allergy Type Onset Date Status [place] itching Drug Allergy Active codeine Codeine rash Drug Allergy Active Reason For Referral No Information Medications Medication SIG (Take, Route, Frequency, Duration) Notes Start Date End Date Status Pregabalin 300 MG Capsule 1 capsule in t he evening 1 to 3 hours before bedtime Orally Once a day Active Valsartan 160 MG Tablet 1 tablet Orally Once a day Active Stiolto Respimat 2.5-2.5 MCG/ACT Aerosol Solution 2 puffs Inhalation Once a day Active Aspir-81 Active Folic Acid Active DULoxetine HCl 60 MG Capsule Delayed Release Particles 1 capsule Orally Once a day Active Pravastatin Sodium 40 MG Tablet 1 tablet Orally Once a day Active Furosemide 40 MG Tablet 1 tablet Orally Once a day Active Social History Sex Assigned At : Social History Observation Description Sex Assigned At Male Social History Alcohol: Social Info Question Answer Notes Alcohol Current or past use of alcohol: Former Tobacco Use: Social Info Question Answer Notes . Are you a: current smoker Problems Problem Type SNOMED Code ICD Code Onset Dates Problem Status W/U Status Risk Notes Problem History of polyp of colon (589087722) Personal history of colon polyps (Z86.010) Active confirmed Problem Constipation (46312316) Constipation (K59.00) Active confirmed Plan Of Treatment Pending Test Test Name Order Date EGD with Biopsy if Indicated (65643) 04/2022 Colonoscopy Screening/Surveillance at [facility] (08519, G0121, G0105) 09/13/2021 Insurance Providers Payer Name Payer Address Payer Phone Subscriber Number Group Number Insured Name Patient Relationship to Insured Coverage Start Date Coverage End Date [employer] KATHY PPO [id number] [address] [address] [place] [address] [id number] Karla Michaud Self - patient is the insured 1 Medical (General) History Medical History History ICD Code Carotid stenosis I65.29 COPD (chronic obstructive pulmonary dise ase) J44.9 Constipation K59.01 GIB (gastrointestinal bleeding) K92.2 Surgical History Surgery Date(Month/Year) EGD 04/2020 EGD 01/2019
--- OUTSIDE RECORDS SUMMARY | 2024-10-27 14:29 | XMS_ITS | Patient Health Record ---
Author Organization [facility] [place] Address [address] [place] [address] Care Team Providers Care Tin Whiz Machine Operator Name Role Phone Lynne Bo Primary Care Provider UnavailKeysha Thomas Unavailable [phone] Gregory Hernandez M.D. Unaeleni lable Allergies Allergen (clinical drug ingredient) Drug/Non Drug Allergy documented on EMR Reaction Allergy Type Onset Date Status Flexeril hives Drug Allergy Active codeine Codeine hives Drug Allergy Active Non-steroidal anti-inflammatory agent (FN) NSAIDs stomach upset Drug Allergy Active Reason For Referral No Information Medications Medication SIG (Take, Route, Fr equency, Duration) Notes Start Date End Date Status Fish Oil 1000 MG 1 capsule Orally Onc e a day; Duration: 30 day(s) Active Furosemide 40 MG 1 tablet Orally Once a day; Duration: 30 day(s) Active Multivitamin Adults - as directed Orally Active Vitamin C 500 MG as directed Orally Active Vitamin B Complex - as directed Orally Active Lyrica 300 MG 1 capsule in the juani julieta 1 to 3 hours before bedtime Orally Once a day Active ZyrTEC Allergy 10 MG 1 tablet Orally Onc e a day; Duration: 30 day(s) Active Social History Tobacco Use: Social History Observation Description Date Details (start date - stop date) Current Smoker NA - NA Tobacco Use/Smoking Question Answer Notes Are you a current smoker Problems Problem Type SNOMED Code ICD Code Onset Dates Problem Status W/U Status Risk Notes Problem Chronic pain syndrome (183218901) Chronic pain syndrome (G89.4) Active confirmed Problem Displacement of cervical intervertebral disc without myelopathy (45162823) Other cervical disc displacement at C4-C5 level (M50.221) Active confirmed Problem Displacement of cervical intervertebral disc without myelopathy (74010638) Other cervical disc displacement at C5-C6 level (M50.222) Active confirmed Problem Displacement of cervical intervertebral disc without myelopathy (81451908) Other cervical disc displacement at C6-C7 level (M50.223) Active confirmed Plan Of Treatment No Information Insurance Providers Payer Name Payer Address Payer Phone Subscriber Number Group Number Insured Name Patient Relationship to Insured Coverage Start Date Coverage End Date [employer] [address] [place] [phone] [id number] Karla Michaud Self - patient is the insured 1 Medical (General) History Medical History History ICD Code Carpal Tunnel Surgical History Surgery Date(Month/Year) carotid artery 08/2016 Hospitalization History Reason Date(Month/Year) Bleeding Ulcers 02/2020
--- OUTSIDE RECORDS SUMMARY | 2024-10-27 14:29 | XMS_ITS | Patient Health Record ---
Author Organization [facility] Address [address] [address] Care Team Providers Care Collar Band Creaser Name Role Phone Lynne Bo Primary Care Provider UnavailGregory Cummins Unavailable Allergies Allergen (clinical drug ingredient) Drug/Non Drug Allergy documented on EMR Reaction Allergy Type Onset Date Status Flexeril Unknown Drug Allergy Active fenofibrate Tricor Unknown Drug Allergy Activ e simvastatin Zocor Unknown Drug Allergy Activ e codeine Codeine Unknown Drug Allergy Active Reason For Referral No Information Medications Medication SIG (Take, Route, Frequency, Duration) Notes Start Date End Date Status amLODIPine Besylate 10 MG 1 tablet Orall y Once a day for 30 day(s) Active Aspirin 81 81 MG 1 tablet Orally Once a day for 30 day(s) Active Centrum - as directed Orally A ctive Lyrica 300 MG 1 capsule Orally Twi ce per Day for 30 days C 08/24/2021 Active Sucralfate 1 GM/10ML 10 ml on an empty stomach Orally Twice a day for 30 day(s) Active Pravastatin Sodium 20 MG 1 tablet Orally Once a day for 30 day(s) Active Pantoprazole Sodium 40 MG 1 tablet Orall y Once a day for 30 day(s) Not-Taking Lyrica 150 MG 1 capsule Orally bid for 30 days C 06/15/2020 Active DULoxetine HCl 30 MG 1 capsule Orally On ce a day for 30 day(s) Not-Taking rOPINIRole HCl 0.25 MG 1 tablet 1 to 3 h ours before bedtime Orally Once a day for 30 day(s) Not-Taking Iron 65 MG 1 tablet Orally Once a day for 30 day(s) Active Fish Oil 1000 MG 1 capsule Orally Onc e a day for 30 day(s) Active Valsartan 320 MG 1 tablet Orally Once a day for 30 day(s) Active B-Complex - as directed Orally Active Furosemide 40 MG 1 tablet Orally Once a day for 30 day(s) Active Ascorbic Acid ER 500 MG 1 capsule Orally Once a day for 30 day(s) Not-Taking Social History Tobacco Use: Social History Observation Description Date Details (start date - stop date) Current Smoker NA - NA Tobacco Use/Smoking Question Answer Notes Are you a current smoker How often do you smoke cigarettes? every day How many cigarettes a day do you smoke? 6-10 Alcohol Screen (Audit-C) Question Answer Notes Did you have a drink containing alcohol in the p ast year? No Points 0 Interpretation Negative Problems Problem Type SNOMED Code ICD Code Onset Dates Problem Status W/U Status Risk Notes Problem Carpal tunnel syndrome (80433445) --Carpal Tunnel Syndrome [U/B]- (G56.03) Active confirmed Refer to hand surgeon Problem Paresthesia (finding) (17001181) Paresthesia of skin (R20.2) Active confirmed Problem --Cervical Myelopathy- (M47.12) Active confirmed Plan Of Treatment Pending Test Test Name Order Date MRI : Brain without Contrast 06/15/2020 MRI : Cervical without Contrast 06/15/19 MRI : Lumbar without contrast 07/13/2020 EMG/NCV Bilateral UE 06/15/2020 EMG/NCV Bilateral LE 06/15/2020 Insurance Providers Payer Name Payer Address Payer Phone Subscriber Number Group Number Insured Name Patient Relationship to Insured Coverage Start Date Coverage End Date [employer] Master [address] [address] [place], [place] [id number] Karla Michaud Self - patient is the insured Medical (General) History Medical History History ICD Code HIGH BLOOD PRESSURE/CHOLESTEROL SEIZURES PERIPHERAL VASCULAR DISEASE LUNG DISEASE Surgical History Surgery Date(Month/Year)
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
--- OUTSIDE RECORDS SUMMARY | 2024-10-27 14:30 | XMS_ITS | Patient Health Record ---
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 Name Role Phone Oly Dutta Primary Care Provider [phone] OLY Dutta APRN Unavailable Unavailable Sung Drake Unavailable [phone] Shiana Escalante Unavailable [phone] Migration, Provider Unavailable Unavailable Allergies Allergen (clinical drug ingredient) Drug/Non Drug Allergy documented on EMR Reaction Allergy Type Onset Date Status FLEXERIL (uncoded) hives Allergy A ctive Substance with 8-strwnxr-6-methylgluta ryl-coenzyme A reductase inhibitor mechanism of action (substance) Statins Unknown Drug Allergy Active codeine Codeine itching Drug Allergy Active Results Component Value Reference Range Notes CBC (INCLUDES DIFF/PLT) (639 9) Reviewed date:01/15/2024 08:33:59 AM Interpretation: Performing Lab:CHRISTIANO, [facility] [id number] [facility], [facility] [id number] Devon Magaña Notes/Report: NON-FASTING; NON-FASTING WHITE BLOOD CELL COUNT 8.3 3.8-10.8 Thousand/ uL RED BLOOD CELL COUNT 4.46 4.20-5.80 Million/uL HEMOGLOBIN 13.9 13.2-17.1 g/dL HEMATOCRIT 42.5 38.5-50.0 % MCV 95.3 80.0-100.0 fL MCH 31.2 27.0-33.0 pg MCHC 32.7 32.0-36.0 g/dL RDW 13.9 11.0-15.0 % PLATELET COUNT 302 140-400 Thousand/uL MPV 9.3 7.5-12.5 fL ABSOLUTE NEUTROPHILS 5503 4585-6445 cells/uL ABSOLUTE LYMPHOCYTES 9249 230-2176 cells/uL ABSOLUTE MONOCYTES 415 200-950 cells/uL ABSOLUTE EOSINOPHILS 415 15-500 cells/uL ABSOLUTE BASOPHILS 42 0-200 cells/uL NEUTROPHILS 66.3 LYMPHOCYTES 23.2 MONOCYTES 5.0 EOSINOPHILS 5.0 BASOPHILS 0.5 BASIC METABOLIC PANEL (99060 ) Reviewed date:01/15/2024 08:33:59 AM Interpretation: Performing Lab:CHRISTIANO, [facility] [id number] [facility] [address] [facility], [facility] [id number] Devon Magaña Notes/Report: NON-FASTING; NON-FASTING GLUCOSE 126 65-99 mg/dL Fasting reference interval For someone without known diabetes, a glucose value >125 mg/dL indicates that they may have diabetes and this should be confirmed with a follow-up test. UREA NITROGEN (BUN) 16 7-25 mg/dL CREATININE 1.35 0.70-1.35 mg/dL EGFR 59 > OR = 60 mL/min/1.73m2 BUN/CREATININE RATIO SEE NOTE: 6-22 (calc) Not Reported: BUN and Creatinine are within reference range. SODIUM 132 135-146 mmol/L POTASSIUM 4.2 3.5-5.3 mmol/L CHLORIDE 97 98-110 mmol/L CARBON DIOXIDE 28 20-32 mmol/L CALCIUM 9.6 8.6-10.3 mg/dL CT Scan : Maxillofacial Reviewed date:08/12/2024 04:13:50 PM Interpretation: Performing Lab: Notes/Report: CTA : Upper Extremity Reviewed date:09/14/2024 03:15:50 PM Interpretation: Performing Lab: Notes/Report: CTA : Chest Reviewed date:09/10/2024 04:06:59 PM Interpretation: Performing Lab: Notes/Report: Rapid Covid/Flu A-B Combo Reviewed date:06/24/2024 01:36:48 PM Interpretation: Performing Lab: Notes/Report: Rapid Covid neg Flu A neg Flu B neg MRI : Cervical Spine Reviewed date:05/10/2024 01:14:11 PM Interpretation: Performing Lab: Notes/Report: LIPID PANEL, STANDARD (7600) Reviewed date:04/20/2024 03:38:14 PM Interpretation: Performing Lab:CB, [facility] [id number] [facility] [facility], [facility] HospitalUqfcPY[address] Devon Magaña Notes/Report: NON-FASTING; NON-FASTING; NON-FASTING CHOLESTEROL, TOTAL 116 <200 mg/dL HDL CHOLESTEROL 27 > OR = 40 mg/dL TRIGLYCERIDES 276 <150 mg/dL If a non-fasting specimen was collected, consider repeat triglyceride testing on a fasting specimen if clinically indicated. Swetha et al. J. of Clin. Lipidol. 2015;9:129-169. LDL-CHOLESTEROL 57 Reference range: <100 Desirable range <100 mg/dL for primary prevention; <70 mg/dL for patients with CHD or diabetic patients with > or = 2 CHD risk factors. LDL-C is now calculated using the Mukul-Gerber calculation, which is a validated novel method providing better accuracy than the Friedewald equation in the estimation of LDL-C. Mukul GARCÍA et al. VANCE. 2013;310(19): 3715-3966 (http://education.DeliRadio.We R Interactive/faq/ADM189) CHOL/HDLC RATIO 4.3 <5.0 (calc) NON HDL CHOLESTEROL 89 <130 mg/dL (calc) For patients with diabetes plus 1 major ASCVD risk factor, treating to a non-HDL-C goal of <100 mg/dL (LDL-C of <70 mg/dL) is considered a therapeutic option. COMPREHENSIVE METABOLIC [facility] MEDICAL CENTERDanni Abbott ([address]50) Reviewed date:04/20/2024 03:38:14 PM Interpretation: Performing Lab:CHRISTIANO [facility] [id number] [facility], [facility] [id number] Devon Magaña Notes/Report: NON-FASTING; NON-FASTING; NON-FASTING GLUCOSE 82 65-99 mg/dL Fasting reference interval UREA NITROGEN (BUN) 16 7-25 mg/dL CREATININE 1.46 0.70-1.35 mg/dL EGFR 53 > OR = 60 mL/min/1.73m2 BUN/CREATININE RATIO 11 6-22 (calc) SODIUM 131 135-146 mmol/L POTASSIUM 4.2 3.5-5.3 mmol/L CHLORIDE 95 98-110 mmol/L CARBON DIOXIDE 26 20-32 mmol/L CALCIUM 9.5 8.6-10.3 mg/dL PROTEIN, TOTAL 7.4 6.1-8.1 g/dL ALBUMIN 4.4 3.6-5.1 g/dL GLOBULIN 3.0 1.9-3.7 g/dL (calc) ALBUMIN/GLOBULIN RATIO 1.5 1.0-2.5 (calc) BILIRUBIN, TOTAL 0.4 0.2-1.2 mg/dL ALKALINE PHOSPHATASE 96 35-144 U/L AST 22 10-35 U/L ALT 16 9-46 U/L HEMOGLOBIN A1c (496) Reviewed date:04/20/2024 03:38:14 PM Interpretation: Performing Lab:CB, [facility] [id number], [place] GuerreroGfauFC[address] Devon Magaña Notes/Report: NON-FASTING; NON-FASTING; NON-FASTING HEMOGLOBIN A1c 6.1 <5.7 % of total Hgb For someone without known diabetes, a hemoglobin A1c value between 5.7% and 6.4% is consistent with prediabetes and should be confirmed with a follow-up test. For someone with known diabetes, a value <7% indicates that their diabetes is well controlled. A1c targets should be individualized based on duration of diabetes, age, comorbid conditions, and other considerations. This assay result is consistent with an increased risk of diabetes. Currently, no consensus exists regarding use of hemoglobin A1c for diagnosis of diabetes for children. Reason For Referral Reason Podiatry Patient s tates since starting amlodipine he has had shooting pain in his feet, muscle cramps in legs, pain in hands, lock jaw and low energy. He is concerned that it is interacting with the Terbinafine. Can try terbinafine cream topically 1% daily, but recommend podiatry referral Referral Organization [facility] HUMBERTO ABAD Referring Provider First Name Oly Referring Provider Last Name Luzmaria Referring Provider Speciality Family [facility] ctice Referred Organization [facility] Referred Address [address] [facility] [address] [facility], [place], [place],[address],[place] Referred Provider Specialty Podiatry - S urgical Chiropody General Notes Luz Cristobal 2023 12:44:46 PM >Patient referred to [facility] Podiatry. They will call patient with appt. Referral Priority Routine Reason [facility] pt and ot for ne ck pain Diagnosis 1 Cervicalgia (M54.2) Referral Organization [facility] Referring Provider First Name Sung Referring Provider Last Name Vidal Referring Provider Speciality Internal M edicine Referred Organization [facility] Referred Address [address] [address] [place], [place],[address],[place] Referred Provider Specialty Physical Med icine and Rehabilitation General Notes Luz Cristobal 2023 04:07:02 PM >Orders sent to [facility] Rehab Referral Priority Routine Reason Overdue for colonosc opy screening set up with Dr. Rosario or liat Zayas Diagnosis 1 Routine medical exam (Z00.00) Referral Organization [facility] Referring Provider First Name Sung Referring Provider Last Name Vidal Referring Provider Speciality Internal M edicine Referred Organization [facility] Referred Address [address] [address] [place], [place],[address],[place] Referred Provider Specialty General Surg [facility] General Notes Luz Cristobal 2023 10:21:05 AM >Patient notified Referral Priority Routine Referral Appointment Date 05/25/2024 Reason MRI of C-spine at [facility] Diagnosis 1 Left cervical radicu lopathy (M54.12) Referral Organization [facility] Referring Provider First Name Sung Referring Provider Last Name Vidal Referring Provider Speciality Internal M edicine Referred Organization [facility] Referred Address [address] [facility] [address] [place], [place],[address],[place] Referred Provider Specialty Diagnostic R adiology General Notes [id number] Authorized , Approval Valid Through: 04/20/2024 - 07/18/2024 Referral Priority Routine Referral Appointment Date 05/07/[address] sca n at [facility], no contrast Diagnosis 1 Chronic maxillary si nusitis (J32.0) Referral Organization [facility] Referring Provider First Name Sung Referring Provider Last Name Vidal Referring Provider Speciality Internal M edicine Referred Organization [facility] Referred Address [address] [facility] [address] [address] [place], [place],[address],[place] Referred Provider Specialty Diagnostic R adiology General Notes Luz Cristobal 2024 10:54:54 AM >approved and sent to [facility] to schedule Referral Priority Routine Referral Appointment Date 08/10/2024 Reason ENT- obstruction of sinuses seen on CT scan Referral Organization [facility] Referring Provider First Name Sung Referring Provider Last Name Vidal Referring Provider Speciality Internal M edicine Referred Organization [facility] Referred Address [address] [place],[address],[place] Referred Provider Specialty Otology, Lar yngology, Rhinology General Notes Luz Cristobal 2024 06:41:15 PM >sent to ENT Referral Priority Routine Reason Needs CTA of chest a nd upper extremities Diagnosis 1 Chronic cough (R05.3 ) Referral Organization [facility] Referring Provider First Name Sung Referring Provider Last Name Vidal Referring Provider Speciality Internal M edicine Referred Organization [facility] Referred Address [address] [place],[address],[place] Referred Provider Specialty Diagnostic R adiology General Notes Luz Cristobal 2024 04:42:24 PM >CTA Upper is approved, Luz Cristobal 08/25/2024 04:42:34 PM >CTA Chest is pending, Luz Cristobal 08/26/2024 12:09:27 PM >All CTA's approved- sending to [facility] to schedule Referral Priority Routine Medications Medication SIG (Take, Route, Frequency, Duration) Notes Start Date End Date Status hydroCHLOROthiazide 25 MG 1 tab(s) orall y once a day Active Fluticasone Propionate 50 MCG/ACT 1 spray(s) in each nostril 2 times a day; Duration: 30 days 07/19/2024 Active Vascepa 1 GM 2 cap(s) orally 2 times a day Active Vitamin C 500 MG 1 tab(s) orally once a day Active Cyclobenzaprine HCl 5 MG 1 tab(s) orally twice a day PRN; Duration: 15 days 12/09/2023 Active predniSONE 20 MG 3 tabs orally once a day for two days, then 2 daily for 2 days, then one daily for two days; Duration: 6 day(s) 10/07/2024 Active Linzess 145 MCG Take 1 capsule by mouth once daily for 90 days; Duration: 90 Active rOPINIRole HCl 1 MG 1 tab in the morning and 2 tabs at night orally twice a day; Duration: 90 days Active Stiolto Respimat 2.5 MCG-2.5 MCG/INH INHALE 2 PUFFS BY MOUTH ONCE DAILY; Duration: 90 *Please review and pick correct strength-formulat ion from [employer] options. If intended option is not shown, discontinue and re-order from Quick Search* Active Methocarbamol 1000 MG 1 tablet Orally Four times a day Active Gabapentin 300 MG 1 cap(s) orally at bedtime; Duration: 90 days 06/12/2024 Active B-12 1000 MCG 1 tab(s) orally once a day Active Omeprazole 40 MG 1 cap(s) orally once a day; Duration: 90 days Active Centrum Men - 1 tab(s) orally once a day Active traZODone HCl 100 MG 1 tab orally once a day at bedtime; Duration: 30 days Active ALBUTEROL (EQV-PROAIR HFA) 90 MCG/INH 2 PUFF(S) INHALED EVERY 6 HOURS PRN; Duration: 90 DAYS *Please review for potential replacement for e-prescription and drug interaction check* 03/25/2023 Active Symbicort 160-4.5 MCG/ACT 2 puffs Inhalation twice a day; Duration: 30 days 10/07/2024 Active Bisoprolol Fumarate 10 MG 1 tab(s) orall y twice a day; Duration: 90 days Active Amoxicillin-Pot Clavulanate 875-125 MG as directed orally every 12 hours; Duration: 7 days 10/07/2024 Active Fexofenadine HCl 180 MG 1 tablet Swallow whole with water; do not take with fruit juices. Orally Once a day; Duration: 30 days 08/25/2024 Active Immunizations Vaccine Route Administration Date Status Comme nts Flublok IM Intramuscular 01/24/2022 Administered Flublok IM Intramuscular 02/20/2024 Administered FLUZONE 6MO - OLDER IM Intramuscular 02/13/2023 Administer ed Prevnar PCV-20 (Pneumococcal conjugate 20) IM Intramuscular 04/19/2024 Administered Social History Tobacco Use: Social History Observation [...] User Modera te cigarette smoker (10-19 cigs/day) Problems Problem Type SNOMED Code ICD Code Onset Dates Problem Status W/U Status Risk Notes Problem Mixed hyperlipidemia (481026581) Mixed hyperlipidemia (E78.2) Active confirmed Problem Tobacco user (622283933) Nicotine dependence, unspecified, uncomplicated (F17.200) Active confirmed Problem Tobacco user (762604104) Nicotine dependence, cigarettes, uncomplicated (F17.210) Active confirmed Problem Primary insomnia (7046842) Primary insomnia (F51.01) Active confirmed Problem Stricture of artery (02054272) Stricture of artery (I77.1) Active confirmed Problem Chronic maxillary sinusitis (12124798) Chronic maxillary sinusitis (J32.0) Active confirmed Problem Chronic pansinusitis (20577003) Chronic pansinusitis (J32.4) Active confirmed Problem Chronic vascular insufficiency of intestine (532530836) Chronic vascular disorders of intestine (K55.1) Active confirmed Problem Cervicalgia (52217471) Cervicalgia (M54.2) Active confirmed Problem Long-term current use of antithrombotic (023003947268220) cable former (current) use of antithrombotics/an tiplatelets (Z79.02) Active confirmed Problem Chronic obstructive pulmonary disease (17810953) Asthma exacerbation in COPD (J44.9) Active confirmed Problem Essential hypertension (23667466) Essential hypertension (I10) Active confirmed Problem Hypertensive disorder (12071268) Chronic hypertension (I10) Active confirmed Problem Acute exacerbation of chronic obstructive airways disease (558292414) COPD exacerbation (J44.1) Active confirmed Problem Restless legs (38467517) RLS (restless legs syndrome) (G25.81) Active confirmed Problem Gastritis (1361921) Gastritis (K29.70) Active c onfirmed Problem Hyperlipidemia (57548039) Hyperlipidemia, unspecified (E78.5) Active confirmed Problem 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, 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) Active confirmed Problem Atherosclerotic heart disease of mi'kmaq coronary artery without angina pectoris (593168090457665) Coronary artery disease involving mi'kmaq coronary artery of mi'kmaq heart without angina pectoris (I25.10) Active confirmed Problem COPD - Chronic obstructive pulmonary disease (54286435) Chronic obstructive pulmonary disease, unspecified COPD type (J44.9) Active confirmed Problem Claudication (57469036) Claudication (I73.9) Active confirmed Problem Chronic insomnia (452988829) Chronic insomnia (F51.04) Active confirmed Problem Peripheral vascular disease (521869575) PAD (peripheral artery disease) (I73.9) Active confirmed Problem Sciatica (39726446) Left sided sciatica (M54.32) Active confirmed Problem Acute non-ST segment elevation myocardial infarction (198148060) Acute myocardial infarction, subendocardial infarction (I21.4) Active confirmed Problem Atherosclerosis of both carotid arteries (514960992980173) Atherosclerosis of both carotid arteries (I65.23) Active confirmed Problem Atrial fibrillation (95687549) New onset atrial fibrillation (I48.91) Active confirmed Problem Cervical radiculopathy (05684509) Cervical radiculopathy (M54.12) Active confirmed Problem Duodenal ulcer with hemorrhage (75008703) Duodenal ulcer hemorrhage (K26.4) Active confirmed Problem Duodenal ulcer with hemorrhage (68934874) Duodenal ulcer with hemorrhage (K26.4) Active confirmed Problem Occlusion and stenosis of multiple and bilateral cerebral arteries (736331805) Bilateral carotid artery stenosis (I65.23) Active confirmed Problem Gastroduodenitis (179681376) Gastritis without bleeding (K29.70) Active confirmed Problem Tobacco use (232615979) Tobacco use disorder (F17.200) Active confirmed Problem Duodenitis (99019918) Duodenitis (K29.80) Active confirmed Problem Essential hypertension (36732004) Accelerated hypertension (I10) Active confirmed Problem Chronic obstructive pulmonary disease (68141186) Advanced COPD (J44.9) Active confirmed Problem Stress (45084499) Stress (F43.9) Active confirm ed Problem Celiac artery compression syndrome (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) 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) Active confirmed Problem Stricture of artery (88311158) Subclavian artery stenosis, left (I77.1) Active confirmed Vital Signs Heart Rate 68 /min 10/27/2024 Temperature 97.9 degrees Fahrenheit 10/27/2024 Oximetry 93 09/13/2024 Blood pressure diastolic 68 mm Hg 10/27/2024 Height 6 ft in 10/27/2024 Blood pressure systolic 158 mm Hg 10/27/2024 Weight 170.4 lbs 10/27/2024 BMI 23.11 kg/m2 10/27/2024 Encounters Encounter Location Date Provider Diagnosis [facility] [address] [place] [address] 08/07/2024 Provider Migration Primary insomnia F51.01 and Chronic maxillary sinusitis J32.0 [facility] [address] [facility] [address] [place], [place] [address] 10/27/2024 Sung Drake [facility] [address] [place] [address] 11/13/2023 Shaina Escalante COPD exacerbation J4 4.1 and Chronic insomnia F51.04 [facility] [address] [place], [place] [address] 12/16/2023 Oly McNees New onset a-fib I48. 91 [facility] [address] [place], [place] [address] 01/13/2024 Oly McNees New onset atrial fibrillation I48.91 ; Primary insomnia F51.01 and COPD exacerbation J44.1 [facility] [address] [place] [address] 02/20/2024 Oly McNees Immunization(s) administered Z23 [facility] [address] [place] [address] 03/01/2024 Sung Drake Acute bronchitis due to other specified organisms J20.8 [facility] [address] [place], [place] [address] 03/24/2024 Sunglizzie Drake COPD with acute exacerbation J44.1 ; Chronic obstructive pulmonary disease, unspecified COPD type J44.9 ; Cervicalgia M54.2 and Routine medical exam Z00.00 [facility] [address] [place], [place] [address] 04/19/2024 Sunglizzie Drake Essential hypertensi on I10 ; Mixed hyperlipidemia E78.2 ; Left cervical radiculopathy M54.12 and Encounter for immunization Z23 [facility] [address] [place] [address] 05/26/2024 Sunglizzie Drake Essential hypertensi on I10 ; Cervical radiculopathy M54.12 and Prediabetes R73.03 [facility] [address] [facility] [address] [place], [place] [address] 06/24/2024 Shaina Escalante Fever in adult R50.9 ; Acute non-recurrent maxillary sinusitis J01.00 ; COPD exacerbation J44.1 and Nausea R11.0 [facility] [address] [facility] [address] [place], [place] [address] 07/19/2024 Shaina Escalante Acute non-recurrent maxillary sinusitis J01.00 ; Insect bite (nonvenomous) of abdominal wall, initial encounter S30.861A and Bitten or stung by nonvenomous insect and other nonvenomous arthropods, initial encounter W57.XXXA [facility] [address] [facility] [address] [place], [place] [address] 07/28/2024 Sung Drake Chronic maxillary sinusitis J32.0 and Acute non-recurrent maxillary sinusitis J01.00 [facility] [address] [facility] [address] [place], [place] [address] 08/25/2024 Sung Drake Chronic maxillary sinusitis J32.0 ; Left arm weakness R29.898 and Chronic cough R05.3 [facility] [address] [facility] [address] [place], [place] [address] 09/13/2024 Sung Drake Acute bronchopneumon ia J18.0 [facility] [address] [facility] [address] [place], [place] [address] 09/24/2024 Shaina Escalante Chronic pneumonia J1 8.9 and Chronic pansinusitis J32.4 [facility] [address] [place] [address] 10/07/2024 Sung Drake Chronic obstructive pulmonary disease, unspecified COPD type J44.9 and COPD exacerbation J44.1 [facility] [address] [facility] [address] [place] [address] 11/07/2023 Oly Luzmaria [facility] [address] [facility] [address] [place] [address] 11/17/2023 Shaina Escalante [facility] [address] [place] [address] 11/25/2023 Shaina Escalante [facility] [address] [place] [address] 12/09/2023 Oly McNees [facility] [address] [place] [address] 02/16/2024 Oly McNees Primary insomnia F51 .01 [facility] [address] [place] [address] 03/24/2024 Oly McNees Cervicalgia M54.2 [facility] [address] [place], [place] [address] 07/13/2024 Shaina Escalante Acute non-recurrent maxillary sinusitis J01.00 [facility] [address] [address] 07/19/2024 Shaina Escalante Assessments Encounter Date Diagnosis (ICD Code) Assessment Notes Treatment Notes Treatment Clinical Notes Section Notes 11/13/2023 COPD exacerbation (ICD-10 - J44.1) Discussed the etiology and expected course of COPD exacerbation. Discussed the rationale for antibiotics use and the importance of completeing the prescription as prescribed. Discussed supportive care. Discussed the signs and symptoms of worsening infection that may indicate need for reassement in clinic/ED. 11/13/2023 Chronic insomnia (ICD-10 - F51.04) likely multifactoral... stop tylenol PM. SO has trazodone 50mg at home, advised he could try this over the next few days and will let us know if effective/tolera alyssa. Additional treatment based on sleep study results when those are available 12/16/2023 New onset a-fib (ICD-10 - I48.91) [facility] records reviewed. Regular on exam today. Blood pressure at goal. Advised patient to schedule FU with cardiology to discuss LHC. Needs PPI for GI protection if he starts Eliquis given his history. Also advised to call office for CBC/BMP 1-2 weeks after starting Eliquis 01/13/2024 Primary insomnia (ICD-10 - F51.01) Increase trazodone as listed above. RTC if insomnia persists 01/13/2024 New onset atrial fibrillation (ICD-10 - I48.91) Tolerating meds well. [facility] recently with one stent. Took b/p meds 30 minutes ago. B/p normal at recent cards appointment. Rate well controlled. On Eliquis with no signs of excessive bleeding. Will check CBC to confirm stability. 02/16/2024 Primary insomnia (ICD-10 - F51.01) 02/20/2024 Immunization(s) administered (ICD-10 - Z23) 03/01/2024 Acute bronchitis due to other specified organisms (ICD-10 - J20.8) Antibiotics warranted, green mucus production and symptom duration of 10 days. Patient educated on Netipot use to clear out sinuses. 03/24/2024 COPD with acute exacerbation (ICD-10 - J44.1) Treat with doxycycline as noted. Discussed smoking cessation. 03/24/2024 Chronic obstructive pulmonary disease, unspecified COPD type (ICD-10 - J44.9) Patient with poor control of his COPD. Changed to triple inhaler with inhaled steroid. [employer] dispensed, sampled, and demonstrated to patient. He will follow-up in 3 to 4 weeks to see if this helped his wheezing and sputum production 03/24/2024 Cervicalgia (ICD-10 - M54.2) 04/19/2024 Mixed hyperlipidemia (ICD-10 - E78.2) Check lipid profile. I will review the labs personally 04/19/2024 Essential hypertension (ICD-10 - I10) Blood pressures not at goal, titrate up to losartan 100/HCTZ 25. Follow-up 2 months to recheck 05/26/2024 Essential hypertension (ICD-10 - I10) Chronic, improved control. Reports home readings consistently 130/70s. Not interested in changing medication doses at this time. Continue HCTZ-losartan 25-100mg. 05/26/2024 Cervical radiculopathy (ICD-10 - M54.12) MRI with disc protrusions at C5-6 & C6-7 and diffuse DDD (04/2024). Apt with neurosurgery next month. Continue PT in the meantime. 06/24/2024 Acute non-recurrent maxillary sinusitis (ICD-10 - J01.00) negative flu and COVID testing as noted and really should be outside of the window of getting these infections from his SO when she was sick greater than 2 weeks ago...given his tobacco use, purulent DC, wheezing, recommend starting antibiotic therapy as noted. encouraged to use albuterol routinely for 3 days and PRN. Return precautions reviewed. 06/24/2024 Fever in adult (ICD-10 - R50.9) 07/13/2024 Acute non-recurrent maxillary sinusitis (ICD-10 - J01.00) 07/19/2024 Insect bite (nonvenomous) of abdominal wall, initial encounter (ICD-10 - S30.861A) cool compresses and topical hydrocortisone as needed for comfort, doxycycline should cover possible tic-borne illness 08/07/2024 Primary insomnia (ICD-10 - F51.01) 08/07/2024 Chronic maxillary sinusitis (ICD-10 - J32.0) 08/25/2024 Chronic maxillary sinusitis (ICD-10 - J32.0) Has referral with ENT, setting up appointment [facility] 08/25/2024 Left arm weakness (ICD-10 - R29.898) 2 episodes of transient loss of function of left arm no sharp/shapr shooting pain, no numbness, tingling when arm waking up no chest pain, shortenss of breath, headache, lightheadedness, confusion cartoid arteries without bruit on exam, spurling's negative, adson's test negative, noraml ROM, strength, sensation CTA chest and LUE to evaluate for pancoast tumor 09/13/2024 Acute bronchopneumonia (ICD-10 - J18.0) CT scan that I did a couple of weeks ago because of arm numbness and tingling showed no evidence of upper lobe disease or tumor but did show chronic pneumonia in the left lower base. He has an appointment with his director emergency services in a couple of weeks and I have asked him to bring this up with him. In the meantime we will treat with doxycycline as noted above. Return precautions were emphasized 09/24/2024 Chronic pansinusitis (ICD-10 - J32.4) 09/24/2024 Chronic pneumonia (ICD-10 - J18.9) Rec Levaquin as noted, continue routine therapy for underlying allergies and COPD. Will need to FU with ENT/Pulm to discuss other options if still no improvement 10/07/2024 COPD exacerbation (ICD-10 - J44.1) Start Augmentin and Prednisone for COPD exacerbation. 10/07/2024 Chronic obstructive pulmonary disease, unspecified COPD type (ICD-10 - J44.9) Reviewed pulmonology note, recommended ICS-LABA if symptoms do not improve. Patient reports worsening symptoms even with use of albuterol inhaler, nebulizer, and Stiolto. Start Symbicort inhaler 07/19/2024 Acute non-recurrent maxillary sinusitis (ICD-10 - J01.00) 07/28/2024 Chronic maxillary sinusitis (ICD-10 - J32.0) -Considering patient has completed two courses of antibiotics and currently afebrile, will try prednisone as well as supportive care with nasal sprays -Patient has a history of recurrent sinusitis, ordered a CT maxillofacial scan 07/28/2024 Acute non-recurrent maxillary sinusitis (ICD-10 - J01.00) 08/25/2024 Chronic cough (ICD-10 - R05.3) 07/19/2024 Bitten or stung by nonvenomous insect and other nonvenomous arthropods, initial encounter (ICD-10 - W57.XXXA) 04/19/2024 Left cervical radiculopathy (ICD-10 - M54.12) Given failed physical therapy and significant radiculopathy signs and exam findings will need MRI. This will be scheduled 06/24/2024 COPD exacerbation (ICD-10 - J44.1) 05/26/2024 Prediabetes (ICD-10 - R73.03) Most recent A1c 6.1%. Repeat at f/u. Provided lifestyle modifications. 03/24/2024 Cervicalgia (ICD-10 - M54.2) Stay on methocarbamol. No change in muscle relaxer. No pain medications given his somewhat checkered history of substance issues.PT/OT evaluation made 01/13/2024 COPD exacerbation (ICD-10 - J44.1) Discussed the etiology and expected course of COPD exacerbation. Discussed the rationale for antibiotics use and the importance of completing the prescription as prescribed. Discussed supportive care. Discussed the signs and symptoms of worsening infection that may indicate need for reassessment in clinic/ED. 03/24/2024 Routine medical exam (ICD-10 - Z00.00) Up-to-date with vaccinations. Needs colonoscopy. This will be set up. Patient's missed appointments in the past. Up-to-date with low-dose CT scans. Has surrogate decision maker in place. No recent falls. Depression screening negative 06/24/2024 Nausea (ICD-10 - R11.0) 04/19/2024 Encounter for immunization (ICD-10 - Z23) Plan Of Treatment Pending Test Test Name Order Date Ultrasound : Carotids 12/13/2021 M-Vitamin B12 05/14/2022 M-Vitamin D 25 Hydroxy 05/14/2022 C-Reactive Protein (CRP) 07/02/2022 Physical Therapy Eval and Treat 03/24/20 24 Next Appt Details Provider Name:Sung Shay Fátimaharshad, 01/31/2025 02:00:00 PM, [address], [address], [place], [address], Insurance Providers Payer Name Payer Address Payer Phone Subscriber Number Group Number Insured Name Patient Relationship to Insured Coverage Start Date Coverage End Date [employer] [address] [place] [address] [id number] Karla Michaud Self - patient is the insured Medications Administered Medication Instructions Date of Administration Dosage Notes Dexamethasone 4mg Injection 11/13/2023 4 mg Dexamethasone 4mg Injection 01/13/2024 4 mg Medical (General) History Medical History History ICD Code Hyperlipidemia Vascular Disease Carpal tunnel COPD carotid disease s/p intervention Surgical History Surgery Date(Month/Year) bleeding ulcers vascular stents, abdomen and legs rt forearm surgery knee surgery Cardiac stent 01/2022 triple bypass surgery 08/2022 cardiac catheterization 12/2023 heart stent 12/2023 Hospitalization History Reason Date(Month/Year) [facility]- AFib 11/2023 [facility]-hypertension 10/2023 triple bypass surgery 08/2022 [facility]- Cardiac stent x1 bleeding ulcers
--- NOTE | 2024-10-27 14:52 | EXP.PAIN.SOA ---
[facility] Disclaimer: The information contained in this section may have been updated after the patient was seen, as this information can be updated by other users. Medical History Pneumonia COPD mixed type Angina pectoris Elevated troponin Fatigue Daytime somnolence Snoring Chronic cough Bronchitis Asthma Sinus headache History of gastroesophageal reflux (GERD) Allergies History of anemia Smoking greater than 30 pack years Pleural effusion, left Dyspnea on exertion Dyspnea Pleural effusion HFrEF (heart failure with reduced ejection fraction) RLS (restless legs syndrome) Stenosis of carotid artery CAD in [place] artery Coronary artery calcification seen on CAT scan Hyperlipidemia PAD (peripheral artery disease) Smoker Hypertension Surgical History History of surgery History of hernia surgery S/P CABG x 3 S/P CABG x 3 S/P insertion of iliac artery stent Family History Other Family history of cancer Family history of myocardial infarction Family history of stroke Social History Smoking Status: Current every day smoker tobacco type: cigarettes packs per day: 1 years smoked: 50 quit status: has quit before alcohol intake: never substance use type: denies use current occupational status: other Travel in the last 8 weeks?: None caffeine: No physical activity: walking special hoa needs: No agree to transfusion: Yes PM Subjective & Objective Subjective Subjective:: Patient is a pleasant 64-year-old male who presents today for follow-up. Today he does rate his pain 0 out of 10. He denies any new injuries or falls from our last appointment. Patient does state he still has some increased pain in his neck with certain positions such as looking downward or [id number]. Patient is currently managed with methocarbamol 1000 mg 3 times a day and compounded cream. Patient states he really did not notice much improvement with the cream. Patient is unsure if he needs refills on his muscle relaxer. He does state that those do seem to help. His Brayden has been reviewed and is appropriate. Review of Systems: General: No recent weight changes, no fever, no sleep disturbances Respiratory: No cough, no shortness of air, no recurring pulmonary infections Cardiovascular/peripheral vascular: No chest pain, no palpitations, no edema, no shortness of breath Gastrointestinal: No new onset incontinence, normal bowel movements reported Genitourinary: No new onset incontinence Musculoskeletal: Neck pain Psychiatric: [Normal mood/affect] Neurological: [Denies weakness in extremities], [denies balance issues] Pain at rest (0-10 scale): 0 Objective Objective:: Physical Exam: General: Alert and oriented x3, no acute distress, pleasant and cooperative Lungs: Respirations even and unlabored, symmetrical chest expansion Eyes: PERRL Musculoskeletal: Flexion and extension of cervical somewhat guarded secondary to pain, [antalgic gait noted] Neurological: Speech clear, no gross sensory deficit Has patient had previous pain injection?: No Conservative treatment options previously tried: Home exercise plan Length of treatment: Longer than 12 weeks Meds Home Medications and Allergies Home Medications ?Medication ?Instructions ?Recorded ?Confirmed ?Type gabapentin 300 mg capsule 300 mg PO HS 12/06/23 09/16/24 History ropinirole 1 mg tablet 1 mg PO AM 12/06/23 09/16/24 History rosuvastatin 10 mg tablet 10 mg PO HS 12/06/23 09/16/24 History apixaban 5 mg tablet (Eliquis) 5 mg PO BID #60 tabs 12/10/23 09/16/24 Rx clopidogrel 75 mg tablet (Plavix) 75 mg PO DAILY #90 tabs 12/29/23 09/16/24 Rx tiotropium 2.5 mcg-olodaterol 2.5 2 puff inhalation DAILY 90 days #4 03/18/24 09/16/24 Rx mcg/actuation mist for inhalation grams (Stiolto Respimat) icosapent ethyl 1 gram capsule 2 g (2 x 1 gram) PO BID 90 days 05/24/24 09/16/24 Rx (Vascepa) #360 caps tramadol 50 mg tablet 50 mg PO BID PRN pain #60 tabs 09/01/24 09/16/24 Rx omeprazole 40 mg capsule,delayed 40 mg PO DAILY 09/07/24 09/16/24 History release trazodone 100 mg tablet 100 mg PO HS 09/07/24 09/16/24 History hydrochlorothiazide 25 mg tablet 25 mg PO DAILY #30 tabs 09/13/24 09/16/24 Rx ipratropium 0.5 mg-albuterol 3 mg 3 ml inhalation QID PRN shortness 09/14/24 09/16/24 Rx (2.5 mg base)/3 mL nebulization of breath or wheezing 90 days #90 soln mL methocarbamol 500 mg tablet 1,000 mg (2 x 500 mg) PO TID PRN 09/16/24 Rx muscle pain #180 tabs albuterol sulfate 90 mcg/actuation 2 inh inhalation QID PRN shortness 09/30/24 Rx aerosol inhaler of breath or wheezing 90 days #8.5 grams bisoprolol fumarate 10 mg tablet 10 mg PO BID 30 days #60 tabs 10/06/24 Rx New Prescriptions to Start Prescriptions: Allergies Allergy/AdvReac Type Severity Reaction Status Date / Time lisinopril AdvReac Mild myalgia Verified 09/14/24 10:41 codeine AdvReac Hives Verified 09/14/24 10:41 cyclobenzaprine (From AdvReac Hives Verified 09/14/24 10:41 Flexeril) [id number] Reductase AdvReac Nausea Verified 09/14/24 10:41 Inhibitor Assessment and Plan *Assessment and plan (1) Degenerative disc disease, cervical: Status: Acute Category: Medical Code(s): M50.30 - Other cervical disc degeneration, unspecified cervical region (2) Cervical radiculopathy: Status: Acute Category: Medical Code(s): M54.12 - Radiculopathy, cervical region (3) Facet arthropathy, cervical: Status: Acute Category: Medical Code(s): M47.812 - Spondylosis without myelopathy or radiculopathy, cervical region Plan I will refill his methocarbamol and have the patient follow back up in 6 weeks. Patient agrees with this plan of care. Patient has been instructed to contact the clinic with any concerns before the next appointment. Dr. Ford has reviewed this note and agrees with this plan of care. This note was dictated using voice recognition software and make contain errors or omissions. All injections are used with Lidocaine, Bupivacaine and dexamethasone. Occasionally urine drug screen is needed to verify patient's compliance with our office pain contract. This is ordered based off specific treatments related to chronic pain with the potential to abuse certain medications.
[2024-10-27 14:54] VITALS: BP 150/75; PULSE 58; RESP 14; O2SAT 97; BMI 23.0
== END 2024-10-27 23:59 | disposition home or self-care (01) ==
PROVIDERS: PCP Internal Medicine Adolescent Medicine; Visit Provider Nurse Practitioner Family
DX: M50.10 Cervical disc disorder with radiculopathy, unspecified cervical region (principal); M47.812 Spondylosis without myelopathy or radiculopathy, cervical region; Z79.899 Other long term (current) drug therapy
CPT/HCPCS: 99212; G0463

== ENCOUNTER 2024-12-06 13:17 | Outpatient (POV) | payer MEDICARE, SELFPAY ==
--- OUTSIDE RECORDS SUMMARY | 2024-10-07 05:30 | XMS_ITS ---
Author Organization [facility] Address [address] [place] [address] Care Team Providers Care Binder And Box Builder Name Role Phone Silke Dutta Primary Care Provider [phone] SILKE Dutta APRN Unavailable Unavailable Sung Drake Unavailable [phone] Allergies Allergen (clinical drug ingredient) Drug/Non Drug Allergy documented on EMR Reaction Allergy Type Onset Date Status FLEXERIL (uncoded) hives Allergy A ctive Substance with 5-flhcisj-8-methylgluta ryl-coenzyme A reductase inhibitor mechanism of action [...] review and pick correct strength-formulat ion from [employer] options. If intended option is not shown, discontinue and re-order from Quick Search* Active Linzess 145 MCG Take 1 capsule by mouth once daily for 90 days; Duration: 90 Active Cyclobenzaprine HCl 5 MG 1 tab(s) orally twice a day PRN; Duration: 15 days 12/09/2023 Active Vital Signs Temperature 97.5 degrees Fahrenheit 10/08/19 25 Blood pressure systolic 148 mm Hg 10/08/19 25 Blood pressure diastolic 80 mm Hg 025 Heart Rate 72 /min 10/07/2024 Height 6 ft in 10/07/2024 Weight 166.6 lbs 10/07/2024 BMI 22.59 kg/m2 10/07/2024 Encounters Encounter Location Date Provider Diagnosis [address] [address] 10/07/2024 Sung Drake Chronic obstructive pulmonary disease, [...] 01/31/2025 02:00:00 PM, [address] [facility], [address], [place], [address], Progress Notes * Doni CHAUOB:1960 ( 64 yo M)Acc No.[id number]:10/07/2024 Progress Notes Patient: Princess MOLINAn Provider: Chaya Drake MD :1960 A ge:64 Y S ex:Male Date:10/07/2024 [facility] [place] [id number] Pcp:Silke Dutta Subjective: * Chief Complaints: * [...] 10/07/2024 Generated for Leno raines/Jonathan/Carli on: 0 12/06/2024 01:21 PM EDT History and Physical Notes * [...]
--- OUTSIDE RECORDS SUMMARY | 2024-10-27 08:30 | XMS_ITS ---
Author Organization [facility] Address [address] [place] [address] Care Team Providers Care Skull Splitter Name Role Phone Silke Dutta Primary Care Provider SILKE Dutta APRN Unavailable Unavailable Sung Drake Unavailable [phone] Allergies Allergen (clinical drug ingredient) Drug/Non Drug Allergy documented on EMR Reaction Allergy Type Onset Date Status FLEXERIL (uncoded) hives Allergy A ctive Substance with 6-ekervdz-1-methylgluta ryl-coenzyme A reductase inhibitor mechanism of action (substance) Statins Unknown Drug Allergy Active codeine Codeine itching Drug Allergy Active REASON FOR VISIT follow up Medications Medication SIG (Take, Route, Frequency, Duration) Notes Start Date End Date Status Omeprazole 40 MG 1 cap(s) orally once a day; Duration: 90 days Active Fexofenadine HCl 180 MG 1 tablet Swallow whole with water; do not take with fruit juices. Orally Once a day; Duration: 30 days 08/25/2024 Active Fluticasone Propionate 50 MCG/ACT 1 spray(s) in each nostril 2 times a day; Duration: 30 days 07/19/2024 Active Gabapentin 300 MG 1 cap(s) orally at bedtime; Duration: 90 days 06/12/2024 Active ALBUTEROL (EQV-PROAIR HFA) 90 MCG/INH 2 PUFF(S) INHALED EVERY 6 HOURS PRN; Duration: 90 DAYS *Please review for potential replacement for e-prescription and drug interaction check* 03/25/2023 Active Bisoprolol Fumarate 10 MG 1 tab(s) [...] review and pick correct strength-formulat ion from BitStash options. If intended option is not shown, discontinue and re-order from Quick Search* Active B-12 1000 MCG 1 tab(s) orally once a day Active Centrum Men - 1 tab(s) orally once a day Active hydroCHLOROthiazide 25 MG 1 tab(s) orall y once a day Active Vascepa 1 GM 2 cap(s) orally 2 times a day Active Vitamin C 500 MG 1 tab(s) orally once a day Active Symbicort 160-4.5 MCG/ACT 2 puffs Inhalation twice a day; Duration: 30 days 10/07/2024 Active Amoxicillin-Pot Clavulanate 875-125 MG as directed orally every 12 hours; Duration: 7 days 10/07/2024 Active predniSONE 20 MG 3 tabs orally once a day for two days, then 2 daily for 2 days, then one daily for two days; Duration: 6 day(s) 10/07/2024 Active rOPINIRole HCl 1 MG 1 tab in the morning and 2 tabs at night orally twice a day; Duration: 90 days Active Methocarbamol 1000 MG 1 tablet Orally Four times a day Active traZODone HCl 100 MG 1 tab orally once a day at bedtime; Duration: 30 days Active Social History Tobacco Use: Social History Observation Description Date Details (start date - stop date) Current Smoker NA - NA Smoking: Question Answer Notes Are you a: current smoker How often do you smoke cigarettes? every day How many cigarettes a day do you smoke? 11-20 How soon after you wake up d o you smoke your first cigarette? within 5 min Are you interested in quitting? Not ready to moncho t Additional Findings: Tobacco User Modera te cigarette smoker (10-19 cigs/day) Vital Signs Temperature 97.9 degrees Fahrenheit 10/28/19 25 Blood pressure systolic 158 mm Hg 10/28/19 25 Blood pressure diastolic 68 mm Hg 025 Heart Rate 68 /min 10/27/2024 Height 6 ft in 10/27/2024 Weight 170.4 lbs 10/27/2024 BMI 23.11 kg/m2 10/27/2024 Encounters Encounter Location Date Provider Diagnosis [facility] [address] [place] [address] 10/27/2024 Sung Drake Chronic obstructive pulmonary disease, unspecified COPD type J44.9 Assessments Encounter Date Diagnosis (ICD Code) Assessment Notes Treatment Notes Treatment Clinical Notes Section Notes 10/27/2024 Chronic obstructive pulmonary disease, unspecified COPD type (ICD-10 - J44.9) Improved. Bronchitis finally seems to be improved. He will continue to follow with pulmonary. We discussed smoking cessation once again. Plan Of Treatment Treatment Notes Assessment Notes Chronic obstructive pulmonar y disease, unspecified COPD type Improved. Bronchitis finally seems to be improved. He will continue to follow with pulmonary. We discussed smoking cessation once again. Next Appt Details Follow Up: prn, Reason: Provider Name:Sung Drake, 01/31/2025 02:00:00 PM, [address] [facility], [address], [place], [address], Progress Notes * Doni CHAUOB:1960 ( 64 yo M)Acc No.[id number]:10/27/2024 Progress Notes Patient: Karla MOLINA Provider: Chaya Drake MD :1960 A ge:64 Y S ex:Male Date:10/27/2024 Address:[facility] [id number] Pcp:Silke Dutta Subjective: * Chief Complaints: * 1 . Follow up. * HPI: g en: Overall patient feels much better. Thinks that his infection is finally gone. Has finished all of his antibiotics. * Medical History: H yperlipidemia, Vascular Disease, Carpal tunnel, COPD, Carotid disease s/p intervention. * Surgical History: b leeding ulcers , vascular stents, abdomen and legs , rt forearm surgery , knee surgery , Cardiac stent 01/2022, triple bypass surgery 08/2022, cardiac catheterization 12/2023, heart stent 12/2023. * Hospitalization/Major Diagno stic Procedure: b leeding ulcers , [facility]- Cardiac stent x1 , triple bypass surgery 08/2022, [facility]-hypertension 10/2023, [facility]- AFib 11/2023. * Family History: F ather: alive. M other: , diagnosed with Cancer. P aternal Grand Father: . P aternal Grand Mother: . M aternal Grand Father: . M aternal Grand Mother: . P aternal uncle: , 1 uncle . P aternal aunt: .?Maternal aunt: . S iblings: alive. C hildren: alive. 3 brother(s) , 3 sister(s) . 1 daughter(s) - healthy. . * Social History: S moking A re you a: c urrent smoker, H ow often do you smoke cigarettes? e very day, H ow many cigarettes a day do you smoke? 1 1-20, H ow soon after you wake up do you smoke your first cigarette? w ithin 5 min, A re you interested in quitting? N ot ready to quit, A dditional Findings: Tobacco User M oderate cigarette smoker (10-19 cigs/day). Recreational drug use: no. Exercise: yes. Home smoke detector use: yes. Caffeine: yes, frequency:occasional. Living Will: No. Alcohol: no. Sexually active: no. Travel outside [place]: no. Occupation: Retired. * Medications: T aking Methocarbamol 1000 MG [...] for e-prescription and drug interaction check*, Taking Bisoprolol Fumarate 10 MG Tablet 1 [...] *Please review and pick correct strength-formulation from BitStash options. If intended option is not shown, discontinue and re-order from Quick Search*, Taking Gabapentin 300 MG Capsule 1 cap(s) orally at bedtime , Taking Fluticasone Propionate 50 MCG/ACT Suspension 1 spray(s) in each nostril 2 times a day , Taking Fexofenadine HCl 180 MG Tablet 1 tablet Swallow whole with water; do not take with fruit juices. Orally Once a day , Taking Omeprazole 40 MG Capsule Delayed Release 1 cap(s) orally once a day , Taking traZODone HCl 100 MG Tablet 1 tab orally once a day at bedtime , Taking Symbicort 160-4.5 MCG/ACT Aerosol 2 puffs Inhalation twice a day , Taking Amoxicillin-Pot Clavulanate 875-125 MG Tablet as directed orally every 12 hours , Taking predniSONE 20 MG Tablet 3 tabs orally once a day for two days, then 2 daily for 2 days, then one daily for two days , Taking rOPINIRole HCl 1 MG Tablet 1 tab in the morning and 2 tabs at night orally twice a day , Discontinued Rosuvastatin Calcium 10 MG Tablet Take 1 tablet by mouth once daily , Medication List reviewed and reconciled with the patient * Allergies: S tatins, FLEXERIL: hives, Codeine: itching. Objective: * Vitals: N urse: KJ, Pain: 0, Temp: 97.9, RR: 18, HR: 68, BP: 158/68, Ht: 6 ft, Wt: 170.4, BMI:23.11. * Examination: G eneral Examination: A lert. Oriented. No edema, pulse normal. Blood pressure normal. Lungs much better, much better air entry. No wheezing. Assessment: * Assessment: 1. C hronic obstructive pulmonary disease, unspecified COPD type - J44.9 (Primary) ? Plan: * Treatment: * Follow Up: p neena * * Sign off status: Completed true * Provider: Chaya Drake MD Date: 0 10/27/2024 Generated for Leno raines/Jonathan/Darlingitting on: 0 12/06/2024 01:21 PM EDT History and Physical Notes * HPI (History of Present Illness) Category Sub-Category Detail Notes Category Not es gen Overall patient feels much better. Thinks that his infection is finally gone. Has finished all of his antibiotics. Examination Category Sub-Category Detail Notes Category Not es General Examination Alert. Oriented. No edema, pulse normal. Blood pressure normal. Lungs much better, much better air entry. No wheezing.
--- OUTSIDE RECORDS SUMMARY | 2024-12-06 13:21 | XMS_ITS | Patient Health Record ---
Author Organization [facility] Address [address] [address] Care Team Providers Care Senior Branch Manager Name Role Phone Lynne Bo Primary Care [...] MG 1 tablet Orall y Once a day; Duration: 30 day(s) Active Aspirin 81 81 MG 1 tablet Orally Once a day; Duration: 30 day(s) Active Centrum - as directed Orally A ctive Lyrica 300 MG 1 capsule Orally Twi ce per Day; Duration: 30 days C 08/24/2021 Active Sucralfate 1 GM/10ML 10 ml on an empty stomach Orally Twice a day; Duration: 30 day(s) Active Pravastatin Sodium 20 MG 1 tablet Orally Once a day; Duration: 30 day(s) Active Pantoprazole Sodium 40 MG 1 tablet Orall y Once a day; Duration: 30 day(s) Not-Taking Lyrica 150 MG 1 capsule Orally bid ; Duration: 30 days C 06/15/2020 Active DULoxetine HCl 30 MG 1 capsule Orally On ce a day; Duration: 30 day(s) Not-Taking rOPINIRole HCl 0.25 MG 1 tablet 1 to 3 h ours before bedtime Orally Once a day; Duration: 30 day(s) Not-Taking Iron 65 MG 1 tablet Orally Once a day; Duration: 30 day(s) Active Fish Oil 1000 MG 1 capsule Orally Onc e a day; Duration: 30 day(s) Active Valsartan 320 MG 1 tablet Orally Once a day; Duration: 30 day(s) Active B-Complex - as directed Orally Active Furosemide 40 MG 1 tablet Orally Once a day; Duration: 30 day(s) Active Ascorbic Acid ER 500 MG 1 capsule Orally Once a day; Duration: 30 day(s) Not-Taking Social History Tobacco Use: [...] Status Risk Notes Problem Carpal tunnel syndrome (20667574) --Carpal Tunnel Syndrome [U/B]- (G56.03) Active confirmed Refer to hand surgeon Problem Paresthesia (finding) (21349764) Paresthesia of skin (R20.2) Active confirmed Problem --Cervical Myelopathy- (M47.12) Active confirmed Plan Of Treatment Pending Test Test Name Order Date MRI : Brain without Contrast 06/15/2020 MRI : Cervical without Contrast 06/15/19 21 MRI : Lumbar without contrast 07/13/2020 EMG/NCV Bilateral UE 06/15/2020 EMG/NCV Bilateral LE 06/15/2020 Insurance Providers Payer Name Payer Address Payer Phone Subscriber Number Group Number Insured Name Patient Relationship to Insured Coverage Start Date Coverage End Date [employer] Master [address] [address] [place], [place] [id number] Karla Michaud Self - patient is the insured Medical (General) History Medical History History ICD Code HIGH BLOOD PRESSURE/CHOLESTEROL SEIZURES PERIPHERAL VASCULAR DISEASE LUNG DISEASE Surgical History Surgery Date(Month/Year)
--- OUTSIDE RECORDS SUMMARY | 2024-12-06 13:21 | XMS_ITS | Encounter Summary ---
Author Organization Healthcare Address [address] [place] [address] Care Team Providers Care Power Barker Name Role Phone Oly Vance GODWIN Primary Care Provider [phone] Kimo Craft MD Unavailable [phone] Encounter Details Date Type Department Care Team (Late st Contact Info) Description 09/02/2022 Lab Requisition [facility] [address] [place] [address] Gilbert Lugo MD [address] [facility] 7th [facility] [address] [place] [address] Encounter for general adult medical [...] drink first t demarcus in the morning (EYE-SALES ASSOCIATE CASHIER) to steady your nerves or to get [...] at day 2 09/04/2022 11:10 AM EDT [facility] Swab (Nares and Iliana Rectal) 09/02/2022 9:00 AM EDT 09/02/2022 10:10 AM EDT Gilbert No MD LAB MICROBIOLOGY - GENERAL ORDERABLES Final Result [facility] [address] [place] [address] documented in this encounter Visit Diagnoses Diagnosis Encounter for general adult medical examination without abnormal findings documented in this encounter Care Teams Power Barker Relationship Specialty Start Date End Date Vance, Oly S, RETAIL PROJECT MERCHANDISER [address] [place] [address] PCP - General 08/03/22 Kimo Craft MD [address] [place] [address] Referring Physician Cardiology 08/27/22 documented as of this encounter
--- OUTSIDE RECORDS SUMMARY | 2024-12-06 13:21 | XMS_ITS | Patient Health Record ---
Author Organization [facility] Address [address] [place] [address] Care Team Providers Care Fur Blowing Machine Operator Name Role Phone Soledad Bassett Unavailable [phone] Allergies Allergen (clinical drug ingredient) Drug/Non Drug Allergy documented on EMR Reaction Allergy Type Onset Date Status [place] itching Drug Allergy Active codeine Codeine rash [...] Problem Status W/U Status Risk Notes Problem Personal history of colon polyps (Z86.010) Active confirmed Problem Constipation (24626133) Constipation (K59.00) Active confirmed Plan Of Treatment Pending Test Test Name Order Date EGD with Biopsy if Indicated (15898) 04/2022 Colonoscopy Screening/Surveillance at [facility] ([id number], G0121, G0105) 09/13/2021 Insurance Providers Payer Name Payer Address Payer Phone Subscriber Number Group Number Insured Name Patient Relationship to Insured Coverage Start Date Coverage End Date [employer] KATHY PPO [id number] [address] [address] [place] [address] [id number] JaswantKarla mattson Self - patient is the insured 1 Medical (General) History Medical History History ICD Code Carotid stenosis I65.29 COPD (chronic obstructive pulmonary dise ase) J44.9 Constipation K59.01 GIB (gastrointestinal bleeding) K92.2 Surgical History Surgery Date(Month/Year) EGD 01/2019 EGD 04/2020
--- OUTSIDE RECORDS SUMMARY | 2024-12-06 13:22 | XMS_ITS | Clinical Summary ---
Author Organization [facility] Address [address] [id number] Care Team Providers Care Home Care Provider Name Role Phone Oly Vance APRN Primary Care Provider [phone] Social History Tobacco Use Types Packs/Day Years Used Date Smoking Tobacco: Never Assessed Abuse Screen Answer Date Recorded Unsafe at Home or Work/School Not on file Feels Threatened by Someone? Not on file Does Anyone Keep You from Co ntacting Others or Doint Things Outside the Home? Not on file 02/14/2023 Physical Sign of Abuse Present Not on file 1 Housing Stability Answer Date Recorded Current Living Arrangements Not on file 02/02 Potentially Unsafe Housing Conditions Not on dionicio e 02/14/2023 Family and Community Support Answer Lauri e Recorded Help with Day-to-Day Activities Not on file 02/14/2023 Lonely or Isolated Not on file 02/14/2023 Employment Answer Date Recorded Do you want help finding or keeping work or a kristin b? Not on file 02/14/2023 Disabilities Answer Date Recorded Concentrating, Remembering, or Making Decisions Difficulty Not on file 02/14/2023 Doing Errands Independently Difficulty Not on fi le 02/14/2023 Education Answer Date Recorded Help with school or training? Not on file Preferred Language Not on file 02/14/2023 Sex and Gender Information Value Date Recorded Sex Assigned at Not on file Legal Sex Male 11:50 AM EDT Gender Identity Not on file Sexual Orientation Not on file Plan of Treatment Health Maintenance Due Date Last Done Comments TDAP/TD VACCINES (1 - Tdap) 1978 COLOGUARD 2004 COLON CANCER SCREENING 5 YEAR SIGMOIDOSCOPY 2004 COLONOSCOPY [address]ER SCREENING [address] COLONOGRAPHY 2004 FECAL OCCULT BLOOD TEST 2004 FIT Testing (1 year) 2004 Pneumococcal Vaccine 50+ (1 of 1 - PCV) 2009 ZOSTER VACCINE (1 of 2) 2009 ANNUAL PHYSICAL 01/04/2022 HEPATITIS C SCREENING 01/04/2022 COVID-19 Vaccine ( - 2023-25 season) 2024 AAA SCREEN ONCE 2024 INFLUENZA VACCINE 02/02/2025 Insurance [facility] MEDICARE ADVANTAGE Care Teams Home Care Provider Relationship Specialty Start Date End Date Oly Vance APRN [address] [facility] [address] [place] [address] PCP - General Nurse Practitioner 01/03/22
--- OUTSIDE RECORDS SUMMARY | 2024-12-06 13:22 | XMS_ITS | Patient Health Record ---
Author Organization [facility] Address [address] [place] [address] Care Team Providers Care Ceo & Board Director Name Role Phone Lynne Bo Primary Care Provider UnavailKeysha Thomas Unavailable [phone] Gregory Hernandez M.D. Unaeleni lable Allergies Allergen [...] Status Risk Notes Problem Chronic pain syndrome (241745942) Chronic pain syndrome (G89.4) Active confirmed Problem Displacement of cervical intervertebral disc without myelopathy (74826851) Other cervical disc displacement at C4-C5 level (M50.221) Active confirmed Problem Displacement of cervical intervertebral disc without myelopathy (27243518) Other cervical disc displacement at C5-C6 level (M50.222) Active confirmed Problem Displacement of cervical intervertebral disc without myelopathy (15021493) Other cervical disc displacement at C6-C7 level (M50.223) Active confirmed Plan Of Treatment No Information Insurance Providers Payer Name Payer Address Payer Phone Subscriber Number Group Number Insured Name Patient Relationship to Insured Coverage Start Date Coverage End Date [employer] [address] [place] [address] [id number] Karla Michaud Self - patient is the insured 1 Medical (General) History Medical History History ICD Code Carpal Tunnel Surgical History Surgery Date(Month/Year) carotid artery 08/2016 Hospitalization History Reason Date(Month/Year) Bleeding Ulcers 02/2020
--- OUTSIDE RECORDS SUMMARY | 2024-12-06 13:22 | XMS_ITS | Encounter Summary ---
Author Organization Healthcare Address [address] [place] [address] Care Team Providers Care Alarm Operator Name Role Phone Oly Vance GODWIN Primary Care Provider Kimo Craft MD Unavailable [phone] Reason for Visit * Reason Comments Med Refill Encounter Details Date Type Department Care Team (Late st Contact Info) Description 08/24/2023 Refill [facility] [address], [address] [place] [address] Brijesh Fan PA [address] [place] [address] Social History Tobacco Use Types [...] drink first t demarcus in the morning (EYE-LINING STRAP CLOSER) to steady your nerves or to get [...] documented as of this encounter Care Teams Alarm Operator Relationship Specialty Start Date End Date Oly Vance APRN [facility] [place] [address] PCP - General 08/03/22 Kimo Craft MD [facility] [place] [address] Referring Physician Cardiology 08/27/22 documented as of this encounter
--- OUTSIDE RECORDS SUMMARY | 2024-12-06 13:22 | XMS_ITS | Patient Health Record ---
Author Organization [facility] Address [address] [place] [address] Care Team Providers Care Manager Garage Name Role Phone Oly Dutta Primary Care Provider OLY Dutta APRN Unavailable Unavailable Sung Drake Unavailable [phone] Shaina Escalante Unavailable [phone] Migration, Provider Unavailable Unavailable Allergies Allergen (clinical drug ingredient) Drug/Non Drug Allergy documented on EMR Reaction Allergy Type Onset Date Status FLEXERIL (uncoded) hives Allergy A ctive Substance with 0-cwtztzg-1-methylgluta ryl-coenzyme A reductase inhibitor mechanism of action (substance) Statins Unknown Drug Allergy Active codeine Codeine itching Drug Allergy Active Results Component Value Reference Range Notes CBC (INCLUDES DIFF/PLT) (639 9) Reviewed date:01/15/2024 08:33:59 AM Interpretation: Performing Lab:CHRISTIANO, [facility] [id number] [facility], [facility] ClinicUptuXG[address] Devon Magaña Notes/Report: NON-FASTING; NON-FASTING WHITE BLOOD CELL COUNT 8.3 3.8-10.8 Thousand/ uL RED BLOOD CELL COUNT 4.46 4.20-5.80 Million/uL HEMOGLOBIN 13.9 13.2-17.1 g/dL HEMATOCRIT 42.5 38.5-50.0 % MCV 95.3 80.0-100.0 fL MCH 31.2 27.0-33.0 pg MCHC 32.7 32.0-36.0 g/dL RDW 13.9 11.0-15.0 % PLATELET COUNT 302 140-400 Thousand/uL MPV 9.3 7.5-12.5 fL ABSOLUTE NEUTROPHILS [phone] cells/uL ABSOLUTE LYMPHOCYTES 9164 976-0795 cells/uL ABSOLUTE MONOCYTES 415 200-950 cells/uL ABSOLUTE EOSINOPHILS 415 15-500 cells/uL ABSOLUTE BASOPHILS 42 0-200 cells/uL NEUTROPHILS 66.3 LYMPHOCYTES 23.2 MONOCYTES 5.0 EOSINOPHILS 5.0 BASOPHILS 0.5 BASIC METABOLIC PANEL (98564 ) Reviewed date:01/15/2024 08:33:59 AM Interpretation: Performing Lab:CHRISTIANO anchor.[facility] Pura3576 [facility], [facility] HospitalGhnoEE[address] Devon Magaña Notes/Report: NON-FASTING; NON-FASTING GLUCOSE 126 [...] 28 20-32 mmol/L CALCIUM 9.6 8.6-10.3 mg/dL MRI : Cervical Spine Reviewed date:05/10/2024 01:14:11 PM Interpretation: Performing Lab: Notes/Report: CTA : Upper Extremity Reviewed date:09/14/2024 03:15:50 PM Interpretation: Performing Lab: Notes/Report: CTA : Chest Reviewed date:09/10/2024 04:06:59 PM Interpretation: Performing Lab: Notes/Report: LIPID PANEL, STANDARD (7600) Reviewed date:04/20/2024 03:38:14 PM Interpretation: Performing Lab:CHRISTIANO [facility] [address], [place] ClinicRhffUI[address] Devon Magaña Notes/Report: NON-FASTING; NON-FASTING; NON-FASTING CHOLESTEROL, [...] equation in the estimation of LDL-C. Mukul SS et al. VANCE. 2013;310(19): 3967-9993 (http://education.Pathful.Chartio/faq/FEG438) CHOL/HDLC RATIO 4.3 <5.0 (calc) NON HDL CHOLESTEROL 89 <130 mg/dL (calc) For patients with diabetes plus 1 major ASCVD risk factor, treating to a non-HDL-C goal of <100 mg/dL (LDL-C of <70 mg/dL) is considered a therapeutic option. COMPREHENSIVE METABOLIC NIKI Abbott (40186) Reviewed date:04/20/2024 03:38:14 PM Interpretation: Performing Lab:CB, [facility] Xuqt5661 [facility], [place] GuerreroLgbdMW[address] Devon Magaña Notes/Report: NON-FASTING; NON-FASTING; NON-FASTING GLUCOSE [...] date:04/20/2024 03:38:14 PM Interpretation: Performing Lab:CB, [facility] [address], [place] GuerreroYjgbHI[address] Devon Root Gómez Notes/Report: NON-FASTING; NON-FASTING; NON-FASTING HEMOGLOBIN A1c 6.1 [...] A1c for diagnosis of diabetes for children. Rapid Covid/Flu A-B Combo Reviewed date:06/24/2024 01:36:48 PM Interpretation: Performing Lab: Notes/Report: Rapid Covid neg Flu A neg Flu B neg CT Scan : Maxillofacial Reviewed date:08/12/2024 04:13:50 PM Interpretation: Performing Lab: Notes/Report: Reason For Referral Reason [facility] pt and ot for ne ck pain Diagnosis 1 Cervicalgia (M54.2) Referral Organization [facility] Referring Provider First Name Sung Referring Provider Last Name Vidal Referring Provider Speciality Internal edicine Referred Organization [facility] Referred Address [address],[address],[place] Referred Provider Specialty Physical Med icine and Rehabilitation General Notes Luz Cristobal 2023 04:07:02 PM >Orders sent to [facility] Rehab Referral Priority Routine Reason Overdue for colonosc opy screening set up with Dr. Rosario or liat Zayas Diagnosis 1 Routine medical exam (Z00.00) Referral Organization [facility] Referring Provider First Name Sung Referring Provider Last Name Vidal Referring Provider Speciality Internal M edicine Referred Organization [facility] Referred Address [address] [facility] [address] [place], [place],[address],[place] Referred Provider Specialty General Surg japser General Notes Luz Cristobal 2023 10:21:05 AM >Patient notified Referral Priority Routine Referral Appointment Date 05/25/2024 Reason MRI of C-spine at [facility] Diagnosis 1 Left cervical radicu lopathy (M54.12) Referral Organization [facility] Referring Provider First Name uSng Referring Provider Last Name Vidal Referring Provider Speciality Internal edicine Referred Organization [facility] Referred Address [address] [place] [address],[place] Referred Provider Specialty Diagnostic R adiology General Notes [id number] Authorized , Approval Valid Through: 04/20/2024 - 07/18/2024 Referral Priority Routine Referral Appointment Date 05/07/[address] sca n at [facility], no contrast Diagnosis 1 Chronic maxillary si nusitis (J32.0) Referral Organization [facility] Referring Provider First Name Sung Referring Provider Last Name Vidal Referring Provider Speciality Internal edicine Referred Organization [facility] Referred Address [address],[address],[place] Referred Provider Specialty Diagnostic R adiology General Notes Luz Cristobal 2024 10:54:54 AM >approved and sent to [facility] to schedule Referral Priority Routine Referral Appointment Date 08/10/2024 Reason ENT- obstruction of sinuses seen on CT scan Referral Organization [facility] Referring Provider First Name Sung Referring Provider Last Name Vidal Referring Provider Speciality Internal edicine Referred Organization [facility] Referred Address [address] [facility] [address] [place], [place],[address],[place] Referred Provider Specialty Otology, Lar yngology, Rhinology General Notes Luz Cristobal 2024 06:41:15 PM >sent to ENT Referral Priority Routine Reason Needs CTA of chest a nd upper extremities Diagnosis 1 Chronic cough (R05.3 ) Referral Organization [facility] Referring Provider First Name Sung Referring Provider Last Name Vidal Referring Provider Speciality Internal edicine Referred Organization [facility] Referred Address [address] [facility] [address] [facility] [place] Referred Provider Specialty Diagnostic R adiology General Notes Luz Cristobal 2024 04:42:24 PM >CTA Upper is approved, Luz Cristobal 08/25/2024 04:42:34 PM >CTA Chest is pending, Luz Cristobal 08/26/2024 12:09:27 PM >All CTA's approved- sending to [facility] to schedule Referral Priority Routine Medications [...] day at bedtime; Duration: 30 days Active Cyclobenzaprine HCl 5 MG 1 [...] review and pick correct strength-formulat ion from [employer] options. If intended option is not shown, [...] Vaccine Route Administration Date Status Comme nts Prevnar PCV-20 (Pneumococcal conjugate 20) IM Intramuscular 04/19/2024 Administered FLUZONE 6MO - OLDER IM Intramuscular 02/13/2023 Administer ed Flublok IM Intramuscular 01/24/2022 Administered Flublok IM Intramuscular 02/20/2024 Administered Social History Tobacco Use: Social History [...] W/U Status Risk Notes Problem Mixed hyperlipidemia (959970309) Mixed hyperlipidemia (E78.2) Active confirmed Problem Tobacco user (186104252) Nicotine dependence, unspecified, uncomplicated (F17.200) Active confirmed Problem Tobacco user (537129492) Nicotine dependence, cigarettes, uncomplicated (F17.210) Active confirmed Problem Primary insomnia (2869238) Primary insomnia (F51.01) Active confirmed Problem Stricture of artery (83693019) Stricture of artery (I77.1) Active confirmed Problem Chronic maxillary sinusitis (11768927) Chronic maxillary sinusitis (J32.0) Active confirmed Problem Chronic pansinusitis (45662127) Chronic pansinusitis (J32.4) Active confirmed Problem Chronic vascular insufficiency of intestine (098805234) Chronic vascular disorders of intestine (K55.1) Active confirmed Problem Cervicalgia (55845289) Cervicalgia (M54.2) Active confirmed Problem Long-term current use of antithrombotic (303088988469774) detention (current) use of antithrombotics/an tiplatelets (Z79.02) Active confirmed Problem Chronic obstructive pulmonary disease (77504899) Asthma exacerbation in COPD (J44.9) Active confirmed Problem Essential hypertension (20368797) Essential hypertension (I10) Active confirmed Problem Hypertensive disorder (32544713) Chronic hypertension (I10) Active confirmed Problem Acute exacerbation of chronic obstructive airways disease (102221369) COPD exacerbation (J44.1) Active confirmed Problem Restless legs (93301612) RLS (restless legs syndrome) (G25.81) Active confirmed Problem Gastritis (9756614) Gastritis (K29.70) Active c onfirmed Problem Hyperlipidemia (13561327) Hyperlipidemia, unspecified (E78.5) Active confirmed Problem 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, 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) Active confirmed Problem Atherosclerotic heart disease of [place] coronary artery without angina pectoris (223597751986758) Coronary artery disease involving [place] coronary artery of [place] heart without angina pectoris (I25.10) Active confirmed Problem COPD - Chronic obstructive pulmonary disease (40916684) Chronic obstructive pulmonary disease, unspecified COPD type (J44.9) Active confirmed Problem Claudication (02495411) Claudication (I73.9) Active confirmed Problem Chronic insomnia (690506463) Chronic insomnia (F51.04) Active confirmed Problem Peripheral vascular disease (270066507) PAD (peripheral artery disease) (I73.9) Active confirmed Problem Sciatica (47887630) Left sided sciatica (M54.32) Active confirmed Problem Acute non-ST segment elevation myocardial infarction (623516241) Acute myocardial infarction, subendocardial infarction (I21.4) Active confirmed Problem Atherosclerosis of both carotid arteries (697426239893015) Atherosclerosis of both carotid arteries (I65.23) Active confirmed Problem Atrial fibrillation (26831225) New onset atrial fibrillation (I48.91) Active confirmed Problem Cervical radiculopathy (25195456) Cervical radiculopathy (M54.12) Active confirmed Problem Duodenal ulcer with hemorrhage (06905365) Duodenal ulcer hemorrhage (K26.4) Active confirmed Problem Duodenal ulcer with hemorrhage (71220939) Duodenal ulcer with hemorrhage (K26.4) Active confirmed Problem Occlusion and stenosis of multiple and bilateral cerebral arteries (704231816) Bilateral carotid artery stenosis (I65.23) Active confirmed Problem Gastroduodenitis (816762194) Gastritis without bleeding (K29.70) Active confirmed Problem Tobacco use (691829494) Tobacco use disorder (F17.200) Active confirmed Problem Duodenitis (12143659) Duodenitis (K29.80) Active confirmed Problem Essential hypertension (35483529) Accelerated hypertension (I10) Active confirmed Problem Chronic obstructive pulmonary disease (07381650) Advanced COPD (J44.9) Active confirmed Problem Stress (77636572) Stress (F43.9) Active confirm ed Problem 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) Active confirmed Problem Stricture of artery (68458631) Subclavian artery stenosis, left (I77.1) Active confirmed Vital Signs Heart Rate 68 /min 10/27/2024 Temperature 97.9 degrees Fahrenheit 10/27/2024 Oximetry 93 09/13/2024 Blood pressure diastolic 68 mm Hg 10/27/2024 Height 6 ft in 10/27/2024 Blood pressure systolic 158 mm Hg 10/27/2024 Weight 170.4 lbs 10/27/2024 BMI 23.11 kg/m2 10/27/2024 Encounters Encounter Location Date Provider Diagnosis [facility] [address] [place] [address] 08/07/2024 Provider Migration Primary insomnia F51.01 and Chronic maxillary sinusitis J32.0 [facility] [address] [facility] [address] [place], [place] [address] 12/16/2023 Olykris Dutta New onset a-fib I48. 91 [facility] [address] [facility] [address] [place], [place] [address] 01/13/2024 Olykris Dutta New onset atrial fibrillation I48.91 ; Primary insomnia F51.01 and COPD exacerbation J44.1 [facility] [address] [facility] [address] [place] [address] 02/20/2024 Oly Dutta Immunization(s) administered Z23 [facility] [address] [facility] [address] [place], [place] [address] 03/01/2024 Sung Drake Acute bronchitis due to other specified organisms J20.8 [facility] [address] [facility] [address] [place], [place] [address] 03/24/2024 Sung Drake COPD with acute exacerbation J44.1 ; Chronic obstructive pulmonary disease, unspecified COPD type J44.9 ; Cervicalgia M54.2 and Routine medical exam Z00.00 [facility] [address] [facility] [address] [place], [place] [address] 04/19/2024 Sung Drake Essential hypertensi on I10 ; Mixed hyperlipidemia E78.2 ; Left cervical radiculopathy M54.12 and Encounter for immunization Z23 [facility] [address] [place] [address] 05/26/2024 Sung Drake Essential hypertensi on I10 ; Cervical radiculopathy M54.12 and Prediabetes R73.03 [facility] [address] [place] [address] 06/24/2024 Shainashasta Escalante Fever in adult R50.9 ; Acute non-recurrent maxillary sinusitis J01.00 ; COPD exacerbation J44.1 and Nausea R11.0 [facility] [address] [place] [address] 07/19/2024 Shaina Ava Acute non-recurrent maxillary sinusitis J01.00 ; Insect bite (nonvenomous) of abdominal wall, initial encounter S30.861A and Bitten or stung by nonvenomous insect and other nonvenomous arthropods, initial encounter W57.XXXA [facility] [address] [place] [address] 07/28/2024 Sung Drake Chronic maxillary sinusitis J32.0 and Acute non-recurrent maxillary sinusitis J01.00 [facility] [address] [place] [address] 08/25/2024 Sung Drake Chronic maxillary sinusitis J32.0 ; Left arm weakness R29.898 and Chronic cough R05.3 [facility] [address] [facility] [address] [place] [address] 09/13/2024 Sung Drake Acute bronchopneumon ia J18.0 [facility] [address] [facility] [address] [place] [address] 09/24/2024 Shaina Escalante Chronic pneumonia J1 8.9 and Chronic pansinusitis J32.4 [facility] [place] [address] [address] 10/07/2024 Sung Drake Chronic obstructive pulmonary disease, unspecified COPD type J44.9 and COPD exacerbation J44.1 [facility] [address] [facility] [address] [place] [address] 10/27/2024 Sung Drake Chronic obstructive pulmonary disease, unspecified COPD type J44.9 [facility] [address] [facility] [address] [place] [address] 12/09/2023 Oly McNees [facility] [address] [facility] [address] [place] [address] 02/16/2024 Oly McNees Primary insomnia F51 .01 [facility] [address] [facility] [address] [place] [address] 03/24/2024 Oly McNees Cervicalgia M54.2 [facility] [address] [place] [address] 07/13/2024 Shaina Escalante Acute non-recurrent maxillary sinusitis J01.00 [facility] [place] [address] [address] 07/19/2024 Shaina Escalante Assessments Encounter Date Diagnosis (ICD Code) Assessment Notes Treatment Notes Treatment Clinical Notes Section Notes 12/16/2023 New onset a-fib (ICD-10 - I48.91) [facility] records reviewed. Regular on exam today. [...] fibrillation (ICD-10 - I48.91) Tolerating meds well. [facility] recently with one stent. Took b/p meds [...] Changed to triple inhaler with inhaled steroid. Trelegy brand dispensed, sampled, and demonstrated to patient. He [...] comfort, doxycycline should cover possible tic-borne illness 07/19/2024 Acute non-recurrent maxillary sinusitis (ICD-10 - J01.00) 07/28/2024 Chronic maxillary sinusitis (ICD-10 - J32.0) -Considering patient has completed two courses of antibiotics and currently afebrile, will try prednisone as well as supportive care with nasal sprays -Patient has a history of recurrent sinusitis, ordered a CT maxillofacial scan 08/07/2024 Primary insomnia (ICD-10 - F51.01) 08/07/2024 Chronic maxillary sinusitis (ICD-10 - J32.0) 08/25/2024 Chronic maxillary sinusitis (ICD-10 - J32.0) Has referral with ENT, setting up appointment [facility] 08/25/2024 Left arm [...] base. 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 Start Symbicort inhaler 10/27/2024 Chronic obstructive pulmonary disease, unspecified COPD type (ICD-10 - J44.9) Improved. Bronchitis finally seems to be improved. He will continue to follow with pulmonary. We discussed smoking cessation once again. 08/25/2024 Chronic cough (ICD-10 - R05.3) 07/28/2024 Acute non-recurrent maxillary sinusitis (ICD-10 - J01.00) 04/19/2024 Left cervical radiculopathy (ICD-10 - M54.12) Given failed physical therapy and significant radiculopathy signs and exam findings will need MRI. This will be scheduled 06/24/2024 COPD exacerbation (ICD-10 - J44.1) 07/19/2024 Bitten or stung by nonvenomous insect and other nonvenomous arthropods, initial encounter (ICD-10 - W57.XXXA) 05/26/2024 Prediabetes (ICD-10 - R73.03) Most recent [...] [address], [place], [address], Insurance Providers Payer Name Payer Address Payer Phone Subscriber Number Group Number Insured Name Patient Relationship to Insured Coverage Start Date Coverage End Date [employer] [address] [place] [address] [id number] Karla Michaud Self - patient is the [...] heart stent 12/2023 Hospitalization History Reason Date(Month/Year) [facility]- AFib 11/2023 [facility]-hypertension 10/2023 triple bypass surgery 08/2022 [facility]- Cardiac stent x1 bleeding ulcers
--- OUTSIDE RECORDS SUMMARY | 2024-12-06 13:22 | XMS_ITS | Clinical Summary ---
Author Organization Healthcare Address [address] [id number] Care Team Providers Care Wireless Sales Consultant Name Role Phone Oly Vance GODWIN Primary Care Provider [phone] Kimo Craft MD Unavailable [phone] Allergies Active Allergy Reactions Criticality Noted Date [...] drink first t demarcus in the morning (EYE-POCKET MARKER) to steady your nerves or to get [...] Wellness (AWV) 1959 [facility]-Infant/Child/Adol SDOH Screenings 1960 QHZ-HEQMA-19 Vaccine (#1) 1964 [facility]- SDOH Screenings 1977 [facility]-Adult SDOH Screenings [...] - Risk 60-74 years 1-dose series) 2019 [facility]-Influenza Vaccine (#1) 2025 HPV Vaccines Aged Out No longer [...] patient's age to complete this topic Insurance [employer] MEDICARE Advance Directives * Full Code (Latest Code Status on File) Date Activated Date Inactivated Comments 08/31/2022 1:00 PM 09/06/2022 2:25 PM Question Answer Comments Patient has decision-making capacity? Yes * Full Code Date Activated Date Inactivated Comments 08/24/2022 4:41 PM 08/31/2022 1:00 PM Question Answer Comments Patient has decision-making capacity? Yes Care Teams Wireless Sales Consultant Relationship Specialty Start Date End Date Oly Vance APRN [address] [facility] [address] [place] [address] PCP - General 08/03/22 Kimo Craft MD [address] [facility] [address] [place] [address] Referring Physician Cardiology 08/27/22
--- NOTE | 2024-12-06 13:45 | EXP.PAIN.SOA ---
[facility] Disclaimer: The information contained in this section may have been updated after the patient was seen, as this information can be updated by other users. Medical History Pneumonia COPD mixed type Angina pectoris Elevated troponin Fatigue Daytime somnolence Snoring Chronic cough Bronchitis Asthma Sinus headache History of gastroesophageal reflux (GERD) Allergies History of anemia Smoking greater than 30 pack years Pleural effusion, left Dyspnea on exertion Dyspnea Pleural effusion HFrEF (heart failure with reduced ejection fraction) RLS (restless legs syndrome) Stenosis of carotid artery CAD in [place] artery Coronary artery calcification seen on CAT scan Hyperlipidemia PAD (peripheral artery disease) Smoker Hypertension Surgical History History of surgery History of hernia surgery S/P CABG x 3 S/P CABG x 3 S/P insertion of iliac artery stent Family History Other Family history of cancer Family history of myocardial infarction Family history of stroke Social History Smoking Status: Current every day smoker tobacco type: cigarettes packs per day: 1 pack-years: 50 years smoked: 50 quit status: has quit before alcohol intake: never substance use type: denies use current occupational status: other Travel in the last 8 weeks?: None caffeine: No physical activity: walking special hoa needs: No agree to transfusion: Yes PM Subjective & Objective Subjective Subjective:: Patient is a pleasant 64-year-old male who presents today for 6-week follow-up. He rates his pain today a 2 out of 10. He denies any new falls or injuries. He does state overall he is still doing well. He states that he will occasionally have a flareup of his neck pain when trying to do things like the dishes but that if he stops and takes a break it does ease down where it is still manageable. Patient is currently managed with methocarbamol 1000 mg 3 times a day and compounded cream. He denies any side effects. His Brayden has been reviewed and is appropriate. Patient did previously have his last left-sided cervical medial branch block in August that did provide significant relief. Review of Systems: General: No recent weight changes, no fever, no sleep disturbances Respiratory: No cough, no shortness of air, no recurring pulmonary infections Cardiovascular/peripheral vascular: No chest pain, no palpitations, no edema, no shortness of breath Gastrointestinal: No new onset incontinence, normal bowel movements reported Genitourinary: No new onset incontinence Musculoskeletal: Neck pain Psychiatric: [Normal mood/affect] Neurological: [Denies weakness in extremities], [denies balance issues] Pain at rest (0-10 scale): 2 Objective Objective:: Physical Exam: General: Alert and oriented x3, no acute distress, pleasant and cooperative Lungs: Respirations even and unlabored, symmetrical chest expansion Eyes: PERRL Musculoskeletal: Flexion and extension of cervical [spine] somewhat guarded secondary to pain, [antalgic gait noted] positive Kemps test Neurological: Speech clear, no gross sensory deficit Has patient had previous pain injection?: No Conservative treatment options previously tried: Home exercise plan Length of treatment: Longer than 12 weeks Meds Home Medications and Allergies Home Medications ?Medication ?Instructions ?Recorded ?Confirmed ?Type gabapentin 300 mg capsule 300 mg PO HS 12/06/23 10/27/24 History ropinirole 1 mg tablet 1 mg PO AM 12/06/23 10/27/24 History rosuvastatin 10 mg tablet 10 mg PO HS 12/06/23 10/27/24 History apixaban 5 mg tablet (Eliquis) 5 mg PO BID #60 tabs 12/10/23 10/27/24 Rx clopidogrel 75 mg tablet (Plavix) 75 mg PO DAILY #90 tabs 12/29/23 10/27/24 Rx tiotropium 2.5 mcg-olodaterol 2.5 2 puff inhalation DAILY 90 days #4 03/18/24 10/27/24 Rx mcg/actuation mist for inhalation grams (Stiolto Respimat) icosapent ethyl 1 gram capsule 2 g (2 x 1 gram) PO BID 90 days 05/24/24 10/27/24 Rx (Vascepa) #360 caps tramadol 50 mg tablet 50 mg PO BID PRN pain #60 tabs 09/01/24 10/27/24 Rx omeprazole 40 mg capsule,delayed 40 mg PO DAILY 09/07/24 10/27/24 History release trazodone 100 mg tablet 100 mg PO HS 09/07/24 10/27/24 History hydrochlorothiazide 25 mg tablet 25 mg PO DAILY #30 tabs 09/13/24 10/27/24 Rx ipratropium 0.5 mg-albuterol 3 mg 3 ml inhalation QID PRN shortness 09/14/24 10/27/24 Rx (2.5 mg base)/3 mL nebulization of breath or wheezing 90 days #90 soln mL bisoprolol fumarate 10 mg tablet 10 mg PO BID 30 days #60 tabs 10/06/24 10/27/24 Rx methocarbamol 500 mg tablet 1,000 mg (2 x 500 mg) PO TID PRN 10/27/24 Rx muscle pain #180 tabs albuterol sulfate 90 mcg/actuation 2 inh inhalation QID PRN shortness 12/06/24 Rx aerosol inhaler of breath or wheezing 90 days #8.5 grams New Prescriptions to Start Prescriptions: Allergies Allergy/AdvReac Type Severity Reaction Status Date / Time lisinopril AdvReac Mild myalgia Verified 09/14/24 10:41 codeine AdvReac Hives Verified 09/14/24 10:41 cyclobenzaprine (From AdvReac Hives Verified 09/14/24 10:41 Flexeril) [id number] Reductase AdvReac Nausea Verified 09/14/24 10:41 Inhibitor Assessment and Plan *Assessment and plan (1) Facet arthropathy, cervical: Status: Acute Category: Medical Code(s): M47.812 - Spondylosis without myelopathy or radiculopathy, cervical region (2) Degenerative disc disease, cervical: Status: Acute Category: Medical Code(s): M50.30 - Other cervical disc degeneration, unspecified cervical region Plan I will refill his methocarbamol and provide a 3-month supply of this medication. Patient will return to clinic in 3 months for reevaluation of symptoms and plan of care. Patient has been instructed to contact the clinic with any concerns before the next appointment. Dr. Ford has reviewed this note and agrees with this plan of care. This note was dictated using voice recognition software and make contain errors or omissions. All injections are used with Lidocaine, Bupivacaine and dexamethasone. Occasionally urine drug screen is needed to verify patient's compliance with our office pain contract. This is ordered based off specific treatments related to chronic pain with the potential to abuse certain medications.
[2024-12-06 14:05] VITALS: BP 139/47; PULSE 60; RESP 18; O2SAT 99; BMI 23.0
== END 2024-12-06 23:59 | disposition home or self-care (01) ==
PROVIDERS: PCP Internal Medicine Adolescent Medicine; Visit Provider Nurse Practitioner Family
DX: M47.812 Spondylosis without myelopathy or radiculopathy, cervical region (principal); M50.30 Other cervical disc degeneration, unspecified cervical region; Z79.899 Other long term (current) drug therapy
CPT/HCPCS: 99212; G0463

== ENCOUNTER 2025-02-15 14:17 | Outpatient (CLI) | payer MEDICARE, SELFPAY ==
--- OUTSIDE RECORDS SUMMARY | 2025-02-15 14:21 | XMS_ITS | Clinical Summary ---
Author Organization [facility] Address [address] [id number] Care Team Providers Care School Crossing Guard Name Role Phone Oly Vance APRN Primary Care Provider [phone] Social History Tobacco Use Types Packs/Day Years [...] ANNUAL PHYSICAL 01/04/2022 HEPATITIS C SCREENING 01/04/2022 AAA SCREEN ONCE 2024 INFLUENZA VACCINE 12/03/2024 COVID-19 Vaccine (2023- season) 2025 Insurance [facility] MEDICARE ADVANTAGE Care Teams School Crossing Guard Relationship Specialty Start Date End Date Oly Vance APRN [address] [facility] [address] [place] [address] PCP - General Nurse Practitioner 01/03/22
--- OUTSIDE RECORDS SUMMARY | 2025-02-15 14:21 | XMS_ITS | Encounter Summary ---
Author Organization Healthcare Address [address] [place] [address] Care Team Providers Care Card Maker Name Role Phone Oly Vance GODWIN Primary Care Provider [phone] Kimo Craft MD Unavailable [phone] Encounter Details Date Type Department Care Team (Late st Contact Info) Description 09/02/2022 Lab Requisition [facility] [address] [place] [address] Gilbert Lugo MD [address] [facility] 7th [facility] [address] [place] [address] Encounter for general adult medical [...] drink first t demarcus in the morning (EYE-GYPSUM CALCINER) to steady your nerves or to get [...] at day 2 09/04/2022 11:10 AM EDT [facility] Swab (Nares and Iliana Rectal) 09/02/2022 9:00 AM EDT 09/02/2022 10:10 AM EDT Gilbert No MD LAB MICROBIOLOGY - GENERAL ORDERABLES Final Result [facility] [address] [place] [address] documented in this encounter Visit Diagnoses Diagnosis Encounter for general adult medical examination without abnormal findings documented in this encounter Care Teams Card Maker Relationship Specialty Start Date End Date Vance, Oly S, WARDROBE COORDINATOR [address] [place] [address] PCP - General 08/03/22 Kimo Craft MD [address] [place] [address] Referring Physician Cardiology 08/27/22 documented as of this encounter
--- OUTSIDE RECORDS SUMMARY | 2025-02-15 14:21 | XMS_ITS | Clinical Summary ---
Author Organization Healthcare Address [address] [id number] Care Team Providers Care Branch Director Name Role Phone Oly Vance GODWIN Primary Care Provider [phone] Kimo Craft MD Unavailable [phone] Allergies Active Allergy Reactions Criticality Noted Date [...] drink first t demarcus in the morning (EYE-CUPOLA OPERATOR INSULATION) to steady your nerves or to get [...] Screening 1960 [facility]-Medicare Annual Wellness (AWV) 1960 [facility]-/Child/Adol SDOH Screenings 1960 [id number] Vaccine (#1) 1964 [facility]- SDOH Screenings 1977 [...] Patient has decision-making capacity? Yes Care Teams Branch Director Relationship Specialty Start Date End Date Oly Vance APRN [address] [facility] [address] [place] [address] PCP - General 08/03/22 Kimo Craft MD [address] [facility] [address] [place] [address] Referring Physician Cardiology 08/27/22
--- OUTSIDE RECORDS SUMMARY | 2025-02-15 14:21 | XMS_ITS | Encounter Summary ---
Author Organization Healthcare Address [address] [place] [address] Care Team Providers Care Sap Project Manager Name Role Phone Oly Vance GODWIN Primary Care Provider [phone] Kimo Craft MD Unavailable [phone] Reason for Visit * Reason Comments Med Refill Encounter Details Date Type Department Care Team (Late st Contact Info) Description 08/24/2023 Refill [facility] [address], [address] [place] [address] Brijesh Fan PA [address] [place] [address] Social History Tobacco Use Types [...] drink first t demarcus in the morning (EYE-AEROPLANE PILOT) to steady your nerves or to get [...] documented as of this encounter Care Teams Sap Project Manager Relationship Specialty Start Date End Date Oly Vance APRN [facility] [place] [address] PCP - General 08/03/22 Kimo Craft MD [facility] [place] [address] Referring Physician Cardiology 08/27/22 documented as of this encounter
[2025-02-15 14:47] LABS: Blood Urea Nitrogen 20 mg/dl (9-20); Creatinine,Serum 1.40 mg/dl (0.66-1.25); Estimated Glomerular Filt Rate 51 ml/min (>60); GFR (African American) 62 ML/MIN (>60)
== END 2025-02-15 23:59 | disposition home or self-care (01) ==
LOC: RAD 14:18
PROVIDERS: PCP Nurse Practitioner Family; Visit Provider Nurse Practitioner Family
DX: R31.29 Other microscopic hematuria (principal)
CPT/HCPCS: 36415; 82565; 84520

== ENCOUNTER 2025-02-23 08:11 | Outpatient (CLI) | payer MEDICARE, SELFPAY ==
--- OUTSIDE RECORDS SUMMARY | 2024-08-07 17:30 | XMS_ITS ---
Author Organization [facility] Address [address] [place] [address] Care Team Providers Care Inorganic Chemistry Professor Name Role Phone Silke Dutta Primary Care Provider [phone] SILKE Dutta APRN Unavailable Unavailable Migration, Provider Unavailable Unavailable Allergies Allergen (clinical drug ingredient) Drug/Non Drug Allergy documented on EMR Reaction Allergy Type Onset Date Status FLEXERIL (uncoded) hives Allergy A ctive Substance with 9-oxqlram-3-methylgluta ryl-coenzyme A reductase inhibitor mechanism of action (substance) Statins Unknown Drug Allergy Active codeine Codeine itching Drug Allergy Active REASON [facility] VISIT [facility] Conversion Encounter Medications Medication SIG (Take, Route, Frequency, Duration) Notes Start Date End Date Status Omeprazole 40 MG 1 cap(s) orally once a day; Duration: 90 days Active Ondansetron HCl 4 MG 1 tab(s) orally every 8 hours as needed for nausea; Duration: 4 days 06/24/2024 Active Stiolto Respimat 2.5 MCG-2.5 MCG/INH INHALE 2 PUFFS BY MOUTH ONCE DAILY; Duration: 90 *Please review and pick correct [facility]at [facility]. If intended option is not shown, discontinue and re-order from Quick Search* Active Gabapentin 300 MG 1 cap(s) orally at bedtime; Duration: 90 days 06/12/2024 Active Promethazine-DM 6.25-15 MG/5ML 5 mL orally every 6 hours as needed for cough; Duration: 7 days 06/24/2024 Active rOPINIRole HCl 1 MG 1 tab in the morning and 2 tabs at night orally twice a day; Duration: 90 days Active Cyclobenzaprine HCl 5 MG 1 tab(s) orally twice a day PRN; Duration: 15 days 12/09/2023 Active Linzess 145 MCG Take 1 capsule by mouth once daily for 90 days; Duration: 90 Active Bisoprolol Fumarate 10 MG 1 tab(s) orall y twice a day; Duration: 90 days Active Rosuvastatin Calcium 10 MG 1 tab(s) orally once a day; Duration: 90 days Active Vitamin C 500 MG 1 tab(s) orally once a day Active B-12 1000 MCG 1 tab(s) orally once a day Active Vascepa 1 GM 2 cap(s) orally 2 times a day Active Centrum Men - 1 tab(s) orally once a day Active ALBUTEROL (EQV-PROAIR HFA) 90 MCG/INH 2 PUFF(S) INHALED EVERY 6 HOURS PRN; Duration: 90 DAYS *Please review for potential replacement for e-prescription and drug interaction check* 03/25/2023 Active predniSONE 20 MG 3 tabs orally once a day for two days, then 2 daily for 2 days, then one daily for two days; Duration: 6 day(s) 07/28/2024 Active hydroCHLOROthiazide 25 MG 1 tab(s) orall y once a day Active traZODone HCl 100 MG 1 tab orally once a day at bedtime; Duration: 30 days Active Azelastine HCl 0.15 % 1 spray(s) in each nostril 2 times a day; Duration: 30 days 07/28/2024 Active Fluticasone Propionate 50 MCG/ACT 1 spray(s) in each nostril 2 times a day; Duration: 30 days 07/19/2024 Active Encounters Encounter Location Date Provider Diagnosis [facility] JAIME [address] [facility] [address] [place], [place] [address] 08/07/2024 Provider Migration Primary insomnia F51.01 and Chronic maxillary sinusitis J32.0 Assessments Encounter Date Diagnosis (ICD Code) Assessment Notes Treatment Notes Treatment Clinical Notes Section Notes 08/07/2024 Primary insomnia (ICD-10 - F51.01) 08/07/2024 Chronic maxillary sinusitis (ICD-10 - J32.0) Plan Of Treatment Medication Medication Name Sig Start Date Stop Date Notes predniSONE 20 MG 3 tabs orally once a day for two days, then 2 daily for 2 days, then one daily for two days; Duration: 6 day(s) 07/28/2024 traZODone HCl 100 MG 1 tab orally once a day at bedtime; Duration: 30 days Azelastine HCl 0.15 % 1 spray(s) in each nostril 2 times a day; Duration: 30 days 07/28/2024 Fluticasone Propionate 50 MCG/ACT 1 spray(s) in each nostril 2 times a day; Duration: 30 days 07/19/2024 Next Appt Details Provider Name:Sung Drake, 05/02/2025 02:15:00 PM, [address] [facility], [place], [address], Progress Notes * Doni CHAUOB:1960 ( 64 yo M)Acc No.[id number]:08/07/2024 Patient: Karla MOLINA Provider: Dmitry sprague Migration :1960 A ge:64 Y S ex:Male Date:08/07/2024 Address:[address] [place] [address] [facility] Pcp:Silke Dutta Subjective: * Chief Complaints: * 1 . [facility] Conversion Encounter. * Medical History: * Medications: T aking hydroCHLOROthiazide 25 MG Tablet 1 tab(s) orally once a day , Taking Vascepa 1 GM Capsule 2 cap(s) orally 2 times a day , Taking Vitamin C 500 MG Tablet 1 tab(s) orally once a day , Taking B-12 1000 MCG Tablet 1 tab(s) orally once a day , Taking Centrum Men - Tablet 1 tab(s) orally once a day , Taking ALBUTEROL (EQV-PROAIR HFA) 90 MCG/INH AEROSOL 2 PUFF(S) INHALED EVERY 6 HOURS PRN , Notes to Pharmacist: *Please review for potential replacement for e-prescription and drug interaction check*, Taking rOPINIRole HCl 1 MG Tablet 1 tab in the morning and 2 tabs at night orally twice a day , Taking Bisoprolol Fumarate 10 MG Tablet 1 tab(s) orally twice a day , Taking Rosuvastatin Calcium 10 MG Tablet 1 tab(s) orally once a day , Taking Cyclobenzaprine HCl 5 MG Tablet 1 tab(s) orally twice a day PRN , Taking Linzess 145 MCG Capsule Take 1 capsule by mouth once daily for 90 days , Taking Stiolto Respimat 2.5 MCG-2.5 MCG/INH AEROSOL INHALE 2 PUFFS BY MOUTH ONCE DAILY , Notes to Pharmacist: *Please review and pick correct [facility]ulation from [facility] options. If intended option is not shown, discontinue and re-order from Quick Search*, Taking Gabapentin 300 MG Capsule 1 cap(s) orally at bedtime , Taking Omeprazole 40 MG Capsule Delayed Release 1 cap(s) orally once a day , Taking Ondansetron HCl 4 MG Tablet 1 tab(s) orally every 8 hours as needed for nausea , Taking Promethazine- DM 6.25-15 MG/5ML Syrup 5 mL orally every 6 hours as needed for cough * Allergies: S tatins, FLEXERIL: hives, Codeine: itching. Objective: * Vitals: Assessment: * Assessment: 1. C hronic maxillary sinusitis - J32.0 (Primary) 2 . P rimary insomnia - F51.01 Plan: * Treatment: 2. P rimary insomnia Start traZODone HCl Tablet, 100 MG, 1 tab, orally, once a day at bedtime, 30 days, 30, Refills 1.? * * Electronic signature of Prov ider Migration on 02/23/2025 at 08:17 AM EDT Sign off status: Pending * Provider: Dmitry sprague Migration Date: 0 08/07/2024 Generated for Leno raines/Jonathan/Carli on: 1 08:17 AM EDT
--- OUTSIDE RECORDS SUMMARY | 2025-01-31 10:00 | XMS_ITS ---
Author Organization [facility] Address [address] [place] [address] Care Team Providers Care Addiction Psychiatrist Name Role Phone Oly Dutta Primary Care Provider OLY Dutta APRN Unavailable Unavailable Sung Drake Unavailable [phone] Allergies Allergen (clinical drug ingredient) Drug/Non Drug Allergy documented on EMR Reaction Allergy Type Onset Date Status FLEXERIL (uncoded) hives Allergy A ctive Substance with 0-csvlytq-4-methylgluta ryl-coenzyme A reductase inhibitor mechanism of action (substance) Statins Unknown Drug Allergy Active codeine Codeine itching Drug Allergy Active Results Component Value Reference Range Notes THYROID PANEL WITH TSH (7444 ) Reviewed date:02/02/2025 09:06:22 AM Interpretation: Performing Lab:CHRISTIANO [id number], aVinci [id number] [place] Magaña Notes/Report: NON-FASTING; NON-FASTING; NON-FASTING; NON-FASTING; NON-FAST T3 UPTAKE 34 22-35 % T4 (THYROXINE), TOTAL 6.0 4.9-10.5 mcg/dL FREE T4 INDEX (T7) 2.0 1.4-3.8 TSH 2.65 0.40-4.50 mIU/L LIPID PANEL, STANDARD (7600) Reviewed date:02/02/2025 09:06:22 AM Interpretation: Performing Lab:CHRISTIANO [facility], aVinci [id number] [place] Mag[place] Notes/Report: NON-FASTING; NON-FASTING; NON-FASTING; NON-FASTING; NON-FAST CHOLESTEROL, TOTAL 233 <200 mg/dL HDL CHOLESTEROL 23 > OR = 40 mg/dL TRIGLYCERIDES 451 <150 mg/dL If a non-fasting specimen was collected, consider repeat triglyceride testing on a fasting specimen if clinically indicated. Swetha et al. J. of Clin. Lipidol. 2015;9:129-169. LDL-CHOLESTEROL LDL cholesterol not calculated. Triglyceride levels greater than 400 mg/dL invalidate calculated LDL results. Reference range: <100 Desirable range <100 mg/dL for primary prevention; <70 mg/dL for patients with CHD or diabetic patients with > or = 2 CHD risk factors. LDL-C is now calculated using the Mukul-Gerber calculation, which is a validated novel method providing better accuracy than the Friedewald equation in the estimation of LDL-C. Mukul GARCÍA et al. VANCE. 2013;310(19): 7937-7831 (http://education.kenxus.DesignMedix/faq/AOU640) CHOL/HDLC RATIO 10.1 <5.0 (calc) NON HDL CHOLESTEROL 210 <130 mg/dL (calc) For patients with diabetes plus 1 major ASCVD risk factor, treating to a non-HDL-C goal of <100 mg/dL (LDL-C of <70 mg/dL) is considered a therapeutic option. COMPREHENSIVE METABOLIC NIKI Abbott (60807) Reviewed date:02/02/2025 09:06:22 AM Interpretation: Performing Lab:CB, [facility] [id number] [facility], [place] GuerreroFhinHB[address] [place] Magaña Notes/Report: NON-FASTING; NON-FASTING; NON-FASTING; NON-FASTING; NON-FAST GLUCOSE 82 65-99 mg/dL Fasting reference interval UREA NITROGEN (BUN) 14 7-25 mg/dL CREATININE 1.33 0.70-1.35 mg/dL EGFR 59 > OR = 60 mL/min/1.73m2 BUN/CREATININE RATIO SEE NOTE: 6-22 (calc) Not Reported: BUN and Creatinine are within reference range. SODIUM 132 135-146 mmol/L POTASSIUM 3.6 3.5-5.3 mmol/L CHLORIDE 98 98-110 mmol/L CARBON DIOXIDE 27 20-32 mmol/L CALCIUM 9.8 8.6-10.3 mg/dL PROTEIN, TOTAL 7.8 6.1-8.1 g/dL ALBUMIN 4.3 3.6-5.1 g/dL GLOBULIN 3.5 1.9-3.7 g/dL (calc) ALBUMIN/GLOBULIN RATIO 1.2 1.0-2.5 (calc) BILIRUBIN, TOTAL 0.5 0.2-1.2 mg/dL ALKALINE PHOSPHATASE 107 35-144 U/L AST 20 10-35 U/L ALT 12 9-46 U/L MAGNESIUM (622) Reviewed date:02/02/2025 09:06:22 AM Interpretation: Performing Lab:CHRISTIANO, [address], [id number] [place] Mag[place] Notes/Report: NON-FASTING; NON-FASTING; NON-FASTING; NON-FASTING; NON-FAST MAGNESIUM 2.0 1.5-2.5 mg/dL CBC (INCLUDES DIFF/PLT) (639 9) Reviewed date:02/02/2025 09:06:22 AM Interpretation: Performing Lab:CHRISTIANO [id number], aVinci MediaYcrrQR[address] [place] Mag[place] Notes/Report: NON-FASTING; NON-FASTING; NON-FASTING; NON-FASTING; NON-FAST WHITE BLOOD CELL COUNT 7.7 3.8-10.8 Thousand/ uL RED BLOOD CELL COUNT 5.29 4.20-5.80 Million/uL HEMOGLOBIN 16.1 13.2-17.1 g/dL HEMATOCRIT 48.3 38.5-50.0 % MCV 91.3 80.0-100.0 fL MCH 30.4 27.0-33.0 pg MCHC 33.3 32.0-36.0 g/dL For adults, a slight decrease in the calculated MCHC value (in the range of 30 to 32 g/dL) is most likely not clinically significant; however, it should be interpreted with caution in correlation with other red cell parameters and the patient's clinical condition. RDW 13.8 11.0-15.0 % PLATELET COUNT 258 140-400 Thousand/uL MPV 9.7 7.5-12.5 fL ABSOLUTE NEUTROPHILS 4505 5919-7727 cells/uL ABSOLUTE LYMPHOCYTES 2387 850-3900 cells/uL ABSOLUTE MONOCYTES 554 200-950 cells/uL ABSOLUTE EOSINOPHILS 208 15-500 cells/uL ABSOLUTE BASOPHILS 46 0-200 cells/uL NEUTROPHILS 58.5 LYMPHOCYTES 31.0 MONOCYTES 7.2 EOSINOPHILS 2.7 BASOPHILS 0.6 HEMOGLOBIN A1c (496) Reviewed date:02/02/2025 09:06:22 AM Interpretation: Performing Lab:CHRISTIANO [id number], aVinci [id number] [place] Notes/Report: NON-FASTING; NON-FASTING; NON-FASTING; NON-FASTING; NON-FAST HEMOGLOBIN A1c 6.1 <5.7 % For someone without known diabetes, a hemoglobin [...] A1c for diagnosis of diabetes for children. FERRITIN (457) Reviewed date:02/02/2025 09:06:23 AM Interpretation: Performing Lab:CHRISTIANO [facility] [id number], aVinci [id number] [place] Notes/Report: NON-FASTING; NON-FASTING; NON-FASTING; NON-FASTING; NON-FAST FERRITIN 36 24-380 ng/mL Reason For Referral Reason Please reschedule co lonoscopy at [facility] Diagnosis 1 Adenomatous polyp of colon, unspecified part of colon (D12.6) Referral Organization [facility] HUMBERTO SANDOVAL Referring Provider First Name Sung Referring Provider Last Name Vidal Referring Provider Speciality Internal M edicine General Notes Luz Cristobal 2024 03:44:11 PM >Rescheduled with Dr. Rosario Referral Priority Routine REASON FOR VISIT 3 mo Follow up Medications Medication SIG (Take, Route, Frequency, Duration) Notes Start Date End Date Status rOPINIRole HCl 1 MG 1 tab in the morning and 2 tabs at night orally twice a day; Duration: 90 days Active traZODone HCl 100 MG 1 tab orally once a day at bedtime; Duration: 30 days Active Stiolto Respimat 2.5 MCG-2.5 MCG/INH INHALE 2 PUFFS BY MOUTH ONCE DAILY; Duration: 90 *Please review and pick correct strength-formulat ion from [place] options. If intended option is not shown, discontinue and re-order from Quick Search* Active Gabapentin 300 MG 1 cap(s) orally at bedtime; Duration: 90 days 06/12/2024 Active Fluticasone Propionate 50 MCG/ACT 1 spray(s) in each nostril 2 times a day; Duration: 30 days 07/19/2024 Active Omeprazole 40 MG 1 cap(s) orally [...] twice a day; Duration: 90 days Active Linzess 145 MCG Take 1 capsule by mouth once daily for 90 days; Duration: 90 Active Methocarbamol 1000 MG 1 tablet Orally Four times a day Active hydroCHLOROthiazide 25 MG 1 tab(s) orall y once a day Active Vascepa 1 GM 2 cap(s) orally 2 times a day Active Vitamin C 500 MG 1 tab(s) orally once a day Active B-12 1000 MCG 1 tab(s) orally once a day Active Immunizations Vaccine Route Administration Date Status Comme nts Fluzone High Dose IM Intramuscular 01/31/2025 Administered Social History Tobacco Use: Social History [...] cigs/day) Vital Signs Temperature 97.9 degrees Fahrenheit 02/01/20 25 Heart Rate 60 /min 01/31/2025 Blood pressure systolic 130 mm Hg 02/01/20 25 Blood pressure diastolic 72 mm Hg 025 Height 6 ft in 01/31/2025 Weight 169.2 lbs 01/31/2025 BMI 22.95 kg/m2 01/31/2025 Encounters Encounter Location Date Provider Diagnosis [facility] JAIME [address] [place] [address] 01/31/2025 Sung Drake Immunization(s) administered Z23 ; Essential hypertension I10 ; Mixed hyperlipidemia E78.2 ; PAD (peripheral artery disease) I73.9 ; Chronic obstructive pulmonary disease, unspecified COPD type J44.9 ; RLS (restless legs syndrome) G25.81 ; Nicotine dependence, cigarettes, uncomplicated F17.210 ; Coronary artery disease involving [place] coronary artery of [place] heart without angina pectoris I25.10 ; Prediabetes R73.03 and Adenomatous polyp of colon, unspecified part of colon D12.6 Assessments Encounter Date Diagnosis (ICD Code) Assessment Notes Treatment Notes Treatment Clinical Notes Section Notes 01/31/2025 Immunization(s) administered (ICD-10 - Z23) 01/31/2025 Essential hypertension (ICD-10 - I10) Pt blood pressure is well controlled, continue medications as prescribed 01/31/2025 Mixed hyperlipidemia (ICD-10 - E78.2) I will get labs and review them personally - On high intensity statin, needs to be at LDL less than 70 given his peripheral and coronary disease 01/31/2025 PAD (peripheral artery disease) (ICD-10 - I73.9) 01/31/2025 Chronic obstructive pulmonary disease, unspecified COPD type (ICD-10 - J44.9) Patient will continue medications as prescibed. Overall feels better than he has. Continues to smoke, discussed continuing to cut down cigarettes. He is on combination LABA/LAMA inhaler with as needed albuterol 01/31/2025 RLS (restless legs syndrome) (ICD-10 - G25.81) Restless leg well controlled with medications, continue prescribed regime.We discussed coming off ropinirole given recent research that it can have a negative effect after several years and also perhaps increasing gabapentin. Patient would not like to do this. He thinks gabapentin gives him nightmares. He will think about switching over to pregabalin but feels like the ropinirole is doing an adequate job and really does not want to rock the boat 01/31/2025 Nicotine dependence, cigarettes, uncomplicated (ICD-10 - F17.210) 01/31/2025 Coronary artery disease involving [place] coronary artery of [place] heart without angina pectoris (ICD-10 - I25.10) 01/31/2025 Prediabetes (ICD-10 - R73.03) I will order A1C on him and review personally. Patient's A1c was 6.1% at last visit, prediabetic. Will reevaluate. If goes over 6.5 will need therapy 01/31/2025 Adenomatous polyp of colon, unspecified part of colon (ICD-10 - D12.6) Patient needs colonoscopy. Apparently has all the prep material but had to reschedule. We will get this redone Plan Of Treatment Treatment Notes Assessment Notes Essential hypertension Pt blood pressure is well controlled, continue medications as prescribed Mixed hyperlipidemia I will get labs and review them personally - On high intensity statin, needs to be at LDL less than 70 given his peripheral and coronary disease Chronic obstructive pulmonar y disease, unspecified COPD type Patient will continue medications as prescibed. Overall feels better than he has. Continues to smoke, discussed continuing to cut down cigarettes. He is on combination LABA/LAMA inhaler with as needed albuterol RLS (restless legs syndrome) Restless leg well controlled with medications, continue prescribed regime.We discussed coming off ropinirole given recent research that it can have a negative effect after several years and also perhaps increasing gabapentin. Patient would not like to do this. He thinks gabapentin gives him nightmares. He will think about switching over to pregabalin but feels like the ropinirole is doing an adequate job and really does not want to rock the boat Prediabetes I will order A1C on him and review personally. Patient's A1c was 6.1% at last visit, prediabetic. Will reevaluate. If goes over 6.5 will need therapy Adenomatous polyp of colon, unspecified part of colon Patient needs colonoscopy. Apparently jacobo s all the prep material but had to reschedule. We will get this redone Referrals Referral Date Details 01/31/2025 01/31/2025, Please r eschedule colonoscopy at [facility] Next Appt Details Follow Up: prn,3 Months, [place] son: Provider Name:Sunglizzie Drake, 05/02/2025 02:15:00 PM, [address], [address], [place], [address], Progress Notes * Doni CHAUOB:1960 ( 64 yo M)Acc No.[id number]:01/31/2025 Progress Notes Patient: Karla MOLINA Provider: Chaya Drake MD :1960 A ge:64 Y S ex:Male Date:01/31/2025 Address:[address] [place], [place] [address], [id number] Pcp:Oly Dutta Subjective: * Chief Complaints: * 1 . 3 mo Follow up. * HPI: g en: PT is presenting today for evaluation of multiple problems: 1. PT has a long time history of smoking cigarettes. Had a COPD exacerbation a month ago, presents today stating doing better but sometimes has coughing fits.Pt states he stopped one of his inhalers but has been taking all other medications. 2. PT still having restless leg symptoms that are resolved by gabapentin, satisfied with medication regime. 3: PT complaining of sore throat that is constantly bothering him. 4: PT wants to be scheduled for colonoscopy and states he has all the prep for it but needs to be placed on schedule. 5: PT would like a flu shot. * Medical History: H yperlipidemia, Vascular Disease, Carpal tunnel, COPD, Carotid disease s/p intervention. * Surgical History: b leeding ulcers , vascular stents, abdomen and legs , rt forearm surgery , knee surgery , Cardiac stent 01/2022, triple bypass surgery 08/2022, cardiac catheterization 12/2023, heart stent 12/2023. * Hospitalization/Major Diagno stic Procedure: b leeding ulcers , [facility]- Cardiac stent x1 , triple bypass surgery 08/2022, [facility]-hypertension 10/2023, [facility]- AFib 11/2023. * Family History: F ather: alive. M other: , diagnosed with Cancer. P aternal Grand Father: . P aternal Grand Mother: . M aternal Grand Father: . M aternal Grand Mother: . P aternal uncle: , 1 uncle . P aternal aunt: .?Maternal aunt: . S iblings: alive. C jadiel: alive. 3 brother(s) , 3 sister(s) . [...] tab(s) orally twice a day , Taking Linzess 145 MCG Capsule Take [...] nostril 2 times a day , Taking Omeprazole 40 MG Capsule Delayed Release 1 cap(s) orally once a day , Taking rOPINIRole HCl 1 MG Tablet 1 tab in the morning and 2 tabs at night orally twice a day , Taking traZODone HCl 100 MG Tablet 1 tab orally once a day at bedtime , Discontinued Cyclobenzaprine HCl 5 MG Tablet 1 tab(s) orally twice a day PRN , Discontinued Amoxicillin-Pot Clavulanate 875-125 MG Tablet as directed orally every 12 hours , Discontinued predniSONE 20 MG Tablet 3 tabs orally once a day for two days, then 2 daily for 2 days, then one daily for two days , Discontinued Fexofenadine HCl 180 MG Tablet 1 tablet Swallow whole with water; do not take with fruit juices. Orally Once a day , Discontinued Symbicort 160-4.5 MCG/ACT Aerosol 2 puffs Inhalation twice a day , Medication List reviewed and reconciled with the patient * Allergies: S tatins, FLEXERIL: hives, Codeine: itching. Objective: * Vitals: N urse: KJ, Pain: 0, Temp: 97.9, RR: 18, HR: 60, BP: 130/72, Ht: 6 ft, Wt: 169.2, BMI:22.95. * Examination: G eneral Examination: General P leasant and Cooperative, NAD on RA,. Heart: R egular Rate and Rhythm, no murmur, rubs or gallops. HEENT: p harynx dry and erythematous. t onsils normal, TM's normal. Lungs: L CTAB, No wheezes, crackles or rhonchi, Good air movement,. Abdomen: S oft, NTND, BSNA, No organomegaly or peritoneal signs.. Skin: w ithout acute rashes. Peripheral pulses: n ormal (2+) bilaterally. ? Assessment: * Assessment: 1. E ssential hypertension - I10 (Primary) 2 . I mmunization(s) administered - Z23 3 . M ixed hyperlipidemia - E78.2 4 . P AD (peripheral artery disease) - I73.9 5 . C hronic obstructive pulmonary disease, unspecified COPD type - J44.9 6 . R LS (restless legs syndrome) - G25.81 7 . N icotine dependence, cigarettes, uncomplicated - F17.210 8 . C oronary artery disease involving [place] coronary artery of [place] heart without angina pectoris - I25.10 9. P rediabetes - R73.03 1 0. A denomatous polyp of colon, unspecified part of colon - D12.6 Plan: * Treatment: 2. I mmunization(s) administered L AB: THYROID PANEL WITH TSH (7444) Value Reference Range T 3 UPTAKE 34 22-35 - % * T 4 (THYROXINE), TOTAL 6.0 4.9-10.5 - mcg/dL * F REE T4 INDEX (T7) 2.0 1.4-3.8 - * T SH 2.65 0.40-4.50 - mIU/L * Eliana Gleason 02/02/2025 09:06:14 AM EDT > Patient informedThis lab was reviewed by Eliana Gleason on 02/02/2025 at 09:06 AM EDT ?LAB: LIPID PANEL, STANDARD (7600)* Value Reference Range T RIGLYCERIDES 451 H <150 - mg/dL * C HOLESTEROL, TOTAL 233 H <200 - mg/dL * H DL CHOLESTEROL 23 L > OR = 40 - mg/dL * C HOL/HDLC RATIO 10.1 H <5.0 - (calc) * N ON HDL CHOLESTEROL 210 H <130 - mg/dL (calc) * Eliana Gleason 02/02/2025 09:06:14 AM EDT > Patient informedThis lab was reviewed by Eliana Gleason on 02/02/2025 at 09:06 AM EDT ?LAB: COMPREHENSIVE METABOLIC PANEL (87569)* Value Reference Range G LUCOSE 82 65-99 - mg/dL * U YOMI NITROGEN (BUN) 14 7-25 - mg/dL * C REATININE 1.33 0.70-1.35 - mg/dL * B UN/CREATININE RATIO SEE NOTE: 6-22 - (calc) * S ODIUM 132 L 135-146 - mmol/L * P OTASSIUM 3.6 3.5-5.3 - mmol/L * C HLORIDE 98 98-110 - mmol/L * C ARBON DIOXIDE 27 20-32 - mmol/L * C ALCIUM 9.8 8.6-10.3 - mg/dL * P ROTEIN, TOTAL 7.8 6.1-8.1 - g/dL * A LBUMIN 4.3 3.6-5.1 - g/dL * G LOBULIN 3.5 1.9-3.7 - g/dL (calc ) * A LBUMIN/GLOBULIN RATIO 1.2 1.0-2.5 - (calc) * B ILIRUBIN, TOTAL 0.5 0.2-1.2 - mg/dL * A LKALINE PHOSPHATASE 107 35-144 - U/L * A ST 20 10-35 - U/L * A LT 12 9-46 - U/L * E GFR 59 L > OR = 60 - mL/min/1 .73m2 * Eliana Gleason 02/02/2025 09:06:14 AM EDT > Patient informedThis lab was reviewed by Eliana Gleason on 02/02/2025 at 09:06 AM EDT ?LAB: MAGNESIUM (622)* Value Reference Range M AGNESIUM 2.0 1.5-2.5 - mg/dL * Eliana Gleason 02/02/2025 09:06:14 AM EDT > Patient informedThis lab was reviewed by Eliana Gleason on 02/02/2025 at 09:06 AM EDT ?LAB: CBC (INCLUDES DIFF/PLT) (3708)* Value Reference Range W HARDY BLOOD CELL COUNT 7.7 3.8-10.8 - Thousan d/uL * R ED BLOOD CELL COUNT 5.29 4.20-5.80 - Million/ uL * H EMOGLOBIN 16.1 13.2-17.1 - g/dL * H EMATOCRIT 48.3 38.5-50.0 - % * M CV 91.3 80.0-100.0 - fL * M CH 30.4 27.0-33.0 - pg * M CHC 33.3 32.0-36.0 - g/dL * R DW 13.8 11.0-15.0 - % * P LATELET COUNT 258 140-400 - Thousand/u L * N EUTROPHILS 58.5 - % * A BSOLUTE NEUTROPHILS 4505 1778-3268 - cells/uL * L YMPHOCYTES 31.0 - % * A BSOLUTE LYMPHOCYTES 2387 850-3900 - cells/uL * M ONOCYTES 7.2 - % * A BSOLUTE MONOCYTES 554 200-950 - cells/uL * E OSINOPHILS 2.7 - % * A BSOLUTE EOSINOPHILS 208 15-500 - cells/uL * B ASOPHILS 0.6 - % * A BSOLUTE BASOPHILS 46 0-200 - cells/uL * M PV 9.7 7.5-12.5 - fL * Eliana Gleason 02/02/2025 09:06:14 AM EDT > Patient informedThis lab was reviewed by Eliana Gleason on 02/02/2025 at 09:06 AM EDT ?LAB: FERRITIN (457)* Value Reference Range F ERRITIN 36 24-380 - ng/mL * Eliana Gleason 02/02/2025 09:06:14 AM EDT > Patient informedThis lab was reviewed by Eliana Gleason on 02/02/2025 at 09:06 AM EDT 3.?Mixed hyperlipidemia?LAB: THYROID PANEL WITH TSH (7444)* Value Reference Range T 3 UPTAKE 34 22-35 - % * T 4 (THYROXINE), TOTAL 6.0 4.9-10.5 - mcg/dL * F REE T4 INDEX (T7) 2.0 1.4-3.8 - * T SH 2.65 0.40-4.50 - mIU/L * Eliana Gleason 02/02/2025 09:06:14 AM EDT > Patient informedThis lab was reviewed by Eliana Gleason on 02/02/2025 at 09:06 AM EDT ?LAB: LIPID PANEL, STANDARD (7600)* Value Reference Range T RIGLYCERIDES 451 H <150 - mg/dL * C HOLESTEROL, TOTAL 233 H <200 - mg/dL * H DL CHOLESTEROL 23 L > OR = 40 - mg/dL * C HOL/HDLC RATIO 10.1 H <5.0 - (calc) * N ON HDL CHOLESTEROL 210 H <130 - mg/dL (calc) * Eliana Gleason 02/02/2025 09:06:14 AM EDT > Patient informedThis lab was reviewed by Eliana Gleason on 02/02/2025 at 09:06 AM EDT ?LAB: COMPREHENSIVE METABOLIC PANEL (60934)* Value Reference Range G LUCOSE 82 65-99 - mg/dL * U YOMI NITROGEN (BUN) 14 7-25 - mg/dL * C REATININE 1.33 0.70-1.35 - mg/dL * B UN/CREATININE RATIO SEE NOTE: 6-22 - (calc) * S ODIUM 132 L 135-146 - mmol/L * P OTASSIUM 3.6 3.5-5.3 - mmol/L * C HLORIDE 98 98-110 - mmol/L * C ARBON DIOXIDE 27 20-32 - mmol/L * C ALCIUM 9.8 8.6-10.3 - mg/dL * P ROTEIN, TOTAL 7.8 6.1-8.1 - g/dL * A LBUMIN 4.3 3.6-5.1 - g/dL * G LOBULIN 3.5 1.9-3.7 - g/dL (calc ) * A LBUMIN/GLOBULIN RATIO 1.2 1.0-2.5 - (calc) * B ILIRUBIN, TOTAL 0.5 0.2-1.2 - mg/dL * A LKALINE PHOSPHATASE 107 35-144 - U/L * A ST 20 10-35 - U/L * A LT 12 9-46 - U/L * E GFR 59 L > OR = 60 - mL/min/1 .73m2 * Eliana Gleason 02/02/2025 09:06:14 AM EDT > Patient informedThis lab was reviewed by Eliana Gleason on 02/02/2025 at 09:06 AM EDT ?LAB: MAGNESIUM (622)* Value Reference Range M AGNESIUM 2.0 1.5-2.5 - mg/dL * Eliana Gleason 02/02/2025 09:06:14 AM EDT > Patient informedThis lab was reviewed by Eliana Gleason on 02/02/2025 at 09:06 AM EDT ?LAB: CBC (INCLUDES DIFF/PLT) (4635)* Value Reference Range W HARDY BLOOD CELL COUNT 7.7 3.8-10.8 - Thousan d/uL * R ED BLOOD CELL COUNT 5.29 4.20-5.80 - Million/ uL * H EMOGLOBIN 16.1 13.2-17.1 - g/dL * H EMATOCRIT 48.3 38.5-50.0 - % * M CV 91.3 80.0-100.0 - fL * M CH 30.4 27.0-33.0 - pg * M CHC 33.3 32.0-36.0 - g/dL * R DW 13.8 11.0-15.0 - % * P LATELET COUNT 258 140-400 - Thousand/u L * N EUTROPHILS 58.5 - % * A BSOLUTE NEUTROPHILS 4505 0126-0066 - cells/uL * L YMPHOCYTES 31.0 - % * A BSOLUTE LYMPHOCYTES 2387 850-3900 - cells/uL * M ONOCYTES 7.2 - % * A BSOLUTE MONOCYTES 554 200-950 - cells/uL * E OSINOPHILS 2.7 - % * A BSOLUTE EOSINOPHILS 208 15-500 - cells/uL * B ASOPHILS 0.6 - % * A BSOLUTE BASOPHILS 46 0-200 - cells/uL * M PV 9.7 7.5-12.5 - fL * Eliana Gleason 02/02/2025 09:06:14 AM EDT > Patient informedThis lab was reviewed by Eliana Gleason on 02/02/2025 at 09:06 AM EDT ?LAB: FERRITIN (457)* Value Reference Range F ERRITIN 36 24-380 - ng/mL * Eliana Gleason 02/02/2025 09:06:14 AM EDT > Patient informedThis lab was reviewed by Eliana Gleason on 02/02/2025 at 09:06 AM EDT Notes: I will get labs and review them personally - On high intensity statin, needs to be at LDL less than 70 given his peripheral and coronary disease?? 4.?PAD (peripheral artery disease)?LAB: THYROID PANEL WITH TSH (2044)* Value Reference Range T 3 UPTAKE 34 22-35 - % * T 4 (THYROXINE), TOTAL 6.0 4.9-10.5 - mcg/dL * F REE T4 INDEX (T7) 2.0 1.4-3.8 - * T SH 2.65 0.40-4.50 - mIU/L * Eliana Gleason 02/02/2025 09:06:14 AM EDT > Patient informedThis lab was reviewed by Eliana Gleason on 02/02/2025 at 09:06 AM EDT ?LAB: LIPID PANEL, STANDARD (7600)* Value Reference Range T RIGLYCERIDES 451 H <150 - mg/dL * C HOLESTEROL, TOTAL 233 H <200 - mg/dL * H DL CHOLESTEROL 23 L > OR = 40 - mg/dL * C HOL/HDLC RATIO 10.1 H <5.0 - (calc) * N ON HDL CHOLESTEROL 210 H <130 - mg/dL (calc) * Eliana Gleason 02/02/2025 09:06:14 AM EDT > Patient informedThis lab was reviewed by Eliana Gleason on 02/02/2025 at 09:06 AM EDT ?LAB: COMPREHENSIVE METABOLIC PANEL (02124)* Value Reference Range G LUCOSE 82 65-99 - mg/dL * U YOMI NITROGEN (BUN) 14 7-25 - mg/dL * C REATININE 1.33 0.70-1.35 - mg/dL * B UN/CREATININE RATIO SEE NOTE: 6-22 - (calc) * S ODIUM 132 L 135-146 - mmol/L * P OTASSIUM 3.6 3.5-5.3 - mmol/L * C HLORIDE 98 98-110 - mmol/L * C ARBON DIOXIDE 27 20-32 - mmol/L * C ALCIUM 9.8 8.6-10.3 - mg/dL * P ROTEIN, TOTAL 7.8 6.1-8.1 - g/dL * A LBUMIN 4.3 3.6-5.1 - g/dL * G LOBULIN 3.5 1.9-3.7 - g/dL (calc ) * A LBUMIN/GLOBULIN RATIO 1.2 1.0-2.5 - (calc) * B ILIRUBIN, TOTAL 0.5 0.2-1.2 - mg/dL * A LKALINE PHOSPHATASE 107 35-144 - U/L * A ST 20 10-35 - U/L * A LT 12 9-46 - U/L * E GFR 59 L > OR = 60 - mL/min/1 .73m2 * Eliana Gleason 02/02/2025 09:06:14 AM EDT > Patient informedThis lab was reviewed by Eliana Gleason on 02/02/2025 at 09:06 AM EDT ?LAB: MAGNESIUM (622)* Value Reference Range M AGNESIUM 2.0 1.5-2.5 - mg/dL * Eliana Gleason 02/02/2025 09:06:14 AM EDT > Patient informedThis lab was reviewed by Eliana Gleason on 02/02/2025 at 09:06 AM EDT ?LAB: CBC (INCLUDES DIFF/PLT) (2964)* Value Reference Range W HARDY BLOOD CELL COUNT 7.7 3.8-10.8 - [place] d/uL * R ED BLOOD CELL COUNT 5.29 4.20-5.80 - Million/ uL * H EMOGLOBIN 16.1 13.2-17.1 - g/dL * H EMATOCRIT 48.3 38.5-50.0 - % * M CV 91.3 80.0-100.0 - fL * M CH 30.4 27.0-33.0 - pg * M CHC 33.3 32.0-36.0 - g/dL * R DW 13.8 11.0-15.0 - % * P LATELET COUNT 258 140-400 - Thousand/u L * N EUTROPHILS 58.5 - % * A BSOLUTE NEUTROPHILS 4505 1363-6451 - cells/uL * L YMPHOCYTES 31.0 - % * A BSOLUTE LYMPHOCYTES 2387 850-3900 - cells/uL * M ONOCYTES 7.2 - % * A BSOLUTE MONOCYTES 554 200-950 - cells/uL * E OSINOPHILS 2.7 - % * A BSOLUTE EOSINOPHILS 208 15-500 - cells/uL * B ASOPHILS 0.6 - % * A BSOLUTE BASOPHILS 46 0-200 - cells/uL * M PV 9.7 7.5-12.5 - fL * Eliana Gleason 02/02/2025 09:06:14 AM EDT > Patient informedThis lab was reviewed by Eliana Gleason on 02/02/2025 at 09:06 AM EDT ?LAB: FERRITIN (457)* Value Reference Range F ERRITIN 36 24-380 - ng/mL * Eliana Gleason 02/02/2025 09:06:14 AM EDT > Patient informedThis lab was reviewed by Eliana Gleason on 02/02/2025 at 09:06 AM EDT 5.?Chronic obstructive pulmonary disease, unspecified COPD type? Notes: Patient will continue medications as prescibed. Overall feels better than he has. Continues to smoke, discussed continuing to cut down cigarettes. He is on combination LABA/LAMA inhaler with as needed albuterol??6.?RLS (restless legs syndrome)?LAB: THYROID PANEL WITH TSH (7444)* Value Reference Range T 3 UPTAKE 34 22-35 - % * T 4 (THYROXINE), TOTAL 6.0 4.9-10.5 - mcg/dL * F REE T4 INDEX (T7) 2.0 1.4-3.8 - * T SH 2.65 0.40-4.50 - mIU/L * Eliana Gleason 02/02/2025 09:06:14 AM EDT > Patient informedThis lab was reviewed by Eliana Gleason on 02/02/2025 at 09:06 AM EDT ?LAB: LIPID PANEL, STANDARD (7600)* Value Reference Range T RIGLYCERIDES 451 H <150 - mg/dL * C HOLESTEROL, TOTAL 233 H <200 - mg/dL * H DL CHOLESTEROL 23 L > OR = 40 - mg/dL * C HOL/HDLC RATIO 10.1 H <5.0 - (calc) * N ON HDL CHOLESTEROL 210 H <130 - mg/dL (calc) * Eliana Gleason 02/02/2025 09:06:14 AM EDT > Patient informedThis lab was reviewed by Eliana Gleason on 02/02/2025 at 09:06 AM EDT ?LAB: COMPREHENSIVE METABOLIC PANEL (95144)* Value Reference Range G LUCOSE 82 65-99 - mg/dL * U YOMI NITROGEN (BUN) 14 7-25 - mg/dL * C REATININE 1.33 0.70-1.35 - mg/dL * B UN/CREATININE RATIO SEE NOTE: 6 - (calc) * S ODIUM 132 L 135-146 - mmol/L * P OTASSIUM 3.6 3.5-5.3 - mmol/L * C HLORIDE 98 98-110 - mmol/L * C ARBON DIOXIDE 27 20-32 - mmol/L * C ALCIUM 9.8 8.6-10.3 - mg/dL * P ROTEIN, TOTAL 7.8 6.1-8.1 - g/dL * A LBUMIN 4.3 3.6-5.1 - g/dL * G LOBULIN 3.5 1.9-3.7 - g/dL (calc ) * A LBUMIN/GLOBULIN RATIO 1.2 1.0-2.5 - (calc) * B ILIRUBIN, TOTAL 0.5 0.2-1.2 - mg/dL * A LKALINE PHOSPHATASE 107 35-144 - U/L * A ST 20 10-35 - U/L * A LT 12 9-46 - U/L * E GFR 59 L > OR = 60 - mL/min/1 .73m2 * Eliana Gleason 02/02/2025 09:06:14 AM EDT > Patient informedThis lab was reviewed by Eliana Gleason on 02/02/2025 at 09:06 AM EDT ?LAB: MAGNESIUM (622)* Value Reference Range M AGNESIUM 2.0 1.5-2.5 - mg/dL * Eliana Gleason 02/02/2025 09:06:14 AM EDT > Patient informedThis lab was reviewed by Elinaa Gleason on 02/02/2025 at 09:06 AM EDT ?LAB: CBC (INCLUDES DIFF/PLT) (5319)* Value Reference Range W HARDY BLOOD CELL COUNT 7.7 3.8-10.8 - Thousan d/uL * R ED BLOOD CELL COUNT 5.29 4.20-5.80 - Million/ uL * H EMOGLOBIN 16.1 13.2-17.1 - g/dL * H EMATOCRIT 48.3 38.5-50.0 - % * M CV 91.3 80.0-100.0 - fL * M CH 30.4 27.0-33.0 - pg * M CHC 33.3 32.0-36.0 - g/dL * R DW 13.8 11.0-15.0 - % * P LATELET COUNT 258 140-400 - Thousand/u L * N EUTROPHILS 58.5 - % * A BSOLUTE NEUTROPHILS 4505 8390-9131 - cells/uL * L YMPHOCYTES 31.0 - % * A BSOLUTE LYMPHOCYTES 2387 850-3900 - cells/uL * M ONOCYTES 7.2 - % * A BSOLUTE MONOCYTES 554 200-950 - cells/uL * E OSINOPHILS 2.7 - % * A BSOLUTE EOSINOPHILS 208 15-500 - cells/uL * B ASOPHILS 0.6 - % * A BSOLUTE BASOPHILS 46 0-200 - cells/uL * M PV 9.7 7.5-12.5 - fL * Eliana Gleason 02/02/2025 09:06:14 AM EDT > Patient informedThis lab was reviewed by Eliana Gleason on 02/02/2025 at 09:06 AM EDT ?LAB: FERRITIN (457)* Value Reference Range F ERRITIN 36 24-380 - ng/mL * Eliana Gleason 02/02/2025 09:06:14 AM EDT > Patient informedThis lab was reviewed by Eliana Gleason on 02/02/2025 at 09:06 AM EDT Notes: Restless leg well controlled with medications, continue prescribed regime.We discussed coming off ropinirole given recent research that it can have a negative effect after several years and also perhaps increasing gabapentin. Patient would not like to do this. He thinks gabapentin gives him nightmares. He will think about switching over to pregabalin but feels like the ropinirole is doing an adequate job and really does not want to rock the boat ??7.?Coronary artery disease involving [place] coronary artery of [place] heart without angina pectoris?LAB: THYROID PANEL WITH TSH (7444)* Value Reference Range T 3 UPTAKE 34 22-35 - % * T 4 (THYROXINE), TOTAL 6.0 4.9-10.5 - mcg/dL * F REE T4 INDEX (T7) 2.0 1.4-3.8 - * T SH 2.65 0.40-4.50 - mIU/L * Eliana Gleason 02/02/2025 09:06:14 AM EDT > Patient informedThis lab was reviewed by Eliana Gleason on 02/02/2025 at 09:06 AM EDT ?LAB: LIPID PANEL, STANDARD (7600)* Value Reference Range T RIGLYCERIDES 451 H <150 - mg/dL * C HOLESTEROL, TOTAL 233 H <200 - mg/dL * H DL CHOLESTEROL 23 L > OR = 40 - mg/dL * C HOL/HDLC RATIO 10.1 H <5.0 - (calc) * N ON HDL CHOLESTEROL 210 H <130 - mg/dL (calc) * Eliana Gleason 02/02/2025 09:06:14 AM EDT > Patient informedThis lab was reviewed by Eliana Gleason on 02/02/2025 at 09:06 AM EDT ?LAB: COMPREHENSIVE METABOLIC PANEL (64711)* Value Reference Range G LUCOSE 82 65-99 - mg/dL * U YOMI NITROGEN (BUN) 14 7-25 - mg/dL * C REATININE 1.33 0.70-1.35 - mg/dL * B UN/CREATININE RATIO SEE NOTE: 6-22 - (calc) * S ODIUM 132 L 135-146 - mmol/L * P OTASSIUM 3.6 3.5-5.3 - mmol/L * C HLORIDE 98 98-110 - mmol/L * C ARBON DIOXIDE 27 20-32 - mmol/L * C ALCIUM 9.8 8.6-10.3 - mg/dL * P ROTEIN, TOTAL 7.8 6.1-8.1 - g/dL * A LBUMIN 4.3 3.6-5.1 - g/dL * G LOBULIN 3.5 1.9-3.7 - g/dL (calc ) * A LBUMIN/GLOBULIN RATIO 1.2 1.0-2.5 - (calc) * B ILIRUBIN, TOTAL 0.5 0.2-1.2 - mg/dL * A LKALINE PHOSPHATASE 107 35-144 - U/L * A ST 20 10-35 - U/L * A LT 12 9-46 - U/L * E GFR 59 L > OR = 60 - mL/min/1 .73m2 * Eliana Gleason 02/02/2025 09:06:14 AM EDT > Patient informedThis lab was reviewed by Eliana Gleason on 02/02/2025 at 09:06 AM EDT ?LAB: MAGNESIUM (622)* Value Reference Range M AGNESIUM 2.0 1.5-2.5 - mg/dL * Eliana Gleason 02/02/2025 09:06:14 AM EDT > Patient informedThis lab was reviewed by Eliana Gleason on 02/02/2025 at 09:06 AM EDT ?LAB: CBC (INCLUDES DIFF/PLT) (5232)* Value Reference Range W HARDY BLOOD CELL COUNT 7.7 3.8-10.8 - Thousan d/uL * R ED BLOOD CELL COUNT 5.29 4.20-5.80 - Million/ uL * H EMOGLOBIN 16.1 13.2-17.1 - g/dL * H EMATOCRIT 48.3 38.5-50.0 - % * M CV 91.3 80.0-100.0 - fL * M CH 30.4 27.0-33.0 - pg * M CHC 33.3 32.0-36.0 - g/dL * R DW 13.8 11.0-15.0 - % * P LATELET COUNT 258 140-400 - Thousand/u L * N EUTROPHILS 58.5 - % * A BSOLUTE NEUTROPHILS 4505 4913-9532 - cells/uL * L YMPHOCYTES 31.0 - % * A BSOLUTE LYMPHOCYTES 2387 850-3900 - cells/uL * M ONOCYTES 7.2 - % * A BSOLUTE MONOCYTES 554 200-950 - cells/uL * E OSINOPHILS 2.7 - % * A BSOLUTE EOSINOPHILS 208 15-500 - cells/uL * B ASOPHILS 0.6 - % * A BSOLUTE BASOPHILS 46 0-200 - cells/uL * M PV 9.7 7.5-12.5 - fL * Eliana Gleason 02/02/2025 09:06:14 AM EDT > Patient Tre[facility] lab was reviewed by Eliana Gleason on 02/02/2025 at 09:06 AM EDT ?LAB: FERRITIN (457)* Value Reference Range F ERRITIN 36 24-380 - ng/mL * Eliana Gleason 02/02/2025 09:06:14 AM EDT > Patient informedThis lab was reviewed by Eliana Gleason on 02/02/2025 at 09:06 AM EDT 8.?Prediabetes?LAB: HEMOGLOBIN A1c (496)* Value Reference Range H EMOGLOBIN A1c 6.1 H <5.7 - % * Eliana Gleason 02/02/2025 09:06:14 AM EDT > Patient Trevs lab was reviewed by Eliana Gleason on 02/02/2025 at 09:06 AM EDT Notes: I will order A1C on him and review personally. Patient's A1c was 6.1% at last visit, prediabetic. Will reevaluate. If goes over 6.5 will need therapy?? 9.?Adenomatous polyp of colon, unspecified part of colon? Notes: Patient needs colonoscopy. Apparently has all the prep material but had to reschedule. We will get this redone? Referral To: ?Reason:Please reschedule colonoscopy at [facility] * Immunizations: Fluzone High Dose : 0.7 mL (Route: Intramuscular) given by HARRISON Mcgowan on Left Arm (Immunization(s) administered) * Procedure Codes: 9 0662 Influenza High Dose Vaccine >65 Years Old, Units: 1.40 , G0008 ADMINISTRATION-FLU VACCINE MEDICARE ONLY, G2211 Complex e/m visit add on * Follow Up: p neena,3 Months * * Sign off status: Completed true * Provider: Chaya Drake MD Date: 0 01/31/2025 Generated for Leno raines/Jonathan/eTransmitting on: 1 08:17 AM EDT History and Physical Notes * HPI (History of Present Illness) Category Sub-Category Detail Notes Category Not es gen PT is presenting today for evaluation of multiple problems: 1. PT has a long time history of smoking cigarettes. Had a COPD exacerbation a month ago, presents today stating doing better but sometimes has coughing fits.Pt states he stopped one of his inhalers but has been taking all other medications. 2. PT still having restless leg symptoms that are resolved by gabapentin, satisfied with medication regime. 3: PT complaining of sore throat that is constantly bothering him. 4: PT wants to be scheduled for colonoscopy and states he has all the prep for it but needs to be placed on schedule. 5: PT would like a flu shot. Examination Category Sub-Category Detail Notes Category Not es General Examination HEENT: pharynx dry and erythematous. tonsils normal, TM's normal Heart: Regular Rate and Rhy thm, no murmur, rubs or gallops Lungs: LCTAB, No wheezes, c rackles or rhonchi, Good air movement, Abdomen: Soft, NTND, BSNA, No organomegaly or peritoneal signs. Skin: without acute rashes Peripheral pulses: normal (2+) bilatera lly General Pleasant and Coopera tive, NAD on RA, Consultation Request Notes Referral Date Referring Provider Referred Provider Not es 01/31/2025 Sung Drake , Please yaneli darrell colonoscopy at [facility]
--- OUTSIDE RECORDS SUMMARY | 2025-02-14 05:00 | XMS_ITS ---
Author Organization [facility] Address [address] [place] [address] Care Team Providers Care Physical Therapy Assistant Instructor Name Role Phone Oly Dutta Primary Care Provider OLY Dutta APRN Unavailable Unavailable Shaina Escalante Unavailable [phone] Allergies Allergen (clinical drug ingredient) Drug/Non Drug Allergy documented on EMR Reaction Allergy Type Onset Date Status FLEXERIL (uncoded) hives Allergy A ctive Substance with 2-twwuwgh-6-methylgluta ryl-coenzyme A reductase inhibitor mechanism of action (substance) Statins Unknown Drug Allergy Active codeine Codeine itching Drug Allergy Active Results Component Value Reference Range Notes Urinalysis Reviewed date:02/14/2025 01:57:40 PM Interpretation: Performing Lab: Notes/Report: Color/Clarity lt yellow Leuk neg Nitrite neg Urobili 0.2 Protein 100mg pH 6.5 Blood trace-intact Sp. Gr. 1.020 Ketone neg Bili neg Glucose neg Reason For Referral Reason CT abd/pelvis with a nd without contrast Diagnosis 1 Microscopic hematuri a (R31.29) Referral Organization [facility] Referring Provider First Name Shaina Referring Provider Last Name Ava Referring Provider Speciality Family Pra ctice Referred Organization [facility] Referred Address [address] [facility], [place],[address],[place] Referred Provider Specialty Diagnostic R adiology General Notes Luz Cristobal 2024 10:39:01 AM >sent to [facility] Referral Priority Routine REASON FOR VISIT Bad lower back pain 1month, pain after urination Medications Medication SIG (Take, Route, Frequency, Duration) Notes Start Date End Date Status Linzess 145 MCG Take 1 capsule by mouth once daily for 90 days; Duration: 90 Active traZODone HCl 100 MG 1 tab orally once a day at bedtime; Duration: 30 days Active hydroCHLOROthiazide 25 MG 1 tab(s) orall y once a day; Duration: 30 days Active rOPINIRole HCl 1 MG 1 tab in the morning and 2 tabs at night orally twice a day; Duration: 90 days Active Omeprazole 40 MG 1 cap(s) orally once a day; Duration: 90 days Active ALBUTEROL (EQV-PROAIR HFA) 9 0 MCG/INH 2 PUFF(S) INHALED EVERY 6 HOURS PRN; Duration: 90 DAYS 03/25/2023 Active Bisoprolol Fumarate 10 MG 1 tab(s) orall y twice a day; Duration: 90 days Active Fluticasone Propionate 50 MCG/ACT 1 spray(s) in each nostril 2 times a day; Duration: 30 days 07/19/2024 Active Stiolto Respimat 2.5 MCG-2.5 MCG/INH INHALE 2 PUFFS BY MOUTH ONCE DAILY; Duration: 90 Active Gabapentin 300 MG 1 cap(s) orally at bedtime; Duration: 90 days 06/12/2024 Active B-12 1000 MCG 1 tab(s) orally once a day Active Centrum Men - 1 tab(s) orally once a day Active Vitamin C 500 MG 1 tab(s) orally once a day Active Methocarbamol 1000 MG 1 tablet Orally Fo ur times a day Active Vascepa 1 GM 2 cap(s) orally 2 times a day Active Social History Tobacco Use: Social History Observation Description Date Details (start date - stop date) Current Smoker NA - NA Smoking: Question Answer Notes Are you a: current smoker How often do you smoke cigarettes? every day How many cigarettes a day do you smoke? -20 How soon after you wake up d o you smoke your first cigarette? within 5 min Are you interested in quitting? Not ready to moncho t Additional Findings: Tobacco User Modera te cigarette smoker (10-19 cigs/day) Vital Signs Temperature 97.6 degrees Fahrenheit 02/15/20 25 Heart Rate 60 /min 02/14/2025 Blood pressure systolic 160 mm Hg 02/15/20 25 Blood pressure diastolic 72 mm Hg 025 Height 6 ft in 02/14/2025 Weight 168.2 lbs 02/14/2025 BMI 22.81 kg/m2 02/14/2025 Encounters Encounter Location Date Provider Diagnosis [facility] [address] [place] [address] 02/14/2025 Shaina Escalante Dysuria R30.0 ; Microscopic hematuria R31.29 ; Other low back pain M54.59 and Reducible umbilical hernia K42.9 Assessments Encounter Date Diagnosis (ICD Code) Assessment Notes Treatment Notes Treatment Clinical Notes Section Notes 02/14/2025 Dysuria (ICD-10 - R30.0) 02/14/2025 Microscopic hematuria (ICD-10 - R31.29) 02/14/2025 Other low back pain (ICD-10 - M54.59) 02/14/2025 Reducible umbilical hernia (ICD-10 - K42.9) can eval extent of hernia on imaging but small and asymptomatic on exam, recommend monitoring for now Plan Of Treatment Referrals Referral Date Details 02/14/2025 02/14/2025, CT abd/p herbert with and without contrast, [address] [facility], [place], [address], Next Appt Details Follow Up: prn, Reason: Provider Name:Sung Drake, 05/02/2025 02:15:00 PM, [address] [facility], [address], [place], [address], Progress Notes * Doni CHAUOB:1960 ( 64 yo M)Acc No.[id number]:02/14/2025 Progress Notes Patient: Karla MOLINA Provider: RJ Castro :1960 A ge:64 Y S ex:Male Date:02/14/2025 Address:[address] [place], [place] [phone] Pcp:Oly Dutta Subjective: * Chief Complaints: * 1 . Bad lower back pain 1month. 2. Pain after urination. * HPI: M edie Reproductive: Presents today with bilat lower back pain that is moderate in severity and only occurs after urination. Sometimes resolves quickly and sometimes can last all day. No radicular symptoms and no specific urinary symptoms. Does note h/o pain with urination, sharp in the shaft of the penis, and questioning possible kidney stone. + FH of stones. Denies : burning urination. D enies : flank pain. D enies : hematuria. D enies : dysuria. D enies : testicular pain. D enies : testicular swelling. * ROS: R ESPIRATORY: Reviewed, No Symptoms Reported: Y es. D ERMATOLOGY: no R min. G ASTROENTEROLOGY: no V omiting. n o D iarrhea. U ROLOGY: See HPI Y es. * Medical History: H yperlipidemia, Vascular Disease, Carpal tunnel, COPD, Carotid disease s/p intervention. * Social History: S moking A re [...] Orally Four times a day , Taking Vascepa 1 GM [...] PUFF(S) INHALED EVERY 6 HOURS PRN , Taking Bisoprolol Fumarate 10 MG Tablet 1 tab(s) orally twice a day , Taking Stiolto Respimat 2.5 MCG-2.5 MCG/INH AEROSOL INHALE 2 PUFFS BY MOUTH ONCE DAILY , Taking Gabapentin 300 MG Capsule 1 cap(s) [...] once a day at bedtime , Taking hydroCHLOROthiazide 25 MG Tablet 1 tab(s) orally once a day , Taking Linzess 145 MCG Capsule Take 1 capsule by mouth once daily for 90 days , Medication List reviewed and reconciled with the patient * Allergies: S tatins, FLEXERIL: hives, Codeine: itching. Objective: * Vitals: N urse: jl, Pain: 8, Temp: 97.6, RR: 18, HR: 60, BP: 160/72, Ht: 6 ft, Wt: 168.2, BMI:22.81. * Examination: G eneral Examination: General P leasant and Cooperative, NAD on RA,. Heart: R egular Rate and Rhythm,. Lungs: c lear to auscultation,. Abdomen: s oft, NT/ND, BS present, no CVA tenderness, soft and reducible umbilical hernia. Neurologic Exam: A lert and oriented x 3. diabetic foot exam V isual exam of foot performed: Y es. Assessment: * Assessment: 1. M icroscopic hematuria - R31.29 (Primary) 2 . D ysuria - R30.0 ? 3 . O ther low back pain - M54.59 4 . R educible umbilical hernia - K42.9 Plan: * Treatment: 2. D ysuria L AB: Urinalysis (Collection Date & Time - 02/14/2025) Value Reference Range C olor/Clarity lt yellow * L euk neg * N itrite neg * U robili 0.2 * P rotein 100mg * p H 6.5 * B lood trace-intact * S p. Gr. 1.020 * K etone neg * B ksenia neg * G lucose neg * Steffanie Tuttle 02/14/2025 09: 25:33 AM EDT > 3.?Reducible umbilical hernia? Clinical Notes: can eval extent of hernia on imaging but small and asymptomatic on exam, recommend monitoring for now?? * Procedure Codes: 8 1002 URINALYSIS, Modifiers: QW * Follow Up: p rn * * Sign off status: Completed true * Provider: RJ Castro Date: Generated for Leno raines/Jonathan/eTransmitting on: 08:17 AM EDT History and Physical Notes * HPI (History of Present Illness) Category Sub-Category Detail Notes Category Not es Male Reproductive hematuria burning urination testicular pain flank pain dysuria testicular swelling Examination Category Sub-Category Detail Notes Category Not es General Examination Heart: Regular Rate and Rhyt hm, Lungs: clear to auscultatio n, Abdomen: soft, NT/ND, BS pres ent, no CVA tenderness, soft and reducible umbilical hernia Neurologic Exam: Alert and oriented x 3 General Pleasant and Coopera tive, NAD on RA, diabetic foot exam Visual exam of foot performed :: Yes Consultation Request Notes Referral Date Referring Provider Referred Provider Not es 02/14/2025 Shaina Escalante , CT abd/pelvi s with and without contrast
--- OUTSIDE RECORDS SUMMARY | 2025-02-14 06:28 | XMS_ITS ---
Author Organization [facility] Address [address] [place], [place] [address] Care Team Providers Care Animation Producer Name Role Phone Silke Dutta Primary Care Provider SILKE Dutta APRN Unavailable Unavailable Shaina Escalante Unavailable [phone] abd/pelvin WOW order Encounters Encounter Location Date Provider Diagnosis [facility] [address] [place], [place] [address] 02/14/2025 Shaina Escalante Microscopic hematuri a R31.29 Assessments Encounter Date Diagnosis (ICD Code) Assessment Notes Treatment Notes Treatment Clinical Notes Section Notes 02/14/2025 Microscopic hematuria (ICD-10 - R31.29) Plan Of Treatment Pending Test Test Name Order Date CT Scan : Abdomen and Pelvis, with and w ithout contrast 02/14/2025 Next Appt Details Provider Name:Sung Drake, 05/02/2025 02:15:00 PM, [address], [address], [place], [place], [address], Progress Notes * KANDI PrincessDeannaOB:1960 ( 64 yo M)Acc No.[id number]:02/14/2025 Patient: Karla MOLINA :1960 A ge:64 Y S ex:Male Address:[address] [place], [address] Subjective: * Chief Complaints: * c t abd/pelvin WOW order * Medical History: * Surgical History: * Hospitalization/Major Diagno stic Procedure: * Medications: Objective: * Vitals: * Physical Examination: Assessment: * Assessment: 1. M icroscopic hematuria - R31.29 Plan: * Treatment: * Procedure Codes: * true * Date: Generated for Leno raines/Jonathan/Darlingitting on: 08:18 AM EDT
--- NOTE | 2025-02-23 08:14 | CT_ITS ---
FINAL REPORT TECHNIQUE: Axial CT of the abdomen and pelvis, without and with IV contrast. This study was performed with techniques to keep radiation doses as low as reasonably achievable, (ALARA). Individualized dose reduction techniques using automated exposure control or adjustment of mA and/or kV according to the patient''s size were employed. CLINICAL HISTORY: MICROSCOPIC HEMATURIA COMPARISON: 08/18/2022 and 08/10/2022 FINDINGS: Abdomen: Lung bases are clear. There is a 20mm hyper density in the anterior liver evident during portal venous phase enhancement only. This is favored to be due to perfusion anomaly but abnormality was not evident on prior exams. The spleen, pancreas and adrenal glands are unremarkable. The gallbladder was normal. There is abdominal aortic ectasia. 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 Stented celiac artery is patent. There is a small lower pole right renal cyst. There is mild fecal impaction of colon. Pelvis: The appendix is normal. There is mild wall thickening of the mid sigmoid colon without surrounding inflammation. This would be best assessed by colonoscopy. There is a small left inguinal hernia. The bladder and prostate are unremarkable. No fluid collection or adenopathy is seen. IMPRESSION: No bowel obstruction or acute inflammatory changes. Focal wall thickening mid sigmoid colon. Recommend colonoscopy for further investigation. 2 cm abnormal enhancement of the liver, favor perfusion anomaly but continued CT follow-up is recommended in 3 months. Reviewed, Interpreted and Dictated by Eryn Diana MD Transcribed by Mali Villegas Authenticated and [facility]
--- OUTSIDE RECORDS SUMMARY | 2025-02-23 08:17 | XMS_ITS | Patient Health Record ---
Author Organization [facility] Address [address] [place] [id number] Care Team Providers Care Wire Galvanizer Name Role Phone Soledad Bassett Unavailable [phone] Allergies Allergen (clinical drug ingredient) Drug/Non Drug Allergy documented on EMR Reaction Allergy Type Onset Date Status Jefferson itching Drug Allergy Active codeine Codeine rash [...] Notes Problem History of polyp of colon (380139538) Personal history of colon polyps (Z86.010) Active confirmed Problem Constipation (93289741) Constipation (K59.00) Active confirmed Plan Of Treatment Pending Test Test Name Order Date EGD with Biopsy if Indicated (99969) 04/2022 Colonoscopy Screening/Surveillance at [facility] (00374, G0121, G0105) 09/13/2021 Insurance Providers Payer Name Payer Address Payer Phone Subscriber Number Group Number Insured Name Patient Relationship to Insured Coverage Start Date Coverage End Date [employer] KATHY PPO [id number] [address] [address] [place] [address] [id number] Karla Michaud Self - patient is the insured 1 Medical (General) History Medical History History ICD Code Carotid stenosis I65.29 COPD (chronic obstructive pulmonary dise ase) J44.9 Constipation K59.01 GIB (gastrointestinal bleeding) K92.2 Surgical History Surgery Date(Month/Year) EGD 04/2020 EGD 01/2019
--- OUTSIDE RECORDS SUMMARY | 2025-02-23 08:18 | XMS_ITS | Encounter Summary ---
Author Organization Healthcare Address [address] [place] [address] Care Team Providers Care Manager Aviation Name Role Phone Oly Vance GODWIN Primary Care Provider [phone] Kimo Craft MD Unavailable [phone] Reason for Visit * Reason Comments Med Refill Encounter Details Date Type Department Care Team (Late st Contact Info) Description 08/24/2023 Refill [facility] [address], [address] [place] [address] Brijesh Fan PA [address] [place] [address] Social History Tobacco Use Types [...] drink first t demarcus in the morning (EYE-LANDFILL ATTENDANT) to steady your nerves or to get [...] documented as of this encounter Care Teams Manager Aviation Relationship Specialty Start Date End Date Oly Vance APRN [facility] [place] [address] PCP - General 08/03/22 Kimo Craft MD [facility] [place] [address] Referring Physician Cardiology 08/27/22 documented as of this encounter
--- OUTSIDE RECORDS SUMMARY | 2025-02-23 08:18 | XMS_ITS | Patient Health Record ---
Author Organization [facility] Address [address] [place], [place] [id number] Care Team Providers Care Admitting Office Escort Name Role Phone Lynne Bo Primary Care Provider UnavailKeysha Thomas Unavailable [phone] Gregory Hernandez M.D. Unaeleni lable Allergies Allergen [...] End Date Status Fish Oil 1000 MG Capsule 1 capsule Orall y Once a day; Duration: 30 day(s) Active Furosemide 40 MG Tablet 1 tablet Orally Once a day; Duration: 30 day(s) Active Multivitamin Adults - Tablet as directed Orally Active Vitamin C 500 MG Capsule as directed Orally Active Vitamin B Complex - Tablet as directed Orally Active Lyrica 300 MG Capsule 1 capsule in the e vening 1 to 3 hours before bedtime Orally Once a day Active ZyrTEC Allergy 10 MG Tablet 1 tablet Ora lly Once a day; Duration: 30 day(s) Active Social History Tobacco Use: Social History Observation Description Date Details (start date - stop date) Current Smoker NA - NA Social History Tobacco Use: Social Info Question Answer Notes Tobacco Use/Smoking Are you a current smoker Problems Problem Type SNOMED Code ICD Code Onset Dates Problem Status W/U Status Risk Notes Problem Chronic pain syndrome (195007385) Chronic pain syndrome (G89.4) Active confirmed Problem Displacement of cervical intervertebral disc without myelopathy (38416966) Other cervical disc displacement at C4-C5 level (M50.221) Active confirmed Problem Displacement of cervical intervertebral disc without myelopathy (85813193) Other cervical disc displacement at C5-C6 level (M50.222) Active confirmed Problem Displacement of cervical intervertebral disc without myelopathy (15333170) Other cervical disc displacement at C6-C7 level (M50.223) Active confirmed Plan Of Treatment No Information Insurance Providers Payer Name Payer Address Payer Phone Subscriber Number Group Number Insured Name Patient Relationship to Insured Coverage Start Date Coverage End Date [employer] [address] [place] [address] [id number] Karla Michaud Self - patient is the insured 1 Medical (General) History Medical History History ICD Code Carpal Tunnel Surgical History Surgery Date(Month/Year) carotid artery 08/2016 Hospitalization History Reason Date(Month/Year) Bleeding Ulcers 02/2020
--- OUTSIDE RECORDS SUMMARY | 2025-02-23 08:18 | XMS_ITS | Clinical Summary ---
Author Organization Healthcare Address [address] [id number] Care Team Providers Care Child Care Supervisor Name Role Phone Oly Vance GODWIN Primary Care Provider [phone] Kimo Craft MD Unavailable [phone] Allergies Active Allergy Reactions Criticality Noted Date [...] drink first t demarcus in the morning (EYE-HVAC COMMERCIAL SALESPERSON) to steady your nerves or to get [...] Wellness (AWV) 1960 [facility]-/Child/Adol SDOH Screenings 1960 [id number] Vaccine (#1) 1964 [facility]- SDOH Screenings 1977 [...] Patient has decision-making capacity? Yes Care Teams Child Care Supervisor Relationship Specialty Start Date End Date Oly Vance APRN [address] [facility] [address] [place] [address] PCP - General 08/03/22 Kimo Craft MD [address] [facility] [address] [place] [address] Referring Physician Cardiology 08/27/22
--- OUTSIDE RECORDS SUMMARY | 2025-02-23 08:18 | XMS_ITS | Clinical Summary ---
Author Organization [facility] Address [address] [id number] Care Team Providers Care Ash Collector Name Role Phone Oly Vance APRN Primary Care Provider [phone] Social History Tobacco Use Types Packs/Day Years [...] 12/03/2024 COVID-19 Vaccine (2023- season) 2025 Insurance [facility] MEDICARE ADVANTAGE Care Teams Ash Collector Relationship Specialty Start Date End Date Oly Vance APRN [address] [facility] [address] [place] [address] PCP - General Nurse Practitioner 01/03/22
--- OUTSIDE RECORDS SUMMARY | 2025-02-23 08:18 | XMS_ITS | Patient Health Record ---
Author Organization [facility] Address [address] [address] Care Team Providers Care Ssis Architect Name Role Phone Lynne Bo Primary Care [...] Status Risk Notes Problem Carpal tunnel syndrome (10629843) --Carpal Tunnel Syndrome [U/B]- (G56.03) Active confirmed Refer to hand surgeon Problem Paresthesia (finding) (50217087) Paresthesia of skin (R20.2) Active confirmed Problem [...] Coverage End Date [employer] Master [address] [address] [place], [place] [id number] Karla Michaud Self - patient is the insured Medical (General) History Medical History History ICD Code HIGH BLOOD PRESSURE/CHOLESTEROL SEIZURES PERIPHERAL VASCULAR DISEASE LUNG DISEASE Surgical History Surgery Date(Month/Year)
--- OUTSIDE RECORDS SUMMARY | 2025-02-23 08:18 | XMS_ITS | Patient Health Record ---
Author Organization [facility] JAIME Address [address] [place] [address] Care Team Providers Care Publicity Manager Name Role Phone Oly Dutta Primary Care Provider OLY Dutta APRN Unavailable Unavailable Sung Drake Unavailable [phone] Shaina Escalante Unavailable [phone] Migration, Provider Unavailable Unavailable Allergies Allergen (clinical drug ingredient) Drug/Non Drug Allergy documented on EMR Reaction Allergy Type Onset Date Status FLEXERIL (uncoded) hives Allergy A ctive Substance with 0-agaqfqm-3-methylgluta ryl-coenzyme A reductase inhibitor mechanism of action (substance) Statins Unknown Drug Allergy Active codeine Codeine itching Drug Allergy Active Results Component Value Reference Range Notes Urinalysis Reviewed date:02/14/2025 01:57:40 PM Interpretation: Performing Lab: Notes/Report: Color/Clarity lt yellow Leuk neg Nitrite neg Urobili 0.2 Protein 100mg pH 6.5 Blood trace-intact Sp. Gr. 1.020 Ketone neg Bili neg Glucose neg THYROID PANEL WITH TSH (7444 ) Reviewed date:02/02/2025 09:06:22 AM Interpretation: Performing Lab:CB, [facility] [address] Velasquez[address] Devon Magaña Notes/Report: NON-FASTING; NON-FASTING; NON-FASTING; NON-FASTING; NON-FAST T3 UPTAKE 34 22-35 % T4 (THYROXINE), TOTAL 6.0 4.9-10.5 mcg/dL FREE T4 INDEX (T7) 2.0 1.4-3.8 TSH 2.65 0.40-4.50 mIU/L LIPID PANEL, STANDARD (7600) Reviewed date:02/02/2025 09:06:22 AM Interpretation: Performing Lab:[facility] Guerreroe[address] [facility], [place] VomxTQ[address] Devon Magaña Notes/Report: NON-FASTING; NON-FASTING; NON-FASTING; NON-FASTING; [...] LDL-C. Mukul SS et al. VANCE. 2013;310(19): 5118-1669 (http://education.Wanelo/faq/CLN694) CHOL/HDLC RATIO 10.1 <5.0 (calc) NON HDL CHOLESTEROL 210 <130 mg/dL (calc) For patients with diabetes plus 1 major ASCVD risk factor, treating to a non-HDL-C goal of <100 mg/dL (LDL-C of <70 mg/dL) is considered a therapeutic option. COMPREHENSIVE METABOLIC PANE L (50162) Reviewed date:02/02/2025 09:06:22 AM Interpretation: Performing Lab:[facility]ism[facility] Guerreroe[address] [facility]alt[facility], [facility] CenterBlcmHM[address] Devon Magaña Notes/Report: NON-FASTING; NON-FASTING; NON-FASTING; NON-FASTING; [...] (622) Reviewed date:02/02/2025 09:06:22 AM Interpretation: Performing Lab:[facility]-mgMEDIAe1355 [employer], MeriTaleemIlasCG[address] Devon Magaña Notes/Report: NON-FASTING; NON-FASTING; NON-FASTING; NON-FASTING; NON-FAST MAGNESIUM 2.0 1.5-2.5 mg/dL CBC (INCLUDES DIFF/PLT) (639 9) Reviewed date:02/02/2025 09:06:22 AM Interpretation: Performing Lab:[facility]-mgMEDIAe13[address], MeriTaleemPkpdJJ[address] Devon Magaña Notes/Report: NON-FASTING; NON-FASTING; NON-FASTING; NON-FASTING; [...] MPV 9.7 7.5-12.5 fL ABSOLUTE NEUTROPHILS 4505 1321-2686 cells/uL ABSOLUTE LYMPHOCYTES 2387 850-3900 cells/uL ABSOLUTE MONOCYTES 554 200-950 cells/uL ABSOLUTE EOSINOPHILS 208 15-500 cells/uL ABSOLUTE BASOPHILS 46 0-200 cells/uL NEUTROPHILS 58.5 LYMPHOCYTES 31.0 MONOCYTES 7.2 EOSINOPHILS 2.7 BASOPHILS 0.6 HEMOGLOBIN A1c (496) Reviewed date:02/02/2025 09:06:22 AM Interpretation: Performing Lab:[facility]-mgMEDIAe1355 [address], [employer] YrlcWF[address] Devon Magaña Notes/Report: NON-FASTING; NON-FASTING; NON-FASTING; NON-FASTING; [...] Reviewed date:02/02/2025 09:06:23 AM Interpretation: Performing Lab:[facility]-mgMEDIAe[address], NetConstatGjgxCY[address] Devon Magaña Notes/Report: NON-FASTING; NON-FASTING; NON-FASTING; NON-FASTING; NON-FAST FERRITIN 36 24-380 ng/mL HEMOGLOBIN A1c (496) Reviewed date:04/20/2024 03:38:14 PM Interpretation: Performing Lab:[facility]-mgMEDIAe[address], mgMEDIAUrlpCI[address] Devon Magaña Notes/Report: NON-FASTING; NON-FASTING; NON-FASTING HEMOGLOBIN [...] A1c for diagnosis of diabetes for children. COMPREHENSIVE METABOLIC PANE L (84598) Reviewed date:04/20/2024 03:38:14 PM Interpretation: Performing Lab:[facility] [id number] [place], MeriTaleemGhcaTE[address] Devon Magaña Notes/Report: NON-FASTING; NON-FASTING; NON-FASTING GLUCOSE [...] 22 10-35 U/L ALT 16 9-46 U/L LIPID PANEL, STANDARD (6990) Reviewed date:04/20/2024 03:38:14 PM Interpretation: Performing Lab:[facility] [id number] [place], MeriTaleemKjwrLQ[address] Devon Magaña Notes/Report: NON-FASTING; NON-FASTING; NON-FASTING CHOLESTEROL, TOTAL 116 <200 mg/dL HDL CHOLESTEROL 27 > OR = 40 mg/dL TRIGLYCERIDES 276 <150 mg/dL If a non-fasting specimen was collected, consider repeat triglyceride testing on a fasting specimen if clinically indicated. Posada et al. J. of Clin. Lipidol. 2015;9:129-169. LDL-CHOLESTEROL 57 Reference range: <100 Desirable range <100 mg/dL for primary prevention; <70 mg/dL for patients with CHD or diabetic patients with > or = 2 CHD risk factors. LDL-C is now calculated using the Georgiana calculation, which is a validated novel method providing better accuracy than the Friedewald equation in the estimation of LDL-C. Mukul GARCÍA et al. VANCE. 2013;310(07): 9674-6658 (http://ThirdSpaceLearning.Wanelo/faq/UHF611) CHOL/HDLC RATIO 4.3 <5.0 (calc) NON HDL CHOLESTEROL 89 <130 mg/dL (calc) For patients with diabetes plus 1 major ASCVD risk factor, treating to a non-HDL-C goal of <100 mg/dL (LDL-C of <70 mg/dL) is considered a therapeutic option. M-BUN & Creatinine Reviewed date:02/15/2025 03:51:27 PM Interpretation: Performing Lab: Notes/Report: BUN 20 9-20 mg/dl CREATT 1.40 0.66-1.25 mg/dl GFRAA 62 >60 ML/MIN EGFR 51 >60 ml/min MRI : Cervical Spine Reviewed date:05/10/2024 01:14:11 PM Interpretation: Performing Lab: Notes/Report: CT Scan : Maxillofacial Reviewed date:08/12/2024 04:13:50 PM Interpretation: Performing Lab: Notes/Report: CTA : Upper Extremity Reviewed date:09/14/2024 03:15:50 PM Interpretation: Performing Lab: Notes/Report: CTA : Chest Reviewed date:09/10/2024 04:06:59 PM Interpretation: Performing Lab: Notes/Report: Rapid Covid/Flu A-B Combo Reviewed date:06/24/2024 01:36:48 PM Interpretation: Performing Lab: Notes/Report: Rapid Covid neg Flu A neg Flu B neg Reason For Referral Reason h pt and ot for ne ck pain Diagnosis 1 Cervicalgia (M54.2) Referral Organization [facility] Referring Provider First Name Sung Referring Provider Last Name Vidal Referring Provider Speciality Internal M edicine Referred Organization [facility] Referred Address [address],[place],[address],[place] Referred Provider Specialty Physical Med icine and Rehabilitation General Notes Luz Cristobal 2023 04:07:02 PM >Orders sent to [facility] Rehab Referral Priority Routine Reason Overdue for colonosc opy screening set up with Dr. Rosario or liat Zayas Diagnosis 1 Routine medical exam (Z00.00) Referral Organization [facility] Referring Provider First Name Sung Referring Provider Last Name Vidal Referring Provider Speciality Internal M edicine Referred Organization [facility] Referred Address [address] [facility] [address] [place],[address],[place] Referred Provider Specialty General Surg jasper General Notes Luz Cristobal 2023 10:21:05 AM >Patient notified Referral Priority Routine Referral Appointment Date 05/25/2024 Reason MRI of C-spine at [facility] Diagnosis 1 Left cervical radicu lopathy (M54.12) Referral Organization [facility]IME Referring Provider First Name Sung Referring Provider Last Name Vidal Referring Provider Speciality Internal M edicine Referred Organization [facility] Referred Address [address] [facility] [address] [place] Referred Provider Specialty Diagnostic R adiology General Notes [id number] Authorized , Approval Valid Through: 04/20/2024 - 07/18/2024 Referral Priority Routine Referral Appointment Date 05/07/[address] sca n at [facility], no contrast Diagnosis 1 Chronic maxillary si nusitis (J32.0) Referral Organization [facility] Referring Provider First Name Sung Referring Provider Last Name Vidal Referring Provider Speciality Internal M edicine Referred Organization [facility] Referred Address [address] [facility] [address] [place] Referred Provider Specialty Diagnostic R adiology General Notes Luz Cristobal 2024 10:54:54 AM >approved and sent to [facility] to schedule Referral Priority Routine Referral Appointment Date 08/10/2024 Reason ENT- obstruction of sinuses seen on CT scan Referral Organization [facility] Referring Provider First Name Sung Referring Provider Last Name Vidal Referring Provider Speciality Internal M edicine Referred Organization [facility] Referred Address [address] [facility] [address] [place],[address], Referred Provider Specialty Otology, Lar yngology, Rhinology General Notes Luz Cristobal 2024 06:41:15 PM >sent to ENT Referral Priority Routine Reason Needs CTA of chest a nd upper extremities Diagnosis 1 Chronic cough (R05.3 ) Referral Organization [facility] JAIME Referring Provider First Name Sung Referring Provider Last Name Vidal Referring Provider Speciality Internal M edicine Referred Organization [facility] Referred Address [address] [facility] [address] [facility] [place],[address],[place] Referred Provider Specialty Diagnostic R adiology General Notes Luz Cristobal 2024 04:42:24 PM >CTA Upper is approved, Luz Cristobal 08/25/2024 04:42:34 PM >CTA Chest is pending, Luz Cristobal 08/26/2024 12:09:27 PM >All CTA's approved- sending to [facility] to schedule Referral Priority Routine Reason Please reschedule co lonoscopy at [facility] Diagnosis 1 Adenomatous polyp of colon, unspecified part of colon (D12.6) Referral Organization [facility] JAIME Referring Provider First Name Sung Referring Provider Last Name Vidal Referring Provider Speciality Internal M edicine General Notes Luz Cristobal 2024 03:44:11 PM >Rescheduled with Dr. Rosario Referral Priority Routine Reason CT abd/pelvis with a nd without contrast Diagnosis 1 Microscopic hematuri a (R31.29) Referral Organization [facility] JENNIFFER Referring Provider First Name Shaina Referring Provider Last Name Ava Referring Provider Speciality [facility] Referred Organization [facility] Referred Address [address] [facility] [address] [facility] [place],[address], Referred Provider Specialty Diagnostic R adiology General Notes Luz Cristobal 2024 10:39:01 AM >sent to [facility] Referral Priority Routine Medications Medication SIG (Take, Route, Frequency, Duration) Notes Start Date End Date Status ALBUTEROL (EQV-PROAIR HFA) 9 0 MCG/INH 2 PUFF(S) INHALED EVERY 6 HOURS PRN; Duration: 90 DAYS 03/25/2023 Active Bisoprolol Fumarate 10 MG 1 tab(s) orall y twice a day; Duration: 90 days Active B-12 1000 MCG 1 tab(s) orally once a day Active Linzess 145 MCG Take 1 capsule by mouth once daily for 90 days; Duration: 90 Active Centrum Men - 1 tab(s) orally once a day Active traZODone HCl 100 MG 1 tab orally once a day at bedtime; Duration: 30 days Active rOPINIRole HCl 1 MG 1 tab in the morning and 2 tabs at night orally twice a day; Duration: 90 days Active Vitamin C 500 MG 1 tab(s) orally once a day Active hydroCHLOROthiazide 25 MG 1 tab(s) orall y once a day; Duration: 30 days Active Methocarbamol 1000 MG 1 tablet Orally Fo ur times a day Active Vascepa 1 GM 2 cap(s) orally 2 times a day Active Fluticasone Propionate 50 MCG/ACT 1 spray(s) in each nostril 2 times a day; Duration: 30 days 07/19/2024 Active Omeprazole 40 MG 1 cap(s) orally once a day; Duration: 90 days Active Stiolto Respimat 2.5 MCG-2.5 MCG/INH INHALE 2 PUFFS BY MOUTH ONCE DAILY; Duration: 90 Active Gabapentin 300 MG 1 cap(s) orally at bedtime; Duration: 90 days 06/12/2024 Active Immunizations Vaccine Route Administration Date Status Comme nts Prevnar PCV-20 (Pneumococcal conjugate 20) IM Intramuscular 04/19/2024 Administered Fluzone High Dose IM Intramuscular 01/31/2025 Administered FLUZONE 6MO - OLDER IM Intramuscular [...] W/U Status Risk Notes Problem Mixed hyperlipidemia (354373260) Mixed hyperlipidemia (E78.2) Active confirmed Problem Tobacco user (025559248) Nicotine dependence, unspecified, uncomplicated (F17.200) Active confirmed Problem Tobacco user (114221325) Nicotine dependence, cigarettes, uncomplicated (F17.210) Active confirmed Problem Primary insomnia (2168089) Primary insomnia (F51.01) Active confirmed Problem Stricture of artery (96760039) Stricture of artery (I77.1) Active confirmed Problem Chronic maxillary sinusitis (92380381) Chronic maxillary sinusitis (J32.0) Active confirmed Problem Chronic pansinusitis (03650060) Chronic pansinusitis (J32.4) Active confirmed Problem Chronic vascular insufficiency of intestine (459500811) Chronic vascular disorders of intestine (K55.1) Active confirmed Problem Cervicalgia (12111173) Cervicalgia (M54.2) Active confirmed Problem Long-term current use of antithrombotic (938868211839815) prison (current) use of antithrombotics/an tiplatelets (Z79.02) Active confirmed Problem Chronic obstructive pulmonary disease (08676696) Asthma exacerbation in COPD (J44.9) Active confirmed Problem Essential hypertension (06790941) Essential hypertension (I10) Active confirmed Problem Hypertensive disorder (07869553) Chronic hypertension (I10) Active confirmed Problem Acute exacerbation of chronic obstructive airways disease (695348506) COPD exacerbation (J44.1) Active confirmed Problem Restless legs (80098635) RLS (restless legs syndrome) (G25.81) Active confirmed Problem Gastritis (5727887) Gastritis (K29.70) Active c onfirmed Problem Hyperlipidemia (53450864) Hyperlipidemia, unspecified (E78.5) Active confirmed Problem 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, 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) Active confirmed Problem Atherosclerotic heart disease of white earth coronary artery without angina pectoris (288883019960880) Coronary artery disease involving white earth coronary artery of white earth heart without angina pectoris (I25.10) Active confirmed Problem COPD - Chronic obstructive pulmonary disease (93105031) Chronic obstructive pulmonary disease, unspecified COPD type (J44.9) Active confirmed Problem Claudication (78189245) Claudication (I73.9) Active confirmed Problem Chronic insomnia (443319218) Chronic insomnia (F51.04) Active confirmed Problem Peripheral vascular disease (440519641) PAD (peripheral artery disease) (I73.9) Active confirmed Problem Sciatica (68402585) Left sided sciatica (M54.32) Active confirmed Problem Acute non-ST segment elevation myocardial infarction (843441556) Acute myocardial infarction, subendocardial infarction (I21.4) Active confirmed Problem Atherosclerosis of both carotid arteries (372891456912714) Atherosclerosis of both carotid arteries (I65.23) Active confirmed Problem Atrial fibrillation (00394946) New onset atrial fibrillation (I48.91) Active confirmed Problem Cervical radiculopathy (62216322) Cervical radiculopathy (M54.12) Active confirmed Problem Duodenal ulcer with hemorrhage (34147468) Duodenal ulcer hemorrhage (K26.4) Active confirmed Problem Duodenal ulcer with hemorrhage (94250716) Duodenal ulcer with hemorrhage (K26.4) Active confirmed Problem Occlusion and stenosis of multiple and bilateral cerebral arteries (158715813) Bilateral carotid artery stenosis (I65.23) Active confirmed Problem Gastroduodenitis (540852573) Gastritis without bleeding (K29.70) Active confirmed Problem Tobacco use (326869855) Tobacco use disorder (F17.200) Active confirmed Problem Duodenitis (05028187) Duodenitis (K29.80) Active confirmed Problem Essential hypertension (93049723) Accelerated hypertension (I10) Active confirmed Problem Chronic obstructive pulmonary disease (39125207) Advanced COPD (J44.9) Active confirmed Problem Stress (65755998) Stress (F43.9) Active confirm ed Problem 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) Active confirmed Problem Stricture of artery (68028797) Subclavian artery stenosis, left (I77.1) Active confirmed Vital Signs Heart Rate 60 /min 02/14/2025 Temperature 97.6 degrees Fahrenheit 02/14/2025 Oximetry 93 09/13/2024 Blood pressure diastolic 72 mm Hg 02/14/2025 Height 6 ft in 02/14/2025 Blood pressure systolic 160 mm Hg 02/14/2025 Weight 168.2 lbs 02/14/2025 BMI 22.81 kg/m2 02/14/2025 Encounters Encounter Location Date Provider Diagnosis [facility] [address] [place] [address] 08/07/2024 Provider Migration Primary insomnia F51.01 and Chronic maxillary sinusitis J32.0 [facility] [address] [facility] [address] [place], [place] [address] 03/01/2024 Sung Drake Acute bronchitis due to other specified organisms J20.8 [facility] [address] [facility] [place], [place] [address] 03/24/2024 Sung Drake COPD with acute exacerbation J44.1 ; Chronic obstructive pulmonary disease, unspecified COPD type J44.9 ; Cervicalgia M54.2 and Routine medical exam Z00.00 [facility] [address] [facility] [place], [place] [address] 04/19/2024 Sung Drake Essential hypertensi on I10 ; Mixed hyperlipidemia E78.2 ; Left cervical radiculopathy M54.12 and Encounter for immunization Z23 [facility] [address] [place], [place] [address] 05/26/2024 Sung Drake Essential hypertensi on I10 ; Cervical radiculopathy M54.12 and Prediabetes R73.03 [facility] [address] [place] [address] 06/24/2024 Shaina Escalante Fever in adult R50.9 ; Acute non-recurrent maxillary sinusitis J01.00 ; COPD exacerbation J44.1 and Nausea R11.0 [facility] [address] [place] [address] 07/19/2024 Shaina Escalante Acute non-recurrent maxillary sinusitis J01.00 ; Insect bite (nonvenomous) of abdominal wall, initial encounter S30.861A and Bitten or stung by nonvenomous insect and other nonvenomous arthropods, initial encounter W57.XXXA [facility] [address] [facility] [place], [place] [address] 07/28/2024 Sung Drake Chronic maxillary sinusitis J32.0 and Acute non-recurrent maxillary sinusitis J01.00 [facility] [address] [place], [place] [address] 08/25/2024 Sung Drake Chronic maxillary sinusitis J32.0 ; Left arm weakness R29.898 and Chronic cough R05.3 [facility] [address] [facility] [address] [place] [address] 09/13/2024 Sung Drake Acute bronchopneumon ia J18.0 [facility] [address] [facility] [address] [place], [place] [address] 09/24/2024 Shaina Escalante Chronic pneumonia J1 8.9 and Chronic pansinusitis J32.4 [facility] JENNIFFER [address] [address] 10/07/2024 Sung Drake Chronic obstructive pulmonary disease, unspecified COPD type J44.9 and COPD exacerbation J44.1 [facility] [address] [facility] [address] [place] [address] 10/27/2024 Sung Drake Chronic obstructive pulmonary disease, unspecified COPD type J44.9 [facility] [address] [place] [address] 01/31/2025 Sung Drake Immunization(s) administered Z23 ; Essential hypertension I10 ; Mixed hyperlipidemia E78.2 ; PAD (peripheral artery disease) I73.9 ; Chronic obstructive pulmonary disease, unspecified COPD type J44.9 ; RLS (restless legs syndrome) G25.81 ; Nicotine dependence, cigarettes, uncomplicated F17.210 ; Coronary artery disease involving white earth coronary artery of white earth heart without angina pectoris I25.10 ; Prediabetes R73.03 and Adenomatous polyp of colon, unspecified part of colon D12.6 [facility] [address] [facility] [address] [place], [place] [address] 02/14/2025 Shaina Escalante Dysuria R30.0 ; Microscopic hematuria R31.29 ; Other low back pain M54.59 and Reducible umbilical hernia K42.9 [facility] [address] [facility] [address] [place], [place] [address] 03/24/2024 Oly McNees Cervicalgia M54.2 [facility] [address] [place] [address] 07/13/2024 Shaina Ava Acute non-recurrent maxillary sinusitis J01.00 [facility] [place] [address] [facility] [address] [place] [address] 07/19/2024 Shaina Escalante [facility] [place] [address] [facility] [address] [place] [address] 02/01/2025 Sung Drake [facility] [address] [place], [place] [address] 02/14/2025 Shaina Escalante Microscopic hematuri a R31.29 Assessments Encounter Date Diagnosis (ICD Code) Assessment Notes Treatment Notes Treatment Clinical Notes Section Notes 03/01/2024 Acute bronchitis due to other specified [...] this helped his wheezing and sputum production 04/19/2024 Mixed hyperlipidemia (ICD-10 - E78.2) Check lipid profile. I will review the labs personally 04/19/2024 Essential hypertension (ICD-10 - I10) Blood pressures not at goal, titrate up to losartan 100/HCTZ 25. Follow-up 2 months to recheck 06/24/2024 Acute non-recurrent maxillary sinusitis (ICD-10 - [...] 08/07/2024 Chronic maxillary sinusitis (ICD-10 - J32.0) 09/13/2024 Acute bronchopneumonia (ICD-10 - J18.0) CT scan that I did a couple of weeks ago because of arm numbness and tingling showed no evidence of upper lobe disease or tumor but did show chronic pneumonia in the left lower base. 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 We discussed smoking cessation once again. 01/31/2025 Essential hypertension (ICD-10 - I10) Pt blood pressure is well controlled, continue medications as prescribed 01/31/2025 Immunization(s) administered (ICD-10 - Z23) 02/14/2025 Dysuria (ICD-10 - R30.0) 02/14/2025 Microscopic hematuria (ICD-10 - R31.29) 05/26/2024 Essential hypertension (ICD-10 - I10) Chronic, improved control. Reports home readings consistently 130/70s. Not interested in changing medication doses at this time. Continue HCTZ-losartan 25-100mg. 05/26/2024 Cervical radiculopathy (ICD-10 - M54.12) MRI with disc protrusions at C5-6 & C6-7 and diffuse DDD (04/2024). Apt with neurosurgery next month. Continue PT in the meantime. 03/24/2024 Cervicalgia (ICD-10 - M54.2) 08/25/2024 Chronic maxillary sinusitis (ICD-10 - J32.0) Has referral with ENT, setting up appointment switch [facility] by [facility] 08/25/2024 Left arm weakness (ICD-10 - R29.898) 2 episodes of transient loss of function of left arm no sharp/shapr shooting pain, no numbness, tingling when arm waking up no chest pain, shortenss of breath, headache, lightheadedness, confusion cartoid arteries without bruit on exam, spurling's negative, adson's test negative, noraml ROM, strength, sensation CTA chest and LUE to evaluate for pancoast tumor 07/19/2024 Insect bite (nonvenomous) of abdominal wall, initial encounter (ICD-10 - S30.861A) cool compresses and topical hydrocortisone as needed for comfort, doxycycline should cover possible tic-borne illness 07/19/2024 Acute non-recurrent maxillary sinusitis (ICD-10 - J01.00) 02/14/2025 Microscopic hematuria (ICD-10 - R31.29) 07/19/2024 Bitten or stung by nonvenomous insect and other nonvenomous arthropods, initial encounter (ICD-10 - W57.XXXA) 08/25/2024 Chronic cough (ICD-10 - R05.3) 05/26/2024 Prediabetes (ICD-10 - R73.03) Most recent A1c 6.1%. Repeat at f/u. Provided lifestyle modifications. 02/14/2025 Other low back pain (ICD-10 - M54.59) 06/24/2024 COPD exacerbation (ICD-10 - J44.1) 04/19/2024 Left cervical radiculopathy (ICD-10 - M54.12) Given failed physical therapy and significant radiculopathy signs and exam findings will need MRI. This will be scheduled 01/31/2025 Mixed hyperlipidemia (ICD-10 - E78.2) I will get labs and review them personally - On high intensity statin, needs to be at LDL less than 70 given his peripheral and coronary disease 07/28/2024 Acute non-recurrent maxillary sinusitis (ICD-10 - J01.00) 03/24/2024 Cervicalgia (ICD-10 - M54.2) Stay on methocarbamol. No change in muscle relaxer. No pain medications given his somewhat checkered history of substance issues.PT/OT evaluation made 03/24/2024 Routine medical exam (ICD-10 - Z00.00) Up-to-date with vaccinations. Needs colonoscopy. This will be set up. Patient's missed appointments in the past. Up-to-date with low-dose CT scans. Has surrogate decision maker in place. No recent falls. Depression screening negative 04/19/2024 Encounter for immunization (ICD-10 - Z23) 06/24/2024 Nausea (ICD-10 - R11.0) 02/14/2025 Reducible umbilical hernia (ICD-10 - K42.9) can eval extent of hernia on imaging but small and asymptomatic on exam, recommend monitoring for now 01/31/2025 PAD (peripheral artery disease) (ICD-10 - [...] - F17.210) 01/31/2025 Coronary artery disease involving [place] coronary artery of [place] heart without angina pectoris (ICD-10 - I25.10) [...] will get this redone Plan Of Treatment Pending Test Test Name Order Date Ultrasound : Carotids 12/13/2021 CT Scan : Abdomen and Pelvis, with and w ithout contrast 02/14/2025 M-Vitamin B12 05/14/2022 M-Vitamin D 25 Hydroxy 05/14/2022 C-Reactive Protein (CRP) 07/02/2022 Physical Therapy Eval and Treat 03/24/20 24 Next Appt Details Provider Name:Sung Drake, 05/02/2025 02:15:00 PM, [address], [address], [place], [address], Insurance Providers Payer Name Payer Address Payer Phone Subscriber Number Group Number Insured Name Patient Relationship to Insured Coverage Start Date Coverage End Date [employer] [address] [place] [address] [id number] Karla Michaud Self - patient is the [...] heart stent 12/2023 Hospitalization History Reason Date(Month/Year) [facility]- AFib 11/2023 [facility]-hypertension 10/2023 triple bypass surgery 08/2022 [facility]- Cardiac stent x1 bleeding ulcers
--- OUTSIDE RECORDS SUMMARY | 2025-02-23 08:18 | XMS_ITS | Encounter Summary ---
Author Organization Healthcare Address [address] 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 DESIGNER) to steady your nerves or to get [...] at day 2 09/04/2022 11:10 AM EDT [facility] Swab (Nares and Iliana Rectal) 09/02/2022 9:00 AM EDT 09/02/2022 10:10 AM EDT Gilbert No MD LAB MICROBIOLOGY - GENERAL ORDERABLES Final Result [facility] [address] [place] [address] documented in this encounter Visit Diagnoses Diagnosis Encounter for general adult medical examination without abnormal findings documented in this encounter Care Teams Guard Range Relationship Specialty Start Date End Date Vance, Oly S, OUTDOOR EMERGENCY CARE TECHNICIAN [address] [place] [address] PCP - General 08/03/22 Kimo Craft MD [address] [place] [address] Referring Physician Cardiology 08/27/22 documented as of this encounter
[2025-02-23] MEDS: SODIUM CHLORIDE 0.9% 10ML SYR (RAD ONLY) 10 ML IV (08:46)
[2025-02-23] MEDS: IOPAMIDOL-370 (76%);100ML BOTTLE 75 ML IV (08:46)
== END 2025-02-23 23:59 | disposition home or self-care (01) ==
LOC: RAD 08:12
PROVIDERS: PCP Nurse Practitioner Family; Visit Provider Nurse Practitioner Family
DX: R93.3 Abnormal findings on diagnostic imaging of other parts of digestive tract (principal); R93.2 Abnormal findings on diagnostic imaging of liver and biliary tract; R31.29 Other microscopic hematuria
CPT/HCPCS: 74178; Q9967

== ENCOUNTER 2025-03-11 09:17 | Day surgery (SDC) | payer MEDICARE, SELFPAY ==
[2025-03-09 09:50] VITALS: BMI 21.7
[2025-03-11] MEDS: LACTATED RINGERS 1000ML 1,000 ML 50 ML IV (09:47)
[2025-03-11 09:56] VITALS: BP 151/71; PULSE 57; RESP 18; TEMP 36.4; O2SAT 96
--- NOTE | 2025-03-11 10:26 | P.PNANES_ITS ---
[facility] Disclaimer: The information contained in this section may have been updated after the patient was seen, as this information can be updated by other users. Medical History Pneumonia COPD mixed type Angina pectoris Elevated troponin Fatigue Daytime somnolence Snoring Chronic cough Bronchitis Asthma Sinus headache History of gastroesophageal reflux (GERD) Allergies History of anemia Smoking greater than 30 pack years Pleural effusion, left Dyspnea on exertion Dyspnea Pleural effusion HFrEF (heart failure with reduced ejection fraction) RLS (restless legs syndrome) Having increase in his RLS and was asking me for another medication option. Stenosis of carotid artery CAD in [place] artery Coronary artery calcification seen on CAT scan Hyperlipidemia PAD (peripheral artery disease) Asymptomatic at present. No further work-up at present. Smoker Advised to quit smoking Hypertension Surgical History History of surgery RIGHT ARM SURGERY History of hernia surgery S/P CABG x 3 S/P CABG x 3 S/P insertion of iliac artery stent Family History Other Family history of cancer Family history of myocardial infarction Family history of stroke Social History Smoking Status: Current every day smoker tobacco type: cigarettes packs per day: 1 pack-years: 50 years smoked: 50 quit status: has quit before alcohol intake: never substance use type: denies use current occupational status: other Travel in the last 8 weeks?: None caffeine: No physical activity: walking special hoa needs: No agree to transfusion: Yes Have you lived/traveled outside [place] in past 30 days?: No Contact w/someone who lives/traveled outside US past 30 days?: No Exposure to someone with infectious disease in past 14 days?: No Do you have a fever (greater than 100.4 F or 38 C)?: No Have you tested positive for COVID-19?: No Exposed to someone with COVID-19 in past 14 days?: No Do you have a sore throat?: No Do you have a cough?: No Do you have any weakness?: No Do you have any diarrhea?: No Are you experiencing any unusual bleeding?: No Do you have any muscle aches/pain?: No Do you have any abdominal pain?: No Are you experiencing loss of taste or smell?: No [facility] Anesthesia Checklist Patient Identification Patient Identification: Verbal (Name & ) Structural Data Admitted From: Home Planned Operative Procedure/s: colonoscopy Consent for Planned Operative Procedure(s) Verified: Yes Additional verifications Anesthesia Reactions: No Hx Blood Transfusions: Yes Blood Transfusion Reaction: No Airway Assessment Mallampati Score:: Class II C-Spine Mobility Assessed: Yes TMJ Mobility Assessed: Yes Dentition: Good Dentition Neurological Assessment Level of Consciousness: Awake, Alert and Appropriate Anesthesia Plan Anesthesia Risk discussed: Yes Anesthesia Plan: Verified ASA Class: II Anesthesia Type: MAC
--- NOTE | 2025-03-11 10:55 | EXP.GEN.HP ---
HPI HPI HPI: Patient is a 64-year-old male who presents for colonoscopy. I had previously seen him a couple of years ago at which time he had upper GI bleeding. He has a prior history of bleeding ulcers . He also has a history of COPD, chronic arterial occlusive disease, hypertension, coronary artery disease, mesenteric atherosclerosis with stenoses. He states that he has had several previous colonoscopies [id number] in [place] at which time he had GI bleeding workup. His last one he states was in 2019 and he had polyps removed. Recently he has had some low back pain and constipation. He had a CT scan performed which revealed focal wall thickening in the mid sigmoid colon and colonoscopy was recommended for investigation. There was also 2 cm abnormal enhancement of the liver which was felt to favor perfusion but continued follow-up CT is recommended in 3 months. [facility] Disclaimer: The information contained in this section may have been updated after the patient was seen, as this information can be updated by other users. Medical History Pneumonia COPD mixed type Angina pectoris Elevated troponin Fatigue Daytime somnolence Snoring Chronic cough Bronchitis Asthma Sinus headache History of gastroesophageal reflux (GERD) Allergies History of anemia Smoking greater than 30 pack years Pleural effusion, left Dyspnea on exertion Dyspnea Pleural effusion HFrEF (heart failure with reduced ejection fraction) RLS (restless legs syndrome) Having increase in his RLS and was asking me for another medication option. Stenosis of carotid artery CAD in [place] artery Coronary artery calcification seen on CAT scan Hyperlipidemia PAD (peripheral artery disease) Asymptomatic at present. No further work-up at present. Smoker Advised to quit smoking Hypertension Surgical History History of surgery RIGHT ARM SURGERY History of hernia surgery S/P CABG x 3 S/P CABG x 3 S/P insertion of iliac artery stent Family History Other Family history of cancer Family history of myocardial infarction Family history of stroke Social History Smoking Status: Current every day smoker tobacco type: cigarettes packs per day: 1 pack-years: 50 years smoked: 50 quit status: has quit before alcohol intake: never substance use type: denies use current occupational status: other Travel in the last 8 weeks?: None caffeine: No physical activity: walking special hoa needs: No agree to transfusion: Yes Other Medical History Have you received the Flu Vaccine for this season: Yes Have you received the Pneumonia Vaccine: Yes Meds Home Medications and Allergies Home Medications ?Medication ?Instructions ?Recorded ?Confirmed ?Type gabapentin 300 mg capsule 300 mg PO HS 12/06/23 03/11/25 History ropinirole 1 mg tablet 1 mg PO AM 12/06/23 03/11/25 History rosuvastatin 10 mg tablet 10 mg PO HS 12/06/23 03/11/25 History clopidogrel 75 mg tablet (Plavix) 75 mg PO DAILY #90 tabs 12/29/23 03/09/25 Rx tiotropium 2.5 mcg-olodaterol 2.5 2 puff inhalation DAILY 90 days #4 03/18/24 03/11/25 Rx mcg/actuation mist for inhalation grams (Stiolto Respimat) icosapent ethyl 1 gram capsule 2 g (2 x 1 gram) PO BID 90 days 05/24/24 03/11/25 Rx (Vascepa) #360 caps omeprazole 40 mg capsule,delayed 40 mg PO DAILY 09/07/24 03/11/25 History release trazodone 100 mg tablet 100 mg PO HS 09/07/24 03/11/25 History hydrochlorothiazide 25 mg tablet 25 mg PO DAILY #30 tabs 09/13/24 03/11/25 Rx ipratropium 0.5 mg-albuterol 3 mg 3 ml inhalation QID PRN shortness 09/14/24 03/11/25 Rx (2.5 mg base)/3 mL nebulization of breath or wheezing 90 days #90 soln mL bisoprolol fumarate 10 mg tablet 10 mg PO BID 30 days #60 tabs 10/06/24 03/11/25 Rx albuterol sulfate 90 mcg/actuation 2 inh inhalation QID PRN shortness 02/09/25 03/11/25 Rx aerosol inhaler of breath or wheezing 90 days #8.5 grams fluticasone propionate 110 1 puff inhalation BID 90 days #12 02/15/25 03/11/25 Rx mcg/actuation HFA aerosol inhaler grams linaclotide 145 mcg capsule 145 mcg PO DAILY 02/15/25 03/11/25 History (Linzess) methocarbamol 500 mg tablet 1,000 mg (2 x 500 mg) PO TID PRN 03/09/25 03/11/25 Rx muscle pain #540 tabs New Prescriptions to Start Prescriptions: Allergies Allergy/AdvReac Type Severity Reaction Status Date / Time lisinopril AdvReac Mild myalgia Verified 03/11/25 09:49 codeine AdvReac Hives Verified 03/11/25 09:49 cyclobenzaprine (From AdvReac Hives Verified 03/11/25 09:49 Flexeril) [id number] Reductase AdvReac Nausea Verified 03/11/25 09:49 Inhibitor Exam Data for Last 24 hours Vital signs and Labs for Last 24 Hours: Temp Pulse Resp BP Pulse Ox O2 Del Method 97.6 F 57 L 18 151/71 H 96 Room Air 03/11/25 09:56 03/11/25 09:56 03/11/25 09:56 03/11/25 09:56 03/11/25 09:56 03/11/25 09:56 I & O for Last 24 hours: Intake & Output 03/08/25 03/09/25 03/10/25 03/11/25 11:59 11:59 11:59 11:59 Weight 160 lb Constitutional Constitutional: no acute distress *Routine HEENT Exam Head: Present normocephalic Eye: Present EOMI and PERRL ENT: Present mucous membranes moist *Routine Neck Exam Neck: Present supple; Absent lymphadenopathy *Routine Respiratory Exam Respiratory: Present CTA bilaterally *Routine Cardiovascular Exam Cardiovascular: Present RRR *Routine Abdominal Exam Abdominal: Present soft and normoactive bowel sounds; Absent tenderness *Routine Rectal Exam Rectal:: deferred *Routine Genitalia Exam Genitalia:: deferred *Routine Extremities Exam Extremities: Absent cyanosis, clubbing or edema *Routine Skin Exam Skin: Present warm; Absent rash *Routine Neurological Exam Neurological: Present alert and oriented X3 Assessment and Plan *Assessment and plan (1) Abnormal CT scan: Status: Acute Category: Medical Code(s): R93.89 - Abnormal findings on diagnostic imaging of other specified body structures Plan Proceed with colonoscopy
--- NOTE | 2025-03-11 11:42 | P.PCN_ITS ---
Procedure: Date: 03/11/25 Patient Date of :: 1960 Procedure Performed:: Total colonoscopy to cecum with polypectomy using biopsy forceps Indications:: Patient is a 64-year-old male who presents for colonoscopy. I had previously seen him a couple of years ago at which time he had upper GI bleeding. He has a prior history of bleeding ulcers . He also has a history of COPD, chronic arterial occlusive disease, hypertension, coronary artery disease, mesenteric atherosclerosis with stenoses. He states that he has had several previous colonoscopies [id number] in [place] at which time he had GI bleeding workup. His last one he states was in 2019 and he had polyps removed. Recently he has had some low back pain and constipation. He had a CT scan performed which revealed focal wall thickening in the mid sigmoid colon and colonoscopy was recommended for investigation. There was also 2 cm abnormal enhancement of the liver which was felt to favor perfusion but continued follow-up CT is recom mended in 3 months. Performing Provider:: Arsenio Rosario MD Referring Provider:: Sung Drake MD Sedation:: MAC sedation Procedure:: Patient history was obtained and appropriate physical examination was performed. Patient's medications and allergies were reviewed. Informed consent was obtained after explaining the benefits, alternatives, and risks of the procedure including, but not limited to, bleeding, perforation, missed lesions, and adverse reaction to anesthesia medications. Patient was transported to endoscopy procedure room. Patient was connected to monitoring devices. Throughout the procedure the patient's blood pressure, pulse, and oxygen saturations were monitored continuously. Patient identification and planned procedure were verified by the staff. Patient was positioned in lateral decubitus position. Digital anorectal exam was performed. Variable stiffness Olympus colonoscope was inserted and advanced under direct visualization to the cecum. Adequacy of the colonic preparation was noted. The colonoscope was then slowly withdrawn while carefully examining the color, texture, anatomy, and integrity of the mucosoa circumferentially. Within the rectum retroflexion was performed. Colonoscope was then withdrawn. Impression: He had some degree of rare pandiverticulosis. Within the cecum there was what appeared to be a tiny diminutive early adenomatous polyp removed with biopsy forceps. Sigmoid colon appeared normal without mass lesion. In the rectosigmoid region there were numerous hyperplastic appearing polyps. These were sampled with biopsy forceps. . Findings:: Rare pandiverticulosis Likely early adenomatous cecal polyp Hyperplastic appearing rectosigmoid polyps Sigmoid colon without mass lesion Recommendations:: Follow-up colonoscopy pending pathology. Likely 5 years Complications:: None immediately apparent Estimated blood obtained (mL): 1 Colonoscopy Component Colonoscopy Component Was a colonoscopy performed during today's procedure?: Yes Recommended follow up colonoscopy of at least 10 years?: No If no, follow up colonoscopy recommended in ___ years?: See above Reason for not recommending >/= 10 yr follow-up interval?: See above
[2025-03-11 11:43] VITALS: BP 109/54; PULSE 49; RESP 16; TEMP 36.4; O2SAT 97
[2025-03-11 11:53] VITALS: BP 122/67; PULSE 54; RESP 18; O2SAT 96
[2025-03-11 12:03] VITALS: BP 167/80; PULSE 57; RESP 18; O2SAT 97
[2025-03-11 12:11] VITALS: BP 179/80; PULSE 52; RESP 16; O2SAT 97
== END 2025-03-11 12:15 | disposition home or self-care (01) ==
PROVIDERS: PCP Internal Medicine Adolescent Medicine; Visit Provider Surgery
PROC: 0DJD8ZZ Inspection of Lower Intestinal Tract, Via Natural or Artificial Opening Endoscopic (ICD-10-PCS; principal; 2025-03-11 10:30)
DX: D12.0 Benign neoplasm of cecum (principal); K57.30 Diverticulosis of large intestine without perforation or abscess without bleeding; I25.119 Atherosclerotic heart disease of native coronary artery with unspecified angina pectoris; J44.89 Other specified chronic obstructive pulmonary disease; I11.0 Hypertensive heart disease with heart failure; I50.20 Unspecified systolic (congestive) heart failure; K21.9 Gastro-esophageal reflux disease without esophagitis; E78.5 Hyperlipidemia, unspecified; I73.9 Peripheral vascular disease, unspecified; G25.81 Restless legs syndrome; F17.210 Nicotine dependence, cigarettes, uncomplicated; Z86.0100 Personal history of colon polyps, unspecified; Z95.5 Presence of coronary angioplasty implant and graft; Z88.5 Allergy status to narcotic agent; Z95.1 Presence of aortocoronary bypass graft; Z88.8 Allergy status to other drugs, medicaments and biological substances; Z79.02 Long term (current) use of antithrombotics/antiplatelets; Z79.51 Long term (current) use of inhaled steroids; Z79.899 Other long term (current) drug therapy; J44.9 Chronic obstructive pulmonary disease, unspecified
CPT/HCPCS: 45380; 88305; J2003; J2704; J7120